=== PATIENT | female | born 1965 | race Caucasian/White ===

== ENCOUNTER 2020-02-25 14:37 | Inpatient (IN) | payer OTHER, SELFPAY ==
[2020-02-25] VITALS (66 sets, daily range): BP systolic 84–160; BP diastolic 42–95; PULSE 72–152; RESP 12–56; TEMP 38.5–39.9; O2SAT 91–100
--- NOTE | ~2020-02-25 | XR_ITS ---
EXAMINATION: XR chest ET placement INDICATION: Endotracheal tube placement TECHNIQUE: Portable AP chest at 1749 hours COMPARISON: 1602 hours FINDINGS: An endotracheal tube has been inserted which ends approximately 7 cm above the shaila. Ther e is stable cardiomegaly. Diffuse interstitial and airspace opacities persist without significant ana nge. No pleural effusion or pneumothorax is identified. IMPRESSION: 1. Endotracheal tube approximately 7 cm above the shaila. 2. Unchanged diffuse lung disease, consistent with pulmonary edema and/or pneumonia and/or atelectasi s. 3. Stable cardiomegaly. Reviewed, dictated and finalized at location A. IMPRESSION: 1. Endotracheal tube approximately 7 cm above the shaila. 2. Unchanged diffuse lung disease, consistent with pulmonary edema and/or pneum onia and/or atelectasis. 3. Stable cardiomegaly.
--- NOTE | ~2020-02-25 | XR_ITS ---
EXAMINATION: XR chest 1V portable INDICATION: Pulmonary edema TECHNIQUE: Portable AP chest at 1249 hours COMPARISON: 02/29/2020 FINDINGS: The endotracheal tube ends approximately 4.2 cm above the shaila. The nasogastric tube is f ollowed as far as the stomach. Its tip is beyond the inferior margin of the radiograph. Diffuse inter stitial and airspace opacities persist with slight improvement in the mid and upper lung zones. There is stable cardiomegaly. Small pleural effusions are unchanged. There is no pneumothorax. IMPRESSION: 1. Diffuse lung disease with slight improvement in the mid and upper lung zones, consistent with atel ectasis and/or pneumonia and/or pulmonary edema. 2. Cardiomegaly. Reviewed, dictated and finalized at location B. IMPRESSION: 1. Diffuse lung disease with slight improvement in the mid and upper lung zones , consistent with atelectasis and/or pneumonia and/or pulmonary edema. 2. Cardiomegaly.
--- NOTE | ~2020-02-25 | XR_ITS ---
EXAMINATION: XR chest 1V portable EXAM DATE: 02/29/2020 06:05 INDICATION: Respiratory failure. TECHNIQUE: Portable AP frontal chest x-ray was obtained. Comparison is made to prior examination from 02/27. FINDINGS: The endotracheal is about 4 cm above the shaila, adequate. There is a nasogastric tube see n with tip collimated off the study, but below the left hemidiaphragm. There is bilateral diffuse indistinct reticulation and Ill-defined more confluent regions, likely pne umonia or edema. Probable small pleural effusions. There is no pneumothorax suspected. The cardiac silhouette is enlarged. There is pulmonary vascular congestion. The bones and soft tissues are unr emarkable. No interval change compared to 02/27 but mild progression compared to 02/26. IMPRESSION: 1. Tubes in position 2. Cardiomegaly, congestion and probable bilateral pulmonary edema and/or pneumonia. 3. Small pleural effusions. Reviewed, dictated and finalized at location A. IMPRESSION: 1. Tubes in position 2. Cardiomegaly, congestion and probable bilateral pulmonary edema and/or pneu monia. 3. Small pleural effusions.
--- NOTE | ~2020-02-25 | XR_ITS ---
EXAMINATION: XR chest 1V portable EXAM DATE: 02/28/2020 05:48 INDICATION: Respiratory failure. TECHNIQUE: Portable AP frontal chest x-ray was obtained. Comparison is made to prior examination from 02/27/2020. FINDINGS: The endotracheal is about 4 cm above the shaila, adequate. There is a nasogastric tube see n with tip collimated off the study, but below the left hemidiaphragm. There is bilateral diffuse indistinct reticulation suspicious for mild pulmonary edema. Ill-defined m ore confluent regions have developed, likely pneumonia or edema. Probable small pleural effusions. T here is no pneumothorax suspected. Cardiac silhouette is enlarged but stable in size compared to pr ior exam. There is pulmonary vascular congestion. The bones and soft tissues are unremarkable. IMPRESSION: 1. Tubes in position 2. Cardiomegaly, congestion and probable bilateral pulmonary edema and/or pneumonia. 3. Small pleural effusions. Reviewed, dictated and finalized at location A. IMPRESSION: 1. Tubes in position 2. Cardiomegaly, congestion and probable bilateral pulmonary edema and/or pneu monia. 3. Small pleural effusions.
--- NOTE | ~2020-02-25 | XR_ITS ---
EXAMINATION: XR tibia fibula LT 2V INDICATION: Swelling and wound to the left lower extremity TECHNIQUE: Two views of the left tibia and fibula are obtained on three radiographs. COMPARISON: None available FINDINGS: No fracture is identified. There is mild osteoarthritis of the knee and ankle. Soft tissue swelling is noted without focal abnormality. IMPRESSION: 1. Soft tissue swelling without focal abnormality or acute osseous findings. Reviewed, dictated and finalized at location A.
--- NOTE | ~2020-02-25 | XR_ITS ---
EXAMINATION: XR chest 1V portable EXAM DATE: 02/27/2020 06:07 INDICATION: Respiratory failure. TECHNIQUE: Portable AP frontal chest x-ray was obtained. Comparison is made to prior examination from 02/26/2020. FINDINGS: The endotracheal tube has been advanced, is about 4-5 cm above the shaila, adequate. There is a nasogastric tube seen with tip collimated off the study, but below the left hemidiaphragm. There is bilateral diffuse indistinct reticulation suspicious for mild pulmonary edema. Bibasilar air space disease probably atelectasis but pneumonia not excludable. There are no sizable pleural effusio ns. There is no pneumothorax suspected. The cardiac silhouette is enlarged. There is pulmonary v ascular congestion. The bones and soft tissues are unremarkable. Accounting for differences in tech nique, there is no significant interval change. IMPRESSION: 1. Tubes in position 2. Cardiomegaly, congestion and probable bilateral pulmonary edema. 3. Bibasilar atelectasis. Pneumonia not excludable. Reviewed, dictated and finalized at location A.
--- NOTE | ~2020-02-25 | XR_ITS ---
EXAMINATION: XR abdomen NG/feed tube insert EXAM DATE: 02/26/2020 00:43 INDICATION: Orogastric tube placement. TECHNIQUE: Frontal projection(s) of the abdomen for interpretation. Comparison is made to prior exami nation from 11/07/2008. FINDINGS: Feeding tube tip and side-port project over gastric bubble, adequate. There is nonobstruct sandra upper abdominal bowel gas pattern. Bibasilar infrahilar atelectasis. Pneumonia not excludable. Ca rdiomegaly. There are no osseous abnormalities identified. IMPRESSION: 1. Feeding tube position. 2. Nonobstructive bowel gas pattern. 3. Bibasilar atelectasis. Pneumonia not excludable. Reviewed, dictated and finalized at location A.
--- NOTE | ~2020-02-25 | XR_ITS ---
EXAMINATION: XR chest 1V portable EXAM DATE: 03/01/2020 06:16 INDICATION: Acute respiratory failure. TECHNIQUE: Portable AP frontal chest x-ray was obtained. Comparison is made to prior examination from 02/29/2020. FINDINGS: The endotracheal is about 3-4 cm above the shaila, adequate. There is a nasogastric tube se en with tip collimated off the study, but below the left hemidiaphragm. There is bilateral diffuse indistinct reticulation and Ill-defined more confluent regions, likely pneumonia or edema. Probable small pleural effusions. There is no pneumothorax suspected. The cardiac silhouette is enlarged. There is pulmonary vascular congestion. The bones and soft tissues are unremarkable. There is no significant interval change. IMPRESSION: 1. Tubes in position 2. Cardiomegaly, congestion and bilateral pulmonary edema and/or pneumonia. 3. Small pleural effusions. Reviewed, dictated and finalized at location A.
--- NOTE | ~2020-02-25 | CT_ITS ---
EXAMINATION: CT LE LT w con EXAM DATE: 03/02/2020 12:18 INDICATION: Left lower extremity swelling, infection. TECHNIQUE: Spiral CT LE LT w con was performed following intravenous injection of 100 mL Omnipaque 35 0. Axial, coronal and sagittal images were reviewed. The dose-length product (DLP) for this examina tion was 1817.30 mGy-cm. The exposure was tailored according to patient size (auto mA exposure contr ol), and iterative reconstruction (ASIR) was used as additional dose reduction technique. There is n o prior study for comparison. FINDINGS: There is some reactive left inguinal lymphadenopathy. Mild scattered left superficial femor al arterial sclerosis, some regions of mild to moderate narrowing. The veins are enhancing as expecte d, no evidence of superficial or deep venous thrombosis. There is no subcutaneous gas to suggest fasc iitis. There is swelling over the anterior aspect of the foot and lower leg without any focal drainab le abscess or fluid collection. There is small left knee joint effusion. There are no bony erosions i dentified. IMPRESSION: 1. No venous thrombosis, abscess or gas to suggest fasciitis. 2. Anterior soft tissue swelling. 3. Small left knee joint effusion. Reviewed, dictated and finalized at location A.
--- NOTE | ~2020-02-25 | XR_ITS ---
XR chest 1V portable 03/02/2020 05:51 Indication: PICC line insertion Procedure: AP portable chest Comparison: 03/01/2020 Findings: Endotracheal tube 5.4 cm above the shaila. NG tube in the proximal aspect of the esophagus. No PICC line identified. Cardiomegaly with interstitial edema. Small right pleural effusion. No pneu mothorax. Impression: 1: No PICC line identified. 2: NG tube in the proximal esophagus. Recommend advancement. 3: Cardiomegaly with interstitial edema. 4: Small right pleural effusion. Reviewed, dictated and finalized at location A. Impression: 1: No PICC line identified. 2: NG tube in the proximal esophagus. Recommend advancement. 3: Cardiomegaly with interstitial edema. 4: Small right pleural effusion.
--- NOTE | ~2020-02-25 | MR_ITS ---
EXAMINATION: MR lumbar spine wo/w con DATE: 03/08/2020 08:27 INDICATION: Bacteremia with back pain and right leg weakness. TECHNIQUE: Magnetic resonance imaging (MRI) of the lumbar spine was performed without intravenous con trast. Sequences included sagittal T2-weighted FSE, sagittal T2-weighted FS FSE, sagittal T1-weighted FSE, and axial T2-weighted FSE. COMPARISON: None FINDINGS: 2 mm retrolisthesis L4 on L5. Vertebral body heights are normal. Moderate disc height loss at T12-L1 and moderate left-sided predominant disc height loss at L5-S1, both with fibrovascular degenerative e ndplate changes. Mild to moderate right-sided predominant disc height loss also with fibrofatty degen erative endplate changes at L4-L5. Mild disc height loss at T10-T11, L2-L3, and L3-L4. Disc desiccati on without significant disc height loss at L1-L2. No evident discitis or osteomyelitis. The conus med ullaris terminates at L2. There is normal signal in the caudal spinal cord. Loculated either fat or blood. Peripherally enhancing fluid collection in the right psoas muscle whic h measures up to 4.7 x 3.9 cm in maximal transaxial dimensions and extends at least 8.5 cm craniocaud ally and beyond the inferior margin of the [id number]. There is edema throughout the surrounding t he iliopsoas muscle and along the anterolateral right paraspinal musculature at the level of L5 and S 1. The fluid collection appears complex with heterogeneous T1 and T2 signal with regions of increased T1 signal suggesting the presence of fat or blood. The following disc levels are specifically discus sed: T12-L1: Disc is bulging. There is mild left and moderate right facet joint osteoarthritis. There is m ild left and minimal right neural foraminal stenosis. There is mild central canal stenosis. L1-L2: Disc is bulging. There is moderate left and severe right facet joint osteoarthritis. There is mild left and minimal right neural foraminal stenosis. There is moderate central canal stenosis. L2-L3: Disc is bulging. There is moderate left and severe right facet joint osteoarthritis. There is mild bilateral neural foraminal stenosis. There is mild to moderate central canal stenosis. L3-L4: Disc is bulging. There is moderate left and severe right facet joint osteoarthritis. There is mild left and moderate right neural foraminal stenosis. There is mild to moderate central canal steno sis. L4-L5: Disc is bulging. There is mild left and moderate right facet joint osteoarthritis. There is mo derate bilateral neural foraminal stenosis. There is mild to moderate central canal stenosis with mod erate narrowing of the left lateral recess. L5-S1: Disc is bulging. There is severe bilateral facet joint osteoarthritis. There is old right and moderate left neural foraminal stenosis. There is normal central canal stenosis with mild narrowing o f the left lateral recess. IMPRESSION: 1. 8.5 x 4.7 x 3.9 cm peripherally enhancing fluid collection within the right iliopsoas muscle suspi cious for either hematoma or abscess. No evident involvement of the spine. 2. Moderate lumbar spondylosis. Reviewed, dictated and finalized at location A. IMPRESSION: 1. 8.5 x 4.7 x 3.9 cm peripherally enhancing fluid collection within the right iliopsoas muscle suspicious for either hematoma or abscess. No evident involvem ent of the spine. 2. Moderate lumbar spondylosis.
--- NOTE | ~2020-02-25 | XR_ITS ---
EXAMINATION: XR chest 1V portable DATE: 03/10/2020 11:24 INDICATION: Hypoxia TECHNIQUE: frontal view of the chest was obtained. COMPARISON: Chest radiograph dated 03/02/2020 FINDINGS: Right upper extremity peripherally inserted central venous catheter (PICC) tip at the right brachioc ephalic vein. Mild opacities in the bilateral lower lung zones. No pneumothorax or definitive pleural effusion. Cardiomegaly. IMPRESSION: 1. Mild opacities in the bilateral lower lung zones which could represent atelectasis, pneumonia or m ild pulmonary edema. 2. Cardiomegaly. Reviewed, dictated and finalized at location A. IMPRESSION: 1. Mild opacities in the bilateral lower lung zones which could represent atele ctasis, pneumonia or mild pulmonary edema. 2. Cardiomegaly.
--- NOTE | ~2020-02-25 | XR_ITS ---
EXAMINATION: XR chest PICC line EXAM DATE: 03/02/2020 09:15 INDICATION: PICC line insertion. Acute respiratory failure. TECHNIQUE: Portable AP frontal chest x-ray was obtained. Comparison is made to prior examination from earlier same date. FINDINGS: Bottom portions of lungs were excluded on this study but its diagnostic to evaluate newly p laced right-sided PICC line which appears to be in position. The endotracheal is about 3-4 cm above t he shaila, adequate. There is a nasogastric tube seen with tip collimated off the study, but below th e left hemidiaphragm. There is bilateral diffuse indistinct reticulation and Ill-defined more confluent regions, likely pneumonia or edema. Probable small pleural effusions. There is no pneumothorax suspected. The cardiac silhouette is enlarged. There is pulmonary vascular congestion. The bones and soft tissues are unremarkable. IMPRESSION: 1. Line, tubes in position. 2. Cardiomegaly, congestion and bilateral pulmonary edema and/or pneumonia. 3. Small pleural effusions. Reviewed, dictated and finalized at location A.
--- NOTE | ~2020-02-25 | CT_ITS ---
EXAMINATION: CTA chest abdomen pelvis DATE: 02/25/2020 20:33 INDICATION: Shortness of breath and abdominal pain TECHNIQUE: Computed tomographic angiography (CTA) of the chest, abdomen, and pelvis was performed wit h 100 mL Omnipque-350 intravenous contrast. Maximum intensity projection 3D-reconstructions of the ao rta and other arteries were constructed by the technologist on a separate workstation. The dose-lengt h product (DLP) was 2009.38 mGy-cm. Automated exposure control and iterative reconstruction technique were employed. COMPARISON: 11/05/2018 FINDINGS: CHEST CTA: There is no aneurysm or dissection of the thoracic aorta. There is volume loss and near complete opac ification of the left lower lobe. Dense consolidation is seen in the right lower lobe. Patchy opaciti es are seen throughout the remaining lung zones. There are small pleural effusions. No pneumothorax i s identified. Cardiomegaly is noted. There is enlargement of the main and central pulmonary arteries, consistent with pulmonary hypertension. Mild mediastinal lymphadenopathy is identified which is like ly reactive. There is moderate thoracic spondylosis. ABDOMEN AND PELVIS CTA: There is no aneurysm or dissection of the abdominal aorta. The celiac axis, superior mesenteric arter y, and inferior mesenteric artery are normal. The common hepatic artery arises from the superior mese nteric artery. Single renal arteries are present bilaterally. The liver, spleen, pancreas, gallbladde r, and right adrenal gland are normal. Stable left adrenal masses have been previously characterized as adenomas. Cysts of the kidneys measure up to 1.2 cm on the right. No pathologically enlarged abdom inal or pelvic lymph nodes are identified. There is no free intraperitoneal gas or evidence of bowel obstruction. The bladder is decompressed by Busch catheter. There is moderate lumbar spondylosis. IMPRESSION: 1. No aneurysm or dissection of the thoracic or abdominal aorta. 2. Volume loss and near complete opacification of the left lower lobe, dense consolidation of the rig ht lower lobe, and patchy airspace opacities elsewhere in the lungs, consistent with atelectasis and pneumonia. 3. Cardiomegaly. 4. Findings suggestive of pulmonary hypertension. Reviewed, dictated and finalized at location A. IMPRESSION: 1. No aneurysm or dissection of the thoracic or abdominal aorta. 2. Volume loss and near complete opacification of the left lower lobe, dense co nsolidation of the right lower lobe, and patchy airspace opacities elsewhere in the lungs, consistent with atelectasis and pneumonia. 3. Cardiomegaly. 4. Findings suggestive of pulmonary hypertension.
--- NOTE | ~2020-02-25 | US_ITS ---
EXAMINATION: US arterial duplex [facility] DATE: 03/14/2020 12:13 INDICATION: Left lower limb swelling. TECHNIQUE: Multiple grayscale and Doppler ultrasound images of the arteries of the left lower limb we re obtained. COMPARISON: None FINDINGS: There are few scattered small peripheral atherosclerotic plaques throughout the vessels of the left l ower limb, none of which appear hemodynamically significant on grayscale images. There is no focal re gion of significant increase in peak systolic velocity to suggest a significant stenosis. Furthermore triphasic waveforms are seen throughout the arteries of the left lower limb, specifically including the left common femoral, proximal, mid and distal superficial femoral, popliteal, posterior tibial, a nterior tibial and dorsalis pedis arteries. IMPRESSION: 1. Small amount of scattered atherosclerotic plaque with no findings to suggest hemodynamically signi ficant stenosis in the left lower limb. Reviewed, dictated and finalized at location A. IMPRESSION: 1. Small amount of scattered atherosclerotic plaque with no findings to suggest hemodynamically significant stenosis in the left lower limb.
--- NOTE | ~2020-02-25 | CT_ITS ---
EXAMINATION: CT guide absc cath placement DATE: 03/09/2020 11:19 INDICATION: Right iliopsoas abscess TECHNIQUE: The procedure including the risks and benefits was discussed with the patient. Risks discu ssed included bleeding and infection. The patient understood the risks and benefits and agreed to pro ceed. The patient was confirmed to be receiving appropriate antibiotic coverage. The skin overlying the right flank was prepped and draped in usual sterile fashion. Anesthetic was administered with 1% lidocaine subcutaneously. Hem Marker CT images were obtained following administration with 100 mL Omnipaq ue-350 intravenous contrast. A posterior approach lateral to the paraspinal musculature was chosen. M oderate conscious sedation was also provided by the department of anesthesia with patient receiving 2 mg Versed and [address]. [address] guidance and 18-gauge trocar needle was inserted into the relatively high attenuation complex right iliopsoas fluid collection by trocar technique. The inner stylet of the needle was removed and there was spontaneous reflux of dark maroon-colored blood. A J-w adamaris was advanced into the fluid collection and utilizing Seldinger technique the needle was removed o nir the wire, the tract serially dilated to 12 Irish and a 12 Irish drainage catheter was placed. T he loop was formed with position confirmed by CT. The wire was removed and the catheter was stitched to the skin with suture. Antibiotic ointment and a sterile dressing were applied. 2 mL of fluid was a spirated and sent to the lab for Gram stain and cultures. There were no immediate complications. The dose-length product was 989.70 mGy-cm. FINDINGS: CT images demonstrate the catheter within the right iliopsoas fluid collection. 2 mL fluid was aspirated for testing. IMPRESSION: 1. Successful CT-guided right iliopsoas abscess drainage. Based upon appearance of the fluid collecti on may actually represent a hematoma and would correlate with the results of the Gram stain and cultu re. 2. 2 mL dark maroon-colored fluid was sent for aerobic and anaerobic cultures. 3. The catheter will be managed by Dr. Hansen. Reviewed, dictated and finalized at location A. IMPRESSION: 1. Successful CT-guided right iliopsoas abscess drainage. Based upon appearance of the fluid collection may actually represent a hematoma and would correlate with the results of the Gram stain and culture. 2. 2 mL dark maroon-colored fluid was sent for aerobic and anaerobic cultures. 3. The catheter will be managed by Dr. Hansen.
--- NOTE | ~2020-02-25 | US_ITS ---
EXAMINATION: US arterial ankle brachial ind EXAM DATE: 03/01/2020 10:58 INDICATION: Arterial insufficiency, peripheral arterial disease. Left leg redness. TECHNIQUE: Segmental pressures and plethysmographic and Doppler waveforms of the brachial and lower e xtremity arteries were obtained. There is no prior study for comparison. FINDINGS: Right and left brachial artery pressures of 127 mm Hg and 140 mm Hg, respectively, are concordant (no rmal difference <= 30 mmHg). RIGHT LEG: The ankle-brachial index (PRADIP) is 1.01 (normal >= 0.9-1). The great toe-brachial index (TBI) is 0.87 (normal >= 0.65). The lower extremity ratios, segmental pressure gradients as follows; Dorsalis pedis: 1.01 (141 mmHg). Posterior tibial: 0.94 (131 mmHg). (Normal gradients <= 20-30 mmHg between adjacent levels on the same leg or the same levels on the two legs). Arterial waveforms are biphasic. LEFT LEG: The ankle-brachial index (PRADIP) is 0.98 (normal >= 0.9-1). The great toe-brachial index (TBI) is 0.62 (normal >= 0.65). The lower extremity ratios, segmental pressure gradients as follows; Dorsalis pedis: 0.91 (127 mmHg). Posterior tibial: 0.98 (137 mmHg). (Normal gradients <= 20-30 mmHg between adjacent levels on the same leg or the same levels on the two legs). Arterial waveforms are biphasic. IMPRESSION: 1. Right ankle-brachial index 1.01, normal. 2. Left ankle-brachial index 0.98, normal. 3. Segmental pressures as above. Reviewed, dictated and finalized at location A.
--- NOTE | ~2020-02-25 | US_ITS ---
EXAMINATION: US venous doppler [facility] DATE: 03/14/2020 12:13 INDICATION: Left lower limb swelling. Endocarditis. TECHNIQUE: Grayscale ultrasound images without and with compression and Doppler ultrasound images of the left lower extremity veins were obtained. COMPARISON: None. FINDINGS: The visualized portions of left common femoral vein, profunda (deep) femoral vein, femoral vein, popl iteal vein, peroneal veins, posterior tibial veins, gastrocnemius vein, lesser saphenous vein and gre ater saphenous vein outflow are patent. IMPRESSION: 1. No deep venous thrombosis in the left lower limb. Reviewed, dictated and finalized at location A.
--- NOTE | ~2020-02-25 | US_ITS ---
EXAMINATION: US venous doppler [facility] EXAM DATE: 03/07/2020 17:06 INDICATION: Left leg pain. TECHNIQUE: Multiple grayscale, color flow and Doppler images of the left lower extremity deep venous system were obtained and reviewed. Comparison is made to prior examination from 02/26/2020. FINDINGS: The left common femoral, femoral and profunda veins demonstrate normal color flow, respirat ory variation, augmentation and compressibility. Compressibility, color flow confirmed within the le ft popliteal, posterior tibial, peroneal, and greater saphenous veins. IMPRESSION: 1. No left lower extremity deep venous thrombosis. Reviewed, dictated and finalized at location A.
--- NOTE | ~2020-02-25 | US_ITS ---
EXAMINATION: US venous doppler [facility] DATE: 02/26/2020 10:37 INDICATION: Left lower limb edema. TECHNIQUE: Grayscale ultrasound images without and with compression and Doppler ultrasound images of the left lower extremity veins were obtained. COMPARISON: Ultrasound 11/06/2018 FINDINGS: Sensitivity is decreased by obesity. The visualized portions of left common femoral vein, profunda (d eep) femoral vein, femoral vein, popliteal vein, peroneal veins, posterior tibial veins, and greater saphenous vein outflow are patent. IMPRESSION: 1. No deep venous thrombosis. Reviewed, dictated and finalized at location A.
--- NOTE | ~2020-02-25 | XR_ITS ---
EXAMINATION: XR chest ET placement EXAM DATE: 02/26/2020 00:43 INDICATION: Endotracheal tube repositioned. TECHNIQUE: Portable AP frontal chest x-ray was obtained. Comparison is made to prior examination from earlier same date. FINDINGS: The endotracheal tube has been advanced, is about 5 cm above the shaila, adequate. There i s a nasogastric tube seen with tip collimated off the study, but below the left hemidiaphragm. There is bilateral diffuse indistinct reticulation suspicious for mild pulmonary edema. Bibasilar air space disease probably atelectasis but pneumonia not excludable. There are no sizable pleural effusio ns. There is no pneumothorax suspected. The cardiac silhouette is enlarged. There is pulmonary v ascular congestion. The bones and soft tissues are unremarkable. Endotracheal tube has been advance d, otherwise no significant interval change. IMPRESSION: 1. Line(s) and tube(s) in position. 2. Cardiomegaly, congestion and probable bilateral pulmonary edema. 3. Bibasilar atelectasis. Pneumonia not excludable. Reviewed, dictated and finalized at location A.
--- NOTE | ~2020-02-25 | CT_ITS ---
EXAMINATION: CT brain wo con EXAM DATE: 03/07/2020 17:11 INDICATION: Right leg hemiparesis. TECHNIQUE: Spiral CT of the head was performed without contrast. Axial, coronal and sagittal images were reviewed. The dose-length product (DLP) for this examination was 681.00 mGy-cm. The exposure w as tailored according to patient size, and iterative reconstruction (ASIR) was used as additional dos e reduction technique. Comparison is made to prior examination from 01/11/2010. FINDINGS: There is no acute intraparenchymal hemorrhage. No evidence of intraparenchymal brain mass lesion. No evidence of acute infarction. There is no mass effect or midline shift. The ventricles are normal in size. There are no extra-axial collections. There are no acute calvarial fractures. T he orbits are unremarkable. Soft tissue is unremarkable. The visualized sinuses and mastoid air catracho ls are well aerated. IMPRESSION: 1. Unremarkable head CT examination. Reviewed, dictated and finalized at location A.
--- NOTE | ~2020-02-25 | XR_ITS ---
EXAMINATION: XR chest 1V portable INDICATION: Fever and shortness of breath TECHNIQUE: Portable AP chest at 1602 hours COMPARISON: 11/12/2018 FINDINGS: There is stable cardiomegaly. Diffuse interstitial and airspace opacities are present, righ t greater than left. No pleural effusion or pneumothorax is identified. IMPRESSION: 1. Cardiomegaly. 2. Diffuse interstitial and airspace opacities, consistent with pulmonary edema and/or pneumonia and/ or atelectasis. Reviewed, dictated and finalized at location A. IMPRESSION: 1. Cardiomegaly. 2. Diffuse interstitial and airspace opacities, consistent with pulmonary edema and/or pneumonia and/or atelectasis.
--- NOTE | 2020-02-25 15:10 | ECG_ITS ---
Measurements Intervals [place] Rate: 112 P: IA: 0 QRS: -69 QRSD: 138 T: 99 QT: 369 QTc: 506 Interpretive Statements MULTIFOCAL ATRIAL TACHYCARDIA ATRIAL PREMATURE COMPLEXES INTRAVENTRICULAR CONDUCTION DELAY POSSIBLE LEFT VENTRICULAR HYPERTROPHY POOR R WAVE PROGRESSION, ANTERIOR LEADS ST-T WAVE ABNORMALITY IN HIGH LATERAL LEADS- CONSIDER ISCHEMIA BASELINE WANDER- V1-V2 ABNORMAL ECG Electronically Signed On 02-26-2020 6:56:15 CDT by Trevor Erwin D.O.
[2020-02-25 15:38] LABS: Alveolar/Arterial O2 Gradient 50.4 mmHg; Base Excess ABG -7.3 mEq/l (+/-2.0); Carboxyhemoglobin 1.3 % THb (0-2.0); Fractional Inspired Oxygen 21 %; Methemoglobin ABG 0.2 %THb (0-1.5); Oxygen Content ABG 20.4 %vol (16.0-22.0); Oxygen Saturation ABG 94.8 % (95.0-100.0); PO2 ABG 70.6 mmHg (80.0-100.0); PO2 FiO2 Ratio Arterial Blood 3.36 %; Reduced Hemoglobin 5.5 %THb (0-5.0); Total Hemoglobin 15.6 g/dL (12.0-18.0); pH ABG 7.414 (7.350-7.450)
[2020-02-25 15:41] LABS: Device ROOM AIR; Modified Allen's Test Pass; Site Drawn RIGHT RADIAL
[2020-02-25 15:41] LABS: Hematocrit 45.8 % (37.0-47.0); Hemoglobin 15.8 g/dL (12.0-15.0); Immature Platelet Fraction Pct 7.3 % (0.9-11.2); Mean Corpuscular HGB Conc 34.5 g/dl (32-36); Mean Corpuscular Hemoglobin 31.3 pg (26-34); Mean Corpuscular Volume 90.7 fl (80-100); Mean Platelet Volume 11.4 fl (7.4-10.4); Platelet Count Result 103 k/mm3 (150-375); Red Blood Count 5.05 M/mm3 (4.2-5.4); Red Cell Distribution Width 13.6 % (11.5-14.5); White Blood Count 15.9 K/mm3 (4.5-10.0)
[2020-02-25 15:43] LABS: Glucose Point of Care 211 (65-105)
[2020-02-25 15:50] LABS: Lactic Acid Reflex 1.6 mmol/L (0.7-2.1)
[2020-02-25 15:57] LABS: INR 1.2; Partial Thromboplastin Time 31.5 SECONDS (22.3-36.8); Prothrombin Time 14.6 Seconds (11.1-14.7)
[2020-02-25 16:02] LABS: Band Neutrophils Percent 20 % (0-6); Lymphocytes Absolute Manual 0.63 K/mm3 (1.1-4.5); Lymphocytes Percent Manual 4 % (18-44); Neutrophils Absolute Manual 14.62 K/mm3 (1.7-7.2); Neutrophils Percent Manual 72 % (46-73); Total Cells Counted 100
[2020-02-25 16:03] LABS: Metamyelocytes Percent 1 %; Monocytes Absolute Manual 0.47 K/mm3 (0.1-0.90); Monocytes Percent Manual 3 % (3-9); Platelet Estimate Decreased (Adequate)
[2020-02-25] MEDS: SODIUM CHLORIDE 0.9% IV 1,000 ML 999 ML IV CONT ×3 (16:03→16:15)
[2020-02-25 16:11] LABS: Albumin Level 3.8 g/dL (3.5-5.1); Alkaline Phosphatase 115 U/L (38-126); Anion Gap 19.3 mmol/L (7-16); Aspartate Amino Transferase 154 U/L (14-36); Bilirubin,Total 1.3 mg/dL (0.2-1.3); Blood Urea Nitrogen 27 mg/dL (7-17); Calcium 8.3 mg/dL (8.4-10.2); Carbon Dioxide 19 mmol/L (22-30); Chloride 90 mmol/L (98-107); Estimated CRCL calculation 86 ml/min; Estimated Glomerular Filt Rate > 60; Glucose 200 mg/dL (65-105); Potassium 3.3 mmol/L (3.4-5.0); Sodium 125 mmol/L (137-145)
--- NOTE | 2020-02-25 16:15 | PC.NURSE ---
EDP to room. Notified that patien+t's temperature had increased to 104.1 with core oneal temperature probe. Also notified that patient is having downward trending noted. normal saline 1000 ml to be hung wide open per verbal order of Dr. Smith.. Fluids hung at this time as well. Crash cart moved to room at this time. Patient is lethargic but will wake with verbal stimuli. She remains oriented to person, place, day, month, year, and current events.
[2020-02-25 16:20] LABS: Creatine Kinase 864 U/L (30-135)
[2020-02-25 16:33] LABS: Add Urine Microscopic? YES; Appearance Urine Clear (Clear); Bacteria Urine Trace /hpf; Bilirubin Urine Negative (Negative); Blood Urine 1+ (Negative); Color Urine Amber (Yellow); Glucose Urine UA 1+ mg/dL (Negative); Ketones Urine 1+ mg/dL (Negative); Leukocyte Esterase Ur Negative LEU/UL (Negative); Mucus Urine Rare /lpf; Nitrate Urine Negative (Negative); Protein Urine 2+ mg/dL (Negative); Specific Grav Ur 1.026 (1.001-1.035); Squamous Epithelial Cell Urine Rare /hpf (Few)
--- NOTE | 2020-02-25 16:35 | ED.FEVER ---
HPI - Fever General Chief Complaint: Fever <Parvin Smith MD - Last Filed: 02/26/20 20:58> Stated Complaint: FEVER SINCE WEDNESDAY <Parvin Smith MD - Last Filed: 02/26/20 20:58> Time Seen by Provider: 02/25/20 15:21 <Parvin Smith MD - Last Filed: 02/26/20 20:58> Source: EMS <Parvin Smith MD - Last Filed: 02/26/20 20:58> Mode of arrival: ambulatory <Parvin Smith MD - Last Filed: 02/26/20 20:58> Limitations: no limitations <Parvin Smith MD - Last Filed: 02/26/20 20:58> History of Present Illness HPI Narrative: This patient is a 54 year old female with history of DM who presents for sepsis. Patient reports she developed left leg pain and redness on . She also reports she developed nausea, vomiting and diarrhea. She has been so weak for the last 3 days that she has been laying in bed for 3 days. She was found in bed incontinent of urine and stool. Nursing staff reports skin break down due to laying in bed. She reports shortness of breath but no chest pain. <Parvin Smith MD - Last Filed: 02/26/20 20:58> MD elicited complaint: fever <Parvin Smith MD - Last Filed: 02/26/20 20:58> Pertinent past history: diabetes <Parvin Smith MD - Last Filed: 02/26/20 20:58> Related Data Home Medications: Home Medications Medication Instructions Recorded Confirmed fluoxetine 60 mg tablet 60 mg PO DAILY 06/26/19 02/26/20 albuterol sulfate 2 puff INHALATION Q4H PRN 02/26/20 02/26/20 atorvastatin 40 mg PO DAILY 02/26/20 02/26/20 bupropion HCl 150 mg PO DAILY 02/26/20 02/26/20 glipizide 7.5 mg PO DAILY 02/26/20 02/26/20 <Parvin Smith MD - Last Filed: 02/26/20 20:58> Allergies/Adverse Reactions: Allergies Allergy/AdvReac Type Severity Reaction Status Date / Time adhesive tape Allergy Unknown Hives / Verified 11/05/18 16:52 Red Face <Parvin Smith MD - Last Filed: 02/26/20 20:58> Review of Systems Review of Systems: All systems reviewed & are unremarkable except as noted in HPI and below <Parvin Smith MD - Last Filed: 02/26/20 20:58> Constitutional: Constitutional: Reports fatigue and Reports fever(s) <Parvin Smith MD - Last Filed: 02/26/20 20:58> Cardiovascular: Cardiovascular: Denies chest pain <Parvin Smith MD - Last Filed: 02/26/20 20:58> Respiratory: Respiratory: Denies chest congestion, Denies cough, Reports dyspnea and Denies wheezing <Parvin Smith MD - Last Filed: 02/26/20 20:58> Gastrointestinal: Gastrointestinal: Reports abdominal pain, Reports nausea and Reports vomiting <Parvin Smith MD - Last Filed: 02/26/20 20:58> Integumentary/Breasts: Skin/Breast: Reports erythema <Parvin Smith MD - Last Filed: 02/26/20 20:58> Neurologic: Reports weakness <Parvin Smith MD - Last Filed: 02/26/20 20:58> [facility] Past Medical History Medical History: Medical History Asthma Chronic back pain Secondary to degenerative disc disease. Chronic obstructive pulmonary disease Depression with anxiety Diabetic peripheral neuropathy Diastolic dysfunction On echo in 12/2017. Ejection fraction was 65%. Essential hypertension Hyperlipidemia Morbid obesity Obstructive sleep apnea It is my understanding that she does not wear a CPAP at nighttime. Osteomyelitis Seasonal rhinitis Type 2 diabetes mellitus Hemoglobin A1c was 7.8% on 12/26/2019. Vitamin D deficiency <Parvin Smith MD - Last Filed: 02/26/20 20:58> Surgical History Surgical History: Surgical History History of section History of endometrial ablation History of hernia repair History of hysterectomy History of tubal ligation <Parvin Smith MD - Last Filed: 02/26/20 20:58> Family History Family History: Family History (Reviewed 02/26/20 @ 10:49 by Zafar Polanco
--- NOTE | 2020-02-25 16:38 | PC.NURSE ---
Lab notified of add on for beta-hydroyebutyrate/acetoacetate, they report that there is a problem with the primary analyzer and are working to get the back up online to run the test.
[2020-02-25 16:55] LABS: CRP 38.9 mg/dL (<1.0)
[2020-02-25 17:09] LABS: Alanine Aminotransferase 78 U/L (4-35)
[2020-02-25] MEDS: KETAMINE HCL 500 MG/10 ML VIAL 240 MG IV PUSH (17:28)
[2020-02-25] MEDS: SUCCINYLCHOLINE CHLORIDE 20 MG/ML 10 ML VIAL 100 MG IV PUSH (17:31)
--- NOTE | 2020-02-25 17:38 | PC.NURSE ---
xray notified of order for ET Tube verification.
[2020-02-25] MEDS: MIDAZOLAM HCL 10 MG/2 ML VIAL 4 MG IV PUSH (17:52)
[2020-02-25] MEDS: ROCURONIUM BROMIDE 50 MG/5 ML VIAL IV PUSH (18:15)
--- NOTE | 2020-02-25 18:24 | PC.NURSE ---
ETT was placed by Dr. Smith with use of the glide scope at 1733. She placed a 7.5 ETT which was secured at 25 cm at the teeth by Charu from respiratory therapy. Chest xray for verification of placement was then ordered. Colormetric CO2 detector showed color change. Fogging was noted in the tube. Tube was visualized passing the cords on the glide scope. Increase in oxygen saturation was noted. Bilateral and equal breath sounds were noted. No breath sounds were noted over the epigastrium.
--- NOTE | 2020-02-25 18:33 | PC.NURSE ---
Large area of rash and redness noted to left lower abdomen. Patient reports this only began 3-4 days ago. Area is noted to be moist and has minor serous drainage. This is noted to extend to groin area bilaterally with further extension to the upper thigh on the left leg. Large area of redness with diffuse rash is noted to the left leg. Line of demarcation noted just superior to the left knee. Area of concern spreads down the rest of the lower leg and throughout the foot. This area is reportedly very painful with any palpation. border outlined with skin marker.
--- NOTE | 2020-02-25 19:07 | ECG_ITS ---
ATRIAL FLUTTER/TACHYCARDIA WITH RAPID VENTRICULAR RESPONSE RIGHT AXIS DEVIATION LEFT BUNDLE BRANCH BLOCK BASELINE ARTIFACT- I, AVL ABNORMAL ECG Electronically Signed On 02-25-2020 21:03:09 CDT by Trevor FERRELL
[2020-02-25] MEDS: dilTIAZem HCl INJ 25 MG/5 ML VIAL 10 MG IV PUSH (19:28)
[2020-02-25] MEDS: ENOXAPARIN 120 MG/0.8 ML SYRINGE SUB-Q (19:29)
--- NOTE | 2020-02-25 22:30 | PM.IMHP ---
H&P: HPI History of Present Illness Chief complaint: Fever since . Narrative: Apple Littlejohn is a 54-year-old female with type 2 diabetes mellitus, hypertension, hyperlipidemia, diastolic congestive heart failure, obstructive sleep apnea, COPD/asthma, depression with anxiety, and morbid obesity who presented to the emergency department earlier this afternoon via EMS from home for evaluation of fever for 3 days. She is currently sedated and intubated, and cannot provide me with any history. As such the following history is obtained via a review of her electronic medical records as well as discussions with the ED physician and staff. I also spoke with her son Isaiah via phone. The patient lives at home with her son, and he reiterates that she has been feeling poorly for the past 3 days. She has a chronic cough that is occassionally productive, but he does not think that it has been worse over the past few days. 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 No sick contacts to his knowledge. On she noticed that her left leg was red and painful and shortly thereafter she began experiencing nausea, vomiting, and diarrhea. She also reports a fever and profound weakness to the point where she had been in bed for 3 days. Triage note also mentions that the patient mentioned feelings of shortness of breath and cough productive of yellow sputum. Dr. Smith, attending emergency department physician, notes that the patient was alert and oriented x3 at the time of her initial evaluation however as time progressed the patient began feeling increasingly short of breath and tired, requesting help for breathing. She was subsequently intubated. It is also noted of the patient briefly went into atrial fibrillation with rapid ventricular response, and she was to be given digoxin 0.5 milligrams however she has spontaneously converted to a sinus rhythm. Review of Systems Review of Systems: Narrative: A review of systems is unable to be obtained as she is sedated and intubated. [facility] Past Medical History Medical History (Updated 02/25/20 @ 23:37 by Rosalia Barber PA-C) Asthma Chronic back pain Secondary to degenerative disc disease. Chronic obstructive pulmonary disease Depression with anxiety Diabetic peripheral neuropathy Diastolic dysfunction On echo in 12/2017. Ejection fraction was 65%. Essential hypertension Hyperlipidemia Morbid obesity Obstructive sleep apnea It is my understanding that she does not wear a CPAP at nighttime. Osteomyelitis Seasonal rhinitis Type 2 diabetes mellitus Hemoglobin A1c was 7.8% on 12/26/2019. Vitamin D deficiency Surgical History Surgical History (Updated 02/25/20 @ 23:11 by Rosalia Barber PA-C) History of section History of endometrial ablation History of hernia repair History of hysterectomy History of tubal ligation Family History Family History (Updated 02/25/20 @ 23:11 by Rosalia Barber PA-C) Father Diabetes mellitus Hypertension Other Cancer Cerebrovascular accident Social History Social History (Updated 02/25/20 @ 23:12 by Rosalia Barber PA-C) Social History: The patient is and lives in [place]. 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 She smoked 2 packs of cigarettes a week for 30 years and quit in 2016. No mention of alcohol or illicit substance use. She had previously designated her son, Erick Littlejohn, as her surrogate decision maker. Smoking end date: 11/03/16 Meds Home Medications and Allergies Home Medications Medication Instructions Recorded Confirmed Type gabapentin 300 mg capsule 300 mg PO TID #270 cap 06/20/19 02/06/20 Rx fluoxetine 60 mg tablet 60 mg PO DAILY 06/26/19 02/06/20 History lisinopril 40 mg tablet 40 mg PO DAILY #90 tablet 06/26/19 02/06/20 Rx glipizide 5 mg tablet, extended See Rx Instructions PO DAILY #135 10/30/19 07
--- NOTE | 2020-02-25 22:54 | PC.NURSE ---
Per verbal order of hospitalist, digoxin is not to be administered at this time.
[2020-02-26] VITALS (30 sets, daily range): BP systolic 96–129; BP diastolic 63–87; PULSE 53–101; RESP 18–33; TEMP 37.2–39.4; O2SAT 96–100; BMI 45.1; BMI 44.9
[2020-02-26] MEDS: SODIUM CHLORIDE 0.9% IV 1,000 ML 125 ML IV CONT (00:39)
[2020-02-26 01:02] LABS: Lactic Acid 1.9 mmol/L (0.7-2.1)
[2020-02-26 01:08] LABS: Anion Gap 17.3 mmol/L (7-16); Blood Urea Nitrogen 30 mg/dL (7-17); Calcium 7.2 mg/dL (8.4-10.2); Carbon Dioxide 20 mmol/L (22-30); Chloride 94 mmol/L (98-107); Estimated CRCL calculation 57 ml/min; Estimated Glomerular Filt Rate 39; Glucose 222 mg/dL (65-105); Lactate Dehydrogenase 1045 U/L (313-618); Magnesium 2.2 mg/dL (1.6-2.3); Potassium 3.3 mmol/L (3.4-5.0); Sodium 128 mmol/L (137-145)
[2020-02-26 01:13] LABS: D Dimer 11.08 ug/mL (<0.48)
[2020-02-26 01:23] LABS: Creatine Kinase 695 U/L (30-135); NT Pro B Type Natriuretic Pept 28400 PG/ML (5-100); Troponin I 0.617 ng/mL (0.000-0.034)
[2020-02-26] MEDS: POTASSIUM CHLORIDE 20 MEQ PACKET (FOR LIQUID) PO (01:25)
[2020-02-26 02:24] LABS: Thyroid Stimulating Hormone Reflex 0.291 uIU/mL (0.465-4.68)
[2020-02-26 02:28] LABS: Creatinine Urine 84.1 mg/dL
--- NOTE | 2020-02-26 02:29 | ADMIMU ---
This patient, Apple Littlejhon, was admitted to IMU status, and placed in Intensive Care Unit-3 02/25/20 at 2330 . Patient/family oriented to hospital policies and general routines including ID bracelet, bed and alarms, visiting hours, pain management, procedures, bathroom and other care routines, personal items, smoking policy, room service/diet, and visiting hours. Valuables list has been completed. No belongings sent with patient. Information on how to activate the Rapid Response Team has been discussed. Patient/Family are encouraged to report perceived risks to care and to ask questions if they do not understand what they are told or what they should do.
[2020-02-26 03:21] LABS: Sodium Urine Random < 5 meq/L
[2020-02-26 03:36] LABS: Hepatitis B Surface Antigen Negative (Negative)
[2020-02-26 03:41] LABS: Free T4 Free Thyroxine Reflex 1.52 ng/dL (0.78-2.19)
[2020-02-26 03:42] LABS: HAV RESULT Negative (Negative); Hepatitis B Core IgM Result Negative (Negative)
[2020-02-26 03:53] LABS: Hepatitis C Virus Antibody Negative (Negative)
[2020-02-26 04:23] LABS: Total Triiodothyronine (T3) 0.48 NG/ML (0.97-1.69)
[2020-02-26 04:56] LABS: Hematocrit 44.1 % (37.0-47.0); Hemoglobin 14.6 g/dL (12.0-15.0); Immature Platelet Fraction Pct 8.1 % (0.9-11.2); Mean Corpuscular HGB Conc 33.1 g/dl (32-36); Mean Corpuscular Hemoglobin 30.7 pg (26-34); Mean Corpuscular Volume 92.8 fl (80-100); Mean Platelet Volume 12.2 fl (7.4-10.4); Platelet Count Result 96 k/mm3 (150-375); Red Blood Count 4.75 M/mm3 (4.2-5.4); Red Cell Distribution Width 14.1 % (11.5-14.5); White Blood Count 16.1 K/mm3 (4.5-10.0)
[2020-02-26 05:05] LABS: INR 1.2; Prothrombin Time 14.9 Seconds (11.1-14.7)
[2020-02-26 05:06] LABS: Alanine Aminotransferase 79 U/L (4-35); Albumin Level 3.2 g/dL (3.5-5.1); Alkaline Phosphatase 105 U/L (38-126); Anion Gap 16.1 mmol/L (7-16); Aspartate Amino Transferase 158 U/L (14-36); Bilirubin,Total 0.8 mg/dL (0.2-1.3); Blood Urea Nitrogen 32 mg/dL (7-17); Calcium 7.4 mg/dL (8.4-10.2); Carbon Dioxide 20 mmol/L (22-30); Chloride 93 mmol/L (98-107); Creatine Kinase 625 U/L (30-135); Estimated CRCL calculation 60 ml/min; Estimated Glomerular Filt Rate 39; Glucose 228 mg/dL (65-105); Magnesium 2.2 mg/dL (1.6-2.3); Partial Thromboplastin Time 39.4 SECONDS (22.3-36.8); Potassium 3.1 mmol/L (3.4-5.0); Sodium 126 mmol/L (137-145)
[2020-02-26 05:23] LABS: Troponin I 0.971 ng/mL (0.000-0.034)
[2020-02-26 07:08] LABS: Glucose Point of Care 274 (65-105)
[2020-02-26 08:26] LABS: Band Neutrophils Percent 22 % (0-6); Lymphocytes Absolute Manual 0.16 K/mm3 (1.1-4.5); Monocytes Absolute Manual 0.32 K/mm3 (0.1-0.90); Monocytes Percent Manual 2 % (3-9); Neutrophils Absolute Manual 15.61 K/mm3 (1.7-7.2); Neutrophils Percent Manual 75 % (46-73); Platelet Estimate Decreased (Adequate); Total Cells Counted 100
[2020-02-26] MEDS: ENOXAPARIN 120 MG/0.8 ML SYRINGE SUB-Q ×2 (08:30→20:06)
[2020-02-26] MEDS: FAMOTIDINE 20 MG/2 ML VIAL IV PUSH ×2 (08:30→20:07)
[2020-02-26] MEDS: TOLNAFTATE 1% POWDER 45 GM BTL 1 APPLIC TOPICAL ×2 (08:31→20:08)
[2020-02-26] MEDS: DEXAMETHASONE SOD PHOS INJ 4 MG/ML VIAL 6 MG IV PUSH (08:31)
[2020-02-26] MEDS: SODIUM CHLORIDE 0.9% IV 1,000 ML 75 ML IV CONT (08:32)
[2020-02-26] MEDS: INSULIN DETEMIR 100 UNITS/ML SUB-Q ×2 (09:05→20:07)
[2020-02-26 09:12] LABS: Glucose Point of Care 187 (65-105)
--- NOTE | 2020-02-26 09:14 | PM.CNCAR ---
Assessment and Plan Assessment and plan (1) Pneumonia: Code(s): J18.9 - Pneumonia, unspecified organism Status: Acute Assessment and Plan: Patient is a 54-year-old woman with history of heart failure with preserved ejection fraction, hypertension, hyperlipidemia, diabetes mellitus type 2, morbid obesity, obstructive sleep apnea (not on CPAP), COPD, asthma, current tobacco dependence (60 pack year), depression, anxiety, who is seen in cardiac consultation for atrial fibrillation with rapid ventricular response. - she had new onset atrial fibrillation with rapid ventricular response with subsequent conversion spontaneously to sinus rhythm, occurring in the setting of pneumonia, with sepsis, and associated non ST elevation myocardial infarction. - Evaluation for COVID-19 and antibiotic therapy for pneumonia and cellulitis as per primary and intensive services. (2) Atrial fibrillation with rapid ventricular response: Code(s): I48.91 - Unspecified atrial fibrillation Status: Acute Assessment and Plan: - she had new onset atrial fibrillation with rapid ventricular response with subsequent conversion spontaneously to sinus rhythm, occurring in the setting of pneumonia, with sepsis, and associated non ST elevation myocardial infarction. - She is not currently on rate control agents given her return to sinus rhythm and given her low normal blood pressures with sepsis. - Consider metoprolol tartrate 5 mg IV q.6 hours p.r.n.. - continue therapeutic enoxaparin in the setting of her NSTEMI and atrial fibrillation. - Magnesium 2.2 and free T4 normal. Replete potassium which was initially low at 3.3 then 3.1. (3) Cellulitis of left leg: Code(s): L03.116 - Cellulitis of left lower limb Status: Acute Assessment and Plan: -Antibiotic therapy for her left lower extremity cellulitis and pneumonia as per primary and instrument lens generator services. -left lower extremity venous Doppler this admission negative for DVT preliminary report. (4) Non-ST elevation myocardial infarction (NSTEMI): Code(s): I21.4 - Non-ST elevation (NSTEMI) myocardial infarction Status: Acute Assessment and Plan: - she had non ST elevation myocardial infarction with peak troponin I 0.971 occurring in the setting of pneumonia with sepsis and new onset atrial fibrillation with rapid ventricular response. - continue to trend troponin I. - begin aspirin, with careful monitoring of platelets. - continue therapeutic enoxaparin. - obtain echo to evaluate cardiac structure and function. - Previously, she had a Lexiscan nuclear stress test 01/02/2019: Negative for ischemia or infarct, normal left ventricular ejection fraction 55%. - Pending stabilization of her acute renal failure and pending resolution of her pneumonia, she may benefit from left heart catheterization for definitive evaluation for coronary artery disease. History of Present Illness History of Present Illness Consult date/time: 02/26/20 09:14 Patient is a 54-year-old woman with history of heart failure with preserved ejection fraction, hypertension, hyperlipidemia, diabetes mellitus type 2, morbid obesity, obstructive sleep apnea (not on CPAP), COPD, asthma, current tobacco dependence (60 pack year), depression, anxiety, who is seen in cardiac consultation for atrial fibrillation with rapid ventricular response. Patient presented to the emergency department for evaluation of fever for 3 days in the setting of left leg redness and pain. She had also been experiencing nausea, vomiting, and diarrhea, as well as profound weakness. She was noted be in progressive respiratory failure in the emergency department requiring intubation and she also developed at that time atrial fibrillation with rapid ventricular response 147 beats per minute, with intraventricular conduction delay on her EKG. She subsequently spontaneously converted to sinus rhythm 69 beats per minute
--- NOTE | 2020-02-26 11:27 | WPDCNINT ---
Assessment and Plan Assessment and plan (1) Acute respiratory failure: Qualifiers: Respiratory failure complication: unspecified whether with hypoxia or hypercapnia Qualified Code(s): J96.00 - Acute respiratory failure, unspecified whether with hypoxia or hypercapnia Code(s): J96.00 - Acute respiratory failure, unspecified whether with hypoxia or hypercapnia Status: Acute Assessment and Plan: patient presented with left lower extremity cellulitis, increasing shortness of breath and impending respiratory failure in the ER, patient was intubated on 02/25/2020 and placed on CMV mode of ventilation - chest x-ray and CTA chest reviewed, likely pneumonia - continue antibiotics, bronchodilators - sedated with fentanyl and Versed infusion, daily sedation vacation, maintain RASS of 0 to -2 (2) Severe sepsis: Code(s): A41.9 - Sepsis, unspecified organism; R65.20 - Severe sepsis without septic shock Status: Acute Assessment and Plan: patient presented with left lower extremity cellulitis, acute respiratory failure requiring intubation likely secondary to pneumonia - patient received adequate IV fluids per sepsis protocol - currently on maintenance IV fluids which was decreased this morning - patient had a cheetah, was not a fluid responder - continue imipenem, vancomycin - blood cultures growing gram-positive cocci in changes 2/2 bottles (3) Cellulitis of left leg: Code(s): L03.116 - Cellulitis of left lower limb Status: Acute Assessment and Plan: Cellulitis of left lower extremity with beefy red skin appearance, warm, edematous - left lower extremity venous Doppler was negative for DVT - x-ray of the left lower extremity showed soft tissue swelling without focal abnormality or acute osseous findings. - Continue IV fluids and antibiotic as above (4) Atrial fibrillation with rapid ventricular response: Code(s): I48.91 - Unspecified atrial fibrillation Status: Acute Assessment and Plan: new onset AFib RVR, likely related to severe sepsis, non ST-elevation OH with elevated troponin - currently in sinus rhythm, rate controlled - appreciate Cardiology evaluation and recommendation - p.r.n. metoprolol IV has been ordered - continue therapeutic Lovenox (5) Pneumonia: Qualifiers: Pneumonia type: due to unspecified organism Laterality: bilateral Lung location: unspecified part of lung Qualified Code(s): J18.9 - Pneumonia, unspecified organism Code(s): J18.9 - Pneumonia, unspecified organism Status: Acute Assessment and Plan: bilateral pneumonia seen on CTA, continue antibiotics as above - continue mechanical ventilation - bronchodilators (6) Elevated troponin: Code(s): R79.89 - Other specified abnormal findings of blood chemistry Status: Acute Assessment and Plan: patient with elevated troponin, likely related to her NSTEMI, this could be type 2 infarct secondary to severe sepsis with pneumonia and new onset AFib RVR. - Appreciate cardiology following the patient, continue aspirin, therapeutic Lovenox - echocardiogram Has been ordered to evaluate wall motion abnormality - patient did have a Lexiscan nuclear stress test on 01/02/2019 which was negative for ischemia or infarct, normal LVEF of 55%. (7) Type 2 diabetes mellitus with diabetic neuropathy: Qualifiers: Diabetes mellitus fpc insulin use: without oysterman use Qualified Code(s): E11.40 - Type 2 diabetes mellitus with diabetic neuropathy, unspecified Code(s): E11.40 - Type 2 diabetes mellitus with diabetic neuropathy, unspecified Status: Acute Assessment and Plan: continue high-dose sliding scale along with Accu-Cheks and started patient on Levemir (8) Elevated LFTs: Code(s): R79.89 - Other specified abnormal findings of blood chemistry Status: Acute Assessment and Plan: likely due to sep
[2020-02-26] MEDS: POTASSIUM CHLORIDE 20 MEQ PACKET (FOR LIQUID) 40 MEQ FEED TUBE (11:46)
[2020-02-26] MEDS: ASPIRIN 300 MG SUPPOSITORY RECTAL (11:47)
[2020-02-26] MEDS: INSULIN ASPART (*BKC) 100 UNITS/ML SUB-Q ×2 (11:50→17:22)
[2020-02-26 11:56] LABS: Glucose Point of Care 256 (65-105)
[2020-02-26 12:36] LABS: Base Excess ABG -7.4 mEq/l (+/-2.0); Fractional Inspired Oxygen 60 %; HCO3 ABG 17.4 mEq/l (22.0-26.0); Oxygen Content ABG 20.2 %vol (16.0-22.0); Oxygen Saturation ABG 97.3 % (95.0-100.0); Oxyhemoglobin 96.6 % THb (90.0-100.0); PCO2 ABG 33.7 mmHg (35.0-45.0); PO2 ABG 100.7 mmHg (80.0-100.0); PO2 FiO2 Ratio Arterial Blood 1.68 %; Total Hemoglobin 14.8 g/dL (12.0-18.0); pH ABG 7.331 (7.350-7.450)
[2020-02-26 12:37] LABS: Device VENTILATOR; Modified Allen's Test Pass; Site Drawn RIGHT RADIAL
[2020-02-26 12:38] LABS: Arterial Blood Gas Minute Volume 0 LPM; Arterial Blood Gas PEEP 5 cmH2O; Arterial Blood Gas Pressure Support 0 cmH2O; Arterial Blood Gas Tidal Volume 400 ml; Arterial Blood Gas Vent Mode CMV; Arterial Blood Gas Ventilator rate 22 /MIN; Peak Inspiratory Pressure 0 cmH2O
[2020-02-26 14:23] LABS: Ferritin > 2000.00 ng/mL (11.1-264)
[2020-02-26 17:15] LABS: Glucose Point of Care 235 (65-105)
[2020-02-26 23:06] LABS: Glucose Point of Care 260 (65-105)
[2020-02-27] VITALS (22 sets, daily range): BP systolic 96–121; BP diastolic 50–82; PULSE 52–122; RESP 16–26; TEMP 36.6–37.2; O2SAT 95–100
[2020-02-27 05:00] LABS: Alveolar/Arterial O2 Gradient 148.9 mmHg; Carboxyhemoglobin 0.7 % THb (0-2.0); Fractional Inspired Oxygen 40 %; HCO3 ABG 19.5 mEq/l (22.0-26.0); Methemoglobin ABG 0.2 %THb (0-1.5); Oxygen Saturation ABG 96.5 % (95.0-100.0); Oxyhemoglobin 95.8 % THb (90.0-100.0); PCO2 ABG 38.7 mmHg (35.0-45.0); PO2 ABG 91.8 mmHg (80.0-100.0); Reduced Hemoglobin 3.3 %THb (0-5.0); Total Hemoglobin 14.8 g/dL (12.0-18.0)
[2020-02-27 05:01] LABS: Arterial Blood Gas PEEP 5 cmH2O; Arterial Blood Gas Tidal Volume 400 ml; Arterial Blood Gas Vent Mode CMV; Arterial Blood Gas Ventilator rate 22 /MIN; Device VENTILATOR; Modified Allen's Test Pass; Site Drawn LEFT RADIAL
[2020-02-27] MEDS: SODIUM CHLORIDE 0.9% IV 1,000 ML 75 ML IV CONT (05:42)
[2020-02-27 05:50] LABS: Glucose Point of Care 261 (65-105)
[2020-02-27] MEDS: INSULIN ASPART (*BKC) 100 UNITS/ML SUB-Q ×3 (05:50→17:46)
[2020-02-27 06:21] LABS: Hematocrit 41.2 % (37.0-47.0); Mean Corpuscular Hemoglobin 30.9 pg (26-34); Mean Corpuscular Volume 90.9 fl (80-100); Mean Platelet Volume 12.5 fl (7.4-10.4); Platelet Count Result 93 k/mm3 (150-375); Red Blood Count 4.53 M/mm3 (4.2-5.4); Red Cell Distribution Width 14.4 % (11.5-14.5); White Blood Count 19.6 K/mm3 (4.5-10.0)
[2020-02-27 06:36] LABS: Alanine Aminotransferase 55 U/L (4-35); Albumin Level 2.8 g/dL (3.5-5.1); Alkaline Phosphatase 86 U/L (38-126); Anion Gap 11.8 mmol/L (7-16); Aspartate Amino Transferase 89 U/L (14-36); Bilirubin,Total 0.5 mg/dL (0.2-1.3); Blood Urea Nitrogen 49 mg/dL (7-17); Calcium 7.3 mg/dL (8.4-10.2); Carbon Dioxide 19 mmol/L (22-30); Chloride 98 mmol/L (98-107); Estimated CRCL calculation 69 ml/min; Estimated Glomerular Filt Rate 47; Glucose 283 mg/dL (65-105); Magnesium 2.5 mg/dL (1.6-2.3); Potassium 3.8 mmol/L (3.4-5.0); Sodium 125 mmol/L (137-145)
--- NOTE | 2020-02-27 08:27 | PM.PNCARD ---
Progress Note: A&P Assessment and Plan (1) Pneumonia: Qualifiers: Pneumonia type: due to unspecified organism Laterality: bilateral Lung location: unspecified part of lung Qualified Code(s): J18.9 - Pneumonia, unspecified organism Code(s): J18.9 - Pneumonia, unspecified organism Status: Acute Assessment and Plan: Patient is a 54-year-old woman with history of heart failure with preserved ejection fraction, hypertension, hyperlipidemia, diabetes mellitus type 2, morbid obesity, obstructive sleep apnea (not on CPAP), COPD, asthma, current tobacco dependence (60 pack year), depression, anxiety, who is seen in cardiac consultation for atrial fibrillation with rapid ventricular response. - she had new onset atrial fibrillation with rapid ventricular response with subsequent conversion spontaneously to sinus rhythm, occurring in the setting of pneumonia, with sepsis, and associated non ST elevation myocardial infarction. - Evaluation for COVID-19 and antibiotic therapy for pneumonia and cellulitis as per primary and intensive services. (2) Atrial fibrillation with rapid ventricular response: Code(s): I48.91 - Unspecified atrial fibrillation Status: Acute Assessment and Plan: - she had new onset atrial fibrillation with rapid ventricular response with subsequent conversion spontaneously to sinus rhythm, occurring in the setting of pneumonia, with sepsis, and associated non ST elevation myocardial infarction. now converted to sinus rhythm - She is not currently on rate control agents given her return to sinus rhythm and given her low normal blood pressures with sepsis. - continue therapeutic enoxaparin in the setting of her NSTEMI and atrial fibrillation. - Magnesium 2.2 and free T4 normal. Replete potassium which was initially low at 3.3 then 3.1. (3) Cellulitis of left leg: Code(s): L03.116 - Cellulitis of left lower limb Status: Acute Assessment and Plan: -Antibiotic therapy for her left lower extremity cellulitis and pneumonia as per primary and ag service manager services. -left lower extremity venous Doppler this admission negative for DVT preliminary report. (4) Non-ST elevation myocardial infarction (NSTEMI): Code(s): I21.4 - Non-ST elevation (NSTEMI) myocardial infarction Status: Acute Assessment and Plan: - she had non ST elevation myocardial infarction with peak troponin I 0.971 occurring in the setting of pneumonia with sepsis and new onset atrial fibrillation with rapid ventricular response. - continue to trend troponin I. - begin aspirin, with careful monitoring of platelets. - continue therapeutic enoxaparin. - obtain echo to evaluate cardiac structure and function. - Previously, she had a Lexiscan nuclear stress test 01/02/2019: Negative for ischemia or infarct, normal left ventricular ejection fraction 55%. - Pending stabilization of her acute renal failure and pending resolution of her pneumonia, she may benefit from left heart catheterization for definitive evaluation for coronary artery disease. Subjective Date/time seen: 02/27/20 08:27 She is on the vent now ventilated sedated no acute distress, no new complaints she converted to sinus rhythm Exam Narrative: Exam Narrative: General: Acutely ill-appearing female, sedated and intubated. HEENT: ET tube is in place. There is dried blood on the bottom lip. Neck: Exam difficult due to neck circumference. No obvious abnormalities. Respiratory: She is breathing over the ventilator. No stridor. Cardiovascular: Regular rate and rhythm with S1-S2. Occasional ectopy. Gastrointestinal: Abdomen nondistended. Skin: Warm and dry. Left lower leg is beefy red from the ankle to above the knee. There are few shallow ulcers on the andersen that are weeping. Candidiasis under the panniculus and in the left inguinal region. Extremities: No cyanosis or clubbing. She has 1+ left lower extremity edema
[2020-02-27] MEDS: ENOXAPARIN 120 MG/0.8 ML SYRINGE SUB-Q ×2 (09:01→20:21)
[2020-02-27] MEDS: ASPIRIN 81 MG CHEWABLE TABLET FEED TUBE (09:01)
[2020-02-27] MEDS: INSULIN DETEMIR 100 UNITS/ML 10 UNITS SUB-Q ×2 (09:02→20:25)
[2020-02-27] MEDS: FAMOTIDINE 20 MG/2 ML VIAL IV PUSH ×2 (09:02→20:21)
[2020-02-27] MEDS: TOLNAFTATE 1% POWDER 45 GM BTL 1 APPLIC TOPICAL ×2 (09:02→20:21)
--- NOTE | 2020-02-27 11:07 | PCDIET ---
Nutrition Follow-Up Complete: Nutrition Diagnosis: Inadequate oral intake at present related to oral intubation as evidenced by NPO status. Nutrition Goal: Patient to meet estimated nutritional needs. Goal in progress. Patient tolerating Glucerna 1.2 at 40mL/hr which is advancing toward goal of 65mL/hr. Residuals 100mL and below. Clarified Glucerna 1.2 formula with RN. Last recorded weight is 132 kg which is up from last review. +I/O on 02/26/20. Bowel Motility: No documented BM as of yet. Labs Reviewed: Glu (261), BUN (49), Cr (1.2), Na (125), Alb (2.8), Melyssa Ca (8.26) Meds Noted: Decadron, Pepcid, Fentanyl, Primaxin, Novolog, Levemir, Xopenex, Versed, Vancomycin Additional Notes: MD stopping IV fluids. LE cellulitis. Redness under abdominal folds reported. Left elbow also with abrasion. Will continue to monitor with same goals. Nutrition Monitoring and Evaluation: Follow up every Wednesday/Wednesday. Follow daily in ICU rounds.
[2020-02-27 13:00] LABS: Glucose Point of Care 294 (65-105)
--- NOTE | 2020-02-27 14:16 | WPDINTPN ---
Progress Note: A&P Assessment and Plan (1) Acute respiratory failure: Qualifiers: Respiratory failure complication: unspecified whether with hypoxia or hypercapnia Qualified Code(s): J96.00 - Acute respiratory failure, unspecified whether with hypoxia or hypercapnia Code(s): J96.00 - Acute respiratory failure, unspecified whether with hypoxia or hypercapnia Status: Acute Assessment and Plan: patient presented with left lower extremity cellulitis, increasing shortness of breath and impending respiratory failure in the ER, patient was intubated on 02/25/2020 and placed on CMV mode of ventilation - chest x-ray and CTA chest reviewed, likely pneumonia - continue antibiotics, bronchodilators - sedated with fentanyl and Versed infusion, daily sedation vacation, maintain RASS of 0 to -2 (2) Severe sepsis: Code(s): A41.9 - Sepsis, unspecified organism; R65.20 - Severe sepsis without septic shock Status: Acute Assessment and Plan: patient presented with left lower extremity cellulitis, acute respiratory failure requiring intubation likely secondary to pneumonia - patient received adequate IV fluids per sepsis protocol - currently on maintenance IV fluids which was decreased this morning - patient had a cheetah, was not a fluid responder - continue imipenem, vancomycin - blood cultures growing group a Streptococcus (3) Cellulitis of left leg: Code(s): L03.116 - Cellulitis of left lower limb Status: Acute Assessment and Plan: Cellulitis of left lower extremity with beefy red skin appearance, warm, edematous - left lower extremity venous Doppler was negative for DVT - x-ray of the left lower extremity showed soft tissue swelling without focal abnormality or acute osseous findings. - Continue IV fluids and antibiotic as above (4) Atrial fibrillation with rapid ventricular response: Code(s): I48.91 - Unspecified atrial fibrillation Status: Acute Assessment and Plan: new onset AFib RVR, likely related to severe sepsis, non ST-elevation AR with elevated troponin - currently in sinus rhythm, rate controlled - appreciate Cardiology evaluation and recommendation - p.r.n. metoprolol IV has been ordered - continue therapeutic Lovenox (5) Pneumonia: Qualifiers: Pneumonia type: due to unspecified organism Laterality: bilateral Lung location: unspecified part of lung Qualified Code(s): J18.9 - Pneumonia, unspecified organism Code(s): J18.9 - Pneumonia, unspecified organism Status: Acute Assessment and Plan: bilateral pneumonia seen on CTA, continue antibiotics as above - continue mechanical ventilation - bronchodilators (6) Elevated troponin: Code(s): R79.89 - Other specified abnormal findings of blood chemistry Status: Acute Assessment and Plan: patient with elevated troponin, likely related to her NSTEMI, this could be type 2 infarct secondary to severe sepsis with pneumonia and new onset AFib RVR. - Appreciate cardiology following the patient, continue aspirin, therapeutic Lovenox - echocardiogram Has been ordered to evaluate wall motion abnormality - patient did have a Lexiscan nuclear stress test on 01/02/2019 which was negative for ischemia or infarct, normal LVEF of 55%. (7) Type 2 diabetes mellitus with diabetic neuropathy: Qualifiers: Diabetes mellitus snf insulin use: without terminal computer operator use Qualified Code(s): E11.40 - Type 2 diabetes mellitus with diabetic neuropathy, unspecified Code(s): E11.40 - Type 2 diabetes mellitus with diabetic neuropathy, unspecified Status: Acute Assessment and Plan: continue high-dose sliding scale along with Accu-Cheks and started patient on Levemir (8) Elevated LFTs: Code(s): R79.89 - Other specified abnormal findings of blood chemistry Status: Acute Assessment and Plan: likely due to sepsis, hypoperfusion, ray
--- NOTE | 2020-02-27 14:49 | P.PNIM_ITS ---
Progress Note: A&P Assessment and Plan (1) Severe sepsis: Code(s): A41.9 - Sepsis, unspecified organism; R65.20 - Severe sepsis without septic shock Status: Acute Assessment and Plan: * Severe sepsis is present on admission * Source of infection include left lower extremity cellulitis, pneumonia, possible COVID-19. (2) Cellulitis of left leg: Code(s): L03.116 - Cellulitis of left lower limb Status: Acute Assessment and Plan: * She has been started on imipenem and vancomycin (3) Acute dehydration: Code(s): E86.0 - Dehydration Status: Acute Assessment and Plan: continue iv hydration (4) Acute respiratory failure: Qualifiers: Respiratory failure complication: unspecified whether with hypoxia or hypercapnia Qualified Code(s): J96.00 - Acute respiratory failure, unspecified whether with hypoxia or hypercapnia Code(s): J96.00 - Acute respiratory failure, unspecified whether with hypoxia or hypercapnia Status: Acute Assessment and Plan: * Intubated in the emergency department due to impending respiratory failure. * Vent management sedation per casting sorter. (5) Electrolyte abnormality: Code(s): E87.8 - Other disorders of electrolyte and fluid balance, not elsewhere classified Status: Acute Assessment and Plan: * Including moderate hyponatremia on iv fluids (6) Type 2 diabetes mellitus with diabetic neuropathy: Qualifiers: Diabetes mellitus detention insulin use: without ferry terminal supervisor use Qualified Code(s): E11.40 - Type 2 diabetes mellitus with diabetic neuropathy, unspecified Code(s): E11.40 - Type 2 diabetes mellitus with diabetic neuropathy, unspecified Status: Acute Assessment and Plan: . * Initiate sliding scale insulin, Accu-Cheks, and hypoglycemic protocol. (7) Pneumonia: Qualifiers: Pneumonia type: due to unspecified organism Laterality: bilateral Lung location: unspecified part of lung Qualified Code(s): J18.9 - Pneumonia, unspecified organism Code(s): J18.9 - Pneumonia, unspecified organism Status: Acute Assessment and Plan: * SARS-CoV-2 PCR pending sputum pending * On imipenem for left lower extremity cellulitis, and aspiration pneumonia * (8) Chronic obstructive pulmonary disease: Code(s): J44.9 - Chronic obstructive pulmonary disease, unspecified Status: Acute Assessment and Plan: * on iv steroids (9) Atrial fibrillation with rapid ventricular response: Code(s): I48.91 - Unspecified atrial fibrillation Status: Acute Assessment and Plan: * converted to sinus rhythym * Echocardiogram ordered for a.m. (10) Elevated LFTs: Code(s): R79.89 - Other specified abnormal findings of blood chemistry Status: Acute Assessment and Plan: * Unsure cause (11) Non-ST elevation myocardial infarction (NSTEMI):
--- NOTE | 2020-02-27 14:49 | PM.IMPN ---
Progress Note: A&P Assessment and Plan (1) Severe sepsis: Code(s): A41.9 - Sepsis, unspecified organism; R65.20 - Severe sepsis without septic shock Status: Acute Assessment and Plan: Severe sepsis is present on admission Source of infection include left lower extremity cellulitis, pneumonia, possible COVID-19. (2) Cellulitis of left leg: Code(s): L03.116 - Cellulitis of left lower limb Status: Acute Assessment and Plan: She has been started on imipenem and vancomycin (3) Acute dehydration: Code(s): E86.0 - Dehydration Status: Acute Assessment and Plan: continue iv hydration (4) Acute respiratory failure: Qualifiers: Respiratory failure complication: unspecified whether with hypoxia or hypercapnia Qualified Code(s): J96.00 - Acute respiratory failure, unspecified whether with hypoxia or hypercapnia Code(s): J96.00 - Acute respiratory failure, unspecified whether with hypoxia or hypercapnia Status: Acute Assessment and Plan: Intubated in the emergency department due to impending respiratory failure. Vent management sedation per anesthesiology tech. (5) Electrolyte abnormality: Code(s): E87.8 - Other disorders of electrolyte and fluid balance, not elsewhere classified Status: Acute Assessment and Plan: Including moderate hyponatremia on iv fluids (6) Type 2 diabetes mellitus with diabetic neuropathy: Qualifiers: Diabetes mellitus termite inspector insulin use: without shelter use Qualified Code(s): E11.40 - Type 2 diabetes mellitus with diabetic neuropathy, unspecified Code(s): E11.40 - Type 2 diabetes mellitus with diabetic neuropathy, unspecified Status: Acute Assessment and Plan: . Initiate sliding scale insulin, Accu-Cheks, and hypoglycemic protocol. (7) Pneumonia: Qualifiers: Pneumonia type: due to unspecified organism Laterality: bilateral Lung location: unspecified part of lung Qualified Code(s): J18.9 - Pneumonia, unspecified organism Code(s): J18.9 - Pneumonia, unspecified organism Status: Acute Assessment and Plan: SARS-CoV-2 PCR pending sputum pending On imipenem for left lower extremity cellulitis, and aspiration pneumonia (8) Chronic obstructive pulmonary disease: Code(s): J44.9 - Chronic obstructive pulmonary disease, unspecified Status: Acute Assessment and Plan: on iv steroids (9) Atrial fibrillation with rapid ventricular response: Code(s): I48.91 - Unspecified atrial fibrillation Status: Acute Assessment and Plan: converted to sinus rhythym Echocardiogram ordered for a.m. (10) Elevated LFTs: Code(s): R79.89 - Other specified abnormal findings of blood chemistry Status: Acute Assessment and Plan: Unsure cause (11) Non-ST elevation myocardial infarction (NSTEMI): Code(s): I21.4 - Non-ST elevation (NSTEMI) myocardial infarction Status: Acute Assessment and Plan: seen by cardiology pt to have lovenox full dose and heart cath later Additional Plan GI prophylaxis: Pepcid b.i.d. Subjective Date/time seen: 02/27/20 14:49 Interval history: Admitted with Acute respiratory distress history of type 2 diabetes mellitus, hypertension, hyperlipidemia, diastolic congestive heart failure, obstruct
[2020-02-27 17:52] LABS: Glucose Point of Care 240 (65-105)
[2020-02-27 18:48] LABS: SARS-CoV-2 RNA PCR Negative
[2020-02-27 20:31] LABS: Glucose Point of Care 242 (65-105)
[2020-02-27 21:43] LABS: Vancomycin Trough 32.6 ug/mL (10.0-20.0)
[2020-02-28] VITALS (32 sets, daily range): BP systolic 102–150; BP diastolic 54–87; PULSE 10–70; RESP 20–24; TEMP 36.5–37.2; O2SAT 90–100
--- NOTE | 2020-02-28 | ECHO_ITS ---
Patient Info Name: Apple Littlejohn Age: 54 years : 1965 Gender: Female Ht: 67 in Wt: 266 lbs BSA: 2.45 m2 HR: 66 bpm BP: 110 / 67 mmHg Technical Quality: Fair Exam Date: 02/28/2020 10:27 AM Exam Location: [facility] Pulmonary Exam Room: icu 3 Patient Status: Inpatient Admit Date: 02/25/2020 Staff Ordering Physician: Rosalia Barber PA-C Vice President Of Customer Service: Ana Ortiz RDCS Attending Provider: Gillian Domingo DO Referring Physician: Sunil PETTY; Exam Type: CA echo doppler color flow Study Info Indications - afib rvr Complete two-dimensional, color flow and Doppler transthoracic echocardiogram is performed. Summary 1. Technically difficult study with limited views. 2. Left ventricular chamber dimension is mildly enlarged. 3. Left ventricular wall thickness is mildly increased. 4. Left ventricular systolic function is normal with an ejection fraction by Biplane Method of Discs of 51 %. 5. Mitral valve is not well visualized. 6. 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 7. There is mild mitral valve regurgitation. Recommendations * Recommend follow-up transesophageal echocardiogram. * Recommend additional imaging studies per clinical evaluation. Left Ventricle Left ventricular chamber dimension is mildly enlarged. Left ventricular wall thickness is mildly increased. Left ventricular systolic function is normal with an ejection fraction by Biplane Method of Discs of 51 %. Normal diastolic function for age. Right Ventricle Right ventricular wall thickness is normal. Right ventricular chamber dimension is normal. Right ventricular systolic function is normal. Left Atria Left atrial chamber dimension is mildly enlarged. Right Atria Right atrial chamber dimension is mildly enlarged. Aortic Valve Aortic valve is not well visualized. There is no aortic valve stenosis. There is no aortic valve regurgitation. Pulmonic Valve Pulmonary valve is not well visualized. There is trace pulmonic regurgitation. There is no pulmonic valve stenosis. Mitral Valve Mitral valve is not well visualized. 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 There is mild mitral valve regurgitation. There is no mitral valve stenosis. Tricuspid Valve The tricuspid valve is not well visualized. There is mild tricuspid valve regurgitation. There is no significant tricuspid valve stenosis. No pulmonary hypertension, estimated pulmonary arterial systolic pressure is 26 mmHg. Pericardium/Pleural Pericardium is normal in appearance with no evidence for significant pericardial effusion. Inferior Vena Cava Inferior vena cava is not well visualized. Aorta The aortic root is not well visualized. The aortic root size at the sinus of Valsalva is normal. Left Ventricular Outflow Tract Name Value Normal LVOT 2D LVOT Diameter 2.1 cm LVOT Doppler LVOT Peak Gradient 4 mmHg LVOT Mean Gradient 2 mmHg LVOT VTI
[2020-02-28 00:12] LABS: Glucose Point of Care 236 (65-105)
[2020-02-28] MEDS: INSULIN ASPART (*BKC) 100 UNITS/ML SUB-Q ×4 (00:14→17:11)
[2020-02-28 04:47] LABS: Hematocrit 40.3 % (37.0-47.0); Hemoglobin 13.5 g/dL (12.0-15.0); Mean Corpuscular HGB Conc 33.5 g/dl (32-36); Mean Corpuscular Hemoglobin 30.5 pg (26-34); Mean Platelet Volume 12.6 fl (7.4-10.4); Platelet Count Result 110 k/mm3 (150-375); Red Blood Count 4.43 M/mm3 (4.2-5.4); Red Cell Distribution Width 14.2 % (11.5-14.5); White Blood Count 15.6 K/mm3 (4.5-10.0)
[2020-02-28 05:01] LABS: Lactic Acid 1.3 mmol/L (0.7-2.1)
[2020-02-28 05:02] LABS: Alanine Aminotransferase 71 U/L (4-35); Albumin Level 2.8 g/dL (3.5-5.1); Alkaline Phosphatase 97 U/L (38-126); Anion Gap 11.9 mmol/L (7-16); Aspartate Amino Transferase 99 U/L (14-36); Bilirubin,Total 0.5 mg/dL (0.2-1.3); Blood Urea Nitrogen 66 mg/dL (7-17); Calcium 7.7 mg/dL (8.4-10.2); Carbon Dioxide 20 mmol/L (22-30); Chloride 98 mmol/L (98-107); Estimated CRCL calculation 60 ml/min; Estimated Glomerular Filt Rate 39; Glucose 222 mg/dL (65-105); Magnesium 2.9 mg/dL (1.6-2.3); Potassium 3.9 mmol/L (3.4-5.0); Sodium 126 mmol/L (137-145)
[2020-02-28 05:04] LABS: Alveolar/Arterial O2 Gradient 147.3 mmHg; Base Excess ABG -3.9 mEq/l (+/-2.0); Carboxyhemoglobin 0.6 % THb (0-2.0); Fractional Inspired Oxygen 40 %; HCO3 ABG 20.9 mEq/l (22.0-26.0); Methemoglobin ABG 0.1 %THb (0-1.5); Oxygen Content ABG 19.9 %vol (16.0-22.0); Oxygen Saturation ABG 97.1 % (95.0-100.0); Oxyhemoglobin 96.5 % THb (90.0-100.0); PCO2 ABG 37.5 mmHg (35.0-45.0); PO2 ABG 94.8 mmHg (80.0-100.0); PO2 FiO2 Ratio Arterial Blood 2.37 %; Reduced Hemoglobin 2.8 %THb (0-5.0); Total Hemoglobin 14.6 g/dL (12.0-18.0); pH ABG 7.364 (7.350-7.450)
[2020-02-28 05:05] LABS: Device VENTILATOR; Modified Allen's Test Pass; Site Drawn RIGHT RADIAL
[2020-02-28 05:05] LABS: Glucose Point of Care 211 (65-105)
[2020-02-28 05:06] LABS: Arterial Blood Gas PEEP 5 cmH2O; Arterial Blood Gas Tidal Volume 400 ml; Arterial Blood Gas Vent Mode CMV; Arterial Blood Gas Ventilator rate 22 /MIN
--- NOTE | 2020-02-28 08:27 | PM.PNCARD ---
Progress Note: A&P Assessment and Plan (1) Atrial fibrillation with rapid ventricular response: Code(s): I48.91 - Unspecified atrial fibrillation Status: Acute Assessment and Plan: -54-y/o with h/o HTN, DM, HFpEF, morbid obesity, KITTY and COPD, current tobacco dependence who is seen in cardiac consultation for atrial fibrillation with rapid ventricular response. she had new onset A fib with RVR in the setting of sepsis, resp failure and hypokalemia -converted to normal sinus rhythm/sinus bradycardia (not on rate control meds) - CHADs VASc score is at least 3 (female, HTN,DM). She would benefit from AC. Currently on Lovenox. May switch to Xarelto 20 daily (2) Non-ST elevation myocardial infarction (NSTEMI): Code(s): I21.4 - Non-ST elevation (NSTEMI) myocardial infarction Status: Acute Assessment and Plan: - Likely due to Type II SC from increased demand from underlying sepsis/resp failure. last trop was 1.1. Will repeat trop today to see the trend -COVID negative and jsut had her echo done this am. Will follow - Recived Lovenox for SC. May switch to Xarelto -She had recent Lexiscan nuclear stress test 01/02/2019 with no ischemia and low risk for CAD. Given her risk factors including DM and smoking, May consider [facility] for definitive evaluation for coronary artery disease (inpatient vs outpatient, depending on hospital course and recovery) . (3) Pneumonia: Qualifiers: Pneumonia type: due to unspecified organism Laterality: bilateral Lung location: unspecified part of lung Qualified Code(s): J18.9 - Pneumonia, unspecified organism Code(s): J18.9 - Pneumonia, unspecified organism Status: Acute Assessment and Plan: Management per ICU team (4) Cellulitis of left leg: Code(s): L03.116 - Cellulitis of left lower limb Status: Acute Assessment and Plan: -Antibiotic therapy for her left lower extremity cellulitis and pneumonia as per primary and boat finisher services. -left lower extremity venous Doppler this admission negative for DVT preliminary report. Subjective Date/time seen: 02/28/20 08:27 No overnight events. She remains intubated. No recurrence of A fib. Currently in sinus richard with HR in the 50s occasionally drops to high 40s. Review of Systems Review of Systems: ROS unobtainable: Yes unobtainable due to endotracheal tube Exam Narrative: Exam Narrative: General: Acutely ill-appearing female, sedated and intubated. HEENT: ET tube is in place. There is dried blood on the bottom lip. Neck: Exam difficult due to neck circumference. No obvious abnormalities. Respiratory: She is breathing over the ventilator. No stridor. Cardiovascular: Regular rate and rhythm with S1-S2. Occasional ectopy. Gastrointestinal: Abdomen nondistended. Skin: Warm and dry. Left lower leg is beefy red from the ankle to above the knee. There are few shallow ulcers on the andersen that are weeping. Candidiasis under the panniculus and in the left inguinal region. Extremities: No cyanosis or clubbing. She has 1+ left lower extremity edema. No edema of the right leg. Neurological: Unable to fully assess as she is sedated while on the ventilator. Psychiatric: Unable to assess as she is sedated and intubated. Objective Data Vital Signs Vital Signs: Vital Signs - 24 hr 02/27/20 08:36 02/27/20 10:00 02/27/20 11:00 Temperature 36.6 C Pulse Rate 58 L 55 L 56 L Respiratory Rate 22 H Blood Pressure 112/80 Pulse Oximetry 97 97 97 02/27/20 12:00 02/27/20 14:00 02/27/20 14:21 Temperature 36.6 C Pulse Rate 54 L 121 H 54 L Respiratory Rate 22 H 24 H Blood Pressure 105/77 96/62 L Pulse Oximetry 97 96 97 02/27/20 16:00 02/27/20 16:51 02/27/20 18:00 Temperature 36.6 C 36.6 C Pulse Rate 57 L 61 60 Respiratory Rate 22 H 22 H Blood Pressure 111/82 121/50 L Pulse Oximetry 96 98 96 02/27/20 20:00 02/27/20 20:13 02/27/20 21
[2020-02-28] MEDS: ENOXAPARIN 120 MG/0.8 ML SYRINGE SUB-Q ×2 (09:03→21:04)
[2020-02-28] MEDS: ASPIRIN 81 MG CHEWABLE TABLET FEED TUBE (09:04)
[2020-02-28] MEDS: TOLNAFTATE 1% POWDER 45 GM BTL 1 APPLIC TOPICAL ×2 (09:04→21:04)
[2020-02-28] MEDS: FAMOTIDINE 20 MG/2 ML VIAL IV PUSH ×2 (09:04→21:04)
[2020-02-28] MEDS: INSULIN DETEMIR 100 UNITS/ML 10 UNITS SUB-Q (09:06)
[2020-02-28 10:28] LABS: Troponin I 0.426 ng/mL (0.000-0.034)
[2020-02-28] MEDS: INSULIN DETEMIR 100 UNITS/ML 8 UNITS SUB-Q (11:05)
[2020-02-28] MEDS: SODIUM CHLORIDE 0.9% IV 1,000 ML 75 ML IV CONT ×2 (11:18→23:44)
--- NOTE | 2020-02-28 11:33 | PCDIET ---
ICU Rounding Note: Tube feedings held overnight x 2 for residuals of 350mL and 300mL. MD adding Reglan. Glucerna 1.2 tube feedings have since been resumed and are infusing at 40mL/hr. Last recorded weight is 132.8kg which is increased from last review. I/O positive 1L 02/27/20. Bowel Motility: No documented BM. Discussed with MD during rounds. Labs Reviewed: Glu (222), BUN (66), Cr (1.4), Na (126), Alb (2.8), Melyssa Ca (8.66) Meds Noted: NS at 75mL/hr, Vancomycin, Versed, Reglan, Xopenex, Levemir, Rocephin, Decadron, Fentanyl, Pepcid, Novolog Additional Notes: LE cellulitis and reddened pannus area. Following daily in ICU rounds. Assessing/reassessing every Wednesday/Wednesday.
[2020-02-28 12:54] LABS: Glucose Point of Care 238 (65-105)
[2020-02-28] MEDS: METOCLOPRAMIDE HCL INJ 10 MG/2 ML VIAL IV PUSH ×2 (13:17→17:11)
--- NOTE | 2020-02-28 14:33 | WPDINTPN ---
Progress Note: A&P Assessment and Plan (1) Acute respiratory failure: Qualifiers: Respiratory failure complication: unspecified whether with hypoxia or hypercapnia Qualified Code(s): J96.00 - Acute respiratory failure, unspecified whether with hypoxia or hypercapnia Code(s): J96.00 - Acute respiratory failure, unspecified whether with hypoxia or hypercapnia Status: Acute Assessment and Plan: patient presented with left lower extremity cellulitis, increasing shortness of breath and impending respiratory failure in the ER, patient was intubated on 02/25/2020 and placed on CMV mode of ventilation - chest x-ray and CTA chest reviewed, likely pneumonia - continue antibiotics, bronchodilators - sedated with fentanyl and Versed infusion, daily sedation vacation, maintain RASS of 0 to -2 (2) Severe sepsis: Code(s): A41.9 - Sepsis, unspecified organism; R65.20 - Severe sepsis without septic shock Status: Acute Assessment and Plan: patient presented with left lower extremity cellulitis, acute respiratory failure requiring intubation likely secondary to pneumonia - patient received adequate IV fluids per sepsis protocol - currently on maintenance IV fluids which was decreased this morning - patient had a cheetah, was not a fluid responder - blood cultures growing group A Streptococcus susceptible to ceftriaxone, will switch imipenem ceftriaxone. Continue vancomycin (3) Cellulitis of left leg: Code(s): L03.116 - Cellulitis of left lower limb Status: Acute Assessment and Plan: Cellulitis of left lower extremity with beefy red skin appearance, warm, edematous - left lower extremity venous Doppler was negative for DVT - x-ray of the left lower extremity showed soft tissue swelling without focal abnormality or acute osseous findings. - Continue IV fluids and antibiotic as above (4) Atrial fibrillation with rapid ventricular response: Code(s): I48.91 - Unspecified atrial fibrillation Status: Acute Assessment and Plan: new onset AFib RVR, likely related to severe sepsis, non ST-elevation PR with elevated troponin - currently in sinus rhythm, rate controlled - appreciate Cardiology evaluation and recommendation - p.r.n. metoprolol IV has been ordered - continue therapeutic Lovenox (5) Pneumonia: Qualifiers: Pneumonia type: due to unspecified organism Laterality: bilateral Lung location: unspecified part of lung Qualified Code(s): J18.9 - Pneumonia, unspecified organism Code(s): J18.9 - Pneumonia, unspecified organism Status: Acute Assessment and Plan: bilateral pneumonia seen on CTA, continue antibiotics as above - continue mechanical ventilation - bronchodilators (6) Elevated troponin: Code(s): R79.89 - Other specified abnormal findings of blood chemistry Status: Acute Assessment and Plan: patient with elevated troponin, likely related to her NSTEMI, this could be type 2 infarct secondary to severe sepsis with pneumonia and new onset AFib RVR. - Appreciate cardiology following the patient, continue aspirin, therapeutic Lovenox - echocardiogram Has been ordered to evaluate wall motion abnormality - patient did have a Lexiscan nuclear stress test on 01/02/2019 which was negative for ischemia or infarct, normal LVEF of 55%. (7) Type 2 diabetes mellitus with diabetic neuropathy: Qualifiers: Diabetes mellitus termite treater helper insulin use: without termite treater helper use Qualified Code(s): E11.40 - Type 2 diabetes mellitus with diabetic neuropathy, unspecified Code(s): E11.40 - Type 2 diabetes mellitus with diabetic neuropathy, unspecified Status: Acute Assessment and Plan: continue high-dose sliding scale along with Accu-Cheks and increased Levemir (8) Elevated LFTs: Code(s): R79.89 - Other specified abnormal findings of blood chemistry Status: Acute Assessment and Plan:
--- NOTE | 2020-02-28 16:30 | P.PNIM_ITS ---
Progress Note: A&P Assessment and Plan (1) Severe sepsis: Code(s): A41.9 - Sepsis, unspecified organism; R65.20 - Severe sepsis without septic shock Status: Acute Assessment and Plan: * Severe sepsis is present on admission * Source of infection include left lower extremity cellulitis and pneumonia (2) Cellulitis of left leg: Code(s): L03.116 - Cellulitis of left lower limb Status: Acute Assessment and Plan: * She has been started on imipenem and vancomycin (3) Acute dehydration: Code(s): E86.0 - Dehydration Status: Acute Assessment and Plan: continue iv hydration (4) Acute respiratory failure: Qualifiers: Respiratory failure complication: unspecified whether with hypoxia or hypercapnia Qualified Code(s): J96.00 - Acute respiratory failure, unspecified whether with hypoxia or hypercapnia Code(s): J96.00 - Acute respiratory failure, unspecified whether with hypoxia or hypercapnia Status: Acute Assessment and Plan: * Intubated in the emergency department due to impending respiratory failure. * Vent management sedation per process steward. (5) Electrolyte abnormality: Code(s): E87.8 - Other disorders of electrolyte and fluid balance, not elsewhere classif ied Status: Acute Assessment and Plan: * Moderate hyponatremia on iv fluids, sodium is 126 (6) Type 2 diabetes mellitus with diabetic neuropathy: Qualifiers: Diabetes mellitus usp insulin use: without usp use Qualified Code(s): E11.40 - Type 2 diabetes mellitus with diabetic neuropathy, unspecified Code(s): E11.40 - Type 2 diabetes mellitus with diabetic neuropathy, unspecified Status: Acute Assessment and Plan: . * Initiate sliding scale insulin, Accu-Cheks, and hypoglycemic protocol. (7) Pneumonia: Qualifiers: Pneumonia type: due to unspecified organism Laterality: bilateral Lung location: unspecified part of lung Qualified Code(s): J18.9 - Pneumonia, unspecified organism Code(s): J18.9 - Pneumonia, unspecified organism Status: Acute Assessment and Plan: * * On imipenem for left lower extremity cellulitis and aspiration pneumonia (8) Chronic obstructive pulmonary disease: Code(s): J44.9 - Chronic obstructive pulmonary disease, unspecified Status: Acute Assessment and Plan: * on iv steroids (9) Atrial fibrillation with rapid ventricular response: Code(s): I48.91 - Unspecified atrial fibrillation Status: Acute Assessment and Plan: * Converted to sinus rhythym * Echocardiogram ordered for a.m. (10) Elevated LFTs: Code(s): R79.89 - Other specified abnormal findings of blood chemistry Status: Acute Assessment and Plan: * Unsure cause (11) Non-ST elevation myocardial infarction (NSTEMI): Code(s): I21.4 - Non-ST elevation (NSTEMI) m
--- NOTE | 2020-02-28 16:30 | PM.IMPN ---
Progress Note: A&P Assessment and Plan (1) Severe sepsis: Code(s): A41.9 - Sepsis, unspecified organism; R65.20 - Severe sepsis without septic shock Status: Acute Assessment and Plan: Severe sepsis is present on admission Source of infection include left lower extremity cellulitis and pneumonia (2) Cellulitis of left leg: Code(s): L03.116 - Cellulitis of left lower limb Status: Acute Assessment and Plan: She has been started on imipenem and vancomycin (3) Acute dehydration: Code(s): E86.0 - Dehydration Status: Acute Assessment and Plan: continue iv hydration (4) Acute respiratory failure: Qualifiers: Respiratory failure complication: unspecified whether with hypoxia or hypercapnia Qualified Code(s): J96.00 - Acute respiratory failure, unspecified whether with hypoxia or hypercapnia Code(s): J96.00 - Acute respiratory failure, unspecified whether with hypoxia or hypercapnia Status: Acute Assessment and Plan: Intubated in the emergency department due to impending respiratory failure. Vent management sedation per multi needle machine operator. (5) Electrolyte abnormality: Code(s): E87.8 - Other disorders of electrolyte and fluid balance, not elsewhere classified Status: Acute Assessment and Plan: Moderate hyponatremia on iv fluids, sodium is 126 (6) Type 2 diabetes mellitus with diabetic neuropathy: Qualifiers: Diabetes mellitus assistant terminal manager insulin use: without assistant terminal manager use Qualified Code(s): E11.40 - Type 2 diabetes mellitus with diabetic neuropathy, unspecified Code(s): E11.40 - Type 2 diabetes mellitus with diabetic neuropathy, unspecified Status: Acute Assessment and Plan: . Initiate sliding scale insulin, Accu-Cheks, and hypoglycemic protocol. (7) Pneumonia: Qualifiers: Pneumonia type: due to unspecified organism Laterality: bilateral Lung location: unspecified part of lung Qualified Code(s): J18.9 - Pneumonia, unspecified organism Code(s): J18.9 - Pneumonia, unspecified organism Status: Acute Assessment and Plan: On imipenem for left lower extremity cellulitis and aspiration pneumonia (8) Chronic obstructive pulmonary disease: Code(s): J44.9 - Chronic obstructive pulmonary disease, unspecified Status: Acute Assessment and Plan: on iv steroids (9) Atrial fibrillation with rapid ventricular response: Code(s): I48.91 - Unspecified atrial fibrillation Status: Acute Assessment and Plan: Converted to sinus rhythym Echocardiogram ordered for a.m. (10) Elevated LFTs: Code(s): R79.89 - Other specified abnormal findings of blood chemistry Status: Acute Assessment and Plan: Unsure cause (11) Non-ST elevation myocardial infarction (NSTEMI): Code(s): I21.4 - Non-ST elevation (NSTEMI) myocardial infarction Status: Acute Assessment and Plan: Seen by cardiology pt to have lovenox full dose and heart cath later Subjective Date/time seen: 02/28/20 16:30 Interval history: Admitted with Acute respiratory distress history of type 2 diabetes mellitus, hypertension, hyperlipidemia, diastolic congestive heart failure, obstructive sleep apnea, COPD/asthma, depression with anxiety, and morbid obesity. Covid test is negative. C
[2020-02-28 17:11] LABS: Glucose Point of Care 233 (65-105)
[2020-02-28 21:03] LABS: Glucose Point of Care 193 (65-105)
[2020-02-28] MEDS: INSULIN DETEMIR 100 UNITS/ML 18 UNITS SUB-Q (21:05)
[2020-02-28 21:42] LABS: Vancomycin Trough 19.7 ug/mL (10.0-20.0)
[2020-02-29] VITALS (31 sets, daily range): BP systolic 130–154; BP diastolic 83–92; PULSE 50–72; RESP 22–58; TEMP 36.6–37.6; O2SAT 90–100
[2020-02-29] MEDS: METOCLOPRAMIDE HCL INJ 10 MG/2 ML VIAL IV PUSH ×4 (01:32→17:45)
[2020-02-29 01:34] LABS: Glucose Point of Care 181 (65-105)
[2020-02-29 04:01] LABS: Alveolar/Arterial O2 Gradient 110.1 mmHg; Base Excess ABG -4.9 mEq/l (+/-2.0); Fractional Inspired Oxygen 35 %; HCO3 ABG 18.8 mEq/l (22.0-26.0); Methemoglobin ABG 0.1 %THb (0-1.5); Oxygen Content ABG 19.1 %vol (16.0-22.0); Oxygen Saturation ABG 97.8 % (95.0-100.0); Oxyhemoglobin 96.6 % THb (90.0-100.0); PCO2 ABG 31.2 mmHg (35.0-45.0); PO2 ABG 103.2 mmHg (80.0-100.0); PO2 FiO2 Ratio Arterial Blood 2.95 %; Reduced Hemoglobin 2.3 %THb (0-5.0); pH ABG 7.398 (7.350-7.450)
[2020-02-29 04:05] LABS: Arterial Blood Gas PEEP 5 cmH2O; Arterial Blood Gas Tidal Volume 400 ml; Arterial Blood Gas Vent Mode CMV; Arterial Blood Gas Ventilator rate 22 /MIN; Device VENTILATOR; Modified Allen's Test Unable to perform; Site Drawn RIGHT RADIAL
[2020-02-29 05:12] LABS: Hematocrit 38.9 % (37.0-47.0); Immature Platelet Fraction Pct 5.5 % (0.9-11.2); Mean Corpuscular HGB Conc 33.4 g/dl (32-36); Mean Corpuscular Hemoglobin 30.7 pg (26-34); Platelet Count Result 150 k/mm3 (150-375); Red Blood Count 4.23 M/mm3 (4.2-5.4); Red Cell Distribution Width 14.6 % (11.5-14.5); White Blood Count 15.9 K/mm3 (4.5-10.0)
[2020-02-29 05:22] LABS: Alanine Aminotransferase 69 U/L (4-35); Albumin Level 2.7 g/dL (3.5-5.1); Alkaline Phosphatase 94 U/L (38-126); Anion Gap 9.8 mmol/L (7-16); Aspartate Amino Transferase 89 U/L (14-36); Bilirubin,Total 0.5 mg/dL (0.2-1.3); Blood Urea Nitrogen 64 mg/dL (7-17); Calcium 7.8 mg/dL (8.4-10.2); Carbon Dioxide 22 mmol/L (22-30); Chloride 102 mmol/L (98-107); Estimated CRCL calculation 76 ml/min; Estimated Glomerular Filt Rate 52; Glucose 198 mg/dL (65-105); Magnesium 2.7 mg/dL (1.6-2.3); Phosphorus 3.2 mg/dL (2.5-4.5); Potassium 3.8 mmol/L (3.4-5.0); Sodium 130 mmol/L (137-145)
[2020-02-29] MEDS: INSULIN DETEMIR 100 UNITS/ML 18 UNITS SUB-Q ×2 (08:34→20:16)
[2020-02-29] MEDS: TOLNAFTATE 1% POWDER 45 GM BTL 1 APPLIC TOPICAL ×2 (08:34→20:11)
[2020-02-29] MEDS: ENOXAPARIN 120 MG/0.8 ML SYRINGE SUB-Q ×2 (08:34→20:05)
[2020-02-29] MEDS: FAMOTIDINE 20 MG/2 ML VIAL IV PUSH ×2 (08:34→20:10)
[2020-02-29] MEDS: ASPIRIN 81 MG CHEWABLE TABLET FEED TUBE (08:34)
--- NOTE | 2020-02-29 11:23 | PCDIET ---
ICU Rounding Note: Patient with improved tube feeding tolerance. Glucerna 1.2 now at goal of 65mL/hr with residuals 150mL and below. Last recorded weight is 134.5kg which is increased from last review. Bowel Motility: No bowel movements, although RN reports significant increase in flatus. Labs Reviewed: Glu (198), BUN (64), Cr (1.1), Na (130), Alb (2.7) Meds Noted: Rocephin, Fentanyl, Xopenex, Vancomycin, Decadron, Novolog, Reglan, Pepcid, Levemir, Versed Additional Notes: Levemir increased this date. +Edema. IV fluids discontinued. Left lower extremity skin tear/cellulitis remains. Following daily in ICU rounds. Assessing/reassessing every Wednesday/Wednesday.
--- NOTE | 2020-02-29 12:01 | WPDINTPN ---
Progress Note: A&P Assessment and Plan (1) Acute respiratory failure: Qualifiers: Respiratory failure complication: unspecified whether with hypoxia or hypercapnia Qualified Code(s): J96.00 - Acute respiratory failure, unspecified whether with hypoxia or hypercapnia Code(s): J96.00 - Acute respiratory failure, unspecified whether with hypoxia or hypercapnia Status: Acute Assessment and Plan: patient presented with left lower extremity cellulitis, increasing shortness of breath and impending respiratory failure in the ER, patient was intubated on 02/25/2020 and placed on CMV mode of ventilation - chest x-ray and CTA chest reviewed, likely pneumonia - continue antibiotics, bronchodilators - sedated with fentanyl and Versed infusion, daily sedation vacation, maintain RASS of 0 to -2 - will switch to Precedex infusion and will discontinue Versed and fentanyl. - Will place patient on SBT and evaluate for extubation S patient is only on 35% FiO2 (2) Severe sepsis: Code(s): A41.9 - Sepsis, unspecified organism; R65.20 - Severe sepsis without septic shock Status: Acute Assessment and Plan: patient presented with left lower extremity cellulitis, acute respiratory failure requiring intubation likely secondary to pneumonia - patient received adequate IV fluids per sepsis protocol - currently on maintenance IV fluids which was decreased this morning - patient had a cheetah, was not a fluid responder - blood cultures growing group A Streptococcus susceptible to ceftriaxone, -continue vancomycin and ceftriaxone (3) Cellulitis of left leg: Code(s): L03.116 - Cellulitis of left lower limb Status: Acute Assessment and Plan: Cellulitis of left lower extremity with beefy red skin appearance, warm, edematous - left lower extremity venous Doppler was negative for DVT - x-ray of the left lower extremity showed soft tissue swelling without focal abnormality or acute osseous findings. - Continue IV fluids and antibiotic as above (4) Atrial fibrillation with rapid ventricular response: Code(s): I48.91 - Unspecified atrial fibrillation Status: Acute Assessment and Plan: new onset AFib RVR, likely related to severe sepsis, non ST-elevation IA with elevated troponin - currently in sinus rhythm, rate controlled - appreciate Cardiology evaluation and recommendation - p.r.n. metoprolol IV has been ordered - continue therapeutic Lovenox (5) Pneumonia: Qualifiers: Pneumonia type: due to unspecified organism Laterality: bilateral Lung location: unspecified part of lung Qualified Code(s): J18.9 - Pneumonia, unspecified organism Code(s): J18.9 - Pneumonia, unspecified organism Status: Acute Assessment and Plan: bilateral pneumonia seen on CTA, continue antibiotics as above - continue mechanical ventilation - bronchodilators (6) Elevated troponin: Code(s): R79.89 - Other specified abnormal findings of blood chemistry Status: Acute Assessment and Plan: patient with elevated troponin, likely related to her NSTEMI, this could be type 2 infarct secondary to severe sepsis with pneumonia and new onset AFib RVR. - Appreciate cardiology following the patient, continue aspirin, therapeutic Lovenox - echocardiogram Has been ordered to evaluate wall motion abnormality - patient did have a Lexiscan nuclear stress test on 01/02/2019 which was negative for ischemia or infarct, normal LVEF of 55%. (7) Type 2 diabetes mellitus with diabetic neuropathy: Qualifiers: Diabetes mellitus intermediate designer insulin use: without penitentiary use Qualified Code(s): E11.40 - Type 2 diabetes mellitus with diabetic neuropathy, unspecified Code(s): E11.40 - Type 2 diabetes mellitus with diabetic neuropathy, unspecified Status: Acute Assessment and Plan: continue high-dose sliding scale along with Accu-Cheks and increased Levemir
[2020-02-29 12:20] LABS: Glucose Point of Care 191 (65-105)
[2020-02-29] MEDS: PROPOFOL IV EMULSION 100 ML 20 MG (12:40)
--- NOTE | 2020-02-29 14:09 | PM.PNCARD ---
Progress Note: A&P Assessment and Plan (1) Atrial fibrillation with rapid ventricular response: Code(s): I48.91 - Unspecified atrial fibrillation Status: Acute Assessment and Plan: -54-y/o with h/o HTN, DM, HFpEF, morbid obesity, KITTY and COPD, current tobacco dependence who is seen in cardiac consultation for atrial fibrillation with rapid ventricular response. she had new onset A fib with RVR in the setting of sepsis, resp failure and hypokalemia -converted to normal sinus rhythm/sinus bradycardia (not on rate control meds) - CHADs VASc score is at least 3 (female, HTN,DM). She would benefit from AC. Currently on Lovenox. May switch to Xarelto 20 daily (2) Non-ST elevation myocardial infarction (NSTEMI): Code(s): I21.4 - Non-ST elevation (NSTEMI) myocardial infarction Status: Acute Assessment and Plan: - Likely due to Type II AR from increased demand from underlying sepsis/resp failure. last trop was 1.1. Will repeat trop today to see the trend -COVID negative and jsut had her echo done this am. Will follow - Recived Lovenox for AR. May switch to Xarelto -She had recent Lexiscan nuclear stress test 01/02/2019 with no ischemia and low risk for CAD. Given her risk factors including DM and smoking, May consider [facility] for definitive evaluation for coronary artery disease (inpatient vs outpatient, depending on hospital course and recovery) . (3) Pneumonia: Qualifiers: Pneumonia type: due to unspecified organism Laterality: bilateral Lung location: unspecified part of lung Qualified Code(s): J18.9 - Pneumonia, unspecified organism Code(s): J18.9 - Pneumonia, unspecified organism Status: Acute Assessment and Plan: Management per ICU team (4) Cellulitis of left leg: Code(s): L03.116 - Cellulitis of left lower limb Status: Acute Assessment and Plan: -Antibiotic therapy for her left lower extremity cellulitis and pneumonia as per primary and electric needle specialist services. -left lower extremity venous Doppler this admission negative for DVT preliminary report. Subjective Date/time seen: 02/29/20 14:09 She still is on the vent, ventilated sedated not in acute distress Exam Narrative: Exam Narrative: General: Acutely ill-appearing female, sedated and intubated. HEENT: ET tube is in place. There is dried blood on the bottom lip. Neck: Exam difficult due to neck circumference. No obvious abnormalities. Respiratory: She is breathing over the ventilator. No stridor. Cardiovascular: Regular rate and rhythm with S1-S2. Occasional ectopy. Gastrointestinal: Abdomen nondistended. Skin: Warm and dry. Left lower leg is beefy red from the ankle to above the knee. There are few shallow ulcers on the andersen that are weeping. Candidiasis under the panniculus and in the left inguinal region. Extremities: No cyanosis or clubbing. She has 1+ left lower extremity edema. No edema of the right leg. Neurological: Unable to fully assess as she is sedated while on the ventilator. Psychiatric: Unable to assess as she is sedated and intubated. Objective Data Vital Signs Vital Signs: Vital Signs - 24 hr 02/28/20 16:00 02/28/20 17:02 02/28/20 17:04 Temperature 37.1 C Pulse Rate 59 L 62 62 Respiratory Rate 22 H 22 H 22 H Blood Pressure 115/74 Pulse Oximetry 93 02/28/20 17:25 02/28/20 18:00 02/28/20 20:00 Temperature 37.2 C 37.2 C Pulse Rate 52 L 65 63 Respiratory Rate 22 H 22 H Blood Pressure 119/74 142/79 H Pulse Oximetry 95 99 93 02/28/20 20:05 02/28/20 21:23 02/28/20 21:24 Temperature Pulse Rate 52 L 67 69 Respiratory Rate 22 H 22 H Blood Pressure Pulse Oximetry 95 02/28/20 22:00 02/28/20 22:44 02/28/20 22:45 Temperature 37.1 C Pulse Rate 67 10 L 70 Respiratory Rate 22 H 22 H 22 H Blood Pressure 150/85 H Pulse Oximetry 93 02/28/20 23:15 02/29/20 00:00 02/29/20 02:00 Temperature Pulse Rate 6
[2020-02-29 17:09] LABS: Glucose Point of Care 185 (65-105)
--- NOTE | 2020-02-29 17:09 | P.PNIM_ITS ---
Progress Note: A&P Assessment and Plan (1) Severe sepsis: Code(s): A41.9 - Sepsis, unspecified organism; R65.20 - Severe sepsis without septic shock Status: Acute Assessment and Plan: * Severe sepsis is present on admission * Source of infection include left lower extremity cellulitis and pneumonia (2) Cellulitis of left leg: Code(s): L03.116 - Cellulitis of left lower limb Status: Acute Assessment and Plan: * She has been started on imipenem and vancomycin (3) Acute dehydration: Code(s): E86.0 - Dehydration Status: Resolved Assessment and Plan: (4) Acute respiratory failure: Qualifiers: Respiratory failure complication: unspecified whether with hypoxia or hypercapnia Qualified Code(s): J96.00 - Acute respiratory failure, unspecified whether with hypoxia or hypercapnia Code(s): J96.00 - Acute respiratory failure, unspecified whether with hypoxia or hypercapnia Status: Acute Assessment and Plan: * Intubated in the emergency department due to impending respiratory failure. * Vent management sedation per plisse machine operator helper. (5) Electrolyte abnormality: Code(s): E87.8 - Other disorders of electrolyte and fluid balance, not elsewhere classified Status: Acute Assessment and Plan: * Moderate hyponatremia on iv fluids, sodium is 130 (6) Type 2 diabetes mellitus with diabetic neuropathy: Qualifiers: Diabetes mellitus care home insulin use: without care home use Qualified Code(s): E11.40 - Type 2 diabetes mellitus with diabetic neuropathy, unspecified Code(s): E11.40 - Type 2 diabetes mellitus with diabetic neuropathy, unspecified Status: Acute Assessment and Plan: . * Initiate sliding scale insulin, Accu-Cheks, and hypoglycemic protocol. (7) Pneumonia: Qualifiers: Pneumonia type: due to unspecified organism Laterality: bilateral Lung location: unspecified part of lung Qualified Code(s): J18.9 - Pneumonia, unspecified organism Code(s): J18.9 - Pneumonia, unspecified organism Status: Acute Assessment and Plan: * * On imipenem for left lower extremity cellulitis and aspiration pneumonia (8) Chronic obstructive pulmonary disease: Code(s): J44.9 - Chronic obstructive pulmonary disease, unspecified Status: Acute Assessment and Plan: * on iv steroids (9) Atrial fibrillation with rapid ventricular response: Code(s): I48.91 - Unspecified atrial fibrillation Status: Acute Assessment and Plan: * Converted to sinus rhythym * seen by cardiology (10) Elevated LFTs: Code(s): R79.89 - Other specified abnormal findings of blood chemistry Status: Acute Assessment and Plan: * Unsure cause (11) Non-ST elevation myocardial infarction (NSTEMI): Code(s): I21.4 - Non-ST elevation (NSTEMI) myocardial infarction
--- NOTE | 2020-02-29 17:09 | PM.IMPN ---
Progress Note: A&P Assessment and Plan (1) Severe sepsis: Code(s): A41.9 - Sepsis, unspecified organism; R65.20 - Severe sepsis without septic shock Status: Acute Assessment and Plan: Severe sepsis is present on admission Source of infection include left lower extremity cellulitis and pneumonia (2) Cellulitis of left leg: Code(s): L03.116 - Cellulitis of left lower limb Status: Acute Assessment and Plan: She has been started on imipenem and vancomycin (3) Acute dehydration: Code(s): E86.0 - Dehydration Status: Resolved Assessment and Plan: (4) Acute respiratory failure: Qualifiers: Respiratory failure complication: unspecified whether with hypoxia or hypercapnia Qualified Code(s): J96.00 - Acute respiratory failure, unspecified whether with hypoxia or hypercapnia Code(s): J96.00 - Acute respiratory failure, unspecified whether with hypoxia or hypercapnia Status: Acute Assessment and Plan: Intubated in the emergency department due to impending respiratory failure. Vent management sedation per central office associate. (5) Electrolyte abnormality: Code(s): E87.8 - Other disorders of electrolyte and fluid balance, not elsewhere classified Status: Acute Assessment and Plan: Moderate hyponatremia on iv fluids, sodium is 130 (6) Type 2 diabetes mellitus with diabetic neuropathy: Qualifiers: Diabetes mellitus intermission coordinator insulin use: without intermission coordinator use Qualified Code(s): E11.40 - Type 2 diabetes mellitus with diabetic neuropathy, unspecified Code(s): E11.40 - Type 2 diabetes mellitus with diabetic neuropathy, unspecified Status: Acute Assessment and Plan: . Initiate sliding scale insulin, Accu-Cheks, and hypoglycemic protocol. (7) Pneumonia: Qualifiers: Pneumonia type: due to unspecified organism Laterality: bilateral Lung location: unspecified part of lung Qualified Code(s): J18.9 - Pneumonia, unspecified organism Code(s): J18.9 - Pneumonia, unspecified organism Status: Acute Assessment and Plan: On imipenem for left lower extremity cellulitis and aspiration pneumonia (8) Chronic obstructive pulmonary disease: Code(s): J44.9 - Chronic obstructive pulmonary disease, unspecified Status: Acute Assessment and Plan: on iv steroids (9) Atrial fibrillation with rapid ventricular response: Code(s): I48.91 - Unspecified atrial fibrillation Status: Acute Assessment and Plan: Converted to sinus rhythym seen by cardiology (10) Elevated LFTs: Code(s): R79.89 - Other specified abnormal findings of blood chemistry Status: Acute Assessment and Plan: Unsure cause (11) Non-ST elevation myocardial infarction (NSTEMI): Code(s): I21.4 - Non-ST elevation (NSTEMI) myocardial infarction Status: Acute Assessment and Plan: Seen by cardiology pt to have lovenox full dose and heart cath later Subjective Date/time seen: 02/29/20 17:09 Interval history: Admitted with Acute respiratory distress history of type 2 diabetes mellitus, hypertension, hyperlipidemia, diastolic congestive heart failure, obstructive sleep apnea, COPD/asthma, depression with anxiety, and morbid obesity. Covid test is negative. Currently intubated in ICU also
[2020-02-29] MEDS: PROPOFOL IV EMULSION 100 ML 16.1 MG (17:50)
[2020-02-29 19:59] LABS: Pneumococcal Antigen Urine Not Detected (Not Detected)
[2020-02-29 20:20] LABS: Glucose Point of Care 169 (65-105)
[2020-02-29] MEDS: DORNASE ALFA INH SOLN 1 MG/ML 2.5 ML AMP 2.5 MG INHALATION (20:32)
[2020-02-29 21:24] LABS: Legionella pneumophila Ag Ur Not Detected (Not Detected)
[2020-02-29] MEDS: PROPOFOL IV EMULSION 100 ML 20.2 MG IV CONT (22:55)
[2020-03-01] VITALS (34 sets, daily range): BP systolic 120–158; BP diastolic 71–92; PULSE 55–98; RESP 18–26; TEMP 37.3–38.2; O2SAT 92–99
[2020-03-01] MEDS: METOCLOPRAMIDE HCL INJ 10 MG/2 ML VIAL IV PUSH ×4 (00:13→18:04)
[2020-03-01 00:41] LABS: Glucose Point of Care 177 (65-105)
[2020-03-01] MEDS: PROPOFOL IV EMULSION 100 ML 24.2 MG IV CONT ×6 (02:07→21:11)
[2020-03-01 03:59] LABS: Hematocrit 39.1 % (37.0-47.0); Mean Corpuscular HGB Conc 33.2 g/dl (32-36); Mean Corpuscular Hemoglobin 30.9 pg (26-34); Mean Corpuscular Volume 92.9 fl (80-100); Platelet Count Result 159 k/mm3 (150-375); Red Blood Count 4.21 M/mm3 (4.2-5.4); Red Cell Distribution Width 14.6 % (11.5-14.5); White Blood Count 18.7 K/mm3 (4.5-10.0)
[2020-03-01 04:13] LABS: Alanine Aminotransferase 74 U/L (4-35); Albumin Level 2.7 g/dL (3.5-5.1); Alkaline Phosphatase 96 U/L (38-126); Anion Gap 9.9 mmol/L (7-16); Aspartate Amino Transferase 80 U/L (14-36); Bilirubin,Total 0.3 mg/dL (0.2-1.3); Blood Urea Nitrogen 51 mg/dL (7-17); Carbon Dioxide 24 mmol/L (22-30); Chloride 104 mmol/L (98-107); Estimated CRCL calculation 83 ml/min; Estimated Glomerular Filt Rate 58; Glucose 172 mg/dL (65-105); Magnesium 2.7 mg/dL (1.6-2.3); Phosphorus 3.5 mg/dL (2.5-4.5); Potassium 3.9 mmol/L (3.4-5.0); Sodium 134 mmol/L (137-145)
[2020-03-01 04:45] LABS: Alveolar/Arterial O2 Gradient 203.4 mmHg; Carboxyhemoglobin 1.2 % THb (0-2.0); Fractional Inspired Oxygen 45 %; HCO3 ABG 22.4 mEq/l (22.0-26.0); Methemoglobin ABG 0.2 %THb (0-1.5); Oxygen Content ABG 19.1 %vol (16.0-22.0); Oxygen Saturation ABG 95.1 % (95.0-100.0); Oxyhemoglobin 93.6 % THb (90.0-100.0); PCO2 ABG 37.3 mmHg (35.0-45.0); PO2 FiO2 Ratio Arterial Blood 1.67 %; Total Hemoglobin 14.5 g/dL (12.0-18.0); pH ABG 7.397 (7.350-7.450)
[2020-03-01 04:46] LABS: Device VENTILATOR; Modified Allen's Test Pass; Site Drawn RIGHT RADIAL
[2020-03-01 04:47] LABS: Arterial Blood Gas PEEP 5 cmH2O; Arterial Blood Gas Tidal Volume 400 ml; Arterial Blood Gas Vent Mode CMV; Arterial Blood Gas Ventilator rate 22 /MIN
[2020-03-01 05:29] LABS: Osmolality, Urine 515 mOsm/kg (50-1200)
[2020-03-01] MEDS: DORNASE ALFA INH SOLN 1 MG/ML 2.5 ML AMP 2.5 MG INHALATION ×2 (08:06→20:41)
[2020-03-01] MEDS: FUROSEMIDE INJ 40 MG/4 ML VIAL IV PUSH (08:16)
[2020-03-01] MEDS: ENOXAPARIN 120 MG/0.8 ML SYRINGE SUB-Q ×2 (08:17→20:19)
[2020-03-01] MEDS: ASPIRIN 81 MG CHEWABLE TABLET FEED TUBE (08:17)
[2020-03-01] MEDS: INSULIN DETEMIR 100 UNITS/ML 18 UNITS SUB-Q ×2 (08:17→20:40)
[2020-03-01] MEDS: FAMOTIDINE 20 MG/2 ML VIAL IV PUSH ×2 (08:17→20:18)
[2020-03-01] MEDS: TOLNAFTATE 1% POWDER 45 GM BTL 1 APPLIC TOPICAL ×2 (08:18→20:18)
--- NOTE | 2020-03-01 11:31 | WPDINTPN ---
Progress Note: A&P Assessment and Plan (1) Acute respiratory failure: Qualifiers: Respiratory failure complication: unspecified whether with hypoxia or hypercapnia Qualified Code(s): J96.00 - Acute respiratory failure, unspecified whether with hypoxia or hypercapnia Code(s): J96.00 - Acute respiratory failure, unspecified whether with hypoxia or hypercapnia Status: Acute Assessment and Plan: patient presented with left lower extremity cellulitis, increasing shortness of breath and impending respiratory failure in the ER, patient was intubated on 02/25/2020 and placed on CMV mode of ventilation - chest x-ray and CTA chest reviewed, likely pneumonia and pulmonary edema - continue antibiotics, bronchodilators - sedated with Propofol only, daily sedation vacation, maintenance of 0 to -2 - thick secretions with thick mucus plugs from ETT. Continue pulmozyme and will add mucomyst - Will diurese today (2) Severe sepsis: Code(s): A41.9 - Sepsis, unspecified organism; R65.20 - Severe sepsis without septic shock Status: Acute Assessment and Plan: patient presented with left lower extremity cellulitis, acute respiratory failure requiring intubation likely secondary to pneumonia - patient received adequate IV fluids per sepsis protocol - off fluids since 02/28 - blood cultures growing group A Streptococcus susceptible to ceftriaxone, -continue vancomycin and ceftriaxone (3) Cellulitis of left leg: Code(s): L03.116 - Cellulitis of left lower limb Status: Acute Assessment and Plan: Cellulitis of left lower extremity with beefy red skin appearance, warm, edematous. Appearance much improved on the left lower extremity - left lower extremity venous Doppler was negative for DVT - x-ray of the left lower extremity showed soft tissue swelling without focal abnormality or acute osseous findings. - Continue IV fluids and antibiotic as above - Will check Arterial dopplers with PRADIP (4) Atrial fibrillation with rapid ventricular response: Code(s): I48.91 - Unspecified atrial fibrillation Status: Acute Assessment and Plan: new onset AFib RVR, likely related to severe sepsis, non ST-elevation DE with elevated troponin - currently in sinus rhythm, rate controlled - appreciate Cardiology evaluation and recommendation - p.r.n. metoprolol IV has been ordered - continue therapeutic Lovenox (5) Pneumonia: Qualifiers: Laterality: bilateral Lung location: unspecified part of lung Pneumonia type: due to unspecified organism Qualified Code(s): J18.9 - Pneumonia, unspecified organism Code(s): J18.9 - Pneumonia, unspecified organism Status: Acute Assessment and Plan: bilateral pneumonia seen on CTA, continue antibiotics as above - continue mechanical ventilation - bronchodilators (6) Elevated troponin: Code(s): R79.89 - Other specified abnormal findings of blood chemistry Status: Acute Assessment and Plan: patient with elevated troponin, likely related to her NSTEMI, this could be type 2 infarct secondary to severe sepsis with pneumonia and new onset AFib RVR. - Appreciate cardiology following the patient, continue aspirin, therapeutic Lovenox - echocardiogram Has been ordered to evaluate wall motion abnormality - patient did have a Lexiscan nuclear stress test on 01/02/2019 which was negative for ischemia or infarct, normal LVEF of 55%. 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
--- NOTE | 2020-03-01 11:46 | PCDIET ---
Nutrition Follow-Up Complete: Nutrition Diagnosis: Inadequate oral intake at present related to oral intubation as evidenced by NPO status. Nutrition Goal: Patient to meet estimated nutritional needs. Goal met. Patient now receiving Propofol at 24.2mL/hr which provides 638kcal over 24 hour period. Discussed with MD recommendation to decrease tube feeding to 40mL/hr Glucerna 1.2; verbal order obtained. Last recorded weight is 130.1 kg which is down from last review. Bowel Motility: No BM reported. Patient still with gas and bowel sounds. MD aware. Labs Reviewed: Glu (177), BUN (51), Na (134), Alb (2.7), Melyssa Ca (9.04) Meds Noted: Rocephin, Novolog, Vancomycin, Decadron, Levemir, Propofol, Precedex, Xopenex, Pepcid, Reglan, Fentanyl, Versed Additional Notes: Left heel with stasis ulcer, but no other skin changes, per RN. Patient also tolerating tube feedings much better, per RN, with decreasing residuals. Will continue to monitor with same goal. Nutrition Monitoring and Evaluation: Follow up every Wednesday/Wednesday. Follow daily in ICU rounds.
[2020-03-01 12:17] LABS: Glucose Point of Care 190 (65-105)
[2020-03-01] MEDS: ACETYLCYSTEINE 20% INHAL SOLN 800 MG/4 ML VIAL 200 MG INHALATION ×2 (14:40→20:42)
[2020-03-01] MEDS: ALBUTEROL SULFATE NEB 2.5 MG/0.5 ML INH INHALATION ×2 (14:41→20:41)
[2020-03-01 18:04] LABS: Glucose Point of Care 153 (65-105)
[2020-03-01 20:44] LABS: Glucose Point of Care 168 (65-105)
[2020-03-01 22:59] LABS: Vancomycin Trough 17.5 ug/mL (10.0-20.0)
[2020-03-02] VITALS (38 sets, daily range): BP systolic 124–144; BP diastolic 70–81; PULSE 54–71; RESP 16–35; TEMP 37.6–38; O2SAT 93–99
[2020-03-02] MEDS: PROPOFOL IV EMULSION 100 ML 32.3 MG IV CONT ×8 (00:24→21:09)
[2020-03-02] MEDS: METOCLOPRAMIDE HCL INJ 10 MG/2 ML VIAL IV PUSH ×5 (00:25→23:52)
[2020-03-02 00:41] LABS: Glucose Point of Care 143 (65-105)
[2020-03-02] MEDS: ALBUTEROL SULFATE NEB 2.5 MG/0.5 ML INH INHALATION ×4 (02:46→21:17)
[2020-03-02] MEDS: ACETYLCYSTEINE 20% INHAL SOLN 800 MG/4 ML VIAL 200 MG INHALATION ×4 (02:46→21:19)
[2020-03-02 04:11] LABS: Hematocrit 39.4 % (37.0-47.0); Hemoglobin 13.1 g/dL (12.0-15.0); Mean Corpuscular HGB Conc 33.2 g/dl (32-36); Mean Corpuscular Hemoglobin 31.2 pg (26-34); Mean Corpuscular Volume 93.8 fl (80-100); Platelet Count Result 182 k/mm3 (150-375); Red Cell Distribution Width 14.6 % (11.5-14.5); White Blood Count 18.4 K/mm3 (4.5-10.0)
[2020-03-02 04:34] LABS: Alanine Aminotransferase 70 U/L (4-35); Albumin Level 2.7 g/dL (3.5-5.1); Alkaline Phosphatase 105 U/L (38-126); Anion Gap 9.9 mmol/L (7-16); Aspartate Amino Transferase 63 U/L (14-36); Bilirubin,Total 0.2 mg/dL (0.2-1.3); Blood Urea Nitrogen 41 mg/dL (7-17); Calcium 8.2 mg/dL (8.4-10.2); Carbon Dioxide 27 mmol/L (22-30); Chloride 103 mmol/L (98-107); Estimated CRCL calculation 82 ml/min; Estimated Glomerular Filt Rate 58; Glucose 160 mg/dL (65-105); Magnesium 2.5 mg/dL (1.6-2.3); Phosphorus 4.6 mg/dL (2.5-4.5); Potassium 3.9 mmol/L (3.4-5.0); Sodium 136 mmol/L (137-145)
[2020-03-02 05:04] LABS: Alveolar/Arterial O2 Gradient 214.4 mmHg; Base Excess ABG -2.5 mEq/l (+/-2.0); Carboxyhemoglobin 0.7 % THb (0-2.0); Device VENTILATOR; Fractional Inspired Oxygen 45 %; HCO3 ABG 21.3 mEq/l (22.0-26.0); Methemoglobin ABG 0.1 %THb (0-1.5); Modified Allen's Test Pass; Oxygen Content ABG 17.2 %vol (16.0-22.0); Oxygen Saturation ABG 94.1 % (95.0-100.0); Oxyhemoglobin 92.6 % THb (90.0-100.0); PCO2 ABG 33.6 mmHg (35.0-45.0); PO2 ABG 68.2 mmHg (80.0-100.0); PO2 FiO2 Ratio Arterial Blood 1.52 %; Reduced Hemoglobin 6.6 %THb (0-5.0); Site Drawn RIGHT RADIAL; Total Hemoglobin 13.2 g/dL (12.0-18.0); pH ABG 7.419 (7.350-7.450)
[2020-03-02 05:05] LABS: Arterial Blood Gas PEEP 5 cmH2O; Arterial Blood Gas Tidal Volume 400 ml; Arterial Blood Gas Vent Mode CMV; Arterial Blood Gas Ventilator rate 22 /MIN
[2020-03-02 05:48] LABS: Glucose Point of Care 123 (65-105)
[2020-03-02] MEDS: DORNASE ALFA INH SOLN 1 MG/ML 2.5 ML AMP 2.5 MG INHALATION ×2 (07:27→21:18)
[2020-03-02] MEDS: FAMOTIDINE 20 MG/2 ML VIAL IV PUSH ×2 (10:00→20:53)
[2020-03-02] MEDS: ASPIRIN 81 MG CHEWABLE TABLET FEED TUBE (10:00)
[2020-03-02] MEDS: ENOXAPARIN 120 MG/0.8 ML SYRINGE SUB-Q ×2 (10:00→20:57)
[2020-03-02] MEDS: TOLNAFTATE 1% POWDER 45 GM BTL 1 APPLIC TOPICAL ×2 (10:01→20:57)
[2020-03-02] MEDS: INSULIN DETEMIR 100 UNITS/ML 18 UNITS SUB-Q (10:16)
--- NOTE | 2020-03-02 12:30 | WPDINTPN ---
Progress Note: A&P Assessment and Plan (1) Acute respiratory failure: Qualifiers: Respiratory failure complication: unspecified whether with hypoxia or hypercapnia Qualified Code(s): J96.00 - Acute respiratory failure, unspecified whether with hypoxia or hypercapnia Code(s): J96.00 - Acute respiratory failure, unspecified whether with hypoxia or hypercapnia Status: Acute Assessment and Plan: Patient presented with left lower extremity cellulitis, increasing shortness of breath and impending respiratory failure in the ER, patient was intubated on 02/25/2020 and placed on CMV mode of ventilation. I will put her on spontaneous breathing trial today. She has copious amount of thick secretions but has good cough strength. Continue pulmonary toileting. Will attempt to extubate her once her secretions are less and she does well on SBT trial. - chest x-ray and CTA chest reviewed, likely pneumonia and pulmonary edema - continue antibiotics, bronchodilators - sedated with Propofol only, daily sedation vacation, maintenance of 0 to -2 - thick secretions with thick mucus plugs from ETT. Continue pulmozyme and Mucomyst. - She had a net negative fluid balance of 265 cc in the last 24 hour. Will diurese her today again with Lasix of 40 mg now and 40 mg later today to try to attempt for a net negative fluid balance of 1.5 L in the next 24 hours. (2) Severe sepsis: Code(s): A41.9 - Sepsis, unspecified organism; R65.20 - Severe sepsis without septic shock Status: Acute Assessment and Plan: patient presented with left lower extremity cellulitis, acute respiratory failure requiring intubation likely secondary to pneumonia - patient received adequate IV fluids per sepsis protocol - off fluids since 02/28 - blood cultures growing group A Streptococcus susceptible to ceftriaxone. Will send follow-up blood culture today. -continue vancomycin and ceftriaxone. May potentially stop vancomycin in the next day her to if cultures remain negative. (3) Cellulitis of left leg: Code(s): L03.116 - Cellulitis of left lower limb Status: Acute Assessment and Plan: Cellulitis of left lower extremity with beefy red skin appearance, warm, edematous. Appearance much improved on the left lower extremity - left lower extremity venous Doppler was negative for DVT - x-ray of the left lower extremity showed soft tissue swelling without focal abnormality or acute osseous findings. - Continue IV antibiotic as above - I have obtained a CT of the lower extremity to look for any possible necrotizing fasciitis but there is no evidence of it. Erythema is fading and is not progressing above marked lines. (4) Atrial fibrillation with rapid ventricular response: Code(s): I48.91 - Unspecified atrial fibrillation Status: Acute Assessment and Plan: new onset AFib RVR, likely related to severe sepsis, non ST-elevation [place] with elevated troponin - currently in sinus rhythm, rate controlled - appreciate Cardiology evaluation and recommendation - p.r.n. metoprolol IV has been ordered - continue therapeutic Lovenox (5) Pneumonia: Qualifiers: Pneumonia type: due to unspecified organism Laterality: bilateral Lung location: unspecified part of lung Qualified Code(s): J18.9 - Pneumonia, unspecified organism Code(s): J18.9 - Pneumonia, unspecified organism Status: Acute Assessment and Plan: bilateral pneumonia seen on CTA, continue antibiotics as above - continue mechanical ventilation - bronchodilators (6) Elevated troponin: Code(s): R79.89 - Other specified abnormal findings of blood chemistry Status: Acute Assessment and Plan: patient with elevated troponin, likely related to her NSTEMI vs type 2 infarct secondary to severe sepsis with pneumonia and new onset AFib RVR. - Appreciate cardiology following the patient, continue aspirin, therapeutic Loveno
[2020-03-02 12:48] LABS: Glucose Point of Care 90 (65-105)
[2020-03-02] MEDS: CENTRAL LINE FLUSH 10 ML IV PUSH ×2 (14:27→21:00)
[2020-03-02] MEDS: FUROSEMIDE INJ 40 MG/4 ML VIAL IV PUSH ×2 (14:27→23:49)
--- NOTE | 2020-03-02 15:55 | P.PNIM_ITS ---
Progress Note: A&P Assessment and Plan (1) Severe sepsis: Code(s): A41.9 - Sepsis, unspecified organism; R65.20 - Severe sepsis without septic shock Status: Acute Assessment and Plan: * Severe sepsis is present on admission * Source of infection include left lower extremity cellulitis and pneumonia (2) Cellulitis of left leg: Code(s): L03.116 - Cellulitis of left lower limb Status: Acute Assessment and Plan: * She has been started on imipenem and vancomycin (3) Acute dehydration: Code(s): E86.0 - Dehydration Status: Resolved Assessment and Plan: (4) Acute respiratory failure: Qualifiers: Respiratory failure complication: unspecified whether with hypoxia or hypercapnia Qualified Code(s): J96.00 - Acute respiratory failure, unspecified whether with hypoxia or hypercapnia Code(s): J96.00 - Acute respiratory failure, unspecified whether with hypoxia or hypercapnia Status: Acute Assessment and Plan: * Intubated in the emergency department due to impending respiratory failure. * Vent management sedation per radio talk show host. (5) Electrolyte abnormality: Code(s): E87.8 - Other disorders of electrolyte and fluid balance, not elsewhere classified Status: Acute Assessment and Plan: * Moderate hyponatremia on iv fluids, sodium is 130 (6) Type 2 diabetes mellitus with diabetic neuropathy: Qualifiers: Diabetes mellitus half-way insulin use: without half-way use Qualified Code(s): E11.40 - Type 2 diabetes mellitus with diabetic neuropathy, unspecified Code(s): E11.40 - Type 2 diabetes mellitus with diabetic neuropathy, unspecified Status: Acute Assessment and Plan: . * Initiate sliding scale insulin, Accu-Cheks, and hypoglycemic protocol. (7) Pneumonia: Qualifiers: Laterality: bilateral Lung location: unspecified part of lung Pneumonia type: due to unspecified organism Qualified Code(s): J18.9 - Pneumonia, unspecified organism Code(s): J18.9 - Pneumonia, unspecified organism Status: Acute Assessment and Plan: * * On imipenem for left lower extremity cellulitis and aspiration pneumonia (8) Chronic obstructive pulmonary disease: Code(s): J44.9 - Chronic obstructive pulmonary disease, unspecified Status: Acute Assessment and Plan: * on iv steroids (9) Atrial fibrillation with rapid ventricular response: Code(s): I48.91 - Unspecified atrial fibrillation Status: Acute Assessment and Plan: * Converted to sinus rhythym * seen by cardiology (10) Elevated LFTs: Code(s): R79.89 - Other specified abnormal findings of blood chemistry Status: Acute Assessment and Plan: * Unsure cause (11) Non-ST elevation myocardial infarction (NSTEMI): Code(s): I21.4 - Non-ST elevation (NSTEMI) myocardial infarction
--- NOTE | 2020-03-02 15:55 | PM.IMPN ---
Progress Note: A&P Assessment and Plan (1) Severe sepsis: Code(s): A41.9 - Sepsis, unspecified organism; R65.20 - Severe sepsis without septic shock Status: Acute Assessment and Plan: Severe sepsis is present on admission Source of infection include left lower extremity cellulitis and pneumonia (2) Cellulitis of left leg: Code(s): L03.116 - Cellulitis of left lower limb Status: Acute Assessment and Plan: She has been started on imipenem and vancomycin (3) Acute dehydration: Code(s): E86.0 - Dehydration Status: Resolved Assessment and Plan: (4) Acute respiratory failure: Qualifiers: Respiratory failure complication: unspecified whether with hypoxia or hypercapnia Qualified Code(s): J96.00 - Acute respiratory failure, unspecified whether with hypoxia or hypercapnia Code(s): J96.00 - Acute respiratory failure, unspecified whether with hypoxia or hypercapnia Status: Acute Assessment and Plan: Intubated in the emergency department due to impending respiratory failure. Vent management sedation per marine habitat resource specialist. 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 Initiate sliding scale insulin, Accu-Cheks, and hypoglycemic protocol. (7) Pneumonia: Qualifiers: Laterality: bilateral Lung location: unspecified part of lung Pneumonia type: due to unspecified organism Qualified Code(s): J18.9 - Pneumonia, unspecified organism Code(s): J18.9 - Pneumonia, unspecified organism Status: Acute Assessment and Plan: On imipenem for left lower extremity cellulitis and aspiration pneumonia (8) Chronic obstructive pulmonary disease: Code(s): J44.9 - Chronic obstructive pulmonary disease, unspecified Status: Acute Assessment and Plan: on iv steroids (9) Atrial fibrillation with rapid ventricular response: Code(s): I48.91 - Unspecified atrial fibrillation Status: Acute Assessment and Plan: Converted to sinus rhythym seen by cardiology (10) Elevated LFTs: Code(s): R79.89 - Other specified abnormal findings of blood chemistry Status: Acute Assessment and Plan: Unsure cause (11) Non-ST elevation myocardial infarction (NSTEMI): Code(s): I21.4 - Non-ST elevation (NSTEMI) myocardial infarction Status: Acute Assessment and Plan: Seen by cardiology pt to have lovenox full dose and heart cath later Subjective Date/time seen: 03/02/20 15:55 Interval history: Admitted with Acute respiratory distress history of type 2 diabetes mellitus, hypertension, hyperlipidemia, diastolic congestive heart failure, obstructive sleep apnea, COPD/asthma, depression with anxiety, and morbid obesity. Covid test is negative. Weaning off vent Review of S
[2020-03-02 17:37] LABS: Glucose Point of Care 77 (65-105)
[2020-03-02] MEDS: ACETAMINOPHEN ELIXIR 325 MG/10.15 ML UDC 650 MG PO (17:47)
[2020-03-02 21:13] LABS: Glucose Point of Care 82 (65-105)
[2020-03-02 23:48] LABS: Glucose Point of Care 98 (65-105)
[2020-03-03] VITALS (26 sets, daily range): BP systolic 125–182; BP diastolic 66–96; PULSE 56–85; RESP 15–25; TEMP 37.7–38.1; O2SAT 90–95
[2020-03-03] MEDS: PROPOFOL IV EMULSION 100 ML 32.3 MG IV CONT ×2 (00:43→03:41)
[2020-03-03] MEDS: ALBUTEROL SULFATE NEB 2.5 MG/0.5 ML INH INHALATION ×4 (02:23→19:31)
[2020-03-03] MEDS: ACETYLCYSTEINE 20% INHAL SOLN 800 MG/4 ML VIAL 200 MG INHALATION ×3 (02:24→19:31)
[2020-03-03 03:55] LABS: Alveolar/Arterial O2 Gradient 170.7 mmHg; Carboxyhemoglobin 0.9 % THb (0-2.0); Fractional Inspired Oxygen 40 %; Methemoglobin ABG 0.1 %THb (0-1.5); Oxygen Content ABG 17.3 %vol (16.0-22.0); Oxygen Saturation ABG 94.8 % (95.0-100.0); Oxyhemoglobin 93.1 % THb (90.0-100.0); PCO2 ABG 38.6 mmHg (35.0-45.0); PO2 ABG 70.1 mmHg (80.0-100.0); PO2 FiO2 Ratio Arterial Blood 1.75 %; Reduced Hemoglobin 5.9 %THb (0-5.0); Total Hemoglobin 13.2 g/dL (12.0-18.0); pH ABG 7.446 (7.350-7.450)
[2020-03-03 03:56] LABS: Device VENTILATOR; Modified Allen's Test Pass; Site Drawn RIGHT RADIAL
[2020-03-03 03:57] LABS: Arterial Blood Gas PEEP 5 cmH2O; Arterial Blood Gas Vent Mode ASV
[2020-03-03] MEDS: CENTRAL LINE FLUSH 10 ML IV PUSH ×3 (06:21→21:55)
[2020-03-03] MEDS: METOCLOPRAMIDE HCL INJ 10 MG/2 ML VIAL IV PUSH (06:21)
[2020-03-03 06:23] LABS: Hematocrit 34.1 % (37.0-47.0); Hemoglobin 12.3 g/dL (12.0-15.0); Mean Corpuscular HGB Conc 36.1 g/dl (32-36); Mean Corpuscular Volume 94.2 fl (80-100); Mean Platelet Volume 11.2 fl (7.4-10.4); Platelet Count Result 217 k/mm3 (150-375); Red Blood Count 3.62 M/mm3 (4.2-5.4); Red Cell Distribution Width 14.4 % (11.5-14.5); White Blood Count 14.5 K/mm3 (4.5-10.0)
[2020-03-03] MEDS: DORNASE ALFA INH SOLN 1 MG/ML 2.5 ML AMP 2.5 MG INHALATION (07:17)
[2020-03-03 08:12] LABS: Anion Gap 8.6 mmol/L (7-16); Blood Urea Nitrogen 35 mg/dL (7-17); Calcium 7.8 mg/dL (8.4-10.2); Carbon Dioxide 26 mmol/L (22-30); Chloride 105 mmol/L (98-107); Estimated CRCL calculation 91 ml/min; Estimated Glomerular Filt Rate > 60; Glucose 118 mg/dL (65-105); Magnesium 2.2 mg/dL (1.6-2.3); Phosphorus 5.1 mg/dL (2.5-4.5); Potassium 4.6 mmol/L (3.4-5.0); Sodium 135 mmol/L (137-145)
[2020-03-03] MEDS: FUROSEMIDE INJ 40 MG/4 ML VIAL IV PUSH (08:23)
[2020-03-03] MEDS: ENOXAPARIN 120 MG/0.8 ML SYRINGE SUB-Q ×2 (08:23→19:30)
[2020-03-03] MEDS: FAMOTIDINE 20 MG/2 ML VIAL IV PUSH ×2 (08:23→19:29)
[2020-03-03] MEDS: TOLNAFTATE 1% POWDER 45 GM BTL 1 APPLIC TOPICAL ×2 (08:24→19:30)
[2020-03-03] MEDS: INSULIN DETEMIR 100 UNITS/ML 14 UNITS SUB-Q (08:26)
[2020-03-03 08:59] LABS: Glucose Point of Care 129 (65-105)
[2020-03-03 10:44] LABS: Alveolar/Arterial O2 Gradient 160.3 mmHg; Base Excess ABG 2.1 mEq/l (+/-2.0); Device VENTILATOR; Fractional Inspired Oxygen 40 %; HCO3 ABG 26.5 mEq/l (22.0-26.0); Modified Allen's Test Pass; Oxygen Content ABG 18.2 %vol (16.0-22.0); Oxygen Saturation ABG 95.9 % (95.0-100.0); Oxyhemoglobin 94.1 % THb (90.0-100.0); PCO2 ABG 40.4 mmHg (35.0-45.0); PO2 ABG 78.4 mmHg (80.0-100.0); PO2 FiO2 Ratio Arterial Blood 1.96 %; Site Drawn LEFT RADIAL; Total Hemoglobin 13.7 g/dL (12.0-18.0); pH ABG 7.434 (7.350-7.450)
[2020-03-03 10:45] LABS: Arterial Blood Gas PEEP 5 cmH2O; Arterial Blood Gas Pressure Support 5 cmH2O; Arterial Blood Gas Vent Mode SPONTANEOUS
--- NOTE | 2020-03-03 11:17 | WPDINTPN ---
Progress Note: A&P Assessment and Plan (1) Acute respiratory failure: Qualifiers: Respiratory failure complication: unspecified whether with hypoxia or hypercapnia Qualified Code(s): J96.00 - Acute respiratory failure, unspecified whether with hypoxia or hypercapnia Code(s): J96.00 - Acute respiratory failure, unspecified whether with hypoxia or hypercapnia Status: Acute Assessment and Plan: Patient presented with left lower extremity cellulitis, increasing shortness of breath and impending respiratory failure in the ER, patient was intubated on 02/25/2020 and placed on CMV mode of ventilation. - chest x-ray and CTA chest reviewed, likely pneumonia and pulmonary edema - continue antibiotics, bronchodilators - Her sedatives has been stopped today in the morning for expected intubation today. Her secretions are much less today as per respiratory therapist and nursing staff. She was diuresed with Lasix yesterday and had a negative fluid balance of 1 L the last 24 hours. She was given 1 dose of Lasix today in the morning as well. She remained on ASV mode overnight. She was placed on SBT trial and did very well. ABG on SBT trial seems to be acceptable. I will extubate her today hand closely follow her respiratory status after extubation. (2) Severe sepsis: Code(s): A41.9 - Sepsis, unspecified organism; R65.20 - Severe sepsis without septic shock Status: Acute Assessment and Plan: patient presented with left lower extremity cellulitis, acute respiratory failure requiring intubation likely secondary to pneumonia - patient received adequate IV fluids per sepsis protocol - off fluids since 02/28 - blood cultures growing group A Streptococcus susceptible to ceftriaxone. Follow-up blood culture has been negative so far. -continue vancomycin and ceftriaxone. May potentially stop vancomycin in the next day her to if cultures remain negative. She still febrile after few days of antibiotics. Will consult infectious disease service for their inputs. (3) Cellulitis of left leg: Code(s): L03.116 - Cellulitis of left lower limb Status: Acute Assessment and Plan: Cellulitis of left lower extremity with beefy red skin appearance, warm, edematous. Appearance much improved on the left lower extremity - left lower extremity venous Doppler was negative for DVT - x-ray of the left lower extremity showed soft tissue swelling without focal abnormality or acute osseous findings. - Continue IV antibiotic as above - CT of the lower extremity was negative for any evidence of abscess or necrotizing fasciitis. (4) Atrial fibrillation with rapid ventricular response: Code(s): I48.91 - Unspecified atrial fibrillation Status: Acute Assessment and Plan: new onset AFib RVR, likely related to severe sepsis, non ST-elevation [place] with elevated troponin - currently in sinus rhythm, rate controlled - appreciate Cardiology evaluation and recommendation - p.r.n. metoprolol IV has been ordered - continue therapeutic Lovenox which will be transitioned to p.o. anticoagulants once she is allowed p.o. intake by speech and swallow evaluation service. (5) Pneumonia: Qualifiers: Laterality: bilateral Lung location: unspecified part of lung Pneumonia type: due to unspecified organism Qualified Code(s): J18.9 - Pneumonia, unspecified organism Code(s): J18.9 - Pneumonia, unspecified organism Status: Acute Assessment and Plan: bilateral pneumonia seen on CTA, continue antibiotics as above - bronchodilators (6) Elevated troponin: Code(s): R79.89 - Other specified abnormal findings of blood chemistry Status: Acute Assessment and Plan: patient with elevated troponin, likely related to her NSTEMI vs type 2 infarct secondary to severe sepsis with pneumonia and new onset AFib RVR. - Appreciate cardiology following the patient
[2020-03-03 12:24] LABS: Glucose Point of Care 124 (65-105)
[2020-03-03] MEDS: MORPHINE SULFATE 2 MG/ML INJ IV PUSH (12:36)
--- NOTE | 2020-03-03 12:41 | PCSTNOTE ---
03/03/20: Spoke with RN at 12:30 about swallow evaluation order. RN stated that pt. had just been extubated ~1 hour prior. RN rec'd waiting longer before providing PO trials. Will complete BSS on 03/04/20.
--- NOTE | 2020-03-03 16:05 | P.PNIM_ITS ---
Progress Note: A&P Assessment and Plan (1) Severe sepsis: Code(s): A41.9 - Sepsis, unspecified organism; R65.20 - Severe sepsis without septic shock Status: Acute Assessment and Plan: * Severe sepsis is present on admission * Source of infection include left lower extremity cellulitis and pneumonia * Rpt Bc negative, intial shows group a strep (2) Cellulitis of left leg: Code(s): L03.116 - Cellulitis of left lower limb Status: Acute Assessment and Plan: * She has been started on rocephin and vancomycin (3) Acute dehydration: Code(s): E86.0 - Dehydration Status: Resolved Assessment and Plan: (4) Acute respiratory failure: Qualifiers: Respiratory failure complication: unspecified whether with hypoxia or hypercapnia Qualified Code(s): J96.00 - Acute respiratory failure, unspecified whether with hypoxia or hypercapnia Code(s): J96.00 - Acute respiratory failure, unspecified whether with hypoxia or hypercapnia Status: Resolved Assessment and Plan: extubated today (5) Electrolyte abnormality: Code(s): E87.8 - Other disorders of electrolyte and fluid balance, not elsewhere classified Status: Acute Assessment and Plan: * Moderate hyponatremia on iv fluids, sodium is 135 (6) Type 2 diabetes mellitus with diabetic neuropathy: Qualifiers: 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 * Initiate sliding scale insulin, Accu-Cheks, and hypoglycemic protocol. (7) Pneumonia: Qualifiers: Pneumonia type: due to unspecified organism Laterality: bilateral Lung location: unspecified part of lung Qualified Code(s): J18.9 - Pneumonia, unspecified organism Code(s): J18.9 - Pneumonia, unspecified organism Status: Acute Assessment and Plan: * * On imipenem for left lower extremity cellulitis and aspiration pneumonia (8) Chronic obstructive pulmonary disease: Code(s): J44.9 - Chronic obstructive pulmonary disease, unspecified Status: Acute Assessment and Plan: * off steroids (9) Atrial fibrillation with rapid ventricular response: Code(s): I48.91 - Unspecified atrial fibrillation Status: Acute Assessment and Plan: * Converted to sinus rhythym * seen by cardiology (10) Elevated LFTs: Code(s): R79.89 - Other specified abnormal findings of blood chemistry Status: Acute Assessment and Plan: * Unsure cause (11) Non-ST elevation myocardial infarction (NSTEMI): Code(s): I21.4 - Non-ST elevation (NSTEMI) myocardial infarction Status: Acute Assessment and Plan: Seen by cardio
--- NOTE | 2020-03-03 16:05 | PM.IMPN ---
Progress Note: A&P Assessment and Plan (1) Severe sepsis: Code(s): A41.9 - Sepsis, unspecified organism; R65.20 - Severe sepsis without septic shock Status: Acute Assessment and Plan: Severe sepsis is present on admission Source of infection include left lower extremity cellulitis and pneumonia Rpt Bc negative, intial shows group a strep (2) Cellulitis of left leg: Code(s): L03.116 - Cellulitis of left lower limb Status: Acute Assessment and Plan: She has been started on rocephin and vancomycin (3) Acute dehydration: Code(s): E86.0 - Dehydration Status: Resolved Assessment and Plan: (4) Acute respiratory failure: Qualifiers: Respiratory failure complication: unspecified whether with hypoxia or hypercapnia Qualified Code(s): J96.00 - Acute respiratory failure, unspecified whether with hypoxia or hypercapnia Code(s): J96.00 - Acute respiratory failure, unspecified whether with hypoxia or hypercapnia Status: Resolved Assessment and Plan: extubated today (5) Electrolyte abnormality: Code(s): E87.8 - Other disorders of electrolyte and fluid balance, not elsewhere classified Status: Acute Assessment and Plan: Moderate hyponatremia on iv fluids, sodium is 135 (6) Type 2 diabetes mellitus with diabetic neuropathy: Qualifiers: Diabetes mellitus superintendent container terminal insulin use: without superintendent container terminal use Qualified Code(s): E11.40 - Type 2 diabetes mellitus with diabetic neuropathy, unspecified Code(s): E11.40 - Type 2 diabetes mellitus with diabetic neuropathy, unspecified Status: Acute Assessment and Plan: . Initiate sliding scale insulin, Accu-Cheks, and hypoglycemic protocol. (7) Pneumonia: Qualifiers: Pneumonia type: due to unspecified organism Laterality: bilateral Lung location: unspecified part of lung Qualified Code(s): J18.9 - Pneumonia, unspecified organism Code(s): J18.9 - Pneumonia, unspecified organism Status: Acute Assessment and Plan: On imipenem for left lower extremity cellulitis and aspiration pneumonia (8) Chronic obstructive pulmonary disease: Code(s): J44.9 - Chronic obstructive pulmonary disease, unspecified Status: Acute Assessment and Plan: off steroids (9) Atrial fibrillation with rapid ventricular response: Code(s): I48.91 - Unspecified atrial fibrillation Status: Acute Assessment and Plan: Converted to sinus rhythym seen by cardiology (10) Elevated LFTs: Code(s): R79.89 - Other specified abnormal findings of blood chemistry Status: Acute Assessment and Plan: Unsure cause (11) Non-ST elevation myocardial infarction (NSTEMI): Code(s): I21.4 - Non-ST elevation (NSTEMI) myocardial infarction Status: Acute Assessment and Plan: Seen by cardiology pt to have lovenox full dose and heart cath later Additional Plan . Subjective Date/time seen: 03/03/20 16:05 Interval history: Admitted with Acute respiratory distress history of type 2 diabetes mellitus, hypertension, hyperlipidemia, diastolic congestive heart failure, obstructive sleep apnea, COPD/asthma, depression with anxiety, and morbid obesity. Covid test is negative. Pt is off ventilator and doing well. Talking to me, having a cough. Has buck
[2020-03-03 17:59] LABS: Glucose Point of Care 94 (65-105)
[2020-03-03 19:41] LABS: Glucose Point of Care 93 (65-105)
[2020-03-03] MEDS: hydrALAZINE HCL 20 MG/ML VIAL 10 MG IV PUSH (21:52)
[2020-03-03 23:38] LABS: Glucose Point of Care 109 (65-105)
[2020-03-04] VITALS (26 sets, daily range): BP systolic 139–176; BP diastolic 67–104; PULSE 64–90; RESP 14–28; TEMP 36.1–37.9; O2SAT 91–99; BMI 10.0
[2020-03-04] MEDS: ALBUTEROL SULFATE NEB 2.5 MG/0.5 ML INH INHALATION ×4 (01:34→20:00)
[2020-03-04] MEDS: ACETYLCYSTEINE 20% INHAL SOLN 800 MG/4 ML VIAL 200 MG INHALATION ×4 (01:34→20:00)
[2020-03-04 04:49] LABS: Hematocrit 37.5 % (37.0-47.0); Hemoglobin 12.2 g/dL (12.0-15.0); Mean Corpuscular HGB Conc 32.5 g/dl (32-36); Mean Corpuscular Hemoglobin 30.8 pg (26-34); Mean Corpuscular Volume 94.7 fl (80-100); Mean Platelet Volume 10.5 fl (7.4-10.4); Platelet Count Result 211 k/mm3 (150-375); Red Blood Count 3.96 M/mm3 (4.2-5.4); Red Cell Distribution Width 14.2 % (11.5-14.5)
[2020-03-04] MEDS: METOCLOPRAMIDE HCL INJ 10 MG/2 ML VIAL IV PUSH (05:10)
[2020-03-04] MEDS: CENTRAL LINE FLUSH 10 ML IV PUSH ×3 (05:12→20:49)
[2020-03-04 06:57] LABS: Anion Gap 11.6 mmol/L (7-16); Blood Urea Nitrogen 34 mg/dL (7-17); Calcium 7.7 mg/dL (8.4-10.2); Carbon Dioxide 24 mmol/L (22-30); Chloride 109 mmol/L (98-107); Estimated CRCL calculation 90 ml/min; Estimated Glomerular Filt Rate > 60; Glucose 140 mg/dL (65-105); Magnesium 2.2 mg/dL (1.6-2.3); Potassium 4.6 mmol/L (3.4-5.0); Sodium 140 mmol/L (137-145)
--- NOTE | 2020-03-04 09:16 | WPDINTPN ---
Progress Note: A&P Assessment and Plan (1) Acute respiratory failure: Qualifiers: Respiratory failure complication: unspecified whether with hypoxia or hypercapnia Qualified Code(s): J96.00 - Acute respiratory failure, unspecified whether with hypoxia or hypercapnia Code(s): J96.00 - Acute respiratory failure, unspecified whether with hypoxia or hypercapnia Status: Resolved Assessment and Plan: Patient presented with left lower extremity cellulitis, increasing shortness of breath and impending respiratory failure in the ER, patient was intubated on 02/25/2020 and placed on CMV mode of ventilation. - Extubated on 03/03 - on supplemental oxygen with good O2 sats - continue antibiotics, bronchodilators - will have PT/OT followl the patient, up in chair - incentive spirometry (2) Severe sepsis: Code(s): A41.9 - Sepsis, unspecified organism; R65.20 - Severe sepsis without septic shock Status: Acute Assessment and Plan: patient presented with left lower extremity cellulitis, acute respiratory failure requiring intubation likely secondary to pneumonia - patient received adequate IV fluids per sepsis protocol - off fluids since 02/28 - blood cultures growing group A Streptococcus susceptible to ceftriaxone. Follow-up blood culture has been negative so far. - patient with low-grade fevers, infectious disease was consulted over the weekend, switched ceftriaxone to ampicillin - patient passed her swallow evaluation, placed on heart healthy diet (3) Cellulitis of left leg: Code(s): L03.116 - Cellulitis of left lower limb Status: Acute Assessment and Plan: Cellulitis of left lower extremity with beefy red skin appearance, warm, edematous. Appearance much improved on the left lower extremity - left lower extremity venous Doppler was negative for DVT - x-ray of the left lower extremity showed soft tissue swelling without focal abnormality or acute osseous findings. - Continue IV antibiotic as above - CT of the lower extremity was negative for any evidence of abscess or necrotizing fasciitis. (4) Atrial fibrillation with rapid ventricular response: Code(s): I48.91 - Unspecified atrial fibrillation Status: Acute Assessment and Plan: new onset AFib RVR, likely related to severe sepsis, non ST-elevation WA with elevated troponin - currently in sinus rhythm, rate controlled - appreciate Cardiology evaluation and recommendation - p.r.n. metoprolol IV has been ordered - will switch lovenox to xareto 20 mg PO daily per cardiology recommendation (5) Pneumonia: Qualifiers: Laterality: bilateral Lung location: unspecified part of lung Pneumonia type: due to unspecified organism Qualified Code(s): J18.9 - Pneumonia, unspecified organism Code(s): J18.9 - Pneumonia, unspecified organism Status: Acute Assessment and Plan: bilateral pneumonia seen on CTA, continue antibiotics as above - bronchodilators (6) Elevated troponin: Code(s): R79.89 - Other specified abnormal findings of blood chemistry Status: Acute Assessment and Plan: patient with elevated troponin, likely related to her NSTEMI vs type 2 infarct secondary to severe sepsis with pneumonia and new onset AFib RVR. - Appreciate cardiology following the patient, continue aspirin, therapeutic Lovenox - echocardiogram Has been ordered to evaluate wall motion abnormality - patient did have a Lexiscan nuclear stress test on 01/02/2019 which was negative for ischemia or infarct, normal LVEF of 55%. (7) Type 2 diabetes mellitus with diabetic neuropathy: Qualifiers: Diabetes mellitus detention insulin use: without long term acute care registered nurse use Qualified Code(s): E11.40 - Type 2 diabetes mellitus with diabetic neuropathy, unspecified Code(s): E11.40 - Type 2 diabetes mellitus with diabetic neuropathy, unspecified Status: Acute Assessment and
--- NOTE | 2020-03-04 09:18 | PM.IMPN ---
Progress Note: A&P Assessment and Plan (1) Acute respiratory failure: Qualifiers: Respiratory failure complication: unspecified whether with hypoxia or hypercapnia Qualified Code(s): J96.00 - Acute respiratory failure, unspecified whether with hypoxia or hypercapnia Code(s): J96.00 - Acute respiratory failure, unspecified whether with hypoxia or hypercapnia Status: Resolved Assessment and Plan: Patient had CXR on admission showing diffuse interstitial and airspace opacities. She required intubation on 02/24 and admitted to the ICU. Related to the PNA and pulmonary edema. She was diuresed and ultimately able to be extubated 03/03/20. Currently on 4L. Not on home O2. Wean O2 as tolerated. PT/OT. Passed swallow study. Echo pending. (2) Severe sepsis: Code(s): A41.9 - Sepsis, unspecified organism; R65.20 - Severe sepsis without septic shock Status: Acute Assessment and Plan: Severe sepsis with septicenia andrespiratory failure present on admission. Source of infection include left lower extremity cellulitis and pneumonia. BCx 02/24 growing Group A Strept that is olivo-sensitive. Repeat BCx NGTD. Patient still having low grade fevers. ID has been consulted. Continue currernt abx for now. (3) Pneumonia: Qualifiers: Laterality: bilateral Lung location: unspecified part of lung Pneumonia type: due to unspecified organism Qualified Code(s): J18.9 - Pneumonia, unspecified organism Code(s): J18.9 - Pneumonia, unspecified organism Status: Acute Assessment and Plan: Patient here for aspiration PNA. Currently on Rocephin and Vanco. Able to be extubated and currently on 4L. She passed swallow study this morning and diet ordered. Contineu IV abx. Contineu nebs. (4) Non-ST elevation myocardial infarction (NSTEMI): Code(s): I21.4 - Non-ST elevation (NSTEMI) myocardial infarction Status: Acute Assessment and Plan: Trop climbed to 1.13 before trending downward. Her EKG showing atrial flutter with RVR and left bundle branch block. Negative lexiscan stress test December 2018. She had IVCD on EKG a year ago. Seen by cardiology. Continue ASA. Patient currently on Lovenox full dose. LHC being planned. Echo pending. (5) Cellulitis of left leg: Code(s): L03.116 - Cellulitis of left lower limb Status: Acute Assessment and Plan: Patient with cellulitis of the left leg. Left lower extremity venous Dopplers negative for DVT on 02/26/2020. Normal PRADIP is on 03/01/2020. Left lower extremity CT scan showing small left knee joint effusion and anterior soft tissue swelling but no evidence of abscess. Symptoms mild and clinically it appears to be improving. Continue Rocephin and vancomycin (6) Atrial fibrillation with rapid ventricular response: Code(s): I48.91 - Unspecified atrial fibrillation Status: Acute Assessment and Plan: EKG on admission showed atrial flutter with RVR and left bundle branch block. She had IVCD on EKG a year ago. She converted to normal sinus rhythm. Telemetry showing no significant dysrhythmias. Cardiology is following. Appreciate their input. Continue telemetry. (7) Electrolyte abnormality: Code(s): E87.8 - Other disorders of electrolyte and fluid balance, not elsewhere classified Status: Acute Assessment and Plan: Sodium 125 with potassium of 3.3 on admission. Levels have been corrected. Continue to monitor. (8) Type 2 diabetes mellitus with diabetic neuropathy: Qualifiers: Diabetes mellitus fdc insulin use: wit
[2020-03-04] MEDS: ENOXAPARIN 120 MG/0.8 ML SYRINGE SUB-Q (09:32)
[2020-03-04] MEDS: ASPIRIN 81 MG CHEWABLE TABLET FEED TUBE (09:33)
[2020-03-04] MEDS: FAMOTIDINE 20 MG/2 ML VIAL IV PUSH ×2 (09:33→20:50)
[2020-03-04] MEDS: INSULIN DETEMIR 100 UNITS/ML 14 UNITS SUB-Q ×2 (09:34→20:50)
[2020-03-04] MEDS: TOLNAFTATE 1% POWDER 45 GM BTL 1 APPLIC TOPICAL ×2 (09:34→20:49)
--- NOTE | 2020-03-04 10:14 | WPDINFPN2 ---
Progress Note: A&P Assessment and Plan (1) Cellulitis of left leg: Code(s): L03.116 - Cellulitis of left lower limb Status: Acute Assessment and Plan: Group A Strep cellulitis and bacteremia REC Ampicillin, 2 days more IV tentatively. Subjective Date/time seen: 03/04/20 10:14 Objective Data Vital Signs Vital Signs: Vital Signs - 24 hr 03/03/20 10:37 03/03/20 11:23 03/03/20 12:00 Temperature 37.9 C H Pulse Rate 76 74 70 Respiratory Rate 18 20 Blood Pressure 170/89 H Pulse Oximetry 94 91 90 03/03/20 13:34 03/03/20 14:00 03/03/20 16:00 Temperature 37.9 C H 38.0 C H Pulse Rate 70 76 72 Respiratory Rate 16 15 17 Blood Pressure 172/91 H 166/91 H Pulse Oximetry 93 92 93 03/03/20 18:00 03/03/20 19:32 03/03/20 19:37 Temperature 38.1 C H Pulse Rate 71 68 Respiratory Rate 17 18 Blood Pressure 162/86 H Pulse Oximetry 94 93 03/03/20 19:38 03/03/20 20:00 03/03/20 22:00 Temperature 37.9 C H 37.8 C H Pulse Rate 70 83 71 Respiratory Rate 18 18 16 Blood Pressure 174/90 H 162/83 H Pulse Oximetry 93 93 03/04/20 00:00 03/04/20 01:35 03/04/20 01:40 Temperature 37.8 C H Pulse Rate 69 67 70 Respiratory Rate 18 20 20 Blood Pressure 160/83 H Pulse Oximetry 93 03/04/20 02:00 03/04/20 04:00 03/04/20 05:57 Temperature 37.7 C H 37.7 C H Pulse Rate 72 81 67 Respiratory Rate 20 14 Blood Pressure 159/85 H 166/85 H Pulse Oximetry 91 94 03/04/20 06:00 03/04/20 08:08 03/04/20 08:10 Temperature 37.7 C H Pulse Rate 70 67 Respiratory Rate 20 20 Blood Pressure 167/87 H Pulse Oximetry 95 95 Intake/Output Intake/Output: Intake & Output 03/01/20 03/02/20 03/03/20 03/04/20 23:59 23:59 23:59 23:59 Intake Total 2701 4294 1553 500 Output Total 1704 5428 7954 800 [facility] -[phone] Meds/Results Medications: Active Medications Generic Name Dose Route Start Last Admin Trade Name Freq PRN Reason Stop Dose Admin Acetaminophen 650 mg 03/02/20 17:32 03/02/20 17:47 Tylenol Elixir PO 650 mg Q6H PRN Administration Mild Pain (1-3) or Fever Acetylcysteine 200 mg 03/01/20 14:00 03/04/20 09:22 Mucomyst 20% Inhal Soln INHALATION Not Given Q6HRT AKOSUA Albuterol 2.5 mg 03/01/20 14:00 03/04/20 08:06 Albuterol Sulf Neb 2.5mg/0.5ml INHALATION 2.5 mg Q6HRT AKOSUA Administration Aspirin 81 mg 02/27/20 09:00 03/04/20 09:33 Aspirin Chewable FEED TUBE 81 mg QAM AKOSUA Administration Atorvastatin Calcium 40 mg 03/04/20 10:05 Lipitor PO DAILY [facility] Bupropion HCl 150 mg 03/04/20 10:05 Wellbutrin Xl (24 Hr) PO DAILY [facility] Dextrose 12.5 gm 02/26/20 00:22 Dextrose 50% Syringe IV PUSH PRN PRN Hypoglycemia Protocol Enoxaparin Sodium 120 mg 02/26/20 09:00 03/04/20 09:32 Lovenox SUB-Q 120 mg Q12HR AKOSUA Administration Famotidine 20 mg 02/26/20 09:00 03/04/20 09:33 Pepcid Iv IV PUSH 20 mg Q12HR AKOSUA Administration Fluoxetine HCl 60 mg 03/04/20 10:05 Prozac PO DAILY [facility] Gabapentin 300 mg 03/04/20 13:00 Neurontin PO TID AKOSUA Glucagon 1 mg 02/26/20 00:22 Glucagon For Inj IM PRN PRN Hypoglycemia Protocol Glucose 15 gm 02/26/20 00:22 Glutose 15 PO PRN PRN Hypoglycemia Protocol Hydralazine HCl 10 mg 03/03/20 14:38 03/03/20 21:52 Apresoline Hcl Inj IV PUSH 10 mg Q6H PRN Administration Blood Pressure - High Dextrose 1,000 mls @ 100 mls/hr 02/26/20 00:22 Dextrose 5% 1,000 Ml IVPB PRN PRN Hypoglycemia Protocol Insulin Aspart 3 - 6 units 02/27/20 06:00 03/04/20 06:18 Novolog SUB-Q Not Given Q6H AKOSUA Protocol Insulin Detemir 14 units 03/03/20 09:00 03/04/20 09:34 Levemir SUB-Q 14 units Q12HR AKOSUA Administration Levalbuterol HCl 2 puff 02/25/20 23:40 Xopenex Hfa INHALATION Q6HRT PRN Shortness Of Breath Lisinopril 40
[2020-03-04] MEDS: ATORVASTATIN 40 MG TABLET PO (11:01)
[2020-03-04] MEDS: lisinopriL 20 MG TABLET 40 MG PO (11:01)
[2020-03-04] MEDS: buPROPion HCL XL (24 HR) 150 MG TABCR PO (11:01)
[2020-03-04] MEDS: FLUoxetine HCL 20 MG CAPSULE 60 MG PO (11:01)
--- NOTE | 2020-03-04 12:10 | PCDIET ---
ICU Rounding Note: Pt current nutrition is Heart Healthy, DBCC, Level 6. Nutrition recommendation: Agree Last recorded weight is 130.2kg (steady from assessed wt) Bowel Motility: BM+yesterday Labs Reviewed:WBC 15.0, Glucose 140 Meds Noted:Albuterol, Rocephin, Insulin, Vancomycin Additional Notes: Pt downgrading to IMU. Extubated and passed swallow study. No intakes yet, but appetite good. We will continue to follow to monitor PO intake every three days.
[2020-03-04 12:41] LABS: Glucose Point of Care 147 (65-105)
[2020-03-04] MEDS: AMPICILLIN 2 GM/NS 100 ML 2 GM/100 ML BAG IVPB ×3 (12:53→23:25)
[2020-03-04] MEDS: GABAPENTIN 300 MG CAPSULE PO ×2 (12:54→17:51)
--- NOTE | 2020-03-04 14:10 | PC.NURSE ---
This patient, Apple Littlejohn, was received from [ICU 8] on 03/04/20 at 1410. REPORT RECEIVED FROM JARETT RANDALL. Personal belongings list checked and signed. Patient/family oriented to unit policies and routines
--- NOTE | 2020-03-04 14:12 | PC.NURSE ---
This patient, Apple Littlejohn, was transferred to [facility] on 03/04/20 at 1410. Personal belongings sent with patient. Report given to Anastasia RANDALL. Appropriate documentation sent with patient.
--- NOTE | 2020-03-04 14:39 | PM.PNCARD ---
Progress Note: A&P Assessment and Plan (1) Atrial fibrillation with rapid ventricular response: Code(s): I48.91 - Unspecified atrial fibrillation Status: Acute Assessment and Plan: -54-y/o with h/o HTN, DM, HFpEF, morbid obesity, KITTY and COPD, current tobacco dependence who is seen in cardiac consultation for atrial fibrillation with rapid ventricular response. she had new onset A fib with RVR in the setting of sepsis, resp failure and hypokalemia -converted to normal sinus rhythm/sinus bradycardia (not on rate control meds) - CHADs VASc score is at least 3 (female, HTN,DM). She would benefit from AC. Currently on Lovenox. May switch to Xarelto 20 daily (2) Non-ST elevation myocardial infarction (NSTEMI): Code(s): I21.4 - Non-ST elevation (NSTEMI) myocardial infarction Status: Acute Assessment and Plan: - Likely due to Type II AL from increased demand from underlying sepsis/resp failure. last trop was 1.1. Will repeat trop today to see the trend -COVID negative and jsut had her echo done this am. Will follow - Recived Lovenox for AL. May switch to Xarelto -She had recent Lexiscan nuclear stress test 01/02/2019 with no ischemia and low risk for CAD. Given her risk factors including DM and smoking, May consider [facility] for definitive evaluation for coronary artery disease (inpatient vs outpatient, depending on hospital course and recovery) . 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 -left lower extremity venous Doppler this admission negative for DVT preliminary report. Subjective Date/time seen: 03/04/20 14:39 She feels better now, she was extubated, now awake and alert Exam Narrative: Exam Narrative: General: Acutely ill-appearing female, awake and alret. HEENT: ET tube is in place. There is dried blood on the bottom lip. Neck: Exam difficult due to neck circumference. No obvious abnormalities. Respiratory: She is breathing over the ventilator. No stridor. Cardiovascular: Regular rate and rhythm with S1-S2. Occasional ectopy. Gastrointestinal: Abdomen nondistended. Skin: Warm and dry. Left lower leg is beefy red from the ankle to above the knee. There are few shallow ulcers on the andersen that are weeping. Candidiasis under the panniculus and in the left inguinal region. Extremities: No cyanosis or clubbing. She has 1+ left lower extremity edema. No edema of the right leg. Neurological: Unable to fully assess as she is sedated while on the ventilator. Psychiatric: Unable to assess as she is sedated and intubated. Objective Data Vital Signs Vital Signs: Vital Signs - 24 hr 03/03/20 16:00 03/03/20 18:00 03/03/20 19:32 Temperature 38.0 C H 38.1 C H Pulse Rate 72 71 68 Respiratory Rate 17 17 18 Blood Pressure 166/91 H 162/86 H Pulse Oximetry 93 94 03/03/20 19:37 03/03/20 19:38 03/03/20 20:00 Temperature 37.9 C H Pulse Rate 70 83 Respiratory Rate 18 18 Blood Pressure 174/90 H Pulse Oximetry 93 93 03/03/20 22:00 03/04/20 00:00 03/04/20 01:35 Temperature 37.8 C H 37.8 C H Pulse Rate 71 69 67 Respiratory Rate 16 18 20 Blood Pressure 162/83 H 160/83 H Pulse Oximetry 93 93 03/04/20 01:40 03/04/20 02:00 03/04/20 04:00 Temperature 37.7 C H 37.7 C H Pulse Rate 70 72 81 Respiratory Rate 20 20 14 Blood Pressure 159/85 H 166/85 H Pulse Oximetry 91 94 03/04/20 05:57 03/04/20 06:00 03/04/20 08:00 Temp
[2020-03-04 17:11] LABS: Glucose Point of Care 116 (65-105)
[2020-03-04] MEDS: RIVAROXABAN 20 MG TABLET PO (17:51)
[2020-03-04] MEDS: traZODone HCL 25 MG TABLET PO (20:49)
[2020-03-04 21:09] LABS: Glucose Point of Care 129 (65-105)
[2020-03-05] VITALS (21 sets, daily range): BP systolic 142–166; BP diastolic 68–92; PULSE 58–83; RESP 18–22; TEMP 36.4–36.8; O2SAT 92–98
[2020-03-05] MEDS: ACETYLCYSTEINE 20% INHAL SOLN 800 MG/4 ML VIAL 200 MG INHALATION ×4 (01:49→20:26)
[2020-03-05] MEDS: ALBUTEROL SULFATE NEB 2.5 MG/0.5 ML INH INHALATION ×4 (01:49→20:25)
[2020-03-05] MEDS: AMPICILLIN 2 GM/NS 100 ML 2 GM/100 ML BAG IVPB ×3 (05:36→20:41)
[2020-03-05] MEDS: CENTRAL LINE FLUSH 10 ML IV PUSH ×3 (05:38→20:41)
[2020-03-05] MEDS: CENTRAL LINE FLUSH 20 ML IV PUSH (05:38)
[2020-03-05 06:02] LABS: Hematocrit 36.1 % (37.0-47.0); Hemoglobin 11.5 g/dL (12.0-15.0); Mean Corpuscular HGB Conc 31.9 g/dl (32-36); Mean Corpuscular Hemoglobin 30.5 pg (26-34); Mean Corpuscular Volume 95.8 fl (80-100); Mean Platelet Volume 10.4 fl (7.4-10.4); Platelet Count Result 217 k/mm3 (150-375); Red Blood Count 3.77 M/mm3 (4.2-5.4); White Blood Count 14.3 K/mm3 (4.5-10.0)
--- NOTE | 2020-03-05 07:03 | CONS_ITS ---
DATE OF CONSULTATION: 03/04/2020 REASON FOR CONSULTATION: Group A strep bacteremia. HISTORY OF PRESENT ILLNESS: This patient is a 54-year-old female, who has morbid obesity and diabetes with peripheral neuropathy. She has had no operations in the last 3 months for any purpose. She does not recall why she was admitted, but does remember that she was confused, sometime before she lost consciousness. Son brought her to the emergency room on February 24 for 3 days of fever. She was intubated in the field. Chart indicates that she also had nausea, vomiting, diarrhea, left leg redness, dyspnea and cough. The patient reports that her cough persists, but is clear in nature. There has been no hemoptysis, chest pain, and she denies dyspnea. She has long since been extubated. She initially was given imipenem and vancomycin, now is on ceftriaxone and vancomycin. Consultation requested. Her hospital course otherwise has been complicated by fluid overload, atrial fibrillation with RVR, non-ST-OK, hyperglycemia, have normal liver function tests. The patient is now hungry. ALLERGIES: ADHESIVE TAPE. HABITS: No illicit drugs. She quit smoking in 2016. No alcohol. PRESENT MEDICATIONS: No immunosuppressants. PAST MEDICAL HISTORY: BTL, hysterectomy, hernia repair, vitamin D deficiency, past osteomyelitis, KITTY, morbid obesity, hyperlipidemia, hypertension, diastolic dysfunction, COPD. REVIEW OF SYSTEMS: 14-point review otherwise negative. FAMILY HISTORY: Not pertinent to present illness. 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 She is , lives in [place]. PHYSICAL EXAMINATION: GENERAL: This is a middle-aged female, who appears older than her actual age. No respiratory distress. VITAL SIGNS: Her temperature readings have been in normal range with a Busch probe. T-max since early yesterday of 38.1, initial temperature reading was 39.4 up to 39.9 shortly thereafter, 167/87, 70, 20, 95% on 4 L. SKIN: Warm and dry. She has some diabetic dermopathy over both shins. She also has erythema with warmth. No tenderness over the left leg largely posterior mid to distal calf. She has a bulla over the left posterior and plantar heel. She has no bullae elsewhere. No evidence of necrosis odor. NODES: No cervical adenopathy. EENT: The conjunctivae are normal. Pupils equal, round, and reactive to light. Oropharynx, oral mucosa normal. Teeth in poor repair. NECK: No masses or thyromegaly. LUNGS: Clear to auscultation and percussion. CARDIAC: Regular rate and rhythm. No murmur or gallop. ABDOMEN: Morbidly obese, nontender. No organomegaly. No masses. EXTREMITIES: 1+ edema. No clubbing. No cyanosis. NEUROLOGIC: Awake, alert, oriented, normal muscle tone and motor strength. LABORATORY DATA: White blood cell count persistently high 15.0 today, hemoglobin 12.2, platelets are 211. Blood gases 7.43, 40, 78, 27, 96% on the ventilator. This is yesterday morning. She has hyperchloremia, BUN 34, otherwise chemistry panel is normal. Glucose today is 140, calcium 7.7. Urinalysis multiple abnormalities not particularly suggestive of infection. Vancomycin level is supratherapeutic. Hepatitis panel is all nonreactive. Her COVID was nonreactive. Legionella pneumococcal antigens also nonreactive. RADIOLOGY: CT of the lower spine showed no diskitis or osteomyelitis. She has interstitial edema and cardiomegaly. No confluent infiltrates. Echocardiogram, no infection. ASSESSMENT: 1. Group A strep bacteremia of is 2/2 sets from admission. Source is her left lower extremity with cellulitis. Other sources are unlikely including GI, upper or lower respiratory or primary bloodstream. Other causes of her fever are unlikely including community acquired pneumonia,
[2020-03-05 08:30] LABS: Glucose Point of Care 69 (65-105)
[2020-03-05] MEDS: GABAPENTIN 300 MG CAPSULE PO ×3 (09:22→17:38)
[2020-03-05] MEDS: buPROPion HCL XL (24 HR) 150 MG TABCR PO (09:23)
[2020-03-05] MEDS: lisinopriL 20 MG TABLET 40 MG PO (09:23)
[2020-03-05] MEDS: ATORVASTATIN 40 MG TABLET PO (09:23)
[2020-03-05] MEDS: ASPIRIN 81 MG CHEWABLE TABLET FEED TUBE (09:23)
[2020-03-05] MEDS: FLUoxetine HCL 20 MG CAPSULE 60 MG PO (09:24)
[2020-03-05] MEDS: FAMOTIDINE 20 MG/2 ML VIAL IV PUSH ×2 (09:24→20:40)
[2020-03-05] MEDS: TOLNAFTATE 1% POWDER 45 GM BTL 1 APPLIC TOPICAL ×2 (12:30→20:40)
[2020-03-05 12:49] LABS: Glucose Point of Care 105 (65-105)
[2020-03-05 13:22] LABS: Alanine Aminotransferase 71 U/L (4-35); Alkaline Phosphatase 106 U/L (38-126); Anion Gap 8.2 mmol/L (7-16); Aspartate Amino Transferase 69 U/L (14-36); Bilirubin,Total 0.9 mg/dL (0.2-1.3); Blood Urea Nitrogen 32 mg/dL (7-17); Calcium 7.6 mg/dL (8.4-10.2); Carbon Dioxide 28 mmol/L (22-30); Chloride 103 mmol/L (98-107); Estimated CRCL calculation 114 ml/min; Estimated Glomerular Filt Rate > 60; Glucose 91 mg/dL (65-105); Magnesium 2.3 mg/dL (1.6-2.3); Phosphorus 3.6 mg/dL (2.5-4.5); Potassium 4.2 mmol/L (3.4-5.0); Sodium 135 mmol/L (137-145)
[2020-03-05 16:15] LABS: Glucose Point of Care 97 (65-105)
[2020-03-05] MEDS: RIVAROXABAN 20 MG TABLET PO (17:39)
--- NOTE | 2020-03-05 18:49 | PM.IMPN ---
Progress Note: A&P Assessment and Plan (1) Acute respiratory failure: Qualifiers: Respiratory failure complication: unspecified whether with hypoxia or hypercapnia Qualified Code(s): J96.00 - Acute respiratory failure, unspecified whether with hypoxia or hypercapnia Code(s): J96.00 - Acute respiratory failure, unspecified whether with hypoxia or hypercapnia Status: Resolved Assessment and Plan: Patient had CXR on admission showing diffuse interstitial and airspace opacities. She required intubation on 02/24 and admitted to the ICU. Related to the PNA and pulmonary edema. She was diuresed and ultimately able to be extubated 03/03/20. Currently on 1L. Not on home O2. Wean O2 as tolerated. Continue PT/OT. Passed swallow study. Echo still pending. (2) Severe sepsis: Code(s): A41.9 - Sepsis, unspecified organism; R65.20 - Severe sepsis without septic shock Status: Acute Assessment and Plan: Severe sepsis with septicemia and respiratory failure present on admission. Source of infection include left lower extremity cellulitis and pneumonia. BCx 02/24 growing Group A Strept that is olivo-sensitive. Repeat BCx NGTD. Fever curve improving. ID following. Continue current abx for now. (3) Pneumonia: Qualifiers: Laterality: bilateral Lung location: unspecified part of lung Pneumonia type: due to unspecified organism Qualified Code(s): J18.9 - Pneumonia, unspecified organism Code(s): J18.9 - Pneumonia, unspecified organism Status: Acute Assessment and Plan: Patient here for aspiration PNA. Treated with Rocephin and Vanco. Able to be extubated and currently on 1L. She passed swallow study. Change to Ampicillin. Continue IV abx. Continue nebs. (4) Non-ST elevation myocardial infarction (NSTEMI): Code(s): I21.4 - Non-ST elevation (NSTEMI) myocardial infarction Status: Acute Assessment and Plan: Trop climbed to 1.13 before trending downward. Her EKG showing atrial flutter with RVR and left bundle branch block. Negative lexiscan stress test December 2018. She had IVCD on EKG a year ago. Seen by cardiology. Continue ASA. Patient changed Xarelto. LHC being considered. Echo still pending. (5) Cellulitis of left leg: Code(s): L03.116 - Cellulitis of left lower limb Status: Acute Assessment and Plan: Patient with cellulitis of the left leg. Left lower extremity venous Dopplers negative for DVT on 02/26/2020. Normal PRADIP is on 03/01/2020. Left lower extremity CT scan showing small left knee joint effusion and anterior soft tissue swelling but no evidence of abscess. Symptoms mild and clinically it appears to be improving. Abx changes to Ampicillin. (6) Atrial fibrillation with rapid ventricular response: Code(s): I48.91 - Unspecified atrial fibrillation Status: Acute Assessment and Plan: EKG on admission showed atrial flutter with RVR and left bundle branch block. She had IVCD on EKG a year ago. She converted to normal sinus rhythm. [id number] 3. Telemetry showing no significant dysrhythmias. Cardiology is following. Appreciate their input. Continue telemetry. (7) Electrolyte abnormality: Code(s): E87.8 - Other disorders of electrolyte and fluid balance, not elsewhere classified Status: Acute Assessment and Plan: Sodium 125 with potassium of 3.3 on admission. Levels have been corrected. Continue to monitor. 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
[2020-03-05 20:52] LABS: Glucose Point of Care 136 (65-105)
[2020-03-05] MEDS: traZODone HCL 25 MG TABLET PO (20:54)
[2020-03-06] VITALS (27 sets, daily range): BP systolic 133–164; BP diastolic 66–86; PULSE 57–98; RESP 18–32; TEMP 36.2–37.2; O2SAT 91–100
[2020-03-06] MEDS: AMPICILLIN 2 GM/NS 100 ML 2 GM/100 ML BAG IVPB ×5 (01:10→23:04)
[2020-03-06] MEDS: ACETYLCYSTEINE 20% INHAL SOLN 800 MG/4 ML VIAL 200 MG INHALATION ×3 (02:21→15:22)
[2020-03-06] MEDS: ALBUTEROL SULFATE NEB 2.5 MG/0.5 ML INH INHALATION ×4 (02:22→21:21)
[2020-03-06] MEDS: CENTRAL LINE FLUSH 10 ML IV PUSH ×3 (06:09→21:23)
[2020-03-06 06:10] LABS: Hematocrit 34.2 % (37.0-47.0); Hemoglobin 10.9 g/dL (12.0-15.0); Mean Corpuscular HGB Conc 31.9 g/dl (32-36); Mean Corpuscular Hemoglobin 30.4 pg (26-34); Mean Corpuscular Volume 95.3 fl (80-100); Mean Platelet Volume 9.9 fl (7.4-10.4); Platelet Count Result 211 k/mm3 (150-375); Red Blood Count 3.59 M/mm3 (4.2-5.4); Red Cell Distribution Width 13.4 % (11.5-14.5); White Blood Count 14.5 K/mm3 (4.5-10.0)
[2020-03-06 06:24] LABS: Glucose Point of Care 107 (65-105)
[2020-03-06 06:29] LABS: Anion Gap 9.8 mmol/L (7-16); Blood Urea Nitrogen 29 mg/dL (7-17); Calcium 7.5 mg/dL (8.4-10.2); Carbon Dioxide 28 mmol/L (22-30); Chloride 102 mmol/L (98-107); Estimated CRCL calculation 109 ml/min; Estimated Glomerular Filt Rate > 60; Glucose 136 mg/dL (65-105); Magnesium 2.2 mg/dL (1.6-2.3); Phosphorus 3.4 mg/dL (2.5-4.5); Potassium 4.8 mmol/L (3.4-5.0); Sodium 135 mmol/L (137-145)
[2020-03-06 08:13] LABS: Glucose Point of Care 107 (65-105)
[2020-03-06] MEDS: FLUoxetine HCL 20 MG CAPSULE 60 MG PO (09:07)
[2020-03-06] MEDS: lisinopriL 20 MG TABLET 40 MG PO (09:08)
[2020-03-06] MEDS: ATORVASTATIN 40 MG TABLET PO (09:08)
[2020-03-06] MEDS: GABAPENTIN 300 MG CAPSULE PO ×3 (09:08→16:57)
[2020-03-06] MEDS: ASPIRIN 81 MG CHEWABLE TABLET FEED TUBE (09:08)
[2020-03-06] MEDS: EUCERIN CREAM 120 GM JAR 1 APPLIC TOPICAL (09:09)
[2020-03-06] MEDS: FAMOTIDINE 20 MG/2 ML VIAL IV PUSH (09:09)
[2020-03-06] MEDS: buPROPion HCL XL (24 HR) 150 MG TABCR PO (09:09)
[2020-03-06] MEDS: TOLNAFTATE 1% POWDER 45 GM BTL 1 APPLIC TOPICAL ×2 (09:10→21:23)
[2020-03-06 12:05] LABS: Glucose Point of Care 189 (65-105)
--- NOTE | 2020-03-06 12:26 | WPDINFPN2 ---
Progress Note: A&P Assessment and Plan (1) Cellulitis of left leg: Code(s): L03.116 - Cellulitis of left lower limb Status: Acute Assessment and Plan: 1. Group A Strep cellulitis LLE resulting in bacteremia, microbiologic cure WBC still high 2. Hip pain, low suspicion for septic arthritis, but not excluded REC Ampicillin #3 (antibiotic # 10), continue IV, f/u wbc and exam. Subjective Date/time seen: 03/06/20 12:26 Interval history: bilateral hip pain Exam Narrative: Exam Narrative: afebrile Const: General: no acute distress Other: morbid obesity Resp: Effort & Inspection: normal respiratory effort Auscultation: clear to auscultation bilaterally Cardio: Rate: regular rate Rhythm: regular rhythm Heart sounds: no murmurs GI: Inspection: non-distended GI Palp: Yes Soft to palpation and No Tenderness to palpation present (GI) Skin: General skin exam: normal color Other: petechiae as before, minimal erythema LLE, no tenderness Extrem: Other: normal ROM both hips, normal tone Objective Data Vital Signs Vital Signs: Vital Signs - 24 hr 03/05/20 14:00 03/05/20 14:10 03/05/20 14:20 Temperature Pulse Rate 62 58 L 60 Respiratory Rate 20 20 Blood Pressure Pulse Oximetry 03/05/20 16:00 03/05/20 18:00 03/05/20 20:00 Temperature 36.8 C Pulse Rate 73 60 59 L Respiratory Rate 20 Blood Pressure 143/81 H Pulse Oximetry 93 03/05/20 20:12 03/05/20 20:29 03/05/20 20:34 Temperature 36.4 C Pulse Rate 61 62 62 Respiratory Rate 18 18 18 Blood Pressure 142/76 H Pulse Oximetry 96 93 03/05/20 21:02 03/05/20 22:00 03/06/20 00:00 Temperature Pulse Rate 62 59 L 57 L Respiratory Rate 18 Blood Pressure Pulse Oximetry 03/06/20 00:13 03/06/20 02:00 03/06/20 02:24 Temperature 37.2 C Pulse Rate 65 67 69 Respiratory Rate 18 18 Blood Pressure 150/71 H Pulse Oximetry 100 03/06/20 02:35 03/06/20 03:22 03/06/20 04:00 Temperature 36.2 C L Pulse Rate 69 65 60 Respiratory Rate 18 18 Blood Pressure 134/71 Pulse Oximetry 100 03/06/20 05:54 03/06/20 07:59 03/06/20 08:00 Temperature 36.6 C 36.6 C Pulse Rate 63 59 L 87 Respiratory Rate 18 32 H Blood Pressure 147/86 H 133/72 Pulse Oximetry 98 98 03/06/20 09:19 03/06/20 09:44 03/06/20 10:10 Temperature Pulse Rate 87 67 98 Respiratory Rate 20 Blood Pressure Pulse Oximetry 91 03/06/20 12:00 Temperature 36.9 C Pulse Rate 70 Respiratory Rate 18 Blood Pressure 135/79 Pulse Oximetry 93 Intake/Output Intake/Output: Intake & Output 03/03/20 03/04/20 03/05/20 03/06/20 23:59 23:59 23:59 23:59 Intake Total 1553 1820 1860 740 Output Total 3350 2100 1700 1025 Balance -1797 -280 160 -285 Meds/Results Medications: Active Medications Generic Name Dose Route Start Last Admin Trade Name Freq PRN Reason Stop Dose Admin Acetaminophen 650 mg 03/02/20 17:32 03/02/20 17:47 Tylenol Elixir PO 650 mg Q6H PRN Administration Mild Pain (1-3) or Fever Acetylcysteine 200 mg 03/01/20 14:00 03/06/20 09:44 Mucomyst 20% Inhal Soln INHALATION 200 mg Q6HRT AKOSUA Administration Albuterol 2.5 mg 03/01/20 14:00 03/06/20 09:44 Albuterol Sulf Neb 2.5mg/0.5ml INHALATION 2.5 mg Q6HRT AKOSUA Administration Aspirin 81 mg 02/27/20 09:00 03/06/20 09:08 Aspirin Chewable FEED TUBE 81 mg QAM AKOSUA Administration Atorvastatin Calcium 40 mg 03/04/20 10:05 03/06/20 09:08 Lipitor PO 40 mg DAILY AKOSUA Administration Bupropion HCl 150 mg 03/04/20 10:05 03/06/20 09:09 Wellbutrin Xl (24 Hr) PO 150 mg DAILY AKOSUA Administration Dextrose 12.5 gm 02/26/20 00:22 Dextrose 50% Syringe IV PUSH PRN PRN Hypoglycemia Protocol Famotidine 20 mg 02/26/20 09:00 03/06/20 09:09 Pepcid Iv IV PUSH 20 mg Q12HR AKOSUA Administration Fluoxetine HCl 60 mg 03/04/20 10:05 03/06/20 09:07 Prozac PO 60 mg DAILY AKOSUA
--- NOTE | 2020-03-06 12:41 | PCNFU ---
Nutrition Follow-Up Complete: Inadequate oral intake at present related to oral intubation as evidenced by NPO status. Goal: Patient to meet estimated nutritional needs. Patient progressing towards goal with 60% average meal consumption Pt current nutrition is DBCC, Heart Healthy, Soft/bite sized level 6. Nutrition recommendation: Recommend advancing diet as appropriate Last recorded weight is 120.3 kg. Bowel Motility: last bowel movement reported on 03/06/20 Labs Reviewed: Hgb (10.9) Hct (34.2) Na (135) BUN (29) Glu (136) WBC (14.5) Meds Noted: Decadron, Pepcid, Fentanyl, Primaxin, Novolog, Levemir, Xopenex, Versed, Vancomycin, NS at 75mL/hr, Lipitor, Neurontin, Prozac, Prinivil Additional Notes: Patient states dislike of current diet order. Patient requests to be switched to less restrictive diet. Patient states hungry and wants to eat real food such as grilled chicken sandwich and raisin bran. Patient states because of diet restrictions unable to consume much food. Patient did not report any diet related problems such as N/V, diarrhea, constipation. Follow up every 5 days
--- NOTE | 2020-03-06 13:10 | PCNSR ---
On 03/06/20, the student, Yon Sandoval, provided care and [facility] this patient. I have reviewed the student's documentation and agree with the findings.
--- NOTE | 2020-03-06 14:01 | PM.PNCARD ---
Progress Note: A&P Assessment and Plan (1) Atrial fibrillation with rapid ventricular response: Code(s): I48.91 - Unspecified atrial fibrillation Status: Acute Assessment and Plan: -54-y/o with h/o HTN, DM, HFpEF, morbid obesity, KITTY and COPD, current tobacco dependence who is seen in cardiac consultation for atrial fibrillation with rapid ventricular response. she had new onset A fib with RVR in the setting of sepsis, resp failure and hypokalemia -converted to normal sinus rhythm/sinus bradycardia (not on rate control meds) - CHADs VASc score is at least 3 (female, HTN,DM). She would benefit from AC. Currently on Lovenox. May switch to Xarelto 20 daily (2) Non-ST elevation myocardial infarction (NSTEMI): Code(s): I21.4 - Non-ST elevation (NSTEMI) myocardial infarction Status: Acute Assessment and Plan: - Likely due to Type II SD from increased demand from underlying sepsis/resp failure. last trop was 1.1. Will repeat trop today to see the trend -COVID negative and jsut had her echo done this am. Will follow - Recived Lovenox for SD. May switch to Xarelto -She had recent Lexiscan nuclear stress test 01/02/2019 with no ischemia and low risk for CAD. Given her risk factors including DM and smoking, May consider [facility] for definitive evaluation for coronary artery disease (inpatient vs outpatient, depending on hospital course and recovery) . 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 . Subjective Date/time seen: 03/06/20 14:01 she feels better today, shortness breath improved, no chest pain no shortness of breath at rest Exam Narrative: Exam Narrative: General: Acutely ill-appearing female, awake and alret. HEENT: ET tube is in place. There is dried blood on the bottom lip. Neck: Exam difficult due to neck circumference. No obvious abnormalities. Respiratory: She is breathing over the ventilator. No stridor. Cardiovascular: Regular rate and rhythm with S1-S2. Occasional ectopy. Gastrointestinal: Abdomen nondistended. Skin: Warm and dry. Left lower leg is beefy red from the ankle to above the knee. There are few shallow ulcers on the andersen that are weeping. Candidiasis under the panniculus and in the left inguinal region. Extremities: No cyanosis or clubbing. She has 1+ left lower extremity edema. No edema of the right leg. Neurological: Unable to fully assess as she is sedated while on the ventilator. Psychiatric: Unable to assess as she is sedated and intubated. Objective Data Vital Signs Vital Signs: Vital Signs - 24 hr 03/05/20 14:10 03/05/20 14:20 03/05/20 16:00 Temperature 36.8 C Pulse Rate 58 L 60 73 Respiratory Rate 20 20 20 Blood Pressure 143/81 H Pulse Oximetry 93 03/05/20 18:00 03/05/20 20:00 03/05/20 20:12 Temperature 36.4 C Pulse Rate 60 59 L 61 Respiratory Rate 18 Blood Pressure 142/76 H Pulse Oximetry 96 03/05/20 20:29 03/05/20 20:34 03/05/20 21:02 Temperature Pulse Rate 62 62 62 Respiratory Rate 18 18 18 Blood Pressure Pulse Oximetry 93 03/05/20 22:00 03/06/20 00:00 03/06/20 00:13 Temperature 37.2 C Pulse Rate 59 L 57 L 65 Respiratory Rate 18 Blood Pressure 150/71 H Pulse Oximetry 100 03/06/20 02:00 03/06/20 02:24 03/06/20 02:35 Temperature Pulse Rate 67 69 69 Respiratory Rate 18 18 Blood Pressure Pulse Oximetry 03/06/20 03:22 03/06/20
[2020-03-06 16:18] LABS: Glucose Point of Care 217 (65-105)
[2020-03-06] MEDS: RIVAROXABAN 20 MG TABLET PO (16:58)
[2020-03-06] MEDS: INSULIN ASPART (*BKC) 100 UNITS/ML SUB-Q (16:58)
--- NOTE | 2020-03-06 19:36 | PM.IMPN ---
Progress Note: A&P Assessment and Plan (1) Acute respiratory failure: Qualifiers: Respiratory failure complication: unspecified whether with hypoxia or hypercapnia Qualified Code(s): J96.00 - Acute respiratory failure, unspecified whether with hypoxia or hypercapnia Code(s): J96.00 - Acute respiratory failure, unspecified whether with hypoxia or hypercapnia Status: Resolved Assessment and Plan: Patient had CXR on admission showing diffuse interstitial and airspace opacities. She was intubated on 02/24 and admitted to the ICU. Related to the PNA and pulmonary edema. She was diuresed and ultimately able to be extubated 03/03/20. Currently on 1L. Not on home O2. Wean O2 as tolerated. Continue PT/OT. Passed swallow study. (2) Severe sepsis: Code(s): A41.9 - Sepsis, unspecified organism; R65.20 - Severe sepsis without septic shock Status: Acute Assessment and Plan: Severe sepsis with septicemia and respiratory failure present on admission. Source of infection include left lower extremity cellulitis and pneumonia. BCx 02/24 growing Group A Strept that is olivo-sensitive. Repeat BCx NGTD. No further fevers but WBC no change. ID following. Doubt right hip septic arthritis but concern given the weakness. Continue current abx. (3) Pneumonia: Qualifiers: Laterality: bilateral Lung location: unspecified part of lung Pneumonia type: due to unspecified organism Qualified Code(s): J18.9 - Pneumonia, unspecified organism Code(s): J18.9 - Pneumonia, unspecified organism Status: Acute Assessment and Plan: Patient here for aspiration PNA. Treated with Rocephin and Vanco. Able to be extubated and currently on 1L. She passed swallow study. Changed to Ampicillin. Continue IV abx. Continue nebs. Stop acetylcysteine (4) Non-ST elevation myocardial infarction (NSTEMI): Code(s): I21.4 - Non-ST elevation (NSTEMI) myocardial infarction Status: Acute Assessment and Plan: Trop climbed to 1.13 before trending downward. Her EKG showing atrial flutter with RVR and left bundle branch block. Negative lexiscan stress test December 2018. She had IVCD on EKG a year ago. Seen by cardiology. Continue ASA and Lipitor. Continue Xarelto. LHC being considered. Echo cancelled (5) Cellulitis of left leg: Code(s): L03.116 - Cellulitis of left lower limb Status: Acute Assessment and Plan: Patient with cellulitis of the left leg. Left lower extremity venous Dopplers negative for DVT on 02/26/2020. Normal PRADIP is on 03/01/2020. Left lower extremity CT scan showing small left knee joint effusion and anterior soft tissue swelling but no evidence of abscess. Symptoms mild and clinically it appears to be improving. Abx changes to Ampicillin. (6) Atrial fibrillation with rapid ventricular response: Code(s): I48.91 - Unspecified atrial fibrillation Status: Acute Assessment and Plan: EKG on admission showed atrial flutter with RVR and left bundle branch block. She had IVCD on EKG a year ago. She converted to normal sinus rhythm. [id number] 3. Telemetry showing no significant dysrhythmias. Cardiology is following. Appreciate their input. (7) Electrolyte abnormality: Code(s): E87.8 - Other disorders of electrolyte and fluid balance, not elsewhere classified Status: Acute Assessment and Plan: Sodium 125 with potassium of 3.3 on admission. Levels have been corrected. Continue to monitor. (8) Type 2 diabetes mellitus with diabetic neuropathy: Qualifiers: Diabetes mellitus l
[2020-03-06 20:22] LABS: Glucose Point of Care 125 (65-105)
[2020-03-06] MEDS: FAMOTIDINE 20 MG TABLET PO (21:23)
[2020-03-06] MEDS: traZODone HCL 25 MG TABLET PO (21:24)
[2020-03-06] MEDS: CENTRAL LINE FLUSH 20 ML IV PUSH (23:05)
[2020-03-07] VITALS (11 sets, daily range): BP systolic 111–146; BP diastolic 57–79; PULSE 55–76; RESP 16–22; TEMP 36.6–37.2; O2SAT 92–98
[2020-03-07] MEDS: AMPICILLIN 2 GM/NS 100 ML 2 GM/100 ML BAG IVPB ×3 (05:46→20:45)
[2020-03-07] MEDS: CENTRAL LINE FLUSH 20 ML IV PUSH (06:10)
[2020-03-07] MEDS: CENTRAL LINE FLUSH 10 ML IV PUSH ×3 (06:10→20:46)
[2020-03-07 06:19] LABS: Anion Gap 7.3 mmol/L (7-16); Blood Urea Nitrogen 24 mg/dL (7-17); Calcium 7.5 mg/dL (8.4-10.2); Carbon Dioxide 29 mmol/L (22-30); Chloride 101 mmol/L (98-107); Estimated CRCL calculation 114 ml/min; Estimated Glomerular Filt Rate > 60; Glucose 141 mg/dL (65-105); Magnesium 2.1 mg/dL (1.6-2.3); Phosphorus 3.4 mg/dL (2.5-4.5); Potassium 4.3 mmol/L (3.4-5.0); Sodium 133 mmol/L (137-145)
[2020-03-07 06:25] LABS: Hematocrit 30.7 % (37.0-47.0); Mean Corpuscular HGB Conc 32.6 g/dl (32-36); Mean Corpuscular Hemoglobin 31.1 pg (26-34); Mean Corpuscular Volume 95.3 fl (80-100); Mean Platelet Volume 10.3 fl (7.4-10.4); Platelet Count Result 207 k/mm3 (150-375); Red Blood Count 3.22 M/mm3 (4.2-5.4); Red Cell Distribution Width 13.4 % (11.5-14.5); White Blood Count 13.8 K/mm3 (4.5-10.0)
[2020-03-07] MEDS: ACETAMINOPHEN 325 MG TABLET 650 MG PO (07:25)
[2020-03-07 08:12] LABS: Glucose Point of Care 111 (65-105)
[2020-03-07] MEDS: ATORVASTATIN 40 MG TABLET PO (08:13)
[2020-03-07] MEDS: ASPIRIN 81 MG CHEWABLE TABLET PO (08:13)
[2020-03-07] MEDS: buPROPion HCL XL (24 HR) 150 MG TABCR PO (08:13)
[2020-03-07] MEDS: FAMOTIDINE 20 MG TABLET PO ×2 (08:14→20:44)
[2020-03-07] MEDS: FLUoxetine HCL 20 MG CAPSULE 60 MG PO (08:14)
[2020-03-07] MEDS: lisinopriL 20 MG TABLET 40 MG PO (08:14)
[2020-03-07] MEDS: GABAPENTIN 300 MG CAPSULE PO ×3 (08:14→18:03)
[2020-03-07] MEDS: TOLNAFTATE 1% POWDER 45 GM BTL 1 APPLIC TOPICAL ×2 (08:15→20:45)
[2020-03-07] MEDS: EUCERIN CREAM 120 GM JAR 1 APPLIC TOPICAL (08:15)
[2020-03-07] MEDS: ALBUTEROL SULFATE NEB 2.5 MG/0.5 ML INH INHALATION ×2 (08:44→13:44)
--- NOTE | 2020-03-07 10:00 | PC.NURSE ---
This patient, Apple Littlejohn, was transferred to [[id number]] on 03/07/20 at 1001. Personal belongings sent with patient. Report given to [Ashley RANDALL]. Appropriate documentation sent with patient.
[2020-03-07 11:53] LABS: Glucose Point of Care 172 (65-105)
--- NOTE | 2020-03-07 13:21 | WPDINFPN2 ---
Progress Note: A&P Assessment and Plan (1) Cellulitis of left leg: Code(s): L03.116 - Cellulitis of left lower limb Status: Acute Assessment and Plan: 1. Group A Strep cellulitis LLE resulting in bacteremia, microbiologic cure WBC still high, decreasing 2. Hip pain, low suspicion for septic arthritis, but not excluded REC Ampicillin #4 (antibiotic # 11), continue IV, f/u wbc and exam. Oral ampicillin once wbc below 12 or so Subjective Date/time seen: 03/07/20 13:21 Interval history: good appetite, no leg pain, no chills Exam Narrative: Exam Narrative: looks well. No fever Const: General: no acute distress Eyes: General: appearance normal, both eyes and all related structures GI: Inspection: non-distended GI Palp: Yes Soft to palpation, No Tenderness to palpation present (GI) and No Guarding due to palpation present (GI) Skin: General skin exam: normal color and no rashes or lesions noted Extrem: Other: l heel blood blister without cellulitis. + petechiae, + ecchymosis Objective Data Vital Signs Vital Signs: Vital Signs - 24 hr 03/06/20 14:00 03/06/20 15:25 03/06/20 15:33 Temperature Pulse Rate 70 63 59 L Respiratory Rate 20 20 Blood Pressure Pulse Oximetry 03/06/20 15:59 03/06/20 16:00 03/06/20 19:16 Temperature 37.0 C 36.9 C Pulse Rate 72 74 68 Respiratory Rate 22 H 22 H Blood Pressure 142/68 H 164/82 H Pulse Oximetry 98 100 03/06/20 20:00 03/06/20 21:20 03/06/20 21:24 Temperature Pulse Rate 70 61 Respiratory Rate 20 Blood Pressure Pulse Oximetry 93 03/06/20 21:30 03/06/20 22:00 03/06/20 23:34 Temperature 37.2 C Pulse Rate 61 61 66 Respiratory Rate 20 22 H Blood Pressure 139/66 Pulse Oximetry 94 03/07/20 02:00 03/07/20 04:00 03/07/20 08:00 Temperature 36.6 C 37.2 C Pulse Rate 76 68 64 Respiratory Rate 22 H 18 Blood Pressure 127/57 L 140/79 Pulse Oximetry 95 93 03/07/20 10:30 Temperature 37.0 C Pulse Rate 62 Respiratory Rate 16 Blood Pressure 122/67 Pulse Oximetry 97 Intake/Output Intake/Output: Intake & Output 03/04/20 03/05/20 03/06/20 03/07/20 23:59 23:59 23:59 23:59 Intake Total 1820 1860 2505 920 Output Total 2100 1700 1225 500 Balance -614 799 4449 420 Meds/Results Medications: Active Medications Generic Name Dose Route Start Last Admin Trade Name Freq PRN Reason Stop Dose Admin Acetaminophen 650 mg 03/06/20 17:55 03/07/20 07:25 Tylenol Tablet PO 650 mg Q6H PRN Administration Mild Pain (1-3) or Fever Albuterol 2.5 mg 03/06/20 20:00 03/07/20 08:44 Albuterol Sulf Neb 2.5mg/0.5ml INHALATION 2.5 mg [id number] AKOSUA Administration Aspirin 81 mg 03/07/20 09:00 03/07/20 08:13 Aspirin Chewable PO 81 mg QAM AKOSUA Administration Atorvastatin Calcium 40 mg 03/04/20 10:05 03/07/20 08:13 Lipitor PO 40 mg DAILY AKOSUA Administration Bupropion HCl 150 mg 03/04/20 10:05 03/07/20 08:13 Wellbutrin Xl (24 Hr) PO 150 mg DAILY AKOSUA Administration Dextrose 12.5 gm 02/26/20 00:22 Dextrose 50% Syringe IV PUSH PRN PRN Hypoglycemia Protocol Famotidine 20 mg 03/06/20 21:00 03/07/20 08:14 Pepcid PO 20 mg Q12HR AKOSUA Administration Fluoxetine HCl 60 mg 03/04/20 10:05 03/07/20 08:14 Prozac PO 60 mg DAILY AKOSUA Administration Gabapentin 300 mg 03/04/20 13:00 03/07/20 08:14 Neurontin PO 300 mg TID AKOSUA Administration Glucagon 1 mg 02/26/20 00:22 Glucagon For Inj IM PRN PRN Hypoglycemia Protocol Glucose 15 gm 02/26/20 00:22 Glutose 15 PO PRN PRN Hypoglycemia Protocol Hydralazine HCl 10 mg 03/03/20 14:38 03/03/20 21:52 Apresoline Hcl Inj IV PUSH 10 mg Q6H PRN Administration Blood Pressure - High Dextrose 1,000 mls @ 100 mls/hr 02/26/20 00:22 Dextrose 5% 1,000 Ml IVPB PRN PRN Hypoglycemia Protocol Ampicillin Sodium 2 gm in 10
--- NOTE | 2020-03-07 15:57 | PM.PNCARD ---
Progress Note: A&P Assessment and Plan (1) Atrial fibrillation with rapid ventricular response: Code(s): I48.91 - Unspecified atrial fibrillation Status: Acute Assessment and Plan: -54-y/o with h/o HTN, DM, HFpEF, morbid obesity, KITTY and COPD, current tobacco dependence who is seen in cardiac consultation for atrial fibrillation with rapid ventricular response. she had new onset A fib with RVR in the setting of sepsis, resp failure and hypokalemia -converted to normal sinus rhythm/sinus bradycardia (not on rate control meds) - CHADs VASc score is at least 3 (female, HTN,DM). She would benefit from AC. Currently on Xarelto 20 daily (2) Non-ST elevation myocardial infarction (NSTEMI): Code(s): I21.4 - Non-ST elevation (NSTEMI) myocardial infarction Status: Acute Assessment and Plan: - Likely due to Type II MD from increased demand from underlying sepsis/resp failure. last trop was 1.1. Will repeat trop today to see the trend -COVID negative and jsut had her echo done this am. Will follow - Recived Lovenox for MD. May switch to Xarelto -She had recent Lexiscan nuclear stress test 01/02/2019 with no ischemia and low risk for CAD. Given her risk factors including DM and smoking, May consider [facility] for definitive evaluation for coronary artery disease (inpatient vs outpatient, depending on hospital course and recovery) . (3) Pneumonia: Qualifiers: Pneumonia type: due to unspecified organism Laterality: bilateral Lung location: unspecified part of lung Qualified Code(s): J18.9 - Pneumonia, unspecified organism Code(s): J18.9 - Pneumonia, unspecified organism Status: Acute Assessment and Plan: Management per ICU team (4) Cellulitis of left leg: Code(s): L03.116 - Cellulitis of left lower limb Status: Acute Assessment and Plan: she has significant leg swelling and tenderness, will get venous Doppler to rule out DVT, she may have subcutaneous hematoma, in that case if it is large hematoma would have to consider stopping Xarelto for few days . Subjective Date/time seen: 03/07/20 15:57 She feels slightly better today, no significant shortness of breath no chest pain but she complained of left leg pain with left leg tenderness and ecchymosis Exam Narrative: Exam Narrative: General: Acutely ill-appearing female, awake and alret. HEENT: ET tube is in place. There is dried blood on the bottom lip. Neck: Exam difficult due to neck circumference. No obvious abnormalities. Respiratory: She is breathing over the ventilator. No stridor. Cardiovascular: Regular rate and rhythm with S1-S2. Occasional ectopy. Gastrointestinal: Abdomen nondistended. Skin: Warm and dry. Left lower leg is beefy red from the ankle to above the knee. There are few shallow ulcers on the andersen that are weeping. Candidiasis under the panniculus and in the left inguinal region. Extremities: trace edema noted bilaterally with significant discoloration of the left leg, and significant bruising Neurological: Unable to fully assess as she is sedated while on the ventilator. Psychiatric: Unable to assess as she is sedated and intubated. Objective Data Vital Signs Vital Signs: Vital Signs - 24 hr 03/06/20 15:59 03/06/20 16:00 03/06/20 19:16 Temperature 37.0 C 36.9 C Pulse Rate 72 74 68 Respiratory Rate 22 H 22 H Blood Pressure 142/68 H 164/82 H Pulse Oximetry 98 100 03/06/20 20:00 03/06/20 21:20 03/06/20 21:24 Temperature Pulse Rate 70 61 Respiratory Rate 20 Blood Pressure Pulse Oximetry 93 03/06/20 21:30 03/06/20 22:00 03/06/20 23:34 Temperature 37.2 C Pulse Rate 61 61 66 Respiratory Rate 20 22 H Blood Pressure 139/66 Pulse Oximetry 94 03/07/20 02:00 03/07/20 04:00 03/07/20 08:00 Temperature 36.6 C 37.2 C Pulse Rate 76 68 64 Respiratory Rate 22 H 18 Blood Pressure 127/57 L 140/79 Pulse Oximetry 95 93 08/0
--- NOTE | 2020-03-07 16:22 | PM.IMPN ---
Progress Note: A&P Assessment and Plan (1) Acute respiratory failure: Qualifiers: Respiratory failure complication: unspecified whether with hypoxia or hypercapnia Qualified Code(s): J96.00 - Acute respiratory failure, unspecified whether with hypoxia or hypercapnia Code(s): J96.00 - Acute respiratory failure, unspecified whether with hypoxia or hypercapnia Status: Resolved Assessment and Plan: Patient had CXR on admission showing diffuse interstitial and airspace opacities. She was intubated on 02/24 and admitted to the ICU. Related to the PNA and pulmonary edema. She was diuresed and ultimately able to be extubated 03/03/20. Passed swallow study. Weaned to room air. Continue PT/OT. (2) Severe sepsis: Code(s): A41.9 - Sepsis, unspecified organism; R65.20 - Severe sepsis without septic shock Status: Acute Assessment and Plan: Severe sepsis with septicemia and respiratory failure present on admission. Source of infection include left lower extremity cellulitis and pneumonia. BCx 02/24 growing Group A Strept that is olivo-sensitive. Repeat BCx NGTD. No further fevers. WBC slowly trending down. ID following. Doubt right hip septic arthritis but concern possibly for lumbar spine involvement given the weakness. Check CT brain to exclude CVA but will need Lumbar MRI if negative. Continue current abx. CT brain negative. Will proceed with MRI lumbar spine. (3) Pneumonia: Qualifiers: Laterality: bilateral Lung location: unspecified part of lung Pneumonia type: due to unspecified organism Qualified Code(s): J18.9 - Pneumonia, unspecified organism Code(s): J18.9 - Pneumonia, unspecified organism Status: Acute Assessment and Plan: Patient here for aspiration PNA. Treated with Rocephin and Vanco. Able to be extubated and off O2. She passed swallow study. Changed to Ampicillin. Continue IV abx. Change nebs to prn. (4) Non-ST elevation myocardial infarction (NSTEMI): Code(s): I21.4 - Non-ST elevation (NSTEMI) myocardial infarction Status: Acute Assessment and Plan: Trop climbed to 1.13 before trending downward. Her EKG showing atrial flutter with RVR and left bundle branch block. Negative lexiscan stress test December 2018. She had IVCD on EKG a year ago. Seen by cardiology. Continue ASA and Lipitor. Continue Xarelto. LHC being considered possibly as outpatient. Echo cancelled (5) Cellulitis of left leg: Code(s): L03.116 - Cellulitis of left lower limb Status: Acute Assessment and Plan: Patient with cellulitis of the left leg. Left lower extremity venous Dopplers negative for DVT on 02/26/2020. Normal PRADIP is on 03/01/2020. Left lower extremity CT scan showing small left knee joint effusion and anterior soft tissue swelling but no evidence of abscess. Clinically no evidence of left knee septic arthritis. Symptoms mild and clinically it appears to be improving. Abx changes to Ampicillin. (6) Atrial fibrillation with rapid ventricular response: Code(s): I48.91 - Unspecified atrial fibrillation Status: Acute Assessment and Plan: EKG on admission showed atrial flutter with RVR and left bundle branch block. She had IVCD on EKG a year ago. She converted to normal sinus rhythm. [id number] 3. Continue Xarelto. Cardiology is following. Appreciate their input. (7) Electrolyte abnormality: Code(s): E87.8 - Other disorders of electrolyte and fluid balance, not elsewhere classified Status: Acute Assessment and Plan: Sodium 125 with potassium of 3.3 on admission. Levels have been corrected. Continue to glen
[2020-03-07] MEDS: RIVAROXABAN 20 MG TABLET PO (16:28)
[2020-03-07 17:14] LABS: Glucose Point of Care 136 (65-105)
[2020-03-07] MEDS: traZODone HCL 25 MG TABLET PO (20:46)
[2020-03-07 21:18] LABS: Glucose Point of Care 195 (65-105)
[2020-03-08] VITALS (7 sets, daily range): BP systolic 124–147; BP diastolic 68–98; PULSE 58–70; RESP 14–22; TEMP 36.2–37; O2SAT 94–96
[2020-03-08] MEDS: AMPICILLIN 2 GM/NS 100 ML 2 GM/100 ML BAG IVPB ×4 (02:44→19:50)
[2020-03-08] MEDS: CENTRAL LINE FLUSH 20 ML IV PUSH (04:41)
[2020-03-08] MEDS: CENTRAL LINE FLUSH 10 ML IV PUSH ×3 (04:42→19:51)
[2020-03-08 04:59] LABS: Basophils Absolute Auto 0.1 K/mm3 (0.0-0.1); Basophils Percent Auto 0.9 % (0.2-1.2); Eosinophils Absolute Auto 0.1 K/mm3 (0-0.3); Eosinophils Percent Auto 0.5 % (0-4.4); Hematocrit 30.3 % (37.0-47.0); Hemoglobin 9.8 g/dL (12.0-15.0); Immature Granulocyte Absolute 0.19 K/mm3 (0.00-0.031); Immature Granulocyte Percent A 1.7 % (0-0.5); Lymphocytes Absolute Auto 2.22 K/mm3 (0.9-3.2); Lymphocytes Percent Auto 20.3 % (18.3-44.2); Mean Corpuscular HGB Conc 32.3 g/dl (32-36); Mean Corpuscular Hemoglobin 31.4 pg (26-34); Mean Corpuscular Volume 97.1 fl (80-100); Mean Platelet Volume 10.4 fl (7.4-10.4); Monocytes Absolute Auto 0.8 K/mm3 (0.1-0.6); Monocytes Percent Auto 7.4 % (2.6-8.5); Neutrophils Absolute Auto 7.6 K/mm3 (1.3-6.7); Neutrophils Percent Auto 69.2 % (45.5-73.1); Platelet Count Result 197 k/mm3 (150-375); Red Blood Count 3.12 M/mm3 (4.2-5.4); Red Cell Distribution Width 13.6 % (11.5-14.5)
[2020-03-08 05:12] LABS: Anion Gap 9.1 mmol/L (7-16); Blood Urea Nitrogen 22 mg/dL (7-17); Calcium 7.7 mg/dL (8.4-10.2); Carbon Dioxide 28 mmol/L (22-30); Chloride 100 mmol/L (98-107); Estimated CRCL calculation 101 ml/min; Estimated Glomerular Filt Rate > 60; Glucose 140 mg/dL (65-105); Hemoglobin A1C 6.9 % (<5.7); Potassium 5.1 mmol/L (3.4-5.0); Sodium 132 mmol/L (137-145)
--- NOTE | 2020-03-08 07:20 | PCOTNOTE ---
Patient was unable to be seen at this time for OT therapy services. Patient getting transferred to a stretcher, going down for a MRI.
[2020-03-08 08:37] LABS: Glucose Point of Care 115 (65-105)
[2020-03-08] MEDS: ASPIRIN 81 MG CHEWABLE TABLET PO (08:37)
[2020-03-08] MEDS: lisinopriL 20 MG TABLET 40 MG PO (08:37)
[2020-03-08] MEDS: FLUoxetine HCL 20 MG CAPSULE 60 MG PO (08:37)
[2020-03-08] MEDS: ATORVASTATIN 40 MG TABLET PO (08:37)
[2020-03-08] MEDS: buPROPion HCL XL (24 HR) 150 MG TABCR PO (08:37)
[2020-03-08] MEDS: GABAPENTIN 300 MG CAPSULE PO ×3 (08:37→17:10)
[2020-03-08 11:44] LABS: Glucose Point of Care 144 (65-105)
[2020-03-08] MEDS: ONDANSETRON INJ 4 MG/2 ML VIAL IV PUSH (12:24)
[2020-03-08] MEDS: TOLNAFTATE 1% POWDER 45 GM BTL 1 APPLIC TOPICAL ×2 (12:27→19:52)
[2020-03-08] MEDS: EUCERIN CREAM 120 GM JAR 1 APPLIC TOPICAL (12:27)
[2020-03-08] MEDS: FAMOTIDINE 20 MG TABLET PO ×2 (12:28→19:51)
--- NOTE | 2020-03-08 14:03 | PCOTNOTE ---
Attempted to see patient three times this date. First attempt, pt just received lunch tray. Second, pt just laid down and positioned onto side. Pt asked to come back in one hour. Third attempt, patient declined stating, I just don't feel like it. I just want to rest.
--- NOTE | 2020-03-08 14:15 | PCOTNOTE ---
Attempted to see Patient for a P.M. OT treatment session at this time. Patient refused to participate this date, verbalized she was in pain, the doctors are talking about doing a procedure to me to get extra fluid off my hip, not today. Patient did not receive any OT treatment this date.
--- NOTE | 2020-03-08 14:25 | WPDINFPN2 ---
Progress Note: A&P Assessment and Plan (1) Cellulitis of left leg: Code(s): L03.116 - Cellulitis of left lower limb Status: Acute Assessment and Plan: 1. Group A Strep cellulitis LLE resulting in bacteremia, microbiologic cure WBC still high, decreasing 2. Hip pain, low suspicion for septic arthritis. Iliopsoas abscess - same organism - could also explain (hematoma less likely without compatible history) REC Ampicillin #5 (antibiotic # 12), continue IV. Once WBC normalizes, oral ampicillin through 03/24/20 Subjective Date/time seen: 03/08/20 14:25 Objective Data Vital Signs Vital Signs: Vital Signs - 24 hr 03/07/20 18:00 03/07/20 22:00 03/08/20 06:00 Temperature 36.9 C 37.2 C 37.0 C Pulse Rate 71 55 L 64 Respiratory Rate 16 18 18 Blood Pressure 111/61 135/75 140/73 Pulse Oximetry 94 96 96 03/08/20 10:00 Temperature 36.8 C Pulse Rate 67 Respiratory Rate 16 Blood Pressure 135/68 Pulse Oximetry 94 Intake/Output Intake/Output: Intake & Output 03/05/20 03/06/20 03/07/20 03/08/20 23:59 23:59 23:59 23:59 Intake Total 1860 2505 2000 1280 Output Total 1700 1225 700 900 Balance 160 1280 1300 380 Meds/Results Medications: Active Medications Generic Name Dose Route Start Last Admin Trade Name Freq PRN Reason Stop Dose Admin Acetaminophen 650 mg 03/06/20 17:55 03/07/20 07:25 Tylenol Tablet PO 650 mg Q6H PRN Administration Mild Pain (1-3) or Fever Hydrocodone Bitart/Acetaminophen 1 tab 03/07/20 15:48 03/08/20 11:29 [place] 5-325 Mg PO 1 tab Q6H PRN Administration Pain 4-10 Albuterol 2.5 mg 03/07/20 16:33 Albuterol Sulf Neb 2.5mg/0.5ml INHALATION [id number] PRN Shortness Of Breath Or Wheezing Aspirin 81 mg 03/07/20 09:00 03/08/20 08:37 Aspirin Chewable PO 81 mg QAM AKOSUA Administration Atorvastatin Calcium 40 mg 03/04/20 10:05 08/07/20 08:37 Lipitor PO 40 mg DAILY AKOSUA Administration Bupropion HCl 150 mg 03/04/20 10:05 03/08/20 08:37 Wellbutrin Xl (24 Hr) PO 150 mg DAILY AKOSUA Administration Dextrose 12.5 gm 02/26/20 00:22 Dextrose 50% Syringe IV PUSH PRN PRN Hypoglycemia Protocol Famotidine 20 mg 03/06/20 21:00 03/08/20 12:28 Pepcid PO 20 mg Q12HR AKOSUA Administration Fluoxetine HCl 60 mg 03/04/20 10:05 03/08/20 08:37 Prozac PO 60 mg DAILY AKOSUA Administration Gabapentin 300 mg 03/04/20 13:00 03/08/20 12:24 Neurontin PO 300 mg TID AKOSUA Administration Glucagon 1 mg 02/26/20 00:22 Glucagon For Inj IM PRN PRN Hypoglycemia Protocol Glucose 15 gm 02/26/20 00:22 Glutose 15 PO PRN PRN Hypoglycemia Protocol Hydralazine HCl 10 mg 03/03/20 14:38 03/03/20 21:52 Apresoline Hcl Inj IV PUSH 10 mg Q6H PRN Administration Blood Pressure - High Dextrose 1,000 mls @ 100 mls/hr 02/26/20 00:22 Dextrose 5% 1,000 Ml IVPB PRN PRN Hypoglycemia Protocol Ampicillin Sodium 2 gm in 100 mls @ 200 mls/hr 03/07/20 15:00 03/08/20 09:04 Ampicillin 2 Gm/Ns 100 Ml IVPB Infused Q6H AKOSUA Infusion Insulin Aspart 3 - 6 units 03/04/20 17:00 03/08/20 11:36 Novolog SUB-Q Not Given ACHS [facility] Protocol Levalbuterol HCl 2 puff 02/25/20 23:40 Xopenex Hfa INHALATION Q6HRT PRN Shortness Of Breath Lisinopril 40 mg 03/04/20 10:05 03/08/20 08:37 Prinivil PO 40 mg DAILY AKOSUA Administration Multi-Ingred Cream/Lotion/Oil/Oint 1 applic 03/06/20 09:00 03/08/20 12:27 Minerin Creme TOPICAL 1 applic QAM AKOSUA Administration Ondansetron HCl 4 mg 03/08/20 11:24 03/08/20 12:24 Zofran Inj IV PUSH 4 mg Q6H PRN Administration Nausea And Vomiting Rivaroxaban 20 mg 03/04/20 17:00 03/07/20 16:28 Xarelto PO 20 mg DAILY@1700 AKOSUA Administration Sodium Chloride 10 ml 03/02/20 14:00 03/08/20 04:42 Central Line Flush IV PUSH 10 ml Q8HR [facility] A
--- NOTE | 2020-03-08 14:38 | PM.IMPN ---
Progress Note: A&P Assessment and Plan (1) Iliopsoas abscess on right: Code(s): K68.12 - Psoas muscle abscess Status: Acute Assessment and Plan: MRI showing 8.5 cm enhancing fluid collection in the right iliopsoas muscle suspicious for hematoma vs abscess. Patient is on anticoagulation but suspect this is abscess related. Discussed with radiology and ID. Plan is for drain placement tomorrow. Cultures ordered. (2) Acute respiratory failure: Qualifiers: Respiratory failure complication: unspecified whether with hypoxia or hypercapnia Qualified Code(s): J96.00 - Acute respiratory failure, unspecified whether with hypoxia or hypercapnia Code(s): J96.00 - Acute respiratory failure, unspecified whether with hypoxia or hypercapnia Status: Resolved Assessment and Plan: Patient had CXR on admission showing diffuse interstitial and airspace opacities. She was intubated on 02/24 and admitted to the ICU. Related to the PNA and pulmonary edema. She was diuresed and ultimately able to be extubated 03/03/20. Passed swallow study. Weaned to room air. Continue PT/OT. (3) Severe sepsis: Code(s): A41.9 - Sepsis, unspecified organism; R65.20 - Severe sepsis without septic shock Status: Acute Assessment and Plan: Severe sepsis with septicemia and respiratory failure present on admission. Source of infection include left lower extremity cellulitis and pneumonia. BCx 02/24 growing Group A Strept that is olivo-sensitive. Repeat BCx NGTD. No further fevers. WBC slowly trending down. ID following. CT brain negative for acute CVA. MRI as mentioned above (4) Pneumonia: Qualifiers: Laterality: bilateral Lung location: unspecified part of lung Pneumonia type: due to unspecified organism Qualified Code(s): J18.9 - Pneumonia, unspecified organism Code(s): J18.9 - Pneumonia, unspecified organism Status: Acute Assessment and Plan: Patient here for aspiration PNA. Treated with Rocephin and Vanco. Able to be extubated and off O2. She passed swallow study. Changed to Ampicillin. Continue IV abx. continue nebs p.r.n. (5) Non-ST elevation myocardial infarction (NSTEMI): Code(s): I21.4 - Non-ST elevation (NSTEMI) myocardial infarction Status: Acute Assessment and Plan: Trop climbed to 1.13 before trending downward. Her EKG showing atrial flutter with RVR and left bundle branch block. Negative lexiscan stress test December 2018. She had IVCD on EKG a year ago. Seen by cardiology. Continue ASA and Lipitor. C being considered possibly as outpatient. Echo cancelled (6) Cellulitis of left leg: Code(s): L03.116 - Cellulitis of left lower limb Status: Acute Assessment and Plan: Patient with cellulitis of the left leg. Left lower extremity venous Dopplers negative for DVT on 02/26/2020. Normal PRADIP is on 03/01/2020. Left lower extremity CT scan showing small left knee joint effusion and anterior soft tissue swelling but no evidence of abscess. Clinically no evidence of left knee septic arthritis. Monitoring left heel bulla. Continue to follow. Continue antibiotics. (7) Atrial fibrillation with rapid ventricular response: Code(s): I48.91 - Unspecified atrial fibrillation Status: Acute Assessment and Plan: EKG on admission showed atrial flutter with RVR and left bundle branch block. She had IVCD on EKG a year ago. She converted to normal sinus rhythm. [id number] 3. Continue Xarelto. Cardiology is following. Appreciate their input. (8) Electrolyte abnormality: Code(s): E87.8 - Other disorders of electrolyte and fluid ba
--- NOTE | 2020-03-08 14:40 | PM.PNCARD ---
Progress Note: A&P Assessment and Plan (1) Non-ST elevation myocardial infarction (NSTEMI): Code(s): I21.4 - Non-ST elevation (NSTEMI) myocardial infarction Status: Acute Assessment and Plan: Pt had elevation of troponin in setting of severe infection representing most probably demand ischemia. Recent stress test negative. Cont medical management (2) Pneumonia: Qualifiers: Laterality: bilateral Lung location: unspecified part of lung Pneumonia type: due to unspecified organism Qualified Code(s): J18.9 - Pneumonia, unspecified organism Code(s): J18.9 - Pneumonia, unspecified organism Status: Acute Assessment and Plan: PC and ID fu (3) COPD (chronic obstructive pulmonary disease): Qualifiers: COPD type: unspecified COPD Qualified Code(s): J44.9 - Chronic obstructive pulmonary disease, unspecified Code(s): J44.9 - Chronic obstructive pulmonary disease, unspecified Status: Acute (4) Atrial fibrillation with rapid ventricular response: Code(s): I48.91 - Unspecified atrial fibrillation Status: Acute Assessment and Plan: Pt had episode of MAT during acute infection then resolved Monitor electrolytes and kidney function Subjective Date/time seen: 03/08/20 14:40 Pt was seen and examined, chart reviewed Review of Systems Review of Systems: All systems reviewed & are unremarkable except as noted in HPI and below Constitutional: Constitutional: Reports as per HPI Eyes: Eyes: Reports as per HPI ENT: Reports system reviewed and no additional complaints, except as documented and Reports as per HPI Cardiovascular: Cardiovascular: Reports as per HPI Respiratory: Respiratory: Reports as per HPI Gastrointestinal: Gastrointestinal: Reports as per HPI Genitourinary: Genitourinary: Reports as per HPI Musculoskeletal: Musculoskeletal: Reports as per HPI Exam Const: General: no acute distress Nutritional Appearance: well nourished Orientation/consciousness: patient oriented x3 HENMT: Head: normal to inspection and atraumatic Ears: hearing grossly normal bilaterally Face and sinus: normal facial exam Eyes: General: appearance normal, both eyes and all related structures Pupils: Equal, round and reactive pupils present EOM: EOMs intact bilaterally Neck: Neck: supple Chest: Chest palpation & inspection: normal inspection of the chest Resp: Effort & Inspection: normal respiratory effort and no respiratory distress Auscultation: clear to auscultation bilaterally Cardio: Jugular venous distension: no JVD Rate: regular rate Heart sounds: S1 normal heart sound present, S2 normal heart sound present and no murmurs Peripheral pulses: Peripheral pulses 2+ throughout GI: GI Palp: No abdominal tenderness Auscultation: normal bowel sounds Skin: General skin exam: normal color Neuro: General: patient oriented x3 Cranial nerves: Yes Equal, round and reactive pupils present Extrem: General: normal to inspection and no clubbing, cyanosis or edema Objective Data Vital Signs Vital Signs: Vital Signs - 24 hr 03/07/20 18:00 03/07/20 22:00 03/08/20 06:00 Temperature 36.9 C 37.2 C 37.0 C Pulse Rate 71 55 L 64 Respiratory Rate 16 18 18 Blood Pressure 111/61 135/75 140/73 Pulse Oximetry 94 96 96 03/08/20 10:00 Temperature 36.8 C Pulse Rate 67 Respiratory Rate 16 Blood Pressure 135/68 Pulse Oximetry 94 Intake/Output Intake/Output: Intake & Output 03/05/20 03/06/20 03/07/20 03/08/20 23:59 23:59 23:59 23:59 Intake Total 1860 2505 2000 1280 Output Total 1700 1225 700 900 Balance 160 1280 1300 380 Meds/Results Medications: Active Medications Generic Name Dose Route Start Last Admin Trade Name Freq PRN Reason Stop Dose Admin Acetaminophen 650 mg 03/06/20 17:55 03/07/20 07:25 Tylenol Tablet PO 650 mg Q6H PRN Administration Mild Pain (1-3) or Fever Hydrocodone Bitart/Acetaminophen 1
--- NOTE | 2020-03-08 15:16 | WPDANESEPP ---
Anes - Eval Pre Procedure Procedure: drainage of illiopsoas abscess Date/Time: 03/08/20 15:16 Pre Op Diagnosis: Fever since . Patient Data Age: 54 Gender: F Height: 1.7 m Weight: 124.5 kg Last Vital Signs Temp 36.7 C 03/08/20 14:00 Pulse 70 03/08/20 14:00 Resp 16 03/08/20 14:00 BP 147/77 H 03/08/20 14:00 Pulse Ox 95 03/08/20 14:00 Allergies Allergy/AdvReac Type Severity Reaction Status Date / Time adhesive tape Allergy Unknown Hives / Verified 11/05/18 16:52 Red Face Home Medications Medication Instructions Recorded Confirmed Type gabapentin 300 mg capsule 300 mg PO TID #270 cap 06/20/19 02/26/20 Rx fluoxetine 60 mg tablet 60 mg PO DAILY 06/26/19 02/26/20 History lisinopril 40 mg tablet 40 mg PO DAILY #90 tablet 06/26/19 02/26/20 Rx meloxicam 15 mg tablet 15 mg PO DAILY #90 tablet 12/26/19 02/26/20 Rx metformin 1,000 mg tablet 1,000 mg PO BID #180 tablet 12/26/19 02/26/20 Rx hydrochlorothiazide 25 mg tablet 25 mg PO DAILY #90 tablet 02/06/20 02/26/20 Rx zolpidem 10 mg tablet 10 mg PO ONCE PRN #30 tablet 02/06/20 02/26/20 Rx albuterol sulfate 2 puff INHALATION Q4H PRN 02/26/20 02/26/20 History atorvastatin 40 mg PO DAILY 02/26/20 02/26/20 History bupropion HCl 150 mg PO DAILY 02/26/20 02/26/20 History glipizide 7.5 mg PO DAILY 02/26/20 02/26/20 History Laboratory Tests 03/07/20 03/07/20 03/08/20 16:34 20:35 04:50 WBC 11.0 K/mm3 H K/mm3 (4.5-10.0) RBC 3.12 M/mm3 L M/mm3 (4.2-5.4) Hgb 9.8 g/dL L g/dL (12.0-15.0) Hct 30.3 % L % (37.0-47.0) MCV 97.1 fl fl (80-100) MCH 31.4 pg pg (26-34) MCHC 32.3 g/dl g/dl (32-36) RDW 13.6 % % (11.5-14.5) Plt Count 197 k/mm3 k/mm3 (150-375) MPV 10.4 fl fl (7.4-10.4) Immature Gran % (Auto) 1.7 % H % (0-0.5) Neut % (Auto) 69.2 % % (45.5-73.1) Lymph % (Auto) 20.3 % % (18.3-44.2) Price % (Auto) 7.4 % % (2.6-8.5) Eos % (Auto) 0.5 % % (0-4.4) Baso % (Auto) 0.9 % % (0.2-1.2) Lymph # (Auto) 2.22 K/mm3 K/mm3 (0.9-3.2) Price # (Auto) 0.8 K/mm3 H K/mm3 (0.1-0.6) Eos # (Auto) 0.1 K/mm3 K/mm3 (0-0.3) Baso # (Auto) 0.1 K/mm3 K/mm3 (0.0-0.1) Abs Immat Gran (auto) 0.19 K/mm3 H K/mm3 (0.00-0.031) Absolute Neuts (auto) 7.6 K/mm3 H K/mm3 (1.3-6.7) Absolute Nucleated RBC 0.0 K/mm3 K/mm3 (0.0-0.012) Nucleated RBC % 0.0 % % (0.0-0.2) Sodium Potassium Chloride Carbon Dioxide Anion Gap BUN Creatinine Estim Creat Clear Calc Estimated GFR Glucose POC Capillary Glucose 136 mg/dl H mg/dl 195 mg/dl H mg/dl (65-105) (65-105) Hemoglobin A1c Calcium 03/08/20 03/08/20 03/08/20 04:50 04:50 08:35 WBC RBC Hgb Hct MCV MCH MCHC RDW Plt Count MPV Immature Gran % (Auto) Neut % (Auto) Lymph % (Auto) Price % (Auto) Eos % (Auto) Baso % (Auto) Lymph # (Auto) Price # (Auto) Eos # (Auto) Baso # (Auto) Abs Immat Gran (auto) Absolute Neuts (auto) Absolute Nucleated RBC Nucleated RBC % Sodium 132 mmol/L L mmol/L (137-145) Potassium 5.1 mmol/L H mmol/L (3.4-5.0) Chloride 100 mmol/L mmol/L (98-107) Carbon Dioxide 28 mmol/L mmol/L (22-30) Anion Gap 9.1 mmol/L mmol/L (7-16) BUN 22 mg/dL H mg/dL (7-17) Creatinine 0.80 mg/dL mg/dL (0.7-1.0) Estim Creat Clear Calc 101 ml/min ml/min
[2020-03-08 17:04] LABS: Glucose Point of Care 146 (65-105)
--- NOTE | 2020-03-08 17:14 | PC.NURSE ---
Pt given consent form to sign for CT guided drain placement to abscess by Dr Jean Baptiste. Pt states she would like to talk it over with her son before signing.
[2020-03-08] MEDS: ALBUTEROL SULFATE NEB 2.5 MG/0.5 ML INH INHALATION (20:12)
[2020-03-08 21:32] LABS: Glucose Point of Care 213 (65-105)
--- NOTE | 2020-03-08 22:46 | PM.PNCARD ---
Subjective Date/time seen: 03/08/20 22:46 Objective Data Vital Signs Vital Signs: Vital Signs - 24 hr 03/08/20 06:00 03/08/20 10:00 03/08/20 14:00 Temperature 37.0 C 36.8 C 36.7 C Pulse Rate 64 67 70 Respiratory Rate 18 16 16 Blood Pressure 140/73 135/68 147/77 H Pulse Oximetry 96 94 95 03/08/20 18:00 03/08/20 20:00 03/08/20 20:12 Temperature 36.7 C 36.2 C L Pulse Rate 63 58 L 61 Respiratory Rate 14 22 H 20 Blood Pressure 124/98 H 136/71 Pulse Oximetry 94 96 03/08/20 20:19 Temperature Pulse Rate 60 Respiratory Rate 20 Blood Pressure Pulse Oximetry Intake/Output Intake/Output: Intake & Output 03/05/20 03/06/20 03/07/20 03/08/20 23:59 23:59 23:59 23:59 Intake Total 1860 2505 2000 2940 Output Total 1700 4285 820 0249 Balance 160 1280 1300 1440 Meds/Results Medications: Active Medications Generic Name Dose Route Start Last Admin Trade Name Freq PRN Reason Stop Dose Admin Acetaminophen 650 mg 03/06/20 17:55 03/07/20 07:25 Tylenol Tablet PO 650 mg Q6H PRN Administration Mild Pain (1-3) or Fever Hydrocodone Bitart/Acetaminophen 1 tab 03/07/20 15:48 03/08/20 17:13 [place] 5-325 Mg PO 1 tab Q6H PRN Administration Pain 4-10 Albuterol 2.5 mg 03/07/20 16:33 03/08/20 20:12 Albuterol Sulf Neb 2.5mg/0.5ml INHALATION 2.5 mg [id number] PRN Administration Shortness Of Breath Or Wheezing Aspirin 81 mg 03/07/20 09:00 03/08/20 08:37 Aspirin Chewable PO 81 mg QAM AKOSUA Administration Atorvastatin Calcium 40 mg 03/04/20 10:05 03/08/20 08:37 Lipitor PO 40 mg DAILY AKOSUA Administration Bupropion HCl 150 mg 03/04/20 10:05 03/08/20 08:37 Wellbutrin Xl (24 Hr) PO 150 mg DAILY AKOSUA Administration Dextrose 12.5 gm 02/26/20 00:22 Dextrose 50% Syringe IV PUSH PRN PRN Hypoglycemia Protocol Famotidine 20 mg 03/06/20 21:00 03/08/20 19:51 Pepcid PO 20 mg Q12HR AKOSUA Administration Fluoxetine HCl 60 mg 03/04/20 10:05 03/08/20 08:37 Prozac PO 60 mg DAILY AKOSUA Administration Gabapentin 300 mg 03/04/20 13:00 03/08/20 17:10 Neurontin PO 300 mg TID AKOSUA Administration Glucagon 1 mg 02/26/20 00:22 Glucagon For Inj IM PRN PRN Hypoglycemia Protocol Glucose 15 gm 02/26/20 00:22 Glutose 15 PO PRN PRN Hypoglycemia Protocol Hydralazine HCl 10 mg 03/03/20 14:38 03/03/20 21:52 Apresoline Hcl Inj IV PUSH 10 mg Q6H PRN Administration Blood Pressure - High Dextrose 1,000 mls @ 100 mls/hr 02/26/20 00:22 Dextrose 5% 1,000 Ml IVPB PRN PRN Hypoglycemia Protocol Ampicillin Sodium 2 gm in 100 mls @ 200 mls/hr 03/07/20 15:00 03/08/20 20:20 Ampicillin 2 Gm/Ns 100 Ml IVPB Infused Q6H AKOSUA Infusion Insulin Aspart 3 - 6 units 03/04/20 17:00 03/08/20 19:51 Novolog SUB-Q Not Given ACHS [facility] Protocol Levalbuterol HCl 2 puff 02/25/20 23:40 Xopenex Hfa INHALATION Q6HRT PRN Shortness Of Breath Lisinopril 40 mg 03/04/20 10:05 03/08/20 08:37 Prinivil PO 40 mg DAILY AKOSUA Administration Metformin HCl 250 mg 03/09/20 08:00 Glucophage PO BIDWM AKOSUA Multi-Ingred Cream/Lotion/Oil/Oint 1 applic 03/06/20 09:00 03/08/20 12:27 Minerin Creme TOPICAL 1 applic QAM [facility] Administration Ondansetron HCl 4 mg 03/08/20 11:24 03/08/20 12:24 Zofran Inj IV PUSH 4 mg Q6H PRN Administration Nausea And Vomiting Rivaroxaban 20 mg 03/04/20 17:00 03/07/20 16:28 Xarelto PO 20 mg DAILY@1700 AKOSUA Administration Sodium Chloride 10 ml 03/02/20 14:00 03/08/20 19:51 Central Line Flush IV PUSH 10 ml Q8HR AKOSUA Administration Sodium Chloride 20 ml 03/02/20 09:57 03/08/20 04:41 Central Line Flush IV PUSH 20 ml PRN PRN Administration after blood draws Tolnaftate 1 applic 02/26/20 09:00 03/08/20 19:52 Tolnaftate 1% Powder TOPICAL 1 applic
[2020-03-08] MEDS: traZODone HCL 25 MG TABLET PO (23:50)
[2020-03-09] VITALS (13 sets, daily range): BP systolic 137–160; BP diastolic 66–92; PULSE 52–80; RESP 12–22; TEMP 36.4–36.8; O2SAT 86–96
[2020-03-09] MEDS: AMPICILLIN 2 GM/NS 100 ML 2 GM/100 ML BAG IVPB ×4 (03:35→21:31)
[2020-03-09] MEDS: CENTRAL LINE FLUSH 20 ML IV PUSH (04:10)
[2020-03-09] MEDS: CENTRAL LINE FLUSH 10 ML IV PUSH ×3 (04:10→21:35)
[2020-03-09 04:43] LABS: Anion Gap 3 mmol/L (8-16); Blood Urea Nitrogen 18 mg/dL (7-17); Calcium 7.7 mg/dL (8.4-10.2); Carbon Dioxide 29 mmol/L (22-30); Chloride 102 mmol/L (98-107); Estimated CRCL calculation 98 ml/min; Estimated Glomerular Filt Rate > 60; Glucose 147 mg/dL (65-105); Potassium 4.3 mmol/L (3.4-5.0); Sodium 134 mmol/L (137-145)
[2020-03-09 07:46] LABS: Glucose Point of Care 123 (65-105)
[2020-03-09] MEDS: LEVALBUTEROL NEB 1.25 MG/3 ML 0.63 MG INHALATION ×3 (08:39→20:14)
--- NOTE | 2020-03-09 08:48 | WPDANESEFPP ---
Anes - Eval Final PreProcedure Day of Procedure 03/09/20 08:48 Patient weight: morbidly obese Heart: regular rate and rhythm Lungs: clear to auscultation and normal air movement Airway: Mallampati scale class III Neurological: alert and oriented Last oral intake: >/= 8 hours ASA classification: IV Emergent: yes Anesthetic plan: proceed Anesthesia type and monitoring: general GIVS and standard monitoring Informed Consent: The patient's anesthetic plan and its attendant risks and benefits were discussed with the patient/family/POA. Questions were solicited and answers provided to the satisfaction of the patient/family/POA.
[2020-03-09] MEDS: FAMOTIDINE 20 MG TABLET PO ×2 (11:30→21:34)
[2020-03-09] MEDS: metFORMIN HCL 250 MG TABLET PO ×2 (11:30→17:03)
[2020-03-09] MEDS: lisinopriL 20 MG TABLET 40 MG PO (11:30)
[2020-03-09] MEDS: FLUoxetine HCL 20 MG CAPSULE 60 MG PO (11:30)
[2020-03-09] MEDS: ATORVASTATIN 40 MG TABLET PO (11:30)
[2020-03-09] MEDS: buPROPion HCL XL (24 HR) 150 MG TABCR PO (11:31)
[2020-03-09] MEDS: GABAPENTIN 300 MG CAPSULE PO ×2 (11:31→17:03)
[2020-03-09] MEDS: EUCERIN CREAM 120 GM JAR 1 APPLIC TOPICAL (11:32)
[2020-03-09] MEDS: TOLNAFTATE 1% POWDER 45 GM BTL 1 APPLIC TOPICAL ×2 (11:32→21:35)
[2020-03-09 11:49] LABS: Glucose Point of Care 108 (65-105)
--- NOTE | 2020-03-09 13:43 | PM.PNCARD ---
Progress Note: A&P Assessment and Plan (1) Iliopsoas abscess on right: Code(s): K68.12 - Psoas muscle abscess Status: Acute Assessment and Plan: surgery fu (2) Non-ST elevation myocardial infarction (NSTEMI): Code(s): I21.4 - Non-ST elevation (NSTEMI) myocardial infarction Status: Acute Assessment and Plan: Pt had elevated troponin in setting of sepsis representing most probably demand ischemia recent stress test negative cont meds (3) Atrial fibrillation with rapid ventricular response: Code(s): I48.91 - Unspecified atrial fibrillation Status: Acute Assessment and Plan: Pt had episode of PAT during acute infection which resolved monitor electrolytes (4) Pneumonia: Qualifiers: Laterality: bilateral Lung location: unspecified part of lung Pneumonia type: due to unspecified organism Qualified Code(s): J18.9 - Pneumonia, unspecified organism Code(s): J18.9 - Pneumonia, unspecified organism Status: Acute Assessment and Plan: management per PC (5) Severe sepsis: Code(s): A41.9 - Sepsis, unspecified organism; R65.20 - Severe sepsis without septic shock Status: Acute Subjective Date/time seen: 03/09/20 13:43 Pt feels fine today. She underwent surgical procure for her abscess today and tolerated it fine. Pt was seen and examined, chart was reviewed, case d/w pt's nurse. Review of Systems Review of Systems: All systems reviewed & are unremarkable except as noted in HPI and below Constitutional: Constitutional: Reports as per HPI Eyes: Eyes: Reports as per HPI ENT: Reports system reviewed and no additional complaints, except as documented and Reports as per HPI Cardiovascular: Cardiovascular: Reports as per HPI Respiratory: Respiratory: Reports as per HPI Gastrointestinal: Gastrointestinal: Reports as per HPI Genitourinary: Genitourinary: Reports as per HPI Musculoskeletal: Musculoskeletal: Reports as per HPI Exam Const: General: no acute distress Nutritional Appearance: well nourished Orientation/consciousness: patient oriented x3 HENMT: Head: normal to inspection and atraumatic Ears: hearing grossly normal bilaterally Face and sinus: normal facial exam Eyes: General: appearance normal, both eyes and all related structures Pupils: Equal, round and reactive pupils present EOM: EOMs intact bilaterally Neck: Neck: supple Chest: Chest palpation & inspection: normal inspection of the chest Resp: Effort & Inspection: normal respiratory effort and no respiratory distress Auscultation: clear to auscultation bilaterally Cardio: Jugular venous distension: no JVD Rate: regular rate Heart sounds: S1 normal heart sound present, S2 normal heart sound present and no murmurs Peripheral pulses: Peripheral pulses 2+ throughout GI: GI Palp: No abdominal tenderness Auscultation: normal bowel sounds Skin: General skin exam: normal color Neuro: General: patient oriented x3 Cranial nerves: Yes Equal, round and reactive pupils present Extrem: General: normal to inspection and no clubbing, cyanosis or edema Objective Data Vital Signs Vital Signs: Vital Signs - 24 hr 03/08/20 14:00 03/08/20 18:00 03/08/20 20:00 Temperature 36.7 C 36.7 C 36.2 C L Pulse Rate 70 63 58 L Respiratory Rate 16 14 22 H Blood Pressure 147/77 H 124/98 H 136/71 Pulse Oximetry 95 94 96 03/08/20 20:12 03/08/20 20:19 03/09/20 00:00 Temperature 36.8 C Pulse Rate 61 60 80 Respiratory Rate 20 20 22 H Blood Pressure 149/85 H Pulse Oximetry 86 L 03/09/20 04:00 03/09/20 08:40 03/09/20 08:41 Temperature 36.6 C Pulse Rate 60 56 L Respiratory Rate 22 H 22 H Blood Pressure 160/83 H Pulse Oximetry 96 96 03/09/20 08:49 03/09/20 11:42 03/09/20 13:34 Temperature 36.7 C Pulse Rate 52 L 57 L 54 L Respiratory Rate 22 H 12 18 Blood Pressure 153/92 H Pulse Oximetry 94 Intake/Output Intake/Output: Inta
[2020-03-09 16:42] LABS: Glucose Point of Care 174 (65-105)
--- NOTE | 2020-03-09 17:13 | PM.IMPN ---
Progress Note: A&P Assessment and Plan (1) Iliopsoas abscess on right: Code(s): K68.12 - Psoas muscle abscess Status: Acute Assessment and Plan: MRI showing 8.5 cm enhancing fluid collection in the right iliopsoas muscle suspicious for hematoma vs abscess. Patient is on anticoagulation. Drain placed today. Cultures ordered. Gram stain pending. (2) Acute respiratory failure: Qualifiers: Respiratory failure complication: unspecified whether with hypoxia or hypercapnia Qualified Code(s): J96.00 - Acute respiratory failure, unspecified whether with hypoxia or hypercapnia Code(s): J96.00 - Acute respiratory failure, unspecified whether with hypoxia or hypercapnia Status: Resolved Assessment and Plan: Patient had CXR on admission showing diffuse interstitial and airspace opacities. She was intubated on 02/24 and admitted to the ICU. Related to the PNA and pulmonary edema. She was diuresed and ultimately able to be extubated 03/03/20. Passed swallow study. Weaned to room air but now back on 3L. Continue PT/OT. Check apnea link. Add incentive spirometry. Schedule Albuterol now (3) Severe sepsis: Code(s): A41.9 - Sepsis, unspecified organism; R65.20 - Severe sepsis without septic shock Status: Acute Assessment and Plan: Severe sepsis with septicemia and respiratory failure present on admission. Source of infection include left lower extremity cellulitis and/or pneumonia. BCx 02/24 growing Group A Strept that is olivo-sensitive. Repeat BCx negative. No further fevers. WBC slowly trending down. ID following. CT brain negative for acute CVA. MRI as mentioned above (4) Pneumonia: Qualifiers: Laterality: bilateral Lung location: unspecified part of lung Pneumonia type: due to unspecified organism Qualified Code(s): J18.9 - Pneumonia, unspecified organism Code(s): J18.9 - Pneumonia, unspecified organism Status: Acute Assessment and Plan: Patient here for aspiration PNA. Treated with Rocephin and Vanco. Able to be extubated and off O2. She passed swallow study. Changed to Ampicillin. Continue IV abx. (5) Non-ST elevation myocardial infarction (NSTEMI): Code(s): I21.4 - Non-ST elevation (NSTEMI) myocardial infarction Status: Acute Assessment and Plan: Trop climbed to 1.13 before trending downward. Her EKG showing atrial flutter with RVR and left bundle branch block. Negative lexiscan stress test December 2018. She had IVCD on EKG a year ago. Seen by cardiology. Continue ASA and Lipitor. [facility] being considered possibly as outpatient. Echo cancelled (6) Cellulitis of left leg: Code(s): L03.116 - Cellulitis of left lower limb Status: Acute Assessment and Plan: Patient with cellulitis of the left leg. Left lower extremity venous Dopplers negative for DVT on 02/26/2020. Normal PRADIP is on 03/01/2020. Left lower extremity CT scan showing small left knee joint effusion and anterior soft tissue swelling but no evidence of abscess. Clinically no evidence of left knee septic arthritis. Monitoring left heel bulla. Continue to follow. Continue antibiotics. (7) Atrial fibrillation with rapid ventricular response: Code(s): I48.91 - Unspecified atrial fibrillation Status: Acute Assessment and Plan: EKG on admission showed atrial flutter with RVR and left bundle branch block. She had IVCD on EKG a year ago. She converted to normal sinus rhythm. [id number] 3. Continue Xarelto. Cardiology is following. Appreciate their input. (8) Electrolyte abnormality: Code(s): E87.8 - Other disorders of electrolyte and fluid ba
[2020-03-09] MEDS: traZODone HCL 25 MG TABLET PO (21:35)
[2020-03-09 22:04] LABS: Glucose Point of Care 153 (65-105)
[2020-03-10] VITALS (21 sets, daily range): BP systolic 146–184; BP diastolic 79–100; PULSE 55–84; RESP 16–24; TEMP 36.1–36.9; O2SAT 95–99
[2020-03-10] MEDS: AMPICILLIN 2 GM/NS 100 ML 2 GM/100 ML BAG IVPB ×4 (02:34→20:45)
[2020-03-10] MEDS: CENTRAL LINE FLUSH 20 ML IV PUSH (05:28)
[2020-03-10] MEDS: CENTRAL LINE FLUSH 10 ML IV PUSH ×3 (05:28→20:48)
[2020-03-10 05:54] LABS: Basophils Absolute Auto 0.1 K/mm3 (0.0-0.1); Basophils Percent Auto 1.1 % (0.2-1.2); Eosinophils Percent Auto 0.4 % (0-4.4); Hematocrit 28.8 % (37.0-47.0); Hemoglobin 9.1 g/dL (12.0-15.0); Immature Granulocyte Absolute 0.08 K/mm3 (0.00-0.031); Immature Granulocyte Percent A 1.1 % (0-0.5); Lymphocytes Percent Auto 20.7 % (18.3-44.2); Mean Corpuscular HGB Conc 31.6 g/dl (32-36); Mean Corpuscular Hemoglobin 30.8 pg (26-34); Mean Corpuscular Volume 97.6 fl (80-100); Mean Platelet Volume 10.1 fl (7.4-10.4); Monocytes Absolute Auto 0.5 K/mm3 (0.1-0.6); Monocytes Percent Auto 6.5 % (2.6-8.5); Neutrophils Absolute Auto 5.1 K/mm3 (1.3-6.7); Neutrophils Percent Auto 70.2 % (45.5-73.1); Platelet Count Result 198 k/mm3 (150-375); Red Blood Count 2.95 M/mm3 (4.2-5.4); Red Cell Distribution Width 13.6 % (11.5-14.5); White Blood Count 7.3 K/mm3 (4.5-10.0)
[2020-03-10 06:05] LABS: Anion Gap 3 mmol/L (8-16); Blood Urea Nitrogen 14 mg/dL (7-17); Carbon Dioxide 30 mmol/L (22-30); Chloride 104 mmol/L (98-107); Estimated CRCL calculation 98 ml/min; Estimated Glomerular Filt Rate > 60; Glucose 122 mg/dL (65-105); Potassium 4.5 mmol/L (3.4-5.0); Sodium 137 mmol/L (137-145)
[2020-03-10 07:54] LABS: Glucose Point of Care 127 (65-105)
[2020-03-10] MEDS: buPROPion HCL XL (24 HR) 150 MG TABCR PO (08:41)
[2020-03-10] MEDS: FLUoxetine HCL 20 MG CAPSULE 60 MG PO (08:41)
[2020-03-10] MEDS: GABAPENTIN 300 MG CAPSULE PO ×3 (08:41→17:00)
[2020-03-10] MEDS: metFORMIN HCL 250 MG TABLET PO ×2 (08:41→17:00)
[2020-03-10] MEDS: ATORVASTATIN 40 MG TABLET PO (08:42)
[2020-03-10] MEDS: FAMOTIDINE 20 MG TABLET PO ×2 (08:42→20:47)
[2020-03-10] MEDS: TOLNAFTATE 1% POWDER 45 GM BTL 1 APPLIC TOPICAL ×2 (08:42→21:21)
[2020-03-10] MEDS: lisinopriL 20 MG TABLET 40 MG PO (08:42)
[2020-03-10] MEDS: EUCERIN CREAM 120 GM JAR 1 APPLIC TOPICAL (08:42)
[2020-03-10] MEDS: LEVALBUTEROL NEB 1.25 MG/3 ML 0.63 MG INHALATION ×2 (08:58→14:37)
--- NOTE | 2020-03-10 10:55 | PM.IMPN ---
Progress Note: A&P Assessment and Plan (1) Non-ST elevation myocardial infarction (NSTEMI): Code(s): I21.4 - Non-ST elevation (NSTEMI) myocardial infarction Status: Acute Assessment and Plan: Trop climbed to 1.13 before trending downward. Her EKG showing atrial flutter with RVR and left bundle branch block. Negative lexiscan stress test December 2018. She had IVCD on EKG a year ago. Seen by cardiology. Continue Lipitor and resume ASA. [facility] being considered possibly as outpatient. Echo cancelled Called back to the room by RN for the patient having acute CP. Feels like an 'elephant sitting on my chest'. Pain was worse with lying down and associated with nausea. No radiation to the pain. No SOB. Cough is worse when lying back as well. Stat EKG ordered and reviewed by myself. DAYNE jessicawg no changes from admisison with some improvement in the high lateral T wave changes. Lasix had already hal given and she had good response. She was moved to IMU. No CP at my inital visit but repeat CT so NTP added. Full ASA given. Cardiolgoy informed of change in clinical status. Trop ordered. Trop negative x3. Repeat visit showing patient much more comfortable. Still with basilar rales. 40 minutes spent in critical care time with this patient. (2) Iliopsoas abscess on right: Code(s): K68.12 - Psoas muscle abscess Status: Acute Assessment and Plan: MRI showing 8.5 cm enhancing fluid collection in the right iliopsoas muscle suspicious for hematoma vs abscess. Patient is on anticoagulation. Drain placed 03/09/20. Cultures pending. (3) Acute respiratory failure: Qualifiers: Respiratory failure complication: unspecified whether with hypoxia or hypercapnia Qualified Code(s): J96.00 - Acute respiratory failure, unspecified whether with hypoxia or hypercapnia Code(s): J96.00 - Acute respiratory failure, unspecified whether with hypoxia or hypercapnia Status: Resolved Assessment and Plan: Patient had CXR on admission showing diffuse interstitial and airspace opacities. She was intubated on 02/24 and admitted to the ICU. Related to the PNA and pulmonary edema. She was diuresed and ultimately able to be extubated 03/03/20. Passed swallow study. Weaned to room air but now back on 3L. Apnea link normal on 4L. CXR repeated today showing bilateral LL airspace disease probably pulmonary edema. Lasix IV once. Continue PT/OT. (4) Severe sepsis: Code(s): A41.9 - Sepsis, unspecified organism; R65.20 - Severe sepsis without septic shock Status: Acute Assessment and Plan: Severe sepsis with septicemia and respiratory failure present on admission. Source of infection include left lower extremity cellulitis and/or pneumonia. BCx 02/24 growing Group A Strept that is olivo-sensitive. Repeat BCx negative. No further fevers. WBC normal now. ID following. CT brain negative for acute CVA. MRI as mentioned above (5) Pneumonia: Qualifiers: Laterality: bilateral Lung location: unspecified part of lung Pneumonia type: due to unspecified organism Qualified Code(s): J18.9 - Pneumonia, unspecified organism Code(s): J18.9 - Pneumonia, unspecified organism Status: Acute Assessment and Plan: Patient here for aspiration PNA. Treated with Rocephin and Vanco. Able to be extubated and off O2. She passed swallow study. Changed to Ampicillin. Continue IV abx. (6) Cellulitis of left leg: Code(s): L03.116 - Cellulitis of left lower limb Status: Acute Assessment and Plan: Patient with cellulitis of the left leg. Left lower extremity venous Dopplers negative for DVT on 02/26/2020. Normal PRADIP is on 03/01/2020. Left lower extremity CT scan showing small left knee joint effusion and
[2020-03-10] MEDS: hydrALAZINE HCL 20 MG/ML VIAL 10 MG IV PUSH ×2 (11:10→17:07)
[2020-03-10 11:50] LABS: Glucose Point of Care 130 (65-105)
[2020-03-10] MEDS: FUROSEMIDE INJ 40 MG/4 ML VIAL IV PUSH (12:38)
--- NOTE | 2020-03-10 12:50 | ECG_ITS ---
Measurements Intervals [place] [facility] Rate: 70 P: 50 WA: 188 QRS: -57 QRSD: 126 T: 92 QT: 429 QTc: 464 Interpretive Statements SINUS RHYTHM LEFT ANTERIOR FASCICULAR BLOCK LEFT VENTRICULAR HYPERTROPHY AND ST-T CHANGE MINIMAL Q WAVES- HIGH LATERAL LEADS ABNORMAL ECG Electronically Signed On 03-10-2020 15:03:04 CDT by Trevor Erwin D.O.
[2020-03-10] MEDS: ASPIRIN 81 MG CHEWABLE TABLET 324 MG PO (13:22)
[2020-03-10] MEDS: NITROGLYCERIN OINTMENT 1 INCH DOSE 0.5 INCH TRANSDERM ×2 (13:22→23:45)
[2020-03-10] MEDS: METOPROLOL TARTRATE 12.5 MG TABLET PO (13:22)
--- NOTE | 2020-03-10 13:28 | PM.PNCARD ---
Progress Note: A&P Assessment and Plan (1) Iliopsoas abscess on right: Code(s): K68.12 - Psoas muscle abscess Status: Acute Assessment and Plan: surgey fu (2) Elevated troponin: Code(s): R79.89 - Other specified abnormal findings of blood chemistry Status: Acute Assessment and Plan: pt had elevated troponin in setting of sepsis probably due to supply/demand mismatch recent stress test negative cont meds (3) Atrial fibrillation with rapid ventricular response: Code(s): I48.91 - Unspecified atrial fibrillation Status: Acute Assessment and Plan: Pt had episode of PAT during acute infection which resolved monitor electrolytes and kidney function (4) Pneumonia: Qualifiers: Laterality: bilateral Lung location: unspecified part of lung Pneumonia type: due to unspecified organism Qualified Code(s): J18.9 - Pneumonia, unspecified organism Code(s): J18.9 - Pneumonia, unspecified organism Status: Acute Assessment and Plan: management per (5) Severe sepsis: Code(s): A41.9 - Sepsis, unspecified organism; R65.20 - Severe sepsis without septic shock Status: Acute (6) Hypertension: Qualifiers: Hypertension type: essential hypertension Qualified Code(s): I10 - Essential (primary) hypertension Code(s): I10 - Essential (primary) hypertension Status: Chronic Assessment and Plan: Relatively well controlled' cont meds Subjective Date/time seen: 03/10/20 13:28 Pt was seen and examined. Had surgery yesterday. No SOB or palpitations. Had chest discomfort today. Pt was seen and examined. Review of Systems Review of Systems: All systems reviewed & are unremarkable except as noted in HPI and below Constitutional: Constitutional: Reports as per HPI Eyes: Eyes: Reports as per HPI ENT: Reports system reviewed and no additional complaints, except as documented and Reports as per HPI Cardiovascular: Cardiovascular: Reports as per HPI Respiratory: Respiratory: Reports as per HPI Gastrointestinal: Gastrointestinal: Reports as per HPI Genitourinary: Genitourinary: Reports as per HPI Musculoskeletal: Musculoskeletal: Reports as per HPI Exam Const: General: no acute distress Nutritional Appearance: well nourished Orientation/consciousness: patient oriented x3 HENMT: Head: normal to inspection and atraumatic Ears: hearing grossly normal bilaterally Face and sinus: normal facial exam Eyes: General: appearance normal, both eyes and all related structures Pupils: Equal, round and reactive pupils present EOM: EOMs intact bilaterally Neck: Neck: supple Chest: Chest palpation & inspection: normal inspection of the chest Resp: Effort & Inspection: normal respiratory effort and no respiratory distress Auscultation: clear to auscultation bilaterally Cardio: Jugular venous distension: no JVD Rate: regular rate Heart sounds: S1 normal heart sound present, S2 normal heart sound present and no murmurs Peripheral pulses: Peripheral pulses 2+ throughout GI: GI Palp: No abdominal tenderness Auscultation: normal bowel sounds Skin: General skin exam: normal color Neuro: General: patient oriented x3 Cranial nerves: Yes Equal, round and reactive pupils present Extrem: General: normal to inspection and no clubbing, cyanosis or edema Objective Data Vital Signs Vital Signs: Vital Signs - 24 hr 03/09/20 13:34 03/09/20 13:44 03/09/20 14:00 Temperature 36.5 C Pulse Rate 54 L 56 L 63 Respiratory Rate 18 18 19 Blood Pressure 137/66 Pulse Oximetry 96 03/09/20 19:02 03/09/20 20:00 03/09/20 20:15 Temperature 36.4 C L 36.5 C Pulse Rate 65 64 55 L Respiratory Rate 19 20 18 Blood Pressure 160/92 H 154/83 H Pulse Oximetry 92 91 03/09/20 20:22 03/10/20 02:00 03/10/20 05:40 Temperature 36.4 C L 36.1 C L Pulse Rate 56 L 58 L 74 Respiratory Rate 16 24 H Blood Pressure 169/92
[2020-03-10 14:07] LABS: Troponin I 0.014 ng/mL (0.000-0.034)
--- NOTE | 2020-03-10 15:24 | PCPTNOTE ---
Patient has experienced a decline in status, being moved from 241 to 204...spoke with Dr Hansen who said to 'hold' for now, patient having chest pain...he said that he would put through a HOLD order
[2020-03-10] MEDS: OXYMETAZOLINE HCL 0.05% NAS 15 ML BTL (*BKC) 1 SPRAY NASAL (16:02)
[2020-03-10 16:29] LABS: Troponin I < 0.012 ng/mL (0.000-0.034)
[2020-03-10] MEDS: RIVAROXABAN 20 MG TABLET PO (17:00)
--- NOTE | 2020-03-10 17:06 | PC.NURSE ---
Patient transferred from 241 to 204 due to ekg changes.
[2020-03-10 17:09] LABS: Glucose Point of Care 126 (65-105)
[2020-03-10 19:33] LABS: Troponin I 0.013 ng/mL (0.000-0.034)
[2020-03-10] MEDS: ALBUTEROL SULFATE NEB 2.5 MG/0.5 ML INH INHALATION (20:53)
[2020-03-11] VITALS (21 sets, daily range): BP systolic 103–176; BP diastolic 81–92; PULSE 55–70; RESP 16–22; TEMP 36.3–36.8; O2SAT 90–97
[2020-03-11] MEDS: AMPICILLIN 2 GM/NS 100 ML 2 GM/100 ML BAG IVPB ×3 (02:22→23:33)
[2020-03-11] MEDS: NITROGLYCERIN OINTMENT 1 INCH DOSE 0.5 INCH TRANSDERM (05:25)
[2020-03-11] MEDS: CENTRAL LINE FLUSH 10 ML IV PUSH ×3 (05:26→21:37)
[2020-03-11 05:54] LABS: Basophils Absolute Auto 0.1 K/mm3 (0.0-0.1); Basophils Percent Auto 1.2 % (0.2-1.2); Eosinophils Absolute Auto 0.1 K/mm3 (0-0.3); Eosinophils Percent Auto 0.9 % (0-4.4); Hematocrit 26.7 % (37.0-47.0); Hemoglobin 8.3 g/dL (12.0-15.0); Immature Granulocyte Absolute 0.05 K/mm3 (0.00-0.031); Immature Granulocyte Percent A 0.7 % (0-0.5); Lymphocytes Absolute Auto 1.49 K/mm3 (0.9-3.2); Lymphocytes Percent Auto 21.6 % (18.3-44.2); Mean Corpuscular HGB Conc 31.1 g/dl (32-36); Mean Corpuscular Hemoglobin 30.3 pg (26-34); Mean Corpuscular Volume 97.4 fl (80-100); Mean Platelet Volume 10.2 fl (7.4-10.4); Monocytes Absolute Auto 0.4 K/mm3 (0.1-0.6); Monocytes Percent Auto 6.2 % (2.6-8.5); Neutrophils Absolute Auto 4.8 K/mm3 (1.3-6.7); Neutrophils Percent Auto 69.4 % (45.5-73.1); Platelet Count Result 209 k/mm3 (150-375); Red Blood Count 2.74 M/mm3 (4.2-5.4); Red Cell Distribution Width 13.8 % (11.5-14.5); White Blood Count 6.9 K/mm3 (4.5-10.0)
[2020-03-11 06:22] LABS: Alanine Aminotransferase 26 U/L (4-35); Albumin Level 2.7 g/dL (3.5-5.1); Alkaline Phosphatase 60 U/L (38-126); Anion Gap 4 mmol/L (8-16); Aspartate Amino Transferase 25 U/L (14-36); Bilirubin,Total 0.7 mg/dL (0.2-1.3); Blood Urea Nitrogen 13 mg/dL (7-17); Calcium 7.9 mg/dL (8.4-10.2); Carbon Dioxide 29 mmol/L (22-30); Chloride 103 mmol/L (98-107); Estimated CRCL calculation 88 ml/min; Estimated Glomerular Filt Rate > 60; Glucose 125 mg/dL (65-105); Potassium 4.1 mmol/L (3.4-5.0); Sodium 136 mmol/L (137-145)
[2020-03-11 06:48] LABS: Iron 41 ug/dL (37-170)
[2020-03-11 06:57] LABS: Percent Iron Saturation 18 % (20-50)
[2020-03-11] MEDS: ALBUTEROL SULFATE NEB 2.5 MG/0.5 ML INH INHALATION ×3 (07:37→20:50)
[2020-03-11 08:26] LABS: Glucose Point of Care 105 (65-105)
--- NOTE | 2020-03-11 09:40 | WPDINFPN2 ---
Progress Note: A&P Assessment and Plan (1) Cellulitis of left leg: Code(s): L03.116 - Cellulitis of left lower limb Status: Acute Assessment and Plan: 1. Group A Strep cellulitis LLE resulting in bacteremia, microbiologic cure WBC also back to normal 2. Hip pain, low suspicion for septic arthritis. Iliopsoas abscess - same organism - could also explain. POD #2 drain (hematoma less likely with gram stain showing moderate wbc and no rbc). I suspect false negative culture, due to preexisting antibiotic 3. NSTMI, events noted REC Ampicillin #8 (antibiotic # 15), can convert to oral. Subjective Date/time seen: 03/11/20 09:40 Interval history: feeling better since yesterday Exam Narrative: Exam Narrative: afebrile Const: General: no acute distress Neck: Neck: no JVD Resp: Effort & Inspection: normal respiratory effort Auscultation: clear to auscultation bilaterally Cardio: Rate: regular rate Rhythm: regular rhythm Heart sounds: no murmurs GI: Inspection: non-distended GI Palp: Yes Soft to palpation and No Tenderness to palpation present (GI) Skin: General skin exam: no rashes or lesions noted Other: erythema resolved LLE, the blood blister has unroofed Objective Data Vital Signs Vital Signs: Vital Signs - 24 hr 03/10/20 10:00 03/10/20 11:45 03/10/20 12:15 Temperature 36.8 C Pulse Rate 69 Respiratory Rate 20 Blood Pressure 179/93 H 170/90 H 176/90 H Pulse Oximetry 95 03/10/20 14:02 03/10/20 14:41 03/10/20 14:49 Temperature 36.9 C Pulse Rate 84 72 63 Respiratory Rate 22 H 20 20 Blood Pressure 160/100 H Pulse Oximetry 98 03/10/20 16:00 03/10/20 17:40 03/10/20 18:10 Temperature 36.5 C Pulse Rate 67 58 L Respiratory Rate 20 Blood Pressure 179/91 H 146/79 H Pulse Oximetry 96 03/10/20 19:10 03/10/20 20:00 03/10/20 20:54 Temperature 36.6 C Pulse Rate 58 L 55 L 58 L Respiratory Rate 20 18 Blood Pressure 146/81 H Pulse Oximetry 99 95 03/10/20 21:01 03/10/20 21:47 03/10/20 23:52 Temperature 36.1 C L Pulse Rate 56 L 60 62 Respiratory Rate 18 18 Blood Pressure 172/86 H Pulse Oximetry 97 03/11/20 02:41 03/11/20 04:00 03/11/20 05:49 Temperature 36.6 C Pulse Rate 58 L 61 61 Respiratory Rate 18 Blood Pressure 158/83 H Pulse Oximetry 96 03/11/20 08:00 Temperature 36.8 C Pulse Rate 59 L Respiratory Rate 22 H Blood Pressure 176/92 H Pulse Oximetry 96 Intake/Output Intake/Output: Intake & Output 03/08/20 03/09/20 03/10/20 03/11/20 23:59 23:59 23:59 23:59 Intake Total 2940 1350 1140 780 Output Total 1500 1000 1885 715 Balance 1440 350 -745 65 Meds/Results Medications: Active Medications Generic Name Dose Route Start Last Admin Trade Name Freq PRN Reason Stop Dose Admin Acetaminophen 650 mg 03/06/20 17:55 03/07/20 07:25 Tylenol Tablet PO 650 mg Q6H PRN Administration Mild Pain (1-3) or Fever Hydrocodone Bitart/Acetaminophen 1 tab 03/07/20 15:48 03/10/20 05:27 [place] 5-325 Mg PO 1 tab Q6H PRN Administration Pain 4-10 Albuterol 2.5 mg 03/10/20 20:00 03/11/20 07:37 Albuterol Sulf Neb 2.5mg/0.5ml INHALATION 2.5 mg [id number] AKOSUA Administration Aspirin 81 mg 03/07/20 09:00 03/08/20 08:37 Aspirin Chewable PO 81 mg QAM AKOSUA Administration Atorvastatin Calcium 40 mg 03/04/20 10:05 03/10/20 08:42 Lipitor PO 40 mg DAILY AKOSUA Administration Bupropion HCl 150 mg 03/04/20 10:05 03/10/20 08:41 Wellbutrin Xl (24 Hr) PO 150 mg DAILY AKOSUA Administration Dextrose 12.5 gm 02/26/20 00:22 Dextrose 50% Syringe IV PUSH PRN PRN Hypoglycemia Protocol Famotidine 20 mg 03/06/20 21:00 03/10/20 20:47 Pepcid PO 20 mg Q12HR AKOSUA Administration Fluoxetine HCl 60 mg 03/04/20 10:05 03/10/20 08:41 Prozac PO 60 mg DAILY AKOSUA Administration Gabapentin 300 mg 03/04/20 13:00 03/10/20 17:00 Neurontin PO 300 m
[2020-03-11] MEDS: FAMOTIDINE 20 MG TABLET PO ×2 (09:54→21:34)
[2020-03-11] MEDS: buPROPion HCL XL (24 HR) 150 MG TABCR PO (09:54)
[2020-03-11] MEDS: metFORMIN HCL 250 MG TABLET PO ×2 (09:54→17:51)
[2020-03-11] MEDS: ATORVASTATIN 40 MG TABLET PO (09:54)
[2020-03-11] MEDS: lisinopriL 20 MG TABLET 40 MG PO (09:54)
[2020-03-11] MEDS: GABAPENTIN 300 MG CAPSULE PO ×3 (09:54→17:51)
[2020-03-11] MEDS: FLUoxetine HCL 20 MG CAPSULE 60 MG PO (09:54)
[2020-03-11] MEDS: ASPIRIN 81 MG CHEWABLE TABLET PO (09:54)
[2020-03-11] MEDS: TOLNAFTATE 1% POWDER 45 GM BTL 1 APPLIC TOPICAL ×2 (09:55→21:34)
[2020-03-11] MEDS: EUCERIN CREAM 120 GM JAR 1 APPLIC TOPICAL (09:55)
[2020-03-11] MEDS: METOPROLOL TARTRATE 12.5 MG TABLET PO ×2 (09:55→21:34)
--- NOTE | 2020-03-11 10:49 | PM.PNCARD ---
Progress Note: A&P Assessment and Plan (1) Iliopsoas abscess on right: Code(s): K68.12 - Psoas muscle abscess Status: Acute Assessment and Plan: surgery fu (2) Elevated troponin: Code(s): R79.89 - Other specified abnormal findings of blood chemistry Status: Acute Assessment and Plan: pt had elevated troponin in setting of sepsis probably due to supply/demand mismatch recent stress test negative cont meds - She had episode of chest pain involving left chest as if an elephant was sitting on her left chest for 2 hours on 03/10/2020 with serial troponin I negative for injury following that event. EKG without evidence of acute injury. Chest pain resolved. She was hypertensive at the time with blood pressure 160/100. Improve blood pressure control. Began hydralazine 25 mg t.i.d. - Previously, she had a Lexiscan nuclear stress test 01/02/2019: Negative for ischemia or infarct, normal left ventricular ejection fraction 55%. - Pending stabilization of her acute renal failure and pending resolution of her pneumonia and abscess/infection with active antibiotic therapy, she may benefit from left heart catheterization for definitive evaluation for coronary artery disease. (3) Atrial fibrillation with rapid ventricular response: Code(s): I48.91 - Unspecified atrial fibrillation Status: Acute Assessment and Plan: Pt had episode of PAT during acute infection which resolved monitor electrolytes and kidney function (4) Pneumonia: Qualifiers: Laterality: bilateral Lung location: unspecified part of lung Pneumonia type: due to unspecified organism Qualified Code(s): J18.9 - Pneumonia, unspecified organism Code(s): J18.9 - Pneumonia, unspecified organism Status: Acute Assessment and Plan: management per (5) Severe sepsis: Code(s): A41.9 - Sepsis, unspecified organism; R65.20 - Severe sepsis without septic shock Status: Acute Assessment and Plan: - await echo results. (6) Hypertension: Qualifiers: Hypertension type: essential hypertension Qualified Code(s): I10 - Essential (primary) hypertension Code(s): I10 - Essential (primary) hypertension Status: Chronic Assessment and Plan: Not well controlled Began hydralazine 25 mg t.i.d. cont meds Subjective Date/time seen: 03/11/20 10:49 Patient reports an episode of chest pain in the afternoon 03/10/2020 which subsequently resolved after 2 hours. She reported feeling as if an elephant was sitting on her left chest. She denies any recurrence of chest pain. Troponin I were negative for injury on 3 occasions subsequently, and EKG without evidence of acute injury. She was hypertensive at the time with blood pressure 160/100. Patient denies dyspnea or current chest pain. Patient was seen and examined, chart reviewed, case discussed with nurse. Interval history: feeling better since yesterday Exam Const: General: no acute distress Nutritional Appearance: well nourished Orientation/consciousness: patient oriented x3 HENMT: Head: normal to inspection and atraumatic Ears: hearing grossly normal bilaterally Face and sinus: normal facial exam Eyes: General: appearance normal, both eyes and all related structures Pupils: Equal, round and reactive pupils present EOM: EOMs intact bilaterally Neck: Neck: supple Chest: Chest palpation & inspection: normal inspection of the chest Resp: Effort & Inspection: normal respiratory effort and no respiratory distress Auscultation: clear to auscultation bilaterally Cardio: Jugular venous distension: no JVD Rate: regular rate Heart sounds: S1 normal heart sound present, S2 normal heart sound present and no murmurs Peripheral pulses: Peripheral pulses 2+ throughout GI: Auscultation: normal bowel sounds Skin: General skin exam: normal color Neuro: General: patient oriented x3 Cranial nerves: Yes Equal,
[2020-03-11 11:30] LABS: Glucose Point of Care 163 (65-105)
[2020-03-11] MEDS: AMPICILLIN TRIHYDRATE 500 MG CAPSULE PO (13:46)
[2020-03-11] MEDS: ISOSORBIDE MONONITRATE 30 MG TAB.ER.24H PO (13:46)
[2020-03-11] MEDS: hydrALAZINE HCL 25 MG TABLET PO ×2 (13:46→21:34)
--- NOTE | 2020-03-11 14:18 | PCDIET ---
Nutrition Follow-Up Complete: Nutrition Diagnosis: Inadequate oral intake at present related to oral intubation as evidenced by NPO status. Nutrition Goal: Patient to meet estimated nutritional needs. Goal in progress. Patient now on diabetic diet with average intake of 73% of recorded meals since 03/07/20. Recommend adding low sodium diet, given history of CHF. Last recorded weight is 125.1 kg which is increased from last review. +I/O. Bowel Motility: Last documented BM on 03/09/20. Labs Reviewed: Hgb (8.3), Hct (26.7), Glu (125), Na (136), Alb (2.7) Meds Noted: [place], Albuterol, Ampicillin, Pepcid, Novolog, Xopenex, Glucophage Additional Notes: s/p drain placement to right iliopsoas abscess on 03/09/20. No pressure ulcers documented. Will continue to monitor with same goal. Nutrition Monitoring and Evaluation: Follow up every 5 days.
--- NOTE | 2020-03-11 15:10 | PM.IMPN ---
Progress Note: A&P Assessment and Plan (1) Non-ST elevation myocardial infarction (NSTEMI): Code(s): I21.4 - Non-ST elevation (NSTEMI) myocardial infarction Status: Acute Assessment and Plan: On admission, Trop climbed to 1.13 before trending downward. Her EKG showing atrial flutter with RVR and left bundle branch block. She has had a negative lexiscan stress test December 2018. She had IVCD on EKG a year ago. Seen by cardiology. We continued Lipitor and resume ASA. [facility] being considered possibly as outpatient. Echo cancelled Called back to the room by RN on 03/10/20 for the patient having acute CP. Feels like an 'elephant sitting on my chest'. Pain was worse with lying down and associated with nausea. No radiation to the pain. No SOB. Cough is worse when lying back as well. Stat EKG showing no changes from admission with some improvement in the high lateral T wave changes. She was moved to IMU. NTP added. Full ASA given. Cardiology informed of change in clinical status. Trop negative x3. Continue to monitor. Appreciate Cardiology input. Echo from 02/27 read showing EF 51% with possible mobile vegetation on the posterior MV leaflet and mild MR. CARMINE being planned. Change back to Ampicillin 2gm IV Q6h until CARMINE complete. (2) Iliopsoas abscess on right: Code(s): K68.12 - Psoas muscle abscess Status: Acute Assessment and Plan: MRI showing 8.5 cm enhancing fluid collection in the right iliopsoas muscle suspicious for hematoma vs abscess. Gram stain negative but does show moderate WBC. Cx NGTD. Patient is on anticoagulation. Drain placed 03/09/20. [place] to be an abscess. Remove drain once output declines. (3) Acute respiratory failure: Qualifiers: Respiratory failure complication: unspecified whether with hypoxia or hypercapnia Qualified Code(s): J96.00 - Acute respiratory failure, unspecified whether with hypoxia or hypercapnia Code(s): J96.00 - Acute respiratory failure, unspecified whether with hypoxia or hypercapnia Status: Resolved Assessment and Plan: Patient had CXR on admission showing diffuse interstitial and airspace opacities. She was intubated on 02/24 and admitted to the ICU. Related to the PNA and pulmonary edema. She was diuresed and ultimately able to be extubated 03/03/20. Passed swallow study. Weaned to room air but now back on 3L. Apnea link normal on 4L. CXR repeated 03/10/20 showing bilateral LL airspace disease probably pulmonary edema. Lasix IV once with good results. Continue PT/OT. Wean O2 as tolerated. (4) Severe sepsis: Code(s): A41.9 - Sepsis, unspecified organism; R65.20 - Severe sepsis without septic shock Status: Acute Assessment and Plan: Severe sepsis with septicemia and respiratory failure present on admission. Source of infection include left lower extremity cellulitis and/or pneumonia. BCx 02/24 growing Group A Strept that is olivo-sensitive. Repeat BCx negative. No further fevers. WBC normal now. ID following. CT brain negative for acute CVA. MRI as mentioned above (5) Pneumonia: Qualifiers: Laterality: bilateral Lung location: unspecified part of lung Pneumonia type: due to unspecified organism Qualified Code(s): J18.9 - Pneumonia, unspecified organism Code(s): J18.9 - Pneumonia, unspecified organism Status: Acute Assessment and Plan: Patient here for aspiration PNA. Treated with Rocephin and Vanco. Able to be extubated and off O2. She passed swallow study. Continue abx. (6) Cellulitis of left leg: Code(s): L03.116 - Cellulitis of left lower limb Status: Acute Assessment and Plan: Patient with cellulitis of the left leg. Left lower extremity venous Dopplers negative for DVT on
[2020-03-11 17:09] LABS: Glucose Point of Care 138 (65-105)
[2020-03-11] MEDS: RIVAROXABAN 20 MG TABLET PO (17:51)
[2020-03-11 20:15] LABS: Glucose Point of Care 153 (65-105)
[2020-03-11] MEDS: traZODone HCL 25 MG TABLET PO (21:36)
[2020-03-12] VITALS (35 sets, daily range): BP systolic 135–185; BP diastolic 75–112; PULSE 52–79; RESP 16–26; TEMP 35.8–36.6; O2SAT 92–99
[2020-03-12] MEDS: AMPICILLIN 2 GM/NS 100 ML 2 GM/100 ML BAG IVPB ×4 (05:03→23:40)
[2020-03-12] MEDS: hydrALAZINE HCL 25 MG TABLET PO ×3 (05:07→22:16)
[2020-03-12] MEDS: CENTRAL LINE FLUSH 10 ML IV PUSH ×3 (05:08→22:17)
[2020-03-12 05:30] LABS: Basophils Absolute Auto 0.1 K/mm3 (0.0-0.1); Eosinophils Absolute Auto 0.1 K/mm3 (0-0.3); Eosinophils Percent Auto 0.8 % (0-4.4); Hematocrit 27.8 % (37.0-47.0); Hemoglobin 8.7 g/dL (12.0-15.0); Immature Granulocyte Absolute 0.03 K/mm3 (0.00-0.031); Immature Granulocyte Percent A 0.5 % (0-0.5); Lymphocytes Absolute Auto 1.55 K/mm3 (0.9-3.2); Lymphocytes Percent Auto 25.1 % (18.3-44.2); Mean Corpuscular HGB Conc 31.3 g/dl (32-36); Mean Corpuscular Hemoglobin 30.6 pg (26-34); Mean Corpuscular Volume 97.9 fl (80-100); Mean Platelet Volume 10.2 fl (7.4-10.4); Monocytes Absolute Auto 0.4 K/mm3 (0.1-0.6); Monocytes Percent Auto 7.1 % (2.6-8.5); Neutrophils Absolute Auto 4.1 K/mm3 (1.3-6.7); Neutrophils Percent Auto 65.5 % (45.5-73.1); Platelet Count Result 196 k/mm3 (150-375); Red Blood Count 2.84 M/mm3 (4.2-5.4); Red Cell Distribution Width 13.8 % (11.5-14.5); White Blood Count 6.2 K/mm3 (4.5-10.0)
[2020-03-12 05:43] LABS: Albumin Level 2.9 g/dL (3.5-5.1); Anion Gap 4 mmol/L (8-16); Blood Urea Nitrogen 14 mg/dL (7-17); Calcium 8.1 mg/dL (8.4-10.2); Carbon Dioxide 30 mmol/L (22-30); Chloride 104 mmol/L (98-107); Estimated CRCL calculation 91 ml/min; Estimated Glomerular Filt Rate > 60; Glucose 128 mg/dL (65-105); Magnesium 1.7 mg/dL (1.6-2.3); Phosphorus 4.3 mg/dL (2.5-4.5); Potassium 4.4 mmol/L (3.4-5.0); Sodium 138 mmol/L (137-145)
--- NOTE | 2020-03-12 08:30 | ECHO_ITS ---
Patient Info Name: Apple Littlejohn Age: 54 years : 1965 Gender: Female Ht: 67 in Wt: 275 lbs BSA: 2.49 m2 HR: 75 bpm BP: 161 / 82 mmHg Heart Rhythm: Sinus Rhythm Technical Quality: Good Exam Date: 03/12/2020 8:13 AM Exam Location: [facility] Patient Status: Inpatient Admit Date: 02/25/2020 Staff Ordering Physician: Zafar Givens MD Daytime Babysitter: Marcelo Arevalo RDCS Attending Provider: Frank Hansen MD Referring Physician: Tosha STARKS; Exam Type: CA echo transesophageal Study Info Indications I39 - Endocarditis and heart valve disorders in diseases classified elsewhere Complete two-dimensional, color flow and Doppler transesophageal study is performed. Three dimensional echocardiographic imaging is performed during the transesophageal echocardiogram. History/Risk Factors Concern for mitral valve endocarditis. Procedure Details Moderate sedation was administrated by RN under my direct supervision. Patient received total of 3 mg of Versed and 50 mg of Fentanyl. Start time 08:50, end time 09:35. The patient arrived in a fasting state after obtaining informed consent. The transesophageal probe was passed into the posterior pharynx, mid-esophagus, distal esophagus, and gastric fundus. Imaging was performed at multiple levels. The patient tolerated the procedure well and there were no complications. The patient was transferred out of the examination area in satisfactory condition. Summary 1. Small vegetation is noted on P1 segment of mitral valve posterior leaflet. There is moderate to severe mitral regurgitation with excentric septally directed jet. There is no obvious leaflet rupture or perforation. ERO 0.3 cm2, RV 46 mL. Left Ventricle Left ventricular chamber dimension is mildly enlarged. Left ventricular systolic function is normal with an ejection fraction by Biplane Method of Discs of 55 %. Right Ventricle Right ventricular chamber dimension is normal. Right ventricular systolic function is normal. Left Atria Left atrial chamber dimension is mildly enlarged. Right Atria Right atrial chamber dimension is normal. Atrial Septum No patent ovale evident (PFO) by color doppler. Atrial Appendage Left atrial appendage is normal with normal velocity and no clots. Aortic Valve The aortic valve is trileaflet. Aortic valve is mildly calcified without restricted motion. There is no aortic valve stenosis. There is no aortic valve regurgitation. No aortic valve vegetations. Pulmonic Valve The pulmonic valve is normal. There is no pulmonic valve stenosis. There is no pulmonic regurgitation. Mitral Valve The mitral valve has normal leaflets. There is no mitral valve stenosis. Small vegetation is noted on P1 segment of mitral valve posterior leaflet. There is moderate to severe mitral regurgitation with excentric septally directed jet. There is no obvious leaflet rupture or perforation. ERO 0.3 cm2, RV 46 mL. Tricuspid Valve The tricuspid valve not well visualized. There is no significant tricuspid valve stenosis. There is no tricuspid valve regurgitation. Pericardium/Pleural The pericardium appears normal. There is no pericardial effusion. Aorta The aortic root size at the sinus of Valsalva is normal. The prox ascending aorta size is normal. Mitral Valve Name Value Normal
[2020-03-12 08:51] LABS: Glucose Point of Care 98 (65-105)
--- NOTE | 2020-03-12 09:45 | SUR.PHASEII ---
0935-pt out of CARMINE. No distress noted. Drowsy but AOx4. Will continue to monitor.
--- NOTE | 2020-03-12 10:58 | SUR.PHASEII ---
1050-pt taken to IMU after recovery on [employer]ER. No distress noted. AOx4. Report given to PRAKASH Oconnor.
--- NOTE | 2020-03-12 11:09 | PM.PNCARD ---
Progress Note: A&P Assessment and Plan (1) Endocarditis: Code(s): I38 - Endocarditis, valve unspecified Status: Acute Assessment and Plan: 54 y/o with h/o HTN, DM, morbid obesity, KITTY, COPD and tobacco abuse presented with A fib with RVR in the setting of sepsis now found to have mitral valve vegetation 2D echo showed small vegetation, confirmed on CARMINE that also showed moderate to severe MR without obvious leaflet rupture or perforation. Would continue with IV Abx per ID recommendation (group A strep) and plan to repeat CARMINE after she completes her Abx course. If MR remains significant then may need mitral valve repair. (2) Mitral regurgitation: Code(s): I34.0 - Nonrheumatic mitral (valve) insufficiency Status: Acute Assessment and Plan: Continue Abx. Need follow up CARMINE in few weeks and possible repair if MR severity remains significant. (3) Paroxysmal A-fib: Code(s): I48.0 - Paroxysmal atrial fibrillation Status: Acute Assessment and Plan: In sinus rhythm now. Continue Metoprolol Continue Xarelto (4) Non-ST elevation myocardial infarction (NSTEMI): Code(s): I21.4 - Non-ST elevation (NSTEMI) myocardial infarction Status: Acute Assessment and Plan: Trop peaked at 1.1 (02/26/20). likely due to increase demand from underlying infection. Had recent negative Nuc stress test. She would eventually need a C if she end up needing surgical intervention on mitral valve. Subjective Date/time seen: 03/12/20 11:09 No overnight events. Denies chest pain. Objective Data Vital Signs Vital Signs: Vital Signs - 24 hr 03/11/20 11:23 03/11/20 12:00 03/11/20 14:00 Temperature 36.4 C Pulse Rate 64 60 65 Respiratory Rate 20 Blood Pressure 157/85 H Pulse Oximetry 93 03/11/20 14:22 03/11/20 14:32 03/11/20 16:00 Temperature 36.3 C L Pulse Rate 68 66 69 Respiratory Rate 18 18 20 Blood Pressure 151/81 H Pulse Oximetry 94 03/11/20 18:00 03/11/20 19:55 03/11/20 20:00 Temperature 36.6 C Pulse Rate 67 63 59 L Respiratory Rate 22 H Blood Pressure 103/82 Pulse Oximetry 92 03/11/20 20:50 03/11/20 20:59 03/11/20 21:34 Temperature Pulse Rate 55 L 57 L 64 Respiratory Rate 16 16 Blood Pressure Pulse Oximetry 90 03/11/20 22:00 03/12/20 00:00 03/12/20 02:00 Temperature 35.8 C L Pulse Rate 62 64 56 L Respiratory Rate 18 Blood Pressure 149/79 H Pulse Oximetry 93 03/12/20 04:00 03/12/20 05:35 03/12/20 08:00 Temperature 36.4 C 36.5 C Pulse Rate 67 60 79 Respiratory Rate 20 20 Blood Pressure 148/85 H 172/98 H Pulse Oximetry 96 94 03/12/20 08:40 03/12/20 08:50 03/12/20 08:55 Temperature Pulse Rate 67 65 62 Respiratory Rate 18 20 20 Blood Pressure 151/83 H 154/91 H 185/112 H Pulse Oximetry 98 98 97 03/12/20 09:00 03/12/20 09:05 03/12/20 09:10 Temperature Pulse Rate 66 60 63 Respiratory Rate 24 H 17 17 Blood Pressure 165/101 H 161/93 H 168/94 H Pulse Oximetry 98 98 95 03/12/20 09:15 03/12/20 09:20 03/12/20 09:25 Temperature Pulse Rate 63 61 64 Respiratory Rate 25 H 21 H 25 H Blood Pressure 163/90 H 168/92 H 169/90 H Pulse Oximetry 96 96 94 03/12/20 09:30 03/12/20 09:35 03/12/20 09:45 Temperature Pulse Rate 61 60 58 L Respiratory Rate 24 H 20 26 H Blood Pressure 168/92 H 167/90 H 168/87 H Pulse Oximetry 94 98 95 03/12/20 10:00 03/12/20 10:15 03/12/20 10:30 Temperature Pulse Rate 57 L 56 L 55 L Respiratory Rate 26 H 24 H 22 H Blood Pressure 158/90 H 171/93 H 168/84 H Pulse Oximetry 94 92 94 03/12/20 10:45 Temperature Pulse Rate 55 L Respiratory Rate 24 H Blood Pressure 167/90 H Pulse Oximetry 94 Intake/Output Intake/Output: Intake & Output 03/09/20 03/10/20 03/11/20 03/12/20 23:59 23:59 23:59 23:59 Intake Total 1350 1140 1670 800 Output Total 1000 5187 927 600 Balance 143 -428 940 200 Meds/Results Medications: Active Medica
[2020-03-12 12:59] LABS: Glucose Point of Care 86 (65-105)
[2020-03-12] MEDS: ALBUTEROL SULFATE NEB 2.5 MG/0.5 ML INH INHALATION ×2 (13:36→20:12)
--- NOTE | 2020-03-12 13:42 | WPDPN ---
Progress Note: A&P Assessment and Plan (1) Cellulitis of left leg: Code(s): L03.116 - Cellulitis of left lower limb Status: Acute Assessment and Plan: 1. Group A Strep cellulitis LLE resulting in bacteremia, microbiologic cure WBC also back to normal 2. Hip pain, low suspicion for septic arthritis. Iliopsoas abscess - same organism - could also explain. POD #3 drain. I suspect false negative culture, due to preexisting antibiotic 3. NSTMI, CARMINE done but no results yet REC Ampicillin #9 (antibiotic # 16), back on IV, await info on CARMINE. Exam Narrative: Exam Narrative: afebrile Const: General: no acute distress Skin: General skin exam: no rashes or lesions noted Other: no LLE cellulitis Objective Data Vital Signs Vital Signs: Vital Signs - 24 hr 03/11/20 14:00 03/11/20 14:22 03/11/20 14:32 Temperature Pulse Rate 65 68 66 Respiratory Rate 18 18 Blood Pressure Pulse Oximetry 03/11/20 16:00 03/11/20 18:00 03/11/20 19:55 Temperature 36.3 C L 36.6 C Pulse Rate 69 67 63 Respiratory Rate 20 22 H Blood Pressure 151/81 H 103/82 Pulse Oximetry 94 92 03/11/20 20:00 03/11/20 20:50 03/11/20 20:59 Temperature Pulse Rate 59 L 55 L 57 L Respiratory Rate 16 16 Blood Pressure Pulse Oximetry 90 03/11/20 21:34 03/11/20 22:00 03/12/20 00:00 Temperature 35.8 C L Pulse Rate 64 62 64 Respiratory Rate 18 Blood Pressure 149/79 H Pulse Oximetry 93 03/12/20 02:00 03/12/20 04:00 03/12/20 05:35 Temperature 36.4 C Pulse Rate 56 L 67 60 Respiratory Rate 20 Blood Pressure 148/85 H Pulse Oximetry 96 03/12/20 08:00 03/12/20 08:40 03/12/20 08:50 Temperature 36.5 C Pulse Rate 79 67 65 Respiratory Rate 20 18 20 Blood Pressure 172/98 H 151/83 H 154/91 H Pulse Oximetry 94 98 98 03/12/20 08:55 03/12/20 09:00 03/12/20 09:05 Temperature Pulse Rate 62 66 60 Respiratory Rate 20 24 H 17 Blood Pressure 185/112 H 165/101 H 161/93 H Pulse Oximetry 97 98 98 03/12/20 09:10 03/12/20 09:15 03/12/20 09:20 Temperature Pulse Rate 63 63 61 Respiratory Rate 17 25 H 21 H Blood Pressure 168/94 H 163/90 H 168/92 H Pulse Oximetry 95 96 96 03/12/20 09:25 03/12/20 09:30 03/12/20 09:35 Temperature Pulse Rate 64 61 60 Respiratory Rate 25 H 24 H 20 Blood Pressure 169/90 H 168/92 H 167/90 H Pulse Oximetry 94 94 98 03/12/20 09:45 03/12/20 10:00 03/12/20 10:15 Temperature Pulse Rate 58 L 57 L 56 L Respiratory Rate 26 H 26 H 24 H Blood Pressure 168/87 H 158/90 H 171/93 H Pulse Oximetry 95 94 92 03/12/20 10:30 03/12/20 10:45 03/12/20 12:00 Temperature 36.5 C Pulse Rate 55 L 55 L 58 L Respiratory Rate 22 H 24 H 20 Blood Pressure 168/84 H 167/90 H 163/90 H Pulse Oximetry 94 94 96 03/12/20 13:37 Temperature Pulse Rate 72 Respiratory Rate 16 Blood Pressure Pulse Oximetry Intake/Output Intake/Output: Intake & Output 03/09/20 03/10/20 03/11/20 03/12/20 23:59 23:59 23:59 23:59 Intake Total 1350 1140 1670 800 Output Total 1000 1885 715 600 Balance 350 -745 955 200 Meds/Results Medications: Active Medications Generic Name Dose Route Start Last Admin Trade Name Freq PRN Reason Stop Dose Admin Acetaminophen 650 mg 03/06/20 17:55 03/07/20 07:25 Tylenol Tablet PO 650 mg Q6H PRN Administration Mild Pain (1-3) or Fever Hydrocodone Bitart/Acetaminophen 1 tab 03/07/20 15:48 03/11/20 17:54 [place] 5-325 Mg PO 1 tab Q6H PRN Administration Pain 4-10 Albuterol 2.5 mg 03/10/20 20:00 03/12/20 13:36 Albuterol Sulf Neb 2.5mg/0.5ml INHALATION 2.5 mg X3HIRPR AKOSUA Administration Aspirin 81 mg 03/07/20 09:00 03/11/20 09:54 Aspirin Chewable PO 81 mg QAM AKOSUA Administration Atorvastatin Calcium 40 mg 03/04/20 10:05 03/11/20 09:54 Lipitor PO 40 mg DAILY AKOSUA Administration Bupropion HCl 150 mg 03/04/20 10:05 03/11/20 09:54 Wellbutrin Xl (24 Hr) PO 150 mg DAILY
[2020-03-12] MEDS: ATORVASTATIN 40 MG TABLET PO (14:04)
[2020-03-12] MEDS: ISOSORBIDE MONONITRATE 30 MG TAB.ER.24H PO (14:04)
[2020-03-12] MEDS: lisinopriL 20 MG TABLET 40 MG PO (14:04)
[2020-03-12] MEDS: FAMOTIDINE 20 MG TABLET PO ×2 (14:04→22:16)
[2020-03-12] MEDS: FLUoxetine HCL 20 MG CAPSULE 60 MG PO (14:04)
[2020-03-12] MEDS: buPROPion HCL XL (24 HR) 150 MG TABCR PO (14:04)
[2020-03-12] MEDS: METOPROLOL TARTRATE 12.5 MG TABLET PO ×2 (14:05→22:16)
[2020-03-12] MEDS: TOLNAFTATE 1% POWDER 45 GM BTL 1 APPLIC TOPICAL ×2 (14:05→22:16)
[2020-03-12] MEDS: GABAPENTIN 300 MG CAPSULE PO ×2 (14:05→17:21)
[2020-03-12] MEDS: EUCERIN CREAM 120 GM JAR 1 APPLIC TOPICAL (14:05)
[2020-03-12] MEDS: ASPIRIN 81 MG CHEWABLE TABLET PO (14:06)
[2020-03-12 17:02] LABS: Glucose Point of Care 133 (65-105)
[2020-03-12] MEDS: RIVAROXABAN 20 MG TABLET PO (17:22)
[2020-03-12] MEDS: metFORMIN HCL 250 MG TABLET PO (17:22)
--- NOTE | 2020-03-12 17:40 | PM.IMPN ---
Progress Note: A&P Assessment and Plan (1) Non-ST elevation myocardial infarction (NSTEMI): Code(s): I21.4 - Non-ST elevation (NSTEMI) myocardial infarction Status: Acute Assessment and Plan: On admission, Trop climbed to 1.13 before trending downward. Her EKG showing atrial flutter with RVR and left bundle branch block. She has had a negative lexiscan stress test December 2018. She had IVCD on EKG a year ago. Seen by cardiology. We continued Lipitor and resume ASA. [facility] being considered possibly as outpatient. Echo ? mitral valve vegetaion and confirmed on CARMINE today. Called back to the room by RN on 03/10/20 Trop negative x3. Continue to monitor. Appreciate Cardiology input. Echo from 02/27 read showing EF 51% with possible mobile vegetation on the posterior MV leaflet and mild MR. CARMINE today confirmed vegetation.. Ampicillin 2gm IV Q6h and await furhter ID rec , prob Pen G (2) Iliopsoas abscess on right: Code(s): K68.12 - Psoas muscle abscess Status: Acute Assessment and Plan: MRI showing 8.5 cm enhancing fluid collection in the right iliopsoas muscle suspicious for hematoma vs abscess. Gram stain negative but does show moderate WBC. Cx NGTD. Patient is on anticoagulation. Drain placed 03/09/20. [place] to be an abscess. Remove drain once output declines. (3) Acute respiratory failure: Qualifiers: Respiratory failure complication: unspecified whether with hypoxia or hypercapnia Qualified Code(s): J96.00 - Acute respiratory failure, unspecified whether with hypoxia or hypercapnia Code(s): J96.00 - Acute respiratory failure, unspecified whether with hypoxia or hypercapnia Status: Resolved Assessment and Plan: Patient had CXR on admission showing diffuse interstitial and airspace opacities. She was intubated on 02/24 and admitted to the ICU. Related to the PNA and pulmonary edema. She was diuresed and ultimately able to be extubated 03/03/20. Passed swallow study. Weaned to room air but now back on 1L. Apnea link normal on 4L. CXR repeated 03/10/20 showing bilateral LL airspace disease probably pulmonary edema. Lasix IV once with good results. Continue PT/OT. Wean O2 off as tolerated. (4) Severe sepsis: Code(s): A41.9 - Sepsis, unspecified organism; R65.20 - Severe sepsis without septic shock Status: Acute Assessment and Plan: Severe sepsis with septicemia and respiratory failure present on admission. Source of infection include left lower extremity cellulitis and/or pneumonia. BCx 02/24 growing Group A Strept that is olivo-sensitive. Repeat BCx negative. No further fevers. WBC normal now. ID following. CT brain negative for acute CVA. MRI as mentioned above (5) Pneumonia: Qualifiers: Pneumonia type: due to unspecified organism Laterality: bilateral Lung location: unspecified part of lung Qualified Code(s): J18.9 - Pneumonia, unspecified organism Code(s): J18.9 - Pneumonia, unspecified organism Status: Acute Assessment and Plan: Patient here for aspiration PNA. Treated with Rocephin and Vanco. Able to be extubated and off O2. She passed swallow study. Continue abx. (6) Cellulitis of left leg: Code(s): L03.116 - Cellulitis of left lower limb Status: Acute Assessment and Plan: Patient with cellulitis of the left leg. Left lower extremity venous Dopplers negative for DVT on 02/26/2020. Normal PRADIP is on 03/01/2020. Left lower extremity CT scan showing small left knee joint effusion and anterior soft tissue swelling but no evidence of abscess. Clinically no evidence of left knee septic arthritis. Monitoring left heel bulla that is healing well. Continue to follow. Continue antibiotics.
[2020-03-12 20:33] LABS: Glucose Point of Care 137 (65-105)
[2020-03-12] MEDS: traZODone HCL 25 MG TABLET PO (22:16)
[2020-03-13] VITALS (20 sets, daily range): BP systolic 130–148; BP diastolic 76–85; PULSE 47–74; RESP 18–20; TEMP 36.1–36.7; O2SAT 92–98
[2020-03-13] MEDS: AMPICILLIN 2 GM/NS 100 ML 2 GM/100 ML BAG IVPB ×4 (05:32→23:34)
[2020-03-13] MEDS: CENTRAL LINE FLUSH 10 ML IV PUSH ×3 (05:33→21:05)
[2020-03-13] MEDS: hydrALAZINE HCL 25 MG TABLET PO ×3 (05:33→21:05)
[2020-03-13 05:40] LABS: Basophils Absolute Auto 0.1 K/mm3 (0.0-0.1); Basophils Percent Auto 1.1 % (0.2-1.2); Eosinophils Absolute Auto 0.1 K/mm3 (0-0.3); Eosinophils Percent Auto 1.1 % (0-4.4); Hematocrit 27.5 % (37.0-47.0); Hemoglobin 8.6 g/dL (12.0-15.0); Immature Granulocyte Absolute 0.04 K/mm3 (0.00-0.031); Immature Granulocyte Percent A 0.6 % (0-0.5); Lymphocytes Absolute Auto 1.47 K/mm3 (0.9-3.2); Mean Corpuscular HGB Conc 31.3 g/dl (32-36); Mean Corpuscular Hemoglobin 30.8 pg (26-34); Mean Corpuscular Volume 98.6 fl (80-100); Mean Platelet Volume 10.2 fl (7.4-10.4); Monocytes Absolute Auto 0.5 K/mm3 (0.1-0.6); Monocytes Percent Auto 7.5 % (2.6-8.5); Neutrophils Absolute Auto 4.3 K/mm3 (1.3-6.7); Neutrophils Percent Auto 66.7 % (45.5-73.1); Platelet Count Result 206 k/mm3 (150-375); Red Blood Count 2.79 M/mm3 (4.2-5.4); Red Cell Distribution Width 13.9 % (11.5-14.5); White Blood Count 6.4 K/mm3 (4.5-10.0)
[2020-03-13 05:54] LABS: Anion Gap 4 mmol/L (8-16); Blood Urea Nitrogen 13 mg/dL (7-17); Calcium 8.1 mg/dL (8.4-10.2); Carbon Dioxide 29 mmol/L (22-30); Chloride 103 mmol/L (98-107); Estimated CRCL calculation 91 ml/min; Estimated Glomerular Filt Rate > 60; Glucose 129 mg/dL (65-105); Potassium 4.2 mmol/L (3.4-5.0); Sodium 136 mmol/L (137-145)
[2020-03-13] MEDS: GABAPENTIN 300 MG CAPSULE PO ×3 (08:17→17:04)
[2020-03-13] MEDS: metFORMIN HCL 250 MG TABLET PO ×2 (08:17→17:04)
[2020-03-13] MEDS: ATORVASTATIN 40 MG TABLET PO (08:18)
[2020-03-13] MEDS: lisinopriL 20 MG TABLET 40 MG PO (08:18)
[2020-03-13] MEDS: FLUoxetine HCL 20 MG CAPSULE 60 MG PO (08:18)
[2020-03-13] MEDS: ALBUTEROL SULFATE NEB 2.5 MG/0.5 ML INH INHALATION ×3 (08:19→21:11)
[2020-03-13] MEDS: FAMOTIDINE 20 MG TABLET PO ×2 (08:19→21:05)
[2020-03-13] MEDS: ISOSORBIDE MONONITRATE 30 MG TAB.ER.24H PO (08:19)
[2020-03-13] MEDS: METOPROLOL TARTRATE 12.5 MG TABLET PO ×2 (08:19→21:04)
[2020-03-13] MEDS: buPROPion HCL XL (24 HR) 150 MG TABCR PO (08:20)
[2020-03-13] MEDS: TOLNAFTATE 1% POWDER 45 GM BTL 1 APPLIC TOPICAL ×2 (08:21→21:04)
[2020-03-13] MEDS: ASPIRIN 81 MG CHEWABLE TABLET PO (08:21)
[2020-03-13] MEDS: EUCERIN CREAM 120 GM JAR 1 APPLIC TOPICAL (08:21)
[2020-03-13 08:30] LABS: Glucose Point of Care 119 (65-105)
--- NOTE | 2020-03-13 08:40 | PM.PNCARD ---
Progress Note: A&P Assessment and Plan (1) Endocarditis: Code(s): I38 - Endocarditis, valve unspecified Status: Acute Assessment and Plan: 54 y/o with h/o HTN, DM, morbid obesity, KITTY, COPD and tobacco abuse presented with A fib with RVR in the setting of sepsis now found to have mitral valve vegetation 2D echo showed small vegetation, confirmed on CARMINE that also showed moderate to severe MR without obvious leaflet rupture or perforation. Would continue with IV Abx per ID recommendation (group A strep) and plan to repeat CARMINE after she completes her Abx course. If MR remains significant then may need mitral valve repair. (2) Mitral regurgitation: Code(s): I34.0 - Nonrheumatic mitral (valve) insufficiency Status: Acute Assessment and Plan: Continue Abx. Need follow up CARMINE in few weeks and possible repair if MR severity remains significant. Will start low dose lasix to avoid volume overload (3) Paroxysmal A-fib: Code(s): I48.0 - Paroxysmal atrial fibrillation Status: Acute Assessment and Plan: In sinus rhythm now. Continue Metoprolol Continue Xarelto (4) Non-ST elevation myocardial infarction (NSTEMI): Code(s): I21.4 - Non-ST elevation (NSTEMI) myocardial infarction Status: Acute Assessment and Plan: Trop peaked at 1.1 (02/26/20). likely due to increase demand from underlying infection. Had recent negative Nuc stress test. She would eventually need a LHC if she end up needing surgical intervention on mitral valve. Subjective Date/time seen: 03/13/20 08:40 No overnight events. Denies chest pain or dyspnea. Review of Systems Review of Systems: All systems reviewed & are unremarkable except as noted in HPI and below ROS unobtainable: Yes unobtainable due to endotracheal tube and unobtainable due to medical condition Constitutional: Constitutional: Reports as per HPI Eyes: Eyes: Reports as per HPI ENT: Reports system reviewed and no additional complaints, except as documented and Reports as per HPI Cardiovascular: Cardiovascular: Reports as per HPI Respiratory: Respiratory: Reports as per HPI Gastrointestinal: Gastrointestinal: Reports as per HPI Genitourinary: Genitourinary: Reports as per HPI Musculoskeletal: Musculoskeletal: Reports as per HPI Exam Const: General: no acute distress Nutritional Appearance: well nourished Orientation/consciousness: patient oriented x3 HENMT: Head: normal to inspection and atraumatic Ears: hearing grossly normal bilaterally Face and sinus: normal facial exam Eyes: General: appearance normal, both eyes and all related structures Pupils: Equal, round and reactive pupils present EOM: EOMs intact bilaterally Neck: Neck: supple Chest: Chest palpation & inspection: normal inspection of the chest Resp: Effort & Inspection: normal respiratory effort and no respiratory distress Auscultation: clear to auscultation bilaterally Cardio: Jugular venous distension: no JVD Rate: regular rate Heart sounds: S1 normal heart sound present, S2 normal heart sound present and no murmurs Peripheral pulses: Peripheral pulses 2+ throughout GI: Auscultation: normal bowel sounds Skin: General skin exam: normal color Neuro: General: patient oriented x3 Cranial nerves: Yes Equal, round and reactive pupils present Extrem: General: no clubbing, cyanosis or edema and edema ( Trace to 1+ bilateral lower extremity edema worse on the left leg ) Objective Data Vital Signs Vital Signs: Vital Signs - 24 hr 03/12/20 08:50 03/12/20 08:55 03/12/20 09:00 Temperature Pulse Rate 65 62 66 Respiratory Rate 20 20 24 H Blood Pressure 154/91 H 185/112 H 165/101 H Pulse Oximetry 98 97 98 03/12/20 09:05 03/12/20 09:10 03/12/20 09:15 Temperature Pulse Rate 60 63 63 Respiratory Rate 17 17 25 H Blood Pressure 161/93 H 168/94 H 163/90 H Pulse Oximetry 98 95 96 03/12/20 09:20 03/12/20 09:25 03/12/20 09:30
[2020-03-13] MEDS: FUROSEMIDE 20 MG TABLET PO (10:00)
[2020-03-13 12:13] LABS: Glucose Point of Care 129 (65-105)
--- NOTE | 2020-03-13 13:16 | WPDINFPN2 ---
Progress Note: A&P Assessment and Plan (1) Cellulitis of left leg: Code(s): L03.116 - Cellulitis of left lower limb Status: Acute Assessment and Plan: 1. Group A Strep cellulitis LLE resulting in bacteremia, microbiologic cure WBC also back to normal 2. Hip pain, low suspicion for septic arthritis. Iliopsoas abscess - same organism - could also explain. POD #4 drain. I suspect false negative culture, due to preexisting antibiotic 3. NSTMI, CARMINE shows MV vegetation and regurg., which may represent infective endocarditis REC Ampicillin #10 (antibiotic # 17 / 28 days), through 03/24/20. Subjective Date/time seen: 03/13/20 13:16 Interval history: no further cp, no dyspnea Exam Narrative: Exam Narrative: afebrile Const: General: no acute distress Eyes: General: appearance normal, both eyes and all related structures Resp: Effort & Inspection: normal respiratory effort Auscultation: clear to auscultation bilaterally Cardio: Rate: regular rate Rhythm: regular rhythm Heart sounds: no murmurs GI: Inspection: non-distended GI Palp: Yes Soft to palpation and No Tenderness to palpation present (GI) Objective Data Vital Signs Vital Signs: Vital Signs - 24 hr 03/12/20 13:37 03/12/20 13:43 03/12/20 14:00 Temperature Pulse Rate 72 66 61 Respiratory Rate 16 16 Blood Pressure Pulse Oximetry 03/12/20 14:05 03/12/20 16:00 03/12/20 18:00 Temperature 36.2 C L Pulse Rate 71 55 L 57 L Respiratory Rate 22 H Blood Pressure 166/87 H Pulse Oximetry 96 03/12/20 19:19 03/12/20 20:00 03/12/20 20:15 Temperature 36.6 C Pulse Rate 53 L 52 L 55 L Respiratory Rate 22 H 16 Blood Pressure 155/88 H Pulse Oximetry 99 96 03/12/20 20:20 03/12/20 21:51 03/12/20 22:16 Temperature Pulse Rate 52 L 54 L 55 L Respiratory Rate 18 Blood Pressure Pulse Oximetry 03/12/20 23:11 03/13/20 00:00 03/13/20 01:46 Temperature 36.5 C Pulse Rate 55 L 57 L 55 L Respiratory Rate 20 Blood Pressure 135/75 Pulse Oximetry 95 03/13/20 04:00 03/13/20 06:00 03/13/20 08:00 Temperature 36.7 C 36.6 C Pulse Rate 74 50 L 54 L Respiratory Rate 20 18 Blood Pressure 137/84 144/77 H Pulse Oximetry 98 97 03/13/20 08:19 03/13/20 08:24 03/13/20 08:25 Temperature Pulse Rate 49 L 49 L 59 L Respiratory Rate 18 18 Blood Pressure Pulse Oximetry 98 03/13/20 08:28 03/13/20 09:57 03/13/20 12:00 Temperature 36.6 C Pulse Rate 58 L 49 L Respiratory Rate 20 Blood Pressure 130/76 Pulse Oximetry 98 96 Intake/Output Intake/Output: Intake & Output 03/10/20 03/11/20 03/12/20 03/13/20 23:59 23:59 23:59 23:59 Intake Total 1140 1670 2270 710 Output Total 2558 939 3489 700 Balance -745 955 20 10 Meds/Results Medications: Active Medications Generic Name Dose Route Start Last Admin Trade Name Freq PRN Reason Stop Dose Admin Acetaminophen 650 mg 03/06/20 17:55 03/07/20 07:25 Tylenol Tablet PO 650 mg Q6H PRN Administration Mild Pain (1-3) or Fever Hydrocodone Bitart/Acetaminophen 1 tab 03/07/20 15:48 03/13/20 08:26 [place] 5-325 Mg PO 1 tab Q6H PRN Administration Pain 4-10 Albuterol 2.5 mg 03/10/20 20:00 03/13/20 08:19 Albuterol Sulf Neb 2.5mg/0.5ml INHALATION 2.5 mg [id number] AKOSUA Administration Aspirin 81 mg 03/07/20 09:00 03/13/20 08:21 Aspirin Chewable PO 81 mg QAM AKOSUA Administration Atorvastatin Calcium 40 mg 03/04/20 10:05 03/13/20 08:18 Lipitor PO 40 mg DAILY AKOSUA Administration Bupropion HCl 150 mg 03/04/20 10:05 03/13/20 08:20 Wellbutrin Xl (24 Hr) PO 150 mg DAILY AKOSUA Administration Dextrose 12.5 gm 02/26/20 00:22 Dextrose 50% Syringe IV PUSH PRN PRN Hypoglycemia Protocol Famotidine 20 mg 03/06/20 21:00 03/13/20 08:19 Pepcid PO 20 mg Q12HR AKOSUA Administration Fluoxetine HCl 60 mg 03/04/20 10:05 03/13/20 08:18 Prozac PO 60 m
--- NOTE | 2020-03-13 15:17 | PC.NURSE ---
This patient, Apple Littlejohn, was received from [address] [place] [address] on 03/13/20 at 1517. Personal belongings list checked and signed. Patient/family oriented to unit policies and routines
--- NOTE | 2020-03-13 15:26 | PC.NURSE ---
Patient went to 346 via bed. Patient on telemetry and switched over to 3 medical tele. Patient on 1L and belongings and medications sent with patient at [id number]
[2020-03-13 16:27] LABS: Glucose Point of Care 143 (65-105)
[2020-03-13] MEDS: RIVAROXABAN 20 MG TABLET PO (17:04)
--- NOTE | 2020-03-13 17:52 | PM.IMPN ---
Progress Note: A&P Assessment and Plan (1) Non-ST elevation myocardial infarction (NSTEMI): Code(s): I21.4 - Non-ST elevation (NSTEMI) myocardial infarction Status: Acute Assessment and Plan: On admission, Trop climbed to 1.13 before trending downward. Her EKG showing atrial flutter with RVR and left bundle branch block. She has had a negative lexiscan stress test December 2018. She had IVCD on EKG a year ago. Seen by cardiology. We continued Lipitor and resume ASA. [facility] being considered possibly as outpatient. Echo ? mitral valve vegetaion and confirmed on CARMINE 03/12. Trop negative x3. Continue to monitor. Appreciate Cardiology input. Echo from 02/27 read showing EF 51% with possible mobile vegetation on the posterior MV leaflet and mild MR. CARMINE 03/12 confirmed vegetation.. Ampicillin 2gm IV Q6h through 03/24 for 4 weeks (2) Iliopsoas abscess on right: Code(s): K68.12 - Psoas muscle abscess Status: Acute Assessment and Plan: MRI showing 8.5 cm enhancing fluid collection in the right iliopsoas muscle suspicious for hematoma vs abscess. Gram stain negative but does show moderate WBC. Cx NGTD. Patient is on anticoagulation. Drain placed 03/09/20. [place] to be an abscess. Removed drain today with no drainage last 24 hours (3) Acute respiratory failure: Qualifiers: Respiratory failure complication: unspecified whether with hypoxia or hypercapnia Qualified Code(s): J96.00 - Acute respiratory failure, unspecified whether with hypoxia or hypercapnia Code(s): J96.00 - Acute respiratory failure, unspecified whether with hypoxia or hypercapnia Status: Resolved Assessment and Plan: Patient had CXR on admission showing diffuse interstitial and airspace opacities. She was intubated on 02/24 and admitted to the ICU. Related to the PNA and pulmonary edema. She was diuresed and ultimately able to be extubated 03/03/20. Passed swallow study. Weaned to room air but now back on 1L. Apnea link normal on 4L. CXR repeated 03/10/20 showing bilateral LL airspace disease probably pulmonary edema. Lasix IV once with good results. Continue PT/OT. Wean O2 off as tolerated. (4) Severe sepsis: Code(s): A41.9 - Sepsis, unspecified organism; R65.20 - Severe sepsis without septic shock Status: Acute Assessment and Plan: Severe sepsis with septicemia and respiratory failure present on admission. Source of infection include left lower extremity cellulitis and/or pneumonia. BCx 02/24 growing Group A Strept that is olivo-sensitive. Repeat BCx negative. No further fevers. WBC normal now. ID following. CT brain negative for acute CVA. MRI as mentioned above (5) Pneumonia: Qualifiers: Pneumonia type: due to unspecified organism Laterality: bilateral Lung location: unspecified part of lung Qualified Code(s): J18.9 - Pneumonia, unspecified organism Code(s): J18.9 - Pneumonia, unspecified organism Status: Acute Assessment and Plan: Patient here for aspiration PNA. Treated with Rocephin and Vanco. Able to be extubated and off O2. She passed swallow study. Continue abx. (6) Cellulitis of left leg: Code(s): L03.116 - Cellulitis of left lower limb Status: Acute Assessment and Plan: Patient with cellulitis of the left leg. Left lower extremity venous Dopplers negative for DVT on 02/26/2020. Normal PRADIP is on 03/01/2020. Left lower extremity CT scan showing small left knee joint effusion and anterior soft tissue swelling but no evidence of abscess. Clinically no evidence of left knee septic arthritis. Monitoring left heel bulla that is healing well. Continue to follow. Continue antibiotics. (7) Atrial fibrillation w
[2020-03-13 19:52] LABS: Glucose Point of Care 141 (65-105)
[2020-03-13] MEDS: traZODone HCL 25 MG TABLET PO (21:08)
[2020-03-14] VITALS (22 sets, daily range): BP systolic 147–168; BP diastolic 76–94; PULSE 53–65; RESP 14–22; TEMP 36.1–37.6; O2SAT 83–95
[2020-03-14] MEDS: hydrALAZINE HCL 25 MG TABLET PO ×3 (05:16→21:01)
[2020-03-14] MEDS: AMPICILLIN 2 GM/NS 100 ML 2 GM/100 ML BAG IVPB ×4 (05:16→23:40)
[2020-03-14] MEDS: CENTRAL LINE FLUSH 10 ML IV PUSH ×3 (05:16→21:02)
[2020-03-14 05:24] LABS: Glucose Point of Care 125 (65-105)
[2020-03-14 07:53] LABS: Glucose Point of Care 111 (65-105)
[2020-03-14] MEDS: GABAPENTIN 300 MG CAPSULE PO ×3 (08:30→16:36)
[2020-03-14] MEDS: lisinopriL 20 MG TABLET 40 MG PO (08:31)
[2020-03-14] MEDS: ISOSORBIDE MONONITRATE 30 MG TAB.ER.24H PO (08:31)
[2020-03-14] MEDS: FUROSEMIDE 20 MG TABLET PO (08:31)
[2020-03-14] MEDS: FLUoxetine HCL 20 MG CAPSULE 60 MG PO (08:31)
[2020-03-14] MEDS: FAMOTIDINE 20 MG TABLET PO ×2 (08:31→21:01)
[2020-03-14] MEDS: buPROPion HCL XL (24 HR) 150 MG TABCR PO (08:31)
[2020-03-14] MEDS: metFORMIN HCL 250 MG TABLET PO ×2 (08:32→16:37)
[2020-03-14] MEDS: ATORVASTATIN 40 MG TABLET PO (08:32)
[2020-03-14] MEDS: METOPROLOL TARTRATE 12.5 MG TABLET PO ×2 (08:33→21:01)
[2020-03-14] MEDS: EUCERIN CREAM 120 GM JAR 1 APPLIC TOPICAL (08:33)
[2020-03-14] MEDS: TOLNAFTATE 1% POWDER 45 GM BTL 1 APPLIC TOPICAL ×2 (08:36→21:01)
--- NOTE | 2020-03-14 08:57 | PM.PNCARD ---
Progress Note: A&P Assessment and Plan (1) Endocarditis: Code(s): I38 - Endocarditis, valve unspecified Status: Acute Assessment and Plan: 54 y/o with h/o HTN, DM, morbid obesity, KITTY, COPD and tobacco abuse presented with A fib with RVR in the setting of sepsis now found to have mitral valve vegetation 2D echo showed small vegetation, confirmed on CARMINE that also showed moderate to severe MR without obvious leaflet rupture or perforation. on IV ampicillin Q6 hours. Would prefer longer duration of Abx (6 weeks). Consider switching to Ceftriaxone for easier administration once a day. Will leave selection of abx to ID team. She had cellulitis of leg earlier but her leg got better but now it is swollen again. Will rule out DVT with venous US. Would also check arterial duplex as we worry about embolic events with endocarditis. She will need follow up CARMINE once finishes abx. If MR remains significant then may need mitral valve repair. (2) Mitral regurgitation: Code(s): I34.0 - Nonrheumatic mitral (valve) insufficiency Status: Acute Assessment and Plan: Continue Abx. Need follow up CARMINE in few weeks and possible repair if MR severity remains significant. Continue low dose lasix 20 mg daily (3) Paroxysmal A-fib: Code(s): I48.0 - Paroxysmal atrial fibrillation Status: Acute Assessment and Plan: In sinus rhythm now. Continue Metoprolol Continue Xarelto (4) Non-ST elevation myocardial infarction (NSTEMI): Code(s): I21.4 - Non-ST elevation (NSTEMI) myocardial infarction Status: Acute Assessment and Plan: Trop peaked at 1.1 (02/26/20). likely due to increase demand from underlying infection and sepsis on admission. Had recent negative Nuc stress test in 2019. She would eventually need a [facility] if she end up needing surgical intervention on mitral valve. Subjective Date/time seen: 03/14/20 08:57 She had shower this am, got around the room without dyspnea. She had new swelling of her left leg but no pain. Review of Systems Review of Systems: All systems reviewed & are unremarkable except as noted in HPI and below ROS unobtainable: Yes unobtainable due to endotracheal tube and unobtainable due to medical condition Constitutional: Constitutional: Reports as per HPI Eyes: Eyes: Reports as per HPI ENT: Reports system reviewed and no additional complaints, except as documented and Reports as per HPI Cardiovascular: Cardiovascular: Reports as per HPI Respiratory: Respiratory: Reports as per HPI Gastrointestinal: Gastrointestinal: Reports as per HPI Genitourinary: Genitourinary: Reports as per HPI Musculoskeletal: Musculoskeletal: Reports as per HPI Exam Const: General: no acute distress Nutritional Appearance: well nourished Orientation/consciousness: patient oriented x3 HENMT: Head: normal to inspection and atraumatic Ears: hearing grossly normal bilaterally Face and sinus: normal facial exam Eyes: General: appearance normal, both eyes and all related structures Pupils: Equal, round and reactive pupils present EOM: EOMs intact bilaterally Neck: Neck: supple Chest: Chest palpation & inspection: normal inspection of the chest Resp: Effort & Inspection: normal respiratory effort and no respiratory distress Auscultation: clear to auscultation bilaterally Cardio: Jugular venous distension: no JVD Rate: regular rate Heart sounds: S1 normal heart sound present, S2 normal heart sound present and no murmurs Peripheral pulses: Peripheral pulses 2+ throughout GI: Auscultation: normal bowel sounds Skin: General skin exam: normal color Neuro: General: patient oriented x3 Cranial nerves: Yes Equal, round and reactive pupils present Extrem: General: no clubbing, cyanosis or edema and edema ( Trace to 1+ bilateral lower extremity edema worse on the left leg ) Objective Data Vital Signs Vital Signs: Vital Signs - 24 hr 03/13/20 09:57 03/13
[2020-03-14] MEDS: ASPIRIN 81 MG CHEWABLE TABLET PO (09:59)
[2020-03-14] MEDS: ALBUTEROL SULFATE NEB 2.5 MG/0.5 ML INH INHALATION ×3 (10:34→22:32)
[2020-03-14 12:15] LABS: Glucose Point of Care 123 (65-105)
--- NOTE | 2020-03-14 15:20 | PM.IMPN ---
Progress Note: A&P Assessment and Plan (1) Non-ST elevation myocardial infarction (NSTEMI): Code(s): I21.4 - Non-ST elevation (NSTEMI) myocardial infarction Status: Acute Assessment and Plan: On admission, Trop climbed to 1.13 before trending downward. Her EKG showing atrial flutter with RVR and left bundle branch block. She has had a negative lexiscan stress test December 2018. She had IVCD on EKG a year ago. Seen by cardiology. We continued Lipitor and resume ASA. [facility] being considered possibly as outpatient. Echo ? mitral valve vegetaion and confirmed on CARMINE 03/12. Trop negative x3. Continue to monitor. . Echo from 02/27 read showing EF 51% with possible mobile vegetation on the posterior MV leaflet and mild MR. CARMINE 03/12 confirmed vegetation.. Ampicillin 2gm IV Q6h through 03/24 for 4 weeks per ID and cardiology would prefer 6 weeks with extent of valve involvment (2) Iliopsoas abscess on right: Code(s): K68.12 - Psoas muscle abscess Status: Acute Assessment and Plan: MRI showing 8.5 cm enhancing fluid collection in the right iliopsoas muscle suspicious for hematoma vs abscess. Gram stain negative but does show moderate WBC. Cx NGTD. Patient is on anticoagulation. Drain placed 03/09/20. [place] to be an abscess. Removed drain 03/13 with no drainage last 24 hours prior (3) Acute respiratory failure: Qualifiers: Respiratory failure complication: unspecified whether with hypoxia or hypercapnia Qualified Code(s): J96.00 - Acute respiratory failure, unspecified whether with hypoxia or hypercapnia Code(s): J96.00 - Acute respiratory failure, unspecified whether with hypoxia or hypercapnia Status: Resolved Assessment and Plan: Patient had CXR on admission showing diffuse interstitial and airspace opacities. She was intubated on 02/24 and admitted to the ICU. Related to the PNA and pulmonary edema. She was diuresed and ultimately able to be extubated 03/03/20. Passed swallow study. Weaned to room air but now back on 1L. Apnea link normal on 4L. CXR repeated 03/10/20 showing bilateral LL airspace disease probably pulmonary edema. Lasix IV once with good results. Continue PT/OT. Wean O2 off as tolerated. (4) Severe sepsis: Code(s): A41.9 - Sepsis, unspecified organism; R65.20 - Severe sepsis without septic shock Status: Acute Assessment and Plan: Severe sepsis with septicemia and respiratory failure present on admission. Source of infection include left lower extremity cellulitis and/or pneumonia. BCx 02/24 growing Group A Strept that is olivo-sensitive. Repeat BCx negative. No further fevers. WBC normal now. ID following. CT brain negative for acute CVA. MRI as mentioned above (5) Pneumonia: Qualifiers: Pneumonia type: due to unspecified organism Laterality: bilateral Lung location: unspecified part of lung Qualified Code(s): J18.9 - Pneumonia, unspecified organism Code(s): J18.9 - Pneumonia, unspecified organism Status: Acute Assessment and Plan: Patient here for aspiration PNA. Treated with Rocephin and Vanco. Able to be extubated and off O2. She passed swallow study. Continue abx. (6) Cellulitis of left leg: Code(s): L03.116 - Cellulitis of left lower limb Status: Acute Assessment and Plan: Patient with cellulitis of the left leg. Left lower extremity venous Dopplers negative for DVT on 02/26/2020. and repeated today Neg. Normal PRADIP is on 03/01/2020 and repeated today. . Left lower extremity CT scan showing small left knee joint effusion and anterior soft tissue swelling but no evidence of abscess. Clinically no evidence of left knee septic arthritis. Monitoring left heel bulla that is healing well. Continue to follow. Co
[2020-03-14] MEDS: RIVAROXABAN 20 MG TABLET PO (16:37)
[2020-03-14] MEDS: OXYMETAZOLINE HCL 0.05% NAS 15 ML BTL (*BKC) 1 SPRAY NASAL (16:38)
[2020-03-14 16:46] LABS: Glucose Point of Care 106 (65-105)
[2020-03-14] MEDS: INSULIN ASPART (*BKC) 100 UNITS/ML SUB-Q (20:58)
[2020-03-14 20:59] LABS: Glucose Point of Care 209 (65-105)
[2020-03-14] MEDS: traZODone HCL 25 MG TABLET PO (21:02)
[2020-03-15] VITALS (15 sets, daily range): BP systolic 145–168; BP diastolic 84–95; PULSE 51–73; RESP 14–20; TEMP 36.4–36.9; O2SAT 90–94
[2020-03-15] MEDS: ACETAMINOPHEN 325 MG TABLET 650 MG PO (01:44)
[2020-03-15] MEDS: CENTRAL LINE FLUSH 20 ML IV PUSH (05:43)
[2020-03-15] MEDS: AMPICILLIN 2 GM/NS 100 ML 2 GM/100 ML BAG IVPB (05:44)
[2020-03-15] MEDS: hydrALAZINE HCL 25 MG TABLET PO ×3 (05:44→22:08)
[2020-03-15] MEDS: CENTRAL LINE FLUSH 10 ML IV PUSH ×3 (05:45→22:09)
[2020-03-15 05:56] LABS: Basophils Absolute Auto 0.1 K/mm3 (0.0-0.1); Basophils Percent Auto 0.9 % (0.2-1.2); Eosinophils Absolute Auto 0.1 K/mm3 (0-0.3); Eosinophils Percent Auto 2.2 % (0-4.4); Hematocrit 29.7 % (37.0-47.0); Hemoglobin 9.3 g/dL (12.0-15.0); Immature Granulocyte Absolute 0.06 K/mm3 (0.00-0.031); Immature Granulocyte Percent A 0.9 % (0-0.5); Lymphocytes Absolute Auto 1.63 K/mm3 (0.9-3.2); Lymphocytes Percent Auto 25.5 % (18.3-44.2); Mean Corpuscular HGB Conc 31.3 g/dl (32-36); Mean Corpuscular Hemoglobin 30.8 pg (26-34); Mean Corpuscular Volume 98.3 fl (80-100); Mean Platelet Volume 10.2 fl (7.4-10.4); Monocytes Absolute Auto 0.4 K/mm3 (0.1-0.6); Monocytes Percent Auto 6.1 % (2.6-8.5); Neutrophils Absolute Auto 4.1 K/mm3 (1.3-6.7); Neutrophils Percent Auto 64.4 % (45.5-73.1); Platelet Count Result 243 k/mm3 (150-375); Red Blood Count 3.02 M/mm3 (4.2-5.4); Red Cell Distribution Width 13.7 % (11.5-14.5); White Blood Count 6.4 K/mm3 (4.5-10.0)
[2020-03-15 05:58] LABS: Glucose Point of Care 130 (65-105)
[2020-03-15 06:09] LABS: Alanine Aminotransferase 17 U/L (4-35); Albumin Level 3.1 g/dL (3.5-5.1); Alkaline Phosphatase 62 U/L (38-126); Anion Gap 5 mmol/L (8-16); Aspartate Amino Transferase 23 U/L (14-36); Bilirubin,Total 0.6 mg/dL (0.2-1.3); Blood Urea Nitrogen 13 mg/dL (7-17); Calcium 8.3 mg/dL (8.4-10.2); Carbon Dioxide 29 mmol/L (22-30); Chloride 102 mmol/L (98-107); Estimated CRCL calculation 83 ml/min; Estimated Glomerular Filt Rate 58; Glucose 135 mg/dL (65-105); Potassium 4.2 mmol/L (3.4-5.0); Sodium 136 mmol/L (137-145)
[2020-03-15 07:47] LABS: Glucose Point of Care 147 (65-105)
--- NOTE | 2020-03-15 08:32 | PM.PNCARD ---
Progress Note: A&P Assessment and Plan (1) Endocarditis: Code(s): I38 - Endocarditis, valve unspecified Status: Acute Assessment and Plan: 54 y/o with h/o HTN, DM, morbid obesity, KITTY, COPD and tobacco abuse presented with A fib with RVR in the setting of sepsis now found to have mitral valve vegetation 2D echo showed small vegetation, confirmed on CARMINE that also showed moderate to severe MR without obvious leaflet rupture or perforation. on IV ampicillin Q6 hours. Consider switching to Ceftriaxone for easier administration once a day and also to avoid volume overload with Q6 ampicillin . She will need close follow up and repeat CARMINE once finishes abx. If MR remains significant then may need mitral valve repair. (2) Mitral regurgitation: Code(s): I34.0 - Nonrheumatic mitral (valve) insufficiency Status: Acute Assessment and Plan: Continue Abx. Need follow up CARMINE in few weeks and possible repair if MR severity remains significant. Continue low dose lasix 20 mg daily (3) Paroxysmal A-fib: Code(s): I48.0 - Paroxysmal atrial fibrillation Status: Acute Assessment and Plan: In sinus rhythm now. Continue Metoprolol Continue Xarelto (4) Non-ST elevation myocardial infarction (NSTEMI): Code(s): I21.4 - Non-ST elevation (NSTEMI) myocardial infarction Status: Acute Assessment and Plan: Trop peaked at 1.1 (02/26/20). likely due to increase demand from underlying infection and sepsis on admission. Had recent negative Nuc stress test in 2019. She would eventually need a C if she end up needing surgical intervention on mitral valve. Subjective Date/time seen: 03/15/20 08:32 Feels good this morning. Left leg edema better. Denies chest pain or dyspnea. Review of Systems Review of Systems: All systems reviewed & are unremarkable except as noted in HPI and below ROS unobtainable: Yes unobtainable due to endotracheal tube and unobtainable due to medical condition Constitutional: Constitutional: Reports as per HPI Eyes: Eyes: Reports as per HPI ENT: Reports system reviewed and no additional complaints, except as documented and Reports as per HPI Cardiovascular: Cardiovascular: Reports as per HPI Respiratory: Respiratory: Reports as per HPI Gastrointestinal: Gastrointestinal: Reports as per HPI Genitourinary: Genitourinary: Reports as per HPI Musculoskeletal: Musculoskeletal: Reports as per HPI Exam Const: General: no acute distress Nutritional Appearance: well nourished Orientation/consciousness: patient oriented x3 HENMT: Head: normal to inspection and atraumatic Ears: hearing grossly normal bilaterally Face and sinus: normal facial exam Eyes: General: appearance normal, both eyes and all related structures Pupils: Equal, round and reactive pupils present EOM: EOMs intact bilaterally Neck: Neck: supple Chest: Chest palpation & inspection: normal inspection of the chest Resp: Effort & Inspection: normal respiratory effort and no respiratory distress Auscultation: clear to auscultation bilaterally Cardio: Jugular venous distension: no JVD Rate: regular rate Heart sounds: S1 normal heart sound present, S2 normal heart sound present and no murmurs Peripheral pulses: Peripheral pulses 2+ throughout GI: Auscultation: normal bowel sounds Skin: General skin exam: normal color Neuro: General: patient oriented x3 Cranial nerves: Yes Equal, round and reactive pupils present Extrem: General: no clubbing, cyanosis or edema and edema ( Trace to 1+ bilateral lower extremity edema worse on the left leg ) Objective Data Vital Signs Vital Signs: Vital Signs - 24 hr 03/14/20 08:33 03/14/20 10:00 03/14/20 10:35 Temperature 37.3 C Pulse Rate 56 L 61 Respiratory Rate 18 Blood Pressure 147/76 H Pulse Oximetry 95 83 L 03/14/20 10:38 03/14/20 10:46 03/14/20 12:00 Temperature Pulse Rate 60 61 55 L Respiratory Rate 20
[2020-03-15] MEDS: ALBUTEROL SULFATE NEB 2.5 MG/0.5 ML INH INHALATION ×3 (08:47→21:18)
[2020-03-15] MEDS: OXYMETAZOLINE HCL 0.05% NAS 15 ML BTL (*BKC) 1 SPRAY NASAL (08:58)
[2020-03-15] MEDS: ATORVASTATIN 40 MG TABLET PO (08:59)
[2020-03-15] MEDS: lisinopriL 20 MG TABLET 40 MG PO (08:59)
[2020-03-15] MEDS: metFORMIN HCL 250 MG TABLET PO ×2 (08:59→16:39)
[2020-03-15] MEDS: GABAPENTIN 300 MG CAPSULE PO ×3 (08:59→16:39)
[2020-03-15] MEDS: ISOSORBIDE MONONITRATE 30 MG TAB.ER.24H PO (09:00)
[2020-03-15] MEDS: FUROSEMIDE 20 MG TABLET PO (09:00)
[2020-03-15] MEDS: buPROPion HCL XL (24 HR) 150 MG TABCR PO (09:00)
[2020-03-15] MEDS: FLUoxetine HCL 20 MG CAPSULE 60 MG PO (09:00)
[2020-03-15] MEDS: TOLNAFTATE 1% POWDER 45 GM BTL 1 APPLIC TOPICAL ×2 (09:01→22:07)
[2020-03-15] MEDS: ASPIRIN 81 MG CHEWABLE TABLET PO (09:01)
[2020-03-15] MEDS: EUCERIN CREAM 120 GM JAR 1 APPLIC TOPICAL (09:01)
[2020-03-15] MEDS: METOPROLOL TARTRATE 12.5 MG TABLET PO ×2 (09:01→22:07)
[2020-03-15] MEDS: FAMOTIDINE 20 MG TABLET PO ×2 (09:04→22:08)
--- NOTE | 2020-03-15 11:21 | WPDINFPN2 ---
Progress Note: A&P Assessment and Plan (1) Cellulitis of left leg: Code(s): L03.116 - Cellulitis of left lower limb Status: Acute Assessment and Plan: 1. Group A Strep cellulitis LLE resulting in bacteremia, microbiologic cure WBC also back to normal 2. Hip pain, low suspicion for septic arthritis. Iliopsoas abscess - same organism - could also explain. POD #5 drain. I suspect false negative culture, due to preexisting antibiotic 3. NSTMI, CARMINE shows MV vegetation and regurg., which may represent infective endocarditis REC Ampicillin #12 (antibiotic # 19 / 28 days), stop and place on Ctx through 03/24/20. Making switch due to a)less fluid challenge and b)to facilitate IV therapy at her [facility] q24hr instead of q6hr. Cautioned the patient of higher risk of diarrhea, but I think the efficacy will be the same. Discussed Subjective Date/time seen: 03/15/20 11:21 Interval history: no new complaints, though has some malaise today Exam Narrative: Exam Narrative: afebrile Const: General: no acute distress Resp: Effort & Inspection: normal respiratory effort Auscultation: clear to auscultation bilaterally Cardio: Rate: regular rate Rhythm: regular rhythm Heart sounds: no gallops and no murmurs GI: Inspection: non-distended GI Palp: Yes Soft to palpation and No Tenderness to palpation present (GI) Objective Data Vital Signs Vital Signs: Vital Signs - 24 hr 03/14/20 12:00 03/14/20 14:00 03/14/20 15:55 Temperature 37.4 C Pulse Rate 55 L 55 L 55 L Respiratory Rate 20 20 Blood Pressure 152/85 H Pulse Oximetry 93 03/14/20 16:00 03/14/20 16:08 03/14/20 18:00 Temperature 37.6 C Pulse Rate 53 L 57 L 65 Respiratory Rate 20 20 Blood Pressure 160/79 H Pulse Oximetry 95 03/14/20 20:00 03/14/20 20:43 03/14/20 21:01 Temperature 37.2 C Pulse Rate 56 L 62 63 Respiratory Rate 14 Blood Pressure 152/94 H Pulse Oximetry 93 03/14/20 22:33 03/14/20 22:37 03/14/20 22:40 Temperature Pulse Rate 60 60 62 Respiratory Rate 20 20 Blood Pressure Pulse Oximetry 91 03/15/20 00:00 03/15/20 04:00 03/15/20 05:16 Temperature 36.4 C L Pulse Rate 59 L 60 61 Respiratory Rate 16 Blood Pressure 168/95 H Pulse Oximetry 92 03/15/20 08:00 03/15/20 08:47 03/15/20 08:56 Temperature Pulse Rate 73 68 65 Respiratory Rate 20 20 Blood Pressure Pulse Oximetry 90 03/15/20 09:01 Temperature Pulse Rate 71 Respiratory Rate Blood Pressure Pulse Oximetry Intake/Output Intake/Output: Intake & Output 03/12/20 03/13/20 03/14/20 03/15/20 23:59 23:59 23:59 23:59 Intake Total 2270 1940 1670 620 Output Total 2250 900 600 Balance 20 1040 1070 620 Meds/Results Medications: Active Medications Generic Name Dose Route Start Last Admin Trade Name Freq PRN Reason Stop Dose Admin Acetaminophen 650 mg 03/06/20 17:55 03/15/20 01:44 Tylenol Tablet PO 650 mg Q6H PRN Administration Mild Pain (1-3) or Fever Hydrocodone Bitart/Acetaminophen 1 tab 03/07/20 15:48 03/15/20 09:04 [place] 5-325 Mg PO 1 tab Q6H PRN Administration Pain 4-10 Albuterol 2.5 mg 03/10/20 20:00 03/15/20 08:47 Albuterol Sulf Neb 2.5mg/0.5ml INHALATION 2.5 mg [id number] AKOSUA Administration Aspirin 81 mg 03/07/20 09:00 03/15/20 09:01 Aspirin Chewable PO 81 mg QAM AKOSUA Administration Atorvastatin Calcium 40 mg 03/04/20 10:05 03/15/20 08:59 Lipitor PO 40 mg DAILY AKOSUA Administration Bupropion HCl 150 mg 03/04/20 10:05 03/15/20 09:00 Wellbutrin Xl (24 Hr) PO 150 mg DAILY AKOSUA Administration Dextrose 12.5 gm 02/26/20 00:22 Dextrose 50% Syringe IV PUSH PRN PRN Hypoglycemia Protocol Famotidine 20 mg 03/06/20 21:00 03/15/20 09:04 Pepcid PO 20 mg Q12HR AKOSUA Administration Fluoxetine HCl 60 mg 03/04/20 10:05 03/15/20 09:00 Prozac PO 60 mg DAILY AKOSUA Administration Furosemide 20 mg
[2020-03-15 11:30] LABS: Glucose Point of Care 174 (65-105)
--- NOTE | 2020-03-15 12:00 | PCNFU ---
Nutrition Follow-Up Complete: Inadequate oral intake at present related to oral intubation as evidenced by NPO status. Goal: Patient to meet estimated nutritional needs. Patient has met current goal. We will continue current goal. Pt current nutrition is DBCC. Nutrition recommendation: Agree Last recorded weight is 132.8 kg. Bowel Motility:+BM reported 03/15 Labs Reviewed:Na 136, Alb 3.1, Glu 147 Meds Noted:Lasix, Wellbutrin, Lipitor Additional Notes: Patient seen today for nutrition follow up. Tolerating a diabetic diet. Oral intake's have been greater than 75% of meals. Agree with diet orders. Monitoring: Follow up every 7 days.
--- NOTE | 2020-03-15 15:47 | PM.IMPN ---
Progress Note: A&P Assessment and Plan (1) Non-ST elevation myocardial infarction (NSTEMI): Code(s): I21.4 - Non-ST elevation (NSTEMI) myocardial infarction Status: Acute Assessment and Plan: On admission, Trop climbed to 1.13 before trending downward. Her EKG showing atrial flutter with RVR and left bundle branch block. She has had a negative lexiscan stress test December 2018. She had IVCD on EKG a year ago. Seen by cardiology. We continued Lipitor and resume ASA. [facility] being considered possibly as outpatient. Echo ? mitral valve vegetaion and confirmed on CARMINE 03/12. . Echo from 02/27 read showing EF 51% with possible mobile vegetation on the posterior MV leaflet and mild MR. CARMINE 03/12 confirmed vegetation.. Ampicillin 2gm IV Q6h through 03/24 for 4 weeks per ID and changed to ceftriaxone 2 gm for NH approval and less fluid (2) Iliopsoas abscess on right: Code(s): K68.12 - Psoas muscle abscess Status: Acute Assessment and Plan: MRI showing 8.5 cm enhancing fluid collection in the right iliopsoas muscle suspicious for hematoma vs abscess. Gram stain negative but does show moderate WBC. Cx NGTD. Patient is on anticoagulation. Drain placed 03/09/20. [place] to be an abscess. Removed drain 03/13 with no drainage last 24 hours prior (3) Acute respiratory failure: Qualifiers: Respiratory failure complication: unspecified whether with hypoxia or hypercapnia Qualified Code(s): J96.00 - Acute respiratory failure, unspecified whether with hypoxia or hypercapnia Code(s): J96.00 - Acute respiratory failure, unspecified whether with hypoxia or hypercapnia Status: Resolved Assessment and Plan: Patient had CXR on admission showing diffuse interstitial and airspace opacities. She was intubated on 02/24 and admitted to the ICU. Related to the PNA and pulmonary edema. She was diuresed and ultimately able to be extubated 03/03/20. Passed swallow study. Weaned to room air but now back on 1L. Apnea link normal on 4L. CXR repeated 03/10/20 showing bilateral LL airspace disease probably pulmonary edema. Lasix IV once with good results. Continue PT/OT. Wean O2 off as tolerated. (4) Severe sepsis: Code(s): A41.9 - Sepsis, unspecified organism; R65.20 - Severe sepsis without septic shock Status: Acute Assessment and Plan: Severe sepsis with septicemia and respiratory failure present on admission. Source of infection include left lower extremity cellulitis and/or pneumonia. BCx 02/24 growing Group A Strept that is olivo-sensitive. Repeat BCx negative. No further fevers. WBC normal now. ID following. CT brain negative for acute CVA. MRI as mentioned above (5) Pneumonia: Qualifiers: Pneumonia type: due to unspecified organism Laterality: bilateral Lung location: unspecified part of lung Qualified Code(s): J18.9 - Pneumonia, unspecified organism Code(s): J18.9 - Pneumonia, unspecified organism Status: Acute Assessment and Plan: Patient here for aspiration PNA. Treated with Rocephin and Vanco initially and now rocephin only. . Able to be extubated and off O2. She passed swallow study. Continue abx. (6) Cellulitis of left leg: Code(s): L03.116 - Cellulitis of left lower limb Status: Acute Assessment and Plan: Patient with cellulitis of the left leg. Left lower extremity venous Dopplers negative for DVT on 02/26/2020. and 03/14 Neg. Normal PRADIP is on 03/01/2020 and 03/14. . Left lower extremity CT scan showing small left knee joint effusion and anterior soft tissue swelling but no evidence of abscess. Clinically no evidence of left knee septic arthritis. Monitoring left heel bulla that is healing well. Continue to follow. Continue antibiotics.
[2020-03-15] MEDS: RIVAROXABAN 20 MG TABLET PO (16:46)
[2020-03-15 17:41] LABS: Glucose Point of Care 100 (65-105)
[2020-03-15 18:35] LABS: SARS-CoV-2 RNA PCR Negative
[2020-03-15 22:01] LABS: Glucose Point of Care 161 (65-105)
[2020-03-15] MEDS: traZODone HCL 25 MG TABLET PO (22:07)
[2020-03-16] VITALS (10 sets, daily range): BP systolic 157–162; BP diastolic 82–84; PULSE 50–68; RESP 16–18; TEMP 36.6; O2SAT 92–94
[2020-03-16] MEDS: hydrALAZINE HCL 25 MG TABLET PO ×2 (07:48→14:52)
[2020-03-16] MEDS: CENTRAL LINE FLUSH 10 ML IV PUSH (07:48)
[2020-03-16 07:53] LABS: Glucose Point of Care 89 (65-105)
[2020-03-16] MEDS: TOLNAFTATE 1% POWDER 45 GM BTL 1 APPLIC TOPICAL (08:22)
[2020-03-16] MEDS: FLUoxetine HCL 20 MG CAPSULE 60 MG PO (08:24)
[2020-03-16] MEDS: FAMOTIDINE 20 MG TABLET PO (08:24)
[2020-03-16] MEDS: metFORMIN HCL 250 MG TABLET PO (08:24)
[2020-03-16] MEDS: EUCERIN CREAM 120 GM JAR 1 APPLIC TOPICAL (08:24)
[2020-03-16] MEDS: ATORVASTATIN 40 MG TABLET PO (08:25)
[2020-03-16] MEDS: FUROSEMIDE 20 MG TABLET PO (08:25)
[2020-03-16] MEDS: lisinopriL 20 MG TABLET 40 MG PO (08:25)
[2020-03-16] MEDS: METOPROLOL TARTRATE 12.5 MG TABLET PO (08:25)
[2020-03-16] MEDS: buPROPion HCL XL (24 HR) 150 MG TABCR PO (08:25)
[2020-03-16] MEDS: GABAPENTIN 300 MG CAPSULE PO ×2 (08:25→12:01)
[2020-03-16] MEDS: ISOSORBIDE MONONITRATE 30 MG TAB.ER.24H PO (08:25)
[2020-03-16] MEDS: ASPIRIN 81 MG CHEWABLE TABLET PO (08:25)
[2020-03-16] MEDS: ALBUTEROL SULFATE NEB 2.5 MG/0.5 ML INH INHALATION (09:00)
[2020-03-16 11:45] LABS: Glucose Point of Care 125 (65-105)
[2020-03-16] MEDS: ACETAMINOPHEN 325 MG TABLET 650 MG PO (12:03)
[2020-03-16] MEDS: polyethylene glycoL 3350 17 GM POWD.PACK PO (13:54)
--- NOTE | 2020-03-16 14:26 | PM.PNCARD ---
Progress Note: A&P Assessment and Plan (1) Endocarditis: Code(s): I38 - Endocarditis, valve unspecified Status: Acute Assessment and Plan: 54 y/o with h/o HTN, DM, morbid obesity, KITTY, COPD and tobacco abuse presented with A fib with RVR in the setting of sepsis now found to have mitral valve vegetation 2D echo showed small vegetation, confirmed on CARMINE that also showed moderate to severe MR without obvious leaflet rupture or perforation. on IV ampicillin Q6 hours. Consider switching to Ceftriaxone for easier administration once a day and also to avoid volume overload with Q6 ampicillin . She will need close follow up and repeat CARMINE once finishes abx. If MR remains significant then may need mitral valve repair. Patient appears stable for transfer to nursing facility with In person or video phone follow-up in the Cardiology Clinic in [address] Ferrell. (2) Mitral regurgitation: Code(s): I34.0 - Nonrheumatic mitral (valve) insufficiency Status: Acute Assessment and Plan: Continue Abx. Need follow up CARMINE in few weeks and possible repair if MR severity remains significant. Continue low dose lasix 20 mg daily (3) Paroxysmal A-fib: Code(s): I48.0 - Paroxysmal atrial fibrillation Status: Acute Assessment and Plan: In sinus rhythm now. Continue Metoprolol Continue Xarelto (4) Non-ST elevation myocardial infarction (NSTEMI): Code(s): I21.4 - Non-ST elevation (NSTEMI) myocardial infarction Status: Acute Assessment and Plan: Trop peaked at 1.1 (02/26/20). likely due to increase demand from underlying infection and sepsis on admission. Had recent negative Nuc stress test in 2019. She would eventually need a [facility] if she end up needing surgical intervention on mitral valve. Subjective Date/time seen: 03/16/20 14:26 Patient denies chest pain, dyspnea, or dizziness. Patient was seen and examined, chart reviewed, case discussed with nurse. Exam Const: General: no acute distress Nutritional Appearance: well nourished Orientation/consciousness: patient oriented x3 HENMT: Head: normal to inspection and atraumatic Ears: hearing grossly normal bilaterally Face and sinus: normal facial exam Eyes: General: appearance normal, both eyes and all related structures Pupils: Equal, round and reactive pupils present EOM: EOMs intact bilaterally Neck: Neck: supple Chest: Chest palpation & inspection: normal inspection of the chest Resp: Effort & Inspection: normal respiratory effort and no respiratory distress Auscultation: clear to auscultation bilaterally Cardio: Jugular venous distension: no JVD Rate: regular rate Heart sounds: S1 normal heart sound present, S2 normal heart sound present and Murmur heart sound present Peripheral pulses: Peripheral pulses 2+ throughout Other: 2/6 intensity systolic murmur GI: Auscultation: normal bowel sounds Skin: General skin exam: normal color Neuro: General: patient oriented x3 Cranial nerves: Yes Equal, round and reactive pupils present Extrem: General: no clubbing, cyanosis or edema and edema ( Trace to 1+ bilateral lower extremity edema worse on the left leg ) Objective Data Vital Signs Vital Signs: Vital Signs - 24 hr 03/15/20 16:00 03/15/20 20:00 03/15/20 21:18 Temperature 36.9 C 36.6 C Pulse Rate 57 L 63 67 Respiratory Rate 20 14 18 Blood Pressure 156/84 H 158/85 H Pulse Oximetry 94 91 92 03/15/20 21:27 03/15/20 22:07 03/16/20 00:00 Temperature Pulse Rate 65 62 57 L Respiratory Rate 18 Blood Pressure Pulse Oximetry 03/16/20 04:03 03/16/20 04:58 03/16/20 08:00 Temperature 36.6 C Pulse Rate 50 L 56 L 61 Respiratory Rate 16 Blood Pressure 162/84 H Pulse Oximetry 94 03/16/20 08:25 03/16/20 09:00 03/16/20 09:10 Temperature Pulse Rate 62 68 67 Respiratory Rate 18 18 Blood Pressure Pulse Oximetry 03/16/20 11:12 03/16/20 12:00 Te
--- NOTE | 2020-03-22 08:21 | DS_ITS ---
This report was moved to the correct visit, [id number] on 03/28/20. Original report was signed by Dr. Romo on 03/22/20 at 0841. DS: Admitting Diagnosis Admitting Diagnosis Admitting Diagnosis: low O2 sat DS: Discharge Diagnosis Discharge Diagnosis (1) Non-ST elevation myocardial infarction (NSTEMI): Code(s): I21.4 - Non-ST elevation (NSTEMI) myocardial infarction Status: Acute Assessment and Plan: troponin peaked at 1.13. Had an negative nuclear stress test in December 2018. No wall motion abnormality seen on echo. Would she will follow-up with cardiology for possible left heart catheterization in the future (2) Acute respiratory failure: Qualifiers: Respiratory failure complication: unspecified whether with hypoxia or hypercapnia Qualified Code(s): J96.00 - Acute respiratory failure, unspecified whether with hypoxia or hypercapnia Code(s): J96.00 - Acute respiratory failure, unspecified whether with hypoxia or hypercapnia Status: Resolved Assessment and Plan: she was admitted in respiratory distress and was intubated and mechanically ventilated from 02/24 to 03/03. [place] secondary to pneumonia and CHF both which we treated with good results (3) Severe sepsis: Code(s): A41.9 - Sepsis, unspecified organism; R65.20 - Severe sepsis without septic shock Status: Acute Assessment and Plan: secondary to so drip a bacteremia from bacterial endocarditis, pneumonia, and iliopsoas abscess. Seen by ID and will receive full 4 week course of IV antibiotics after PICC line placed (4) Pneumonia: Qualifiers: Pneumonia type: due to unspecified organism Laterality: bilateral Lung location: unspecified part of lung Qualified Code(s): J18.9 - Pneumonia, unspecified organism Code(s): J18.9 - Pneumonia, unspecified organism Status: Acute Assessment and Plan: thought to be possible aspiration treated initially with vancomycin and ampicillin until cultures returned and changed to ampicillin alone (5) Iliopsoas abscess on right: Code(s): K68.12 - Psoas muscle abscess Status: Acute Assessment and Plan: MR revealed an 8.5 cm possible abscess in the iliopsoas muscle. We etiology placed to drain which had no growth but did have multiple wbc's and left from 03/09 to 03/13 (6) Endocarditis: Code(s): I38 - Endocarditis, valve unspecified Status: Acute Assessment and Plan: trans thoracic echo revealed ejection fraction 51% with what appeared to be a vegetation on mitral valve leaflet. This was confirmed by CARMINE and after seen by ID she will receive 4 weeks IV ceftriaxone 2 g daily she will follow-up with cardiology for repeat echocardiogram and possible catheterization after (7) Cellulitis of left leg: Code(s): L03.116 - Cellulitis of left lower limb Status: Acute Assessment and Plan: initially treated vancomycin and ampicillin and changed to ceftriaxone and discharge venous Doppler and arterial Doppler negative DS: Summary Hospital Course Hospital Course: 54-year-old white female admitted with respiratory distress found pneumonia and congestive heart failure. Had to be intubated and mechanically ventilated until 03/03.. blood cultures grew strep group a and echo both transthoracic and T revealed mitral valve vegetation. PICC line was placed and she will be treated with 4 weeks of IV ceftriaxone 2 g daily. She will follow-up with cardiology for repeat echo and possible catheterization later Time Spent with Patient Time attestation: Total time spent providing and/or coordinating discharge services: 35 minutes Exam Narrative: Exam Narrative: condition on discharge blood pressure 156/82 pulse is 62 saturating
== END 2020-03-16 15:08 | DRG 870 ==
LOC: ANHED 21:13 → ANHICU 22:25 → ANHIMU 03-05 → ANH3MED 03-16 11:47 → ANH2MED 03-18 13:46 → ANH3MED 03-18 13:46 → ANHICU 03-18 13:46 → ANHIMU 03-18 13:46
PROVIDERS: General Practice; Internal Medicine; Internal Medicine Cardiovascular Disease; Internal Medicine Critical Care Medicine; Physician Assistant; Admitting Provider Internal Medicine; Emergency Provider Emergency Medicine; Visit Provider Internal Medicine
PROC: B24BZZ4 Ultrasonography of Heart with Aorta, Transesophageal (ICD-10-PCS; CPT 93312; principal; 2020-03-12 07:55)
DX: A40.0 Sepsis due to streptococcus, group A (principal); J96.00 Acute respiratory failure, unspecified whether with hypoxia or hypercapnia; I21.4 Non-ST elevation (NSTEMI) myocardial infarction; K68.12 Psoas muscle abscess; J69.0 Pneumonitis due to inhalation of food and vomit; I33.0 Acute and subacute infective endocarditis; L03.116 Cellulitis of left lower limb; Z68.42 Body mass index [BMI] 45.0-49.9, adult; I50.30 Unspecified diastolic (congestive) heart failure; E66.2 Morbid (severe) obesity with alveolar hypoventilation; R65.20 Severe sepsis without septic shock; Z20.828 Contact with and (suspected) exposure to other viral communicable diseases; J44.9 Chronic obstructive pulmonary disease, unspecified; I11.0 Hypertensive heart disease with heart failure; E11.42 Type 2 diabetes mellitus with diabetic polyneuropathy; I48.0 Paroxysmal atrial fibrillation; E86.0 Dehydration; F17.210 Nicotine dependence, cigarettes, uncomplicated; E78.5 Hyperlipidemia, unspecified; F41.8 Other specified anxiety disorders; R79.89 Other specified abnormal findings of blood chemistry; Z79.84 Long term (current) use of oral hypoglycemic drugs; Z79.899 Other long term (current) drug therapy
CPT/HCPCS: 31500; 36415; 36569; 36600; 51701; 70450; 71045; 71275; 72158; 73590; 73701; 74174; 75989; 80048; 80053; 80069; 80074; 80076; 80202; 81001; 82010; 82375; 82550; 82570; 82607; 82728; 82746; 82805; 83036; 83050; 83540; 83550; 83605; 83615; 83735; 83880; 83930; 83935; 84100; 84300; 84439; 84443; 84480; 84484; 85025; 85027; 85055; 85380; 85610; 85730; 86140; 87040; 87070; 87075; 87077; 87186; 87205; 87449; 87635; 87899; 92610; 93005; 93306; 93312; 93320; 93325; 93922; 93926; 93971; 94003; 94640; 94762; 96361; 96365; 96366; 96367; 96368; 96372; 96375; 96376; 97110; 97161; 97164; 97165; 97166; 97530; 97535; 99285; A9270; A9577; C1729; C1751; C1769; C8929; C9803; J0131; J0290; J0330; J0360; J0696; J0743; J1100; J1650; J1815; J1940; J2250; J2270; J2405; J2543; J2704; J2765; J3010; J3370; J7030; J7040; J7050; Q9967; U0003

== ENCOUNTER 2020-03-16 20:40 | Emergency (ER) | payer OTHER, SELFPAY ==
[2020-03-16] VITALS (7 sets, daily range): BP systolic 160–187; BP diastolic 81–99; PULSE 56–68; RESP 18–25; TEMP 36.6; O2SAT 94–98
--- NOTE | ~2020-03-16 | XR_ITS ---
XR chest 1V portable DATE: 03/16/2020 21:40 INDICATION: Hypoxia TECHNIQUE: Portable upright AP chest on 03/16/2020 at 2140 hours COMPARISON: 03/10/2020 portable AP chest at 1118 hours FINDINGS: There is cardiomegaly. There is pulmonary vascular congestion and redistribution. There are patchy infiltrates in the right mid and both lower lung zones which may be due to pulmonary edema, pneumonia and/or aspiration. No pneumothorax. IMPRESSION: Cardiomegaly, congestive changes Bilateral infiltrates may be due to pulmonary edema, pneumonia and/or aspiration less likely Reviewed, dictated and finalized at location A. IMPRESSION: Cardiomegaly, congestive changes Bilateral infiltrates may be due to pulmonary edema, pneumonia and/or aspiratio n less likely
[2020-03-16 21:22] LABS: Base Excess ABG 5.8 mEq/l (+/-2.0); Device NASAL CANNULA; Fractional Inspired Oxygen 28 %; HCO3 ABG 30.1 mEq/l (22.0-26.0); Modified Allen's Test Pass; Oxyhemoglobin 90.2 % THb (90.0-100.0); PCO2 ABG 42.7 mmHg (35.0-45.0); PO2 ABG 62.3 mmHg (80.0-100.0); PO2 FiO2 Ratio Arterial Blood 2.22 %; Site Drawn RIGHT RADIAL; Total Hemoglobin 10.2 g/dL (12.0-18.0); pH ABG 7.466 (7.350-7.450)
[2020-03-16 22:06] LABS: Basophils Absolute Auto 0.1 K/mm3 (0.0-0.1); Basophils Percent Auto 0.8 % (0.2-1.2); Eosinophils Absolute Auto 0.3 K/mm3 (0-0.3); Eosinophils Percent Auto 4.4 % (0-4.4); Hematocrit 28.5 % (37.0-47.0); Hemoglobin 8.9 g/dL (12.0-15.0); Immature Granulocyte Absolute 0.05 K/mm3 (0.00-0.031); Immature Granulocyte Percent A 0.8 % (0-0.5); Lymphocytes Absolute Auto 1.53 K/mm3 (0.9-3.2); Lymphocytes Percent Auto 23.4 % (18.3-44.2); Mean Corpuscular HGB Conc 31.2 g/dl (32-36); Mean Corpuscular Hemoglobin 30.2 pg (26-34); Mean Corpuscular Volume 96.6 fl (80-100); Mean Platelet Volume 10.1 fl (7.4-10.4); Monocytes Absolute Auto 0.5 K/mm3 (0.1-0.6); Neutrophils Absolute Auto 4.2 K/mm3 (1.3-6.7); Neutrophils Percent Auto 63.6 % (45.5-73.1); Platelet Count Result 254 k/mm3 (150-375); Red Blood Count 2.95 M/mm3 (4.2-5.4); Red Cell Distribution Width 13.9 % (11.5-14.5); White Blood Count 6.5 K/mm3 (4.5-10.0)
--- NOTE | 2020-03-16 22:09 | ECG_ITS ---
Measurements Intervals [place] Rate: 61 P: 10 [place]: 206 QRS: 108 QRSD: 137 T: -45 QT: 469 QTc: 473 Interpretive Statements SINUS RHYTHM WITH FIRST DEGREE AV BLOCK RIGHT AXIS DEVIATION INTRAVENTRICULAR CONDUCTION DELAY BORDERLINE R WAVE PROGRESSION, ANTERIOR LEADS INFERIOR INFARCT, AGE INDETERMINATE ABNORMAL ECG Electronically Signed On 03-17-2020 7:56:11 CDT by Trevor Erwin D.O.
[2020-03-16 22:16] LABS: Alanine Aminotransferase 16 U/L (4-35); Albumin Level 3.2 g/dL (3.5-5.1); Alkaline Phosphatase 63 U/L (38-126); Anion Gap 6 mmol/L (8-16); Aspartate Amino Transferase 23 U/L (14-36); Bilirubin,Total 0.5 mg/dL (0.2-1.3); Blood Urea Nitrogen 13 mg/dL (7-17); Calcium 8.5 mg/dL (8.4-10.2); Carbon Dioxide 29 mmol/L (22-30); Chloride 101 mmol/L (98-107); Estimated Glomerular Filt Rate > 60; Glucose 146 mg/dL (65-105); Sodium 136 mmol/L (137-145)
--- NOTE | 2020-03-16 22:24 | ED.GENADULT ---
HPI - General Adult General Chief complaint: Unspecified Stated complaint: low O2 sat Time Seen by Provider: 03/16/20 20:49 Source: patient and EMS History of Present Illness HPI narrative: 54 years old the white female, morbidly obese was discharged from our hospital today with a diagnosis of NSTEMI, acute respiratory failure, congestive heart failure, COPD, cellulitis of left leg, electrolyte abnormality, dehydration, and pneumonia. Patient was discharged to rehab, on 2 L by nasal cannula, patient found to have oxygen saturation in the 80s. Although patient is asymptomatic patient referred back to our emergency room for further evaluation. Related Data Home Medications Medication Instructions Recorded Confirmed fluoxetine 60 mg tablet 60 mg PO DAILY 06/26/19 02/26/20 albuterol sulfate 2 puff INHALATION Q4H PRN 02/26/20 02/26/20 atorvastatin 40 mg PO DAILY 02/26/20 02/26/20 bupropion HCl 150 mg PO DAILY 02/26/20 02/26/20 Allergies Allergy/AdvReac Type Severity Reaction Status Date / Time adhesive tape Allergy Unknown Hives / Verified 11/05/18 16:52 Red Face Review of Systems Review of Systems: Narrative: CONSTITUTIONAL: Denies fever, chills, or sweats. EYES: Denies visual changes, redness, or discharge. ENT: Denies rhinorrhea, congestion, sore throat, or otalgia. CARDIOVASCULAR: Denies chest pain, palpitations, or edema. RESPIRATORY: Denies cough or dyspnea. GASTROINTESTINAL: Denies abdominal pain, nausea, vomiting, or diarrhea. GENITOURINARY: Denies dysuria or hematuria. SKIN: Denies rash or itching. MUSCULOSKELETAL: Denies back pain, joint pain, or myalgia. NEUROLOGIC: Denies headache, numbness, or weakness. PSYCHIATRIC: Denies anxiety or depression. [facility] Past Medical History Medical History Asthma Chronic back pain Secondary to degenerative disc disease. Chronic obstructive pulmonary disease Depression with anxiety Diabetic peripheral neuropathy Diastolic dysfunction On echo in 12/2017. Ejection fraction was 65%. Essential hypertension Hyperlipidemia Morbid obesity Obstructive sleep apnea It is my understanding that she does not wear a CPAP at nighttime. Osteomyelitis Seasonal rhinitis Type 2 diabetes mellitus Hemoglobin A1c was 7.8% on 12/26/2019. Vitamin D deficiency Surgical History Surgical History History of section History of endometrial ablation History of hernia repair History of hysterectomy History of tubal ligation Family History Family History Father Diabetes mellitus Hypertension Other Cancer Cerebrovascular accident Social History Social History Social History: The patient is and lives in [place]. 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 She smoked 2 packs of cigarettes a week for 30 years and quit in 2017. No mention of alcohol or illicit substance use. She had previously designated her son, Erick Littlejohn, as her surrogate decision maker. Years smoked: 6 Smoking status: Light tobacco smoker Tobacco type: cigarettes Second hand tobacco smoke exposure: Yes Smoking end date: 11/03/16 Alcohol intake: current Drinks per week: 0 Substance use: never Other substance usage details: CBD Spiritual care concerns: No Exam Narrative: Exam Narrative: General appearance: Well-developed, well-nourished, morbidly obese Skin: Normal color Head: Normocephalic, nontraumatic Eyes: Clear conjunctiva ENT: Oropharynx normal, ears normal, nose normal Neck: Supple, nontender Chest and respiratory: Airway patent, no respiratory distress, no accessory muscle use few scattered rhonchi and wheezing, basilar rales bilaterally Heart: Regular rate/rhythm Abdomen: Soft, nontender, no organomegaly, quiet bowel sounds Vascul
[2020-03-16] MEDS: ALBUTEROL SULFATE NEB 2.5 MG/0.5 ML INH 5 MG INHALATION (22:25)
[2020-03-16] MEDS: IPRATROPIUM BR 0.02% INH SOLN 0.5 MG/2.5 ML VIAL INHALATION (22:25)
[2020-03-16 23:07] LABS: INR 1.2; Lactic Acid Reflex 0.7 mmol/L (0.7-2.1); Prothrombin Time 14.8 Seconds (11.1-14.7)
[2020-03-16 23:08] LABS: Partial Thromboplastin Time 32.5 SECONDS (22.3-36.8)
[2020-03-16 23:16] LABS: NT Pro B Type Natriuretic Pept 2390 PG/ML (5-100)
[2020-03-16] MEDS: FUROSEMIDE INJ 40 MG/4 ML VIAL IV PUSH (23:22)
[2020-03-16 23:24] LABS: Troponin I < 0.012 ng/mL (0.000-0.034)
--- NOTE | 2020-03-17 00:06 | PC.NURSE ---
called [facility] to transport patient. ETA [id number]
--- NOTE | 2020-03-17 02:04 | PC.NURSE ---
[facility] called to update eta to [phone]- [id number]
--- NOTE | 2020-03-17 02:06 | PC.NURSE ---
called [facility] to request transport. declined.
--- NOTE | 2020-03-17 02:13 | PC.NURSE ---
called [facility] to transport patient. [facility] declined.
--- NOTE | 2020-03-17 03:11 | PC.NURSE ---
[facility] ETA update [id number]. Called [facility] to request transport. [facility] declined due to limited resources.
[2020-03-17 03:32] VITALS: BP 153/98; PULSE 58; RESP 20; O2SAT 100
[2020-03-17 05:14] VITALS: BP 172/95; PULSE 65; RESP 18; O2SAT 99
--- NOTE | 2020-03-17 05:16 | PC.NURSE ---
called [facility] for ETA update. ETA [id number]
--- NOTE | 2020-03-17 06:50 | PC.NURSE ---
called [facility] for ETA update. ETA 25 minutes.
[2020-03-17 08:26] VITALS: BP 166/60; PULSE 65; RESP 20; O2SAT 94
--- NOTE | 2020-03-22 08:18 | PM.DS ---
DS: Admitting Diagnosis Admitting Diagnosis Admitting Diagnosis: low O2 sat DS: Discharge Diagnosis Discharge Diagnosis (1) Non-ST elevation myocardial infarction (NSTEMI): Code(s): I21.4 - Non-ST elevation (NSTEMI) myocardial infarction Status: Acute Assessment and Plan: troponin peaked at 1.13. Had an negative nuclear stress test in December 2018. No wall motion abnormality seen on echo. Would she will follow-up with cardiology for possible left heart catheterization in the future (2) Acute respiratory failure: Qualifiers: Respiratory failure complication: unspecified whether with hypoxia or hypercapnia Qualified Code(s): J96.00 - Acute respiratory failure, unspecified whether with hypoxia or hypercapnia Code(s): J96.00 - Acute respiratory failure, unspecified whether with hypoxia or hypercapnia Status: Resolved Assessment and Plan: she was admitted in respiratory distress and was intubated and mechanically ventilated from 02/24 to 03/03. [place] secondary to pneumonia and CHF both which we treated with good results (3) Severe sepsis: Code(s): A41.9 - Sepsis, unspecified organism; R65.20 - Severe sepsis without septic shock Status: Acute Assessment and Plan: secondary to so drip a bacteremia from bacterial endocarditis, pneumonia, and iliopsoas abscess. Seen by ID and will receive full 4 week course of IV antibiotics after PICC line placed (4) Pneumonia: Qualifiers: Pneumonia type: due to unspecified organism Laterality: bilateral Lung location: unspecified part of lung Qualified Code(s): J18.9 - Pneumonia, unspecified organism Code(s): J18.9 - Pneumonia, unspecified organism Status: Acute Assessment and Plan: thought to be possible aspiration treated initially with vancomycin and ampicillin until cultures returned and changed to ampicillin alone (5) Iliopsoas abscess on right: Code(s): K68.12 - Psoas muscle abscess Status: Acute Assessment and Plan: MR revealed an 8.5 cm possible abscess in the iliopsoas muscle. We etiology placed to drain which had no growth but did have multiple wbc's and left from 03/09 to 03/13 (6) Endocarditis: Code(s): I38 - Endocarditis, valve unspecified Status: Acute Assessment and Plan: trans thoracic echo revealed ejection fraction 51% with what appeared to be a vegetation on mitral valve leaflet. This was confirmed by CARMINE and after seen by ID she will receive 4 weeks IV ceftriaxone 2 g daily she will follow-up with cardiology for repeat echocardiogram and possible catheterization after (7) Cellulitis of left leg: Code(s): L03.116 - Cellulitis of left lower limb Status: Acute Assessment and Plan: initially treated vancomycin and ampicillin and changed to ceftriaxone and discharge venous Doppler and arterial Doppler negative DS: Summary Hospital Course Hospital Course: 54-year-old white female admitted with respiratory distress found pneumonia and congestive heart failure. Had to be intubated and mechanically ventilated until 03/03.. blood cultures grew strep group a and echo both transthoracic and T revealed mitral valve vegetation. PICC line was placed and she will be treated with 4 weeks of IV ceftriaxone 2 g daily. She will follow-up with cardiology for repeat echo and possible catheterization later Time Spent with Patient Time attestation: Total time spent providing and/or coordinating discharge services: 35 minutes Exam Narrative: Exam Narrative: condition on discharge blood pressure 156/82 pulse is 62 saturating 97% on 2 L nasal cannula lungs clear CV regular rate rhythm abdomen soft nontender extremities without edema prominence of left leg is before neuro alert cooperative no focal deficits DS: Data Data Completed and Pending Labs on day of discharge: Labs from last 24 hours 03/16/20 03/16/20 22:38 22:38
== END 2020-03-17 08:00 ==
PROVIDERS: Emergency Provider Emergency Medicine
DX: I11.0 Hypertensive heart disease with heart failure (principal); I50.9 Heart failure, unspecified; I21.4 Non-ST elevation (NSTEMI) myocardial infarction; E66.01 Morbid (severe) obesity due to excess calories; J44.9 Chronic obstructive pulmonary disease, unspecified; F41.8 Other specified anxiety disorders; E11.42 Type 2 diabetes mellitus with diabetic polyneuropathy; E78.5 Hyperlipidemia, unspecified; G47.33 Obstructive sleep apnea (adult) (pediatric); E55.9 Vitamin D deficiency, unspecified; Z87.891 Personal history of nicotine dependence
CPT/HCPCS: 36415; 36600; 71045; 80053; 82805; 83605; 83880; 84484; 85025; 85610; 85730; 87040; 87077; 87186; 93005; 94640; 96374; 99284; A9270; J1940

== ENCOUNTER 2020-11-04 12:45 | Outpatient (CLI) | payer BC, SELFPAY ==
--- NOTE | 2020-11-04 12:57 | ECHO_ITS ---
Patient Info Name: Apple Littlejohn Age: 55 years : 1965 Gender: Female Ht: 68 in Wt: 296 lbs BSA: 2.61 m2 HR: 50 bpm BP: 122 / 97 mmHg Technical Quality: Good Exam Date: 11/04/2020 1:18 PM Exam Location: [facility] Patient Status: Outpatient Admit Date: 11/04/2020 Staff Ordering Physician: Trevor Erwin DO Recycling Operations Manager: Gerald Kelly RDCS, RT Attending Provider: Trevor Erwin DO Referring Physician: Rip LORENZO; Exam Type: CA echo dop color flow w con Study Info Indications I34.8 - Other nonrheumatic mitral valve disorders Complete two-dimensional, color flow and Doppler transthoracic echocardiogram is performed with contrast to opacify the left ventricle and to improve the deliniation of the left ventricle endocardial borders. Summary 1. Left ventricular chamber dimension is moderately enlarged. 2. Definity contrast administered improved wall motion interpretation. 3. Left ventricular systolic function is normal, estimated at 55-60%. 4. There is moderately increased left ventricular wall thickness. 5. The left ventricular diastolic function is grade III diastolic dysfunction. 6. E/e' 33 is significantly elevated. 7. Left atrial chamber dimension is mildly enlarged. 8. Right atrial chamber dimension is mildly enlarged. 9. The mitral valve has moderately calcified annulus. Bunn 32 mm annuloplasty ring by history. 10. There is mild mitral valve stenosis. MVA by Pt1/2 2.0 cm2 and MVA by VTI 1.5 cm2. 11. Mild pulmonary hypertension, estimated pulmonary arterial systolic pressure is 40 mmHg. 12. Dilated inferior vena cava with >50% collapse upon inspiration consistent with elevated right atrial pressure, 10 mmHg. Left Ventricle E/e' 33 is significantly elevated. Definity contrast administered improved wall motion interpretation. Left ventricular chamber dimension is moderately enlarged. Left ventricular systolic function is normal, estimated at 55-60%. There is moderately increased left ventricular wall thickness. The left ventricular diastolic function is grade III diastolic dysfunction. Right Ventricle Right ventricular chamber dimension is not well visualized. Left Atria Left atrial chamber dimension is mildly enlarged. Right Atria Right atrial chamber dimension is mildly enlarged. Aortic Valve The aortic valve is trileaflet. There is no aortic valve stenosis. There is no aortic valve regurgitation. Pulmonic Valve There is no pulmonic regurgitation. Mitral Valve The mitral valve has moderately calcified annulus. Bunn 32 mm annuloplasty ring by history. There is mild mitral valve stenosis. MVA by Pt1/2 2.0 cm2 and MVA by VTI 1.5 cm2. There is no mitral valve regurgitation. Tricuspid Valve There is no tricuspid valve regurgitation. Mild pulmonary hypertension, estimated pulmonary arterial systolic pressure is 40 mmHg. Pericardium/Pleural There is no pericardial effusion. Inferior Vena Cava Dilated inferior vena cava with >50% collapse upon inspiration consistent with elevated right atrial pressure, 10 mmHg. Aorta The aortic root size at the sinus of Valsalva is not well visualized. Left Ventricular Outflow Tract Name Value Normal LVOT 2D LVOT Diameter
== END 2020-11-04 12:46 | disposition home or self-care (01) ==
LOC: ANHCARD 12:47
PROVIDERS: PCP Family Medicine; Visit Provider Internal Medicine Cardiovascular Disease
DX: I34.8 Other nonrheumatic mitral valve disorders (principal); I51.89 Other ill-defined heart diseases; I27.20 Pulmonary hypertension, unspecified; I87.8 Other specified disorders of veins
CPT/HCPCS: 36415; 85610; C8929

== ENCOUNTER 2020-11-04 12:52 | Outpatient (RCR) | payer BC, SELFPAY | END 2021-02-02 23:59 | disposition home or self-care (01) | LOC: ANHLAB 12:52 | PROVIDERS: PCP Family Medicine; Visit Provider Nurse Practitioner Family | DX: Z51.81 Encounter for therapeutic drug level monitoring (principal); I48.0 Paroxysmal atrial fibrillation; Z98.890 Other specified postprocedural states; Z79.01 Long term (current) use of anticoagulants | CPT/HCPCS: 36415; 85610 ==

== ENCOUNTER → 2020-11-26 00:41 | Outpatient (CLI) | payer BC, SELFPAY ==
[2020-11-26 20:46] LABS: SARS-CoV-2 RNA PCR Negative
== END ==
PROVIDERS: PCP Family Medicine; Visit Provider Internal Medicine Critical Care Medicine
DX: Z01.812 Encounter for preprocedural laboratory examination (principal); Z20.822 Contact with and (suspected) exposure to COVID-19
CPT/HCPCS: C9803; U0003; U0005

== ENCOUNTER 2020-11-27 11:09 | Outpatient (CLI) | payer BC, SELFPAY ==
[2020-11-27 11:41] LABS: Anion Gap 7 mmol/L (8-16); Blood Urea Nitrogen 46 mg/dL (7-17); Calcium 9.1 mg/dL (8.4-10.2); Carbon Dioxide 27 mmol/L (22-30); Chloride 105 mmol/L (98-107); Estimated Glomerular Filt Rate 36; Glucose 107 mg/dL (65-105); Magnesium 2.3 mg/dL (1.6-2.3); Potassium 5.3 mmol/L (3.4-5.0); Sodium 139 mmol/L (137-145)
== END 2020-11-27 11:10 | disposition home or self-care (01) ==
PROVIDERS: PCP Family Medicine; Visit Provider Internal Medicine Cardiovascular Disease
DX: I51.89 Other ill-defined heart diseases (principal)
CPT/HCPCS: 36415; 80048; 83735

== ENCOUNTER 2020-11-28 07:58 | Outpatient (CLI) | payer BC, SELFPAY ==
--- NOTE | 2020-12-04 15:20 | WPDSLEEPSTUD ---
Sleep Study Ordering Provider: Igor Moreno MD Interpreting Physician: Coleen Mei MD Sleep Study Type: CPAP Titration Height: 1.73 m Weight: 134.263 kg Body Mass Index: 45.0 Neck Circumference (inches): 17 [place]: 15 Reason for Sleep Study Home sleep study October 28, 2020; moderate obstructive sleep apnea, patient presents for CPAP titration. 03/06/2018 CPAP titration: optimal pressure 7 cm; isolated limb movement index 347.9 02/03/2018 Basic sleep study; mild obstructive sleep apnea 04/19/2009 Basic study; severe snoring with desaturation to 84% Sleep History Apple Littlejohn is a 55 year old female with a history of snoring documented in 2008, and obstructive sleep apnea in 2018. She was titrated to CPAP 7 cm on 03/06/2018. There is a history of congestive heart failure, and transesophageal echo on February 05, 2020 showed EF 55%. She has a difficult time falling asleep often taking hours to do so. At other times she can fall asleep within 20 minutes after taking medications. She has anxiety and stress that cause her to think excessively at night. Her health is gradually improving but it is a slow process and she thinks about this at night. She wakes up during the night and has excessive daytime sleepiness. She constantly awakens from sleep feeling short of breath. She frequently awakens at night with coughing. She rarely snores and rarely is it loud enough that others complain about it. She frequently has trouble sleeping with a cold. She frequently wakes up gasping for breath at night. She constantly sweats excessively at night, and frequently notices her heart pounding excessively at night. She frequently falls asleep in the day, occasionally involuntarily, rarely while driving. She rarely falls asleep while exerting physical effort. She occasionally experiences loss of muscle tone with strong emotion. She rarely has daytime difficulty due to excessive sleepiness. She occasionally feels paralyzed on waking or falling asleep. She frequently has vivid dreamlike scenes upon awakening or falling asleep. She occasionally feels afraid to go to sleep. She occasionally has nightmares. She occasionally remembers her dreams. She frequently has racing thoughts. She constantly feels sad, depressed and anxious. She constantly has muscular tension. She frequently notices parts of her body jerking and she frequently kicks at night. She frequently has crawling and aching feelings in her legs. She frequently has leg pain during the night. She rarely has morning jaw pain, rarely grinds her teeth during sleep. She constantly is bothered by pain during the day, is awakened by pain at night and wakes up feeling stiff in the morning. She constantly wakes up with sore achy muscles and pain in the neck and spine. She has frequent morning headaches, palpitations, nightmares, dizziness, fatigue, memory problems and insomnia. She has difficulty concentrating. She has allergic rhinitis. Normal bedtime is 10:00 p.m., falling asleep quickly at times, and at other times, it may take hours to fall asleep. She uses Trazodone 150 mg to get to sleep at night. She typically wakes 3-4 times each night to use the bathroom or get a drink of water. She is able to return to sleep in a few minutes. She wakes in the morning at 8:00 a.m. On the weekends, she goes to bed at 10:00 p.m., wakes at 9:00 a.m. She takes naps in the afternoon or evening. A short nap of 10-15 minutes is not refreshing. She usually feels better in the afternoons compared to other times of day. Habits: Quit smoking 9 months ago. Caffeine 20 oz bottle of soda daily. No alcohol or recreational drugs. [facility] Past Medical History Medical History (Updated 12/04/20 @ 16:30 by Coleen Mei MD) Acute dehydration Asthma CHF (congestive heart failure) Echo 05/31/20 LVef: 40-45% Chronic back pain Secondary to degenerative disc disease. Depression with anxiety Diabetic peripheral neuropathy Endocar
[2020-12-04 17:30] VITALS: BMI 45.0
== END 2020-11-28 07:59 | disposition home or self-care (01) ==
LOC: ANHCSM 07:59
PROVIDERS: PCP Family Medicine
DX: G47.33 Obstructive sleep apnea (adult) (pediatric) (principal); J44.9 Chronic obstructive pulmonary disease, unspecified; E66.01 Morbid (severe) obesity due to excess calories; Z68.42 Body mass index [BMI] 45.0-49.9, adult; I10 Essential (primary) hypertension; I50.9 Heart failure, unspecified; E11.9 Type 2 diabetes mellitus without complications; Z87.891 Personal history of nicotine dependence; Z79.82 Long term (current) use of aspirin; Z79.84 Long term (current) use of oral hypoglycemic drugs; Z79.899 Other long term (current) drug therapy
CPT/HCPCS: 95811

== ENCOUNTER 2021-01-17 16:08 | Outpatient (CLI) | payer BC, SELFPAY ==
[2021-01-17 16:57] LABS: Alanine Aminotransferase 14 U/L (4-35); Albumin Level 4.2 g/dL (3.5-5.1); Alkaline Phosphatase 83 U/L (38-126); Anion Gap 7 mmol/L (8-16); Aspartate Amino Transferase 20 U/L (14-36); Bilirubin,Total 0.4 mg/dL (0.2-1.3); Blood Urea Nitrogen 29 mg/dL (7-17); Calcium 9.5 mg/dL (8.4-10.2); Carbon Dioxide 27 mmol/L (22-30); Chloride 110 mmol/L (98-107); Cholesterol 169 mg/dL (0-200); Estimated Glomerular Filt Rate 43; Glucose 77 mg/dL (65-105); HDL Direct 42 mg/dL; Potassium 5.3 mmol/L (3.4-5.0); Sodium 144 mmol/L (137-145); Triglycerides 204 mg/dL (<150)
[2021-01-17 17:07] LABS: LDL Cholesterol Direct 87 mg/dL
== END 2021-01-17 16:09 | disposition home or self-care (01) ==
PROVIDERS: PCP Family Medicine; Visit Provider Internal Medicine Cardiovascular Disease
DX: E78.5 Hyperlipidemia, unspecified (principal)
CPT/HCPCS: 36415; 80053; 80061; 83735

== ENCOUNTER 2021-02-04 15:00 | Outpatient (RCR) | payer BC, SELFPAY ==
--- NOTE | 2021-01-03 14:11 | PTOPEVAL ---
Thank you for referring Apple Littlejohn to [facility].? The patient is scheduled to be seen for therapy? 1 x/week for 12 weeks. Please review, sign, date and return this plan of care LETICIA. I agree with and certify that the following plan of care is medically necessary. 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 Cardiovascular History Hx Atrial Fibrillation Yes Hx Cardiac Arrhythmia Yes Hx Cardiac Catheterization Yes Hx Cardiac Surgery Yes Hx Heart Murmur Yes Hx Hypercholesterolemia Yes Hx Hypertension Yes Hx Irregular Heartbeat Yes Hx Mitral Valve Prolapse Yes: MVR 06/05/20 Hx Pericarditis Yes: endocarditis Hx Peripheral Vascular Disease Yes Hx Valve Replacement Yes Respiratory History Hx Bronchitis Yes Hx Chronic Obstructive Pulmonary Disease Yes (COPD) Hx Pneumonia Yes Hx Sleep Apnea Yes: recently prescribed CPAP Gastrointestinal History Hx Gastrointestinal Disorders No Significant History Genitourinary History Hx Other Genitourinary Disorders Yes: ?CKD Musculoskeletal History Hx Arthritis Yes: knees Hx Back Pain Yes: low back slipped disc Hx Degenerative Disk Disease Yes Hx Fibromyalgia Yes Hx Osteomyelitis Yes Hematological History Hx Hematological Disorders No Significant History Endocrine History Hx Diabetes Yes HEENT History Hx Cataracts Yes Hx Sinus Problems Yes: rhinitis Integumentary History Hx Cellulitis Yes: january 2020 Reproductive History Hx Section Yes Hx Hysterectomy Yes Hx Tubal Ligation Yes Hx Other Reproductive Disorders Yes: endometrial ablation Psychosocial History Hx Anxiety Yes Hx Depression Yes Hx Psychiatric Treatment Yes Pain History Effective Methods of Pain Control states she has chronic pain all over with neuropathy & fibromyalgia Anesthesia History Hx Anesthesia Reactions No Significant History Other History Hx Implanted Device Yes: MVR annuloplasty ring Hx Recent Acute Infection Yes: cellulitis Evaluation Information Problem Diagnosis difficulty walking, weakness Additional Evaluation Detail cardiac rehab 3x/wk for 1 hr, for the past month for recumbent bike and UE bike.
--- NOTE | 2021-01-22 10:46 | PCPTNOTE ---
Patient called & cancelled scheduled appointment this date due to being sick.
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
--- NOTE | 2021-02-14 10:29 | PCPTNOTE ---
Patient did not show up for scheduled appointment this date. Call patient and she stated she forgot.
--- NOTE | 2021-02-19 11:56 | PCPTNOTE ---
Patient called & cancelled scheduled appointment this date due to not able to attend therapy. She will call Wednesday to reschedule.
--- NOTE | 2021-03-03 09:23 | PCPTNOTE ---
Spoke with patient regarding her missed therapy. She states she had pneumonia and her MD requested she not attend therapy. She has a f/u with her MD on 03/13/21 to determine if she is medically stable to attend therapy again. She will call us after her 03/13/21 visit.
--- NOTE | 2021-03-31 11:10 | PCPTNOTE ---
Admitting Provider: Attending Provider: Katherine Nation NP Patient:Apple Littlejohn Date of :1965 Discharge Note Patient has not returned for any further treatments since 02/04/2021, therefore she will be discharged at this time. Patient?s initial visit was on 01/03/2021 08:15 and she had a total of 4 visits with 4 additional visits cancelled or a no show. The goals have been not met at this time due to limited visits attended. Thank you for referring this patient to [facility]. Please review, sign, date and return this discharge summary LETICIA. I have been updated about the patient's current status and I agree with discharge from the above service at this time. Referring Physician Date
== END 2021-03-31 17:22 | disposition home or self-care (01) ==
LOC: ANHPT 15:00
PROVIDERS: PCP Family Medicine; Visit Provider Nurse Practitioner Family
DX: R26.2 Difficulty in walking, not elsewhere classified (principal); R53.1 Weakness
CPT/HCPCS: 97110; 97163; 97530

== ENCOUNTER 2021-02-05 16:30 | Outpatient (RCR) | payer BC, SELFPAY ==
[2020-12-03 15:49] VITALS: BP 138/90; PULSE 62; RESP 18; TEMP 36.6; O2SAT 94
[2020-12-03 16:17] VITALS: PULSE 61
[2020-12-04 17:35] LABS: Glucose Point of Care 141 (65-105)
[2020-12-11 17:47] LABS: Glucose Point of Care 161 (65-105)
[2020-12-11 17:48] LABS: Glucose Point of Care 138 (65-105)
[2020-12-12 17:45] LABS: Glucose Point of Care 146 (65-105)
[2020-12-19 17:44] LABS: Glucose Point of Care 94 mg/dl (65-105)
[2020-12-19 17:44] LABS: Glucose Point of Care 110 mg/dl (65-105)
[2020-12-26 17:43] LABS: Glucose Point of Care 101 mg/dl (65-105)
[2021-01-16 17:41] LABS: Glucose Point of Care 123 mg/dl (65-105)
--- NOTE | 2021-02-10 13:51 | PCCPR ---
Addendum entered by Valeria Thompson RN 03/19/21 15:52: Spoke with Apple states a lung doctors office called and took her information. She is hopeful to get an apt soon. She states she does want to resume cardiac rehab when she is released to resume. States she is on more O2 up to 3Liters now and is also having back problems. Asked she let us know as soon as she has a date to see the Music Journalist. Addendum entered by Valeria Thompson RN 03/13/21 15:28: LM for Apple asking she give us and update of her plan for return and if she was getting established with a different Music Journalist. Addendum entered by Valeria Thompson RN 02/27/21 11:56: Apple had a visit with her PCP and felt her lungs did not feel that great. She deferred her wait until her apt with the Music Journalist prior to hr return to CP rehab, March 13. She also just received her first Covid shot and is feeling poorly. Addendum entered by Valeria Thompson RN 02/19/21 09:05: Spoke with Apple states she see's her PCP on 02/24 and hopes to return. States her cough has improved but still feels tired. Asked if she would like an earlier class time however states unable to due to childcare fo her grandchildren while parents are working. Original Note: Absent due to illness Apple called states her C x R came back pnuemonia. She is now on a Z pack and something else she could not remember. Encouraged to verify and have a release to resume rehab. States she is call the office for follow up apt and discuss plans for return.
--- NOTE | 2021-04-08 11:51 | PCCPR ---
HOLD-Pt states she still hasn't seen the beaming inspector and now her PCP wants her to see pain mgmt as well. She states shes been falling at home as well and doctors are doing xrays on various parts of her body. will plan to put her on hold and follow up in a couple of weeks, pt agrees that is a good idea.
--- NOTE | 2021-05-15 14:44 | PCCPR ---
Addendum entered by Milagro Fajardo RN 05/15/21 15:03: Apple returned call, she did not forsee returning anytime soon. Discharged from program. Discussed possible pulmonary rehab referral in the future. Original Note: Follow up call made today. Apple did not answer, left message asking her to return our call and inform us of her plans to return. Message left indicating that if she does not return our call by the end of next week that we will close her chart and discharge her from the program.
== END 2021-02-05 23:59 | disposition home or self-care (01) ==
LOC: ANHCPREHAB 16:30
PROVIDERS: PCP Family Medicine; Visit Provider Internal Medicine Cardiovascular Disease
DX: Z95.2 Presence of prosthetic heart valve (principal)
CPT/HCPCS: 82948; 93798

== ENCOUNTER 2021-03-16 09:42 | Outpatient (CLI) | payer BC, SELFPAY ==
--- NOTE | ~2021-03-16 | MR_ITS ---
EXAMINATION: MR lumbar spine wo con DATE: 03/16/2021 10:43 INDICATION: Lumbar radiculopathy. TECHNIQUE: Magnetic resonance imaging (MRI) of the lumbar spine was performed without intravenous con trast. Sequences included sagittal T2-weighted FSE, sagittal T2-weighted FS FSE, sagittal T1-weighted FSE, and axial T2-weighted FSE. COMPARISON: Lumbar spine MRI 03/08/2020 FINDINGS: There is 3 degrees levocurvature of lumbar spine. There is 3 mm retrolisthesis of T12 on L1 . There is mild chronic anterior wedging of T12 vertebral body. There is severely decreased disc heig ht at T12-L1, mildly decreased disc height from L1-L2 through L3-L4, and moderately decreased disc he ight at L4-L5 and L5-S1 with endplate remodeling. Epidural lipomatosis is noted. The distal spinal co rd signal intensity is normal. The conus medullaris is at L1-L2. The following disc levels are specif ically discussed: L1-L2: The disc is bulging and has an annular fissure. There is severe bilateral facet joint osteoart hritis. There is mild bilateral neural foraminal stenosis. There is mild central canal stenosis. L2-L3: The disc is bulging. There is severe bilateral facet joint osteoarthritis. There is mild bilat eral neural foraminal stenosis. There is mild central canal stenosis. L3-L4: The disc is bulging and has an annular fissure. There is severe bilateral facet joint osteoart hritis. There is mild bilateral neural foraminal stenosis. There is mild central canal stenosis. L4-L5: The disc is bulging and has an annular fissure. There is severe right and moderate left facet joint osteoarthritis. There is moderate bilateral neural foraminal stenosis. There is mild central ca nal stenosis. L5-S1: The disc is bulging and has an annular fissure. There is severe bilateral facet joint osteoart hritis. There is mild right and moderate left neural foraminal stenosis. There is mild central canal stenosis. IMPRESSION: 1. Moderate lumbar spondylosis, stable from 03/08/2020. Reviewed, dictated and finalized at location B.
== END 2021-03-16 09:43 | disposition home or self-care (01) ==
LOC: ANHIMG 09:43
PROVIDERS: PCP Family Medicine; Visit Provider Nurse Practitioner Family
DX: M47.26 Other spondylosis with radiculopathy, lumbar region (principal)
CPT/HCPCS: 72148

== ENCOUNTER 2021-04-21 12:18 | Outpatient (CLI) | payer BC, SELFPAY ==
--- NOTE | ~2021-04-21 | XR_ITS ---
XR knee RT 2V 04/21/2021 12:58 Indication: Right knee pain Procedure: 2 views right knee Comparison: No prior studies for comparison. Findings: Mild osteoarthritis of the right knee. No significant joint effusion. No foreign bodies. Impression: 1: Mild osteoarthritis of the right knee. Reviewed, dictated and finalized at location A. Impression: 1: Mild osteoarthritis of the right knee.
--- NOTE | ~2021-04-21 | XR_ITS ---
XR knee LT 2V 04/21/2021 12:58 Indication: Left knee pain Procedure: 2 views left knee Comparison: 02/11/2008 Findings: Moderate-severe tricompartment osteoarthritis of the left knee. No significant joint effusi on. No fracture or traumatic malalignment. No foreign bodies. Impression: 1: Moderate-severe tricompartment osteoarthritis of the left knee. Reviewed, dictated and finalized at location A. Impression: 1: Moderate-severe tricompartment osteoarthritis of the left knee.
== END 2021-04-21 12:19 | disposition home or self-care (01) ==
LOC: ANHIMG 12:21
PROVIDERS: PCP Family Medicine; Visit Provider Nurse Practitioner Family
DX: M17.0 Bilateral primary osteoarthritis of knee (principal)
CPT/HCPCS: 73560

== ENCOUNTER 2021-07-22 08:57 | Emergency (ER) | payer BC, SELFPAY ==
--- NOTE | ~2021-07-22 | XR_ITS ---
XR foot LT min 3V 07/22/2021 11:22 Indication: Left foot pain. Multiple recent falls. Procedure: 4 views left foot Comparison: No prior studies for comparison. Findings: There are degenerative changes of the mid and hindfoot. There are degenerative calcaneal en thesophytes. Mild soft tissue swelling surrounding the ankle.. Lisfranc joint is intact. No acute fra cture or traumatic malalignment. Impression: 1: No acute fracture. 2: Polyarticular osteoarthritis. Reviewed, dictated and finalized at location A. LATORY AFFAIRS STRATEGY SPECIALIST Impression: 1: No acute fracture. 2: Polyarticular osteoarthritis.
--- NOTE | ~2021-07-22 | XR_ITS ---
XR foot RT min 3V DATE: 07/22/2021 11:22 INDICATION: Right foot swelling TECHNIQUE: 4 views COMPARISON: None FINDINGS: There is prominent plantar and minimal posterior calcaneal enthesopathy. Osteoarthritic changes are noted at the tarsal and tarsometatarsal and first metatarsophalangeal join ts. No fracture, dislocation, periosteal reaction or bone destruction is detected. IMPRESSION: Osteoarthritis Calcaneal enthesopathy Reviewed, dictated and finalized at location B. ST PATROLMAN
--- NOTE | ~2021-07-22 | XR_ITS ---
XR tibia fibula RT 2V, XR tibia fibula LT 2V 07/22/2021 11:23 (accession [id number]), 07/22/2021 11:22 (accession [id number]) Indication: Leg pain. Recent falls. Procedure: 2 views of each tibia/fibula Comparison: No prior studies for comparison. Findings: There is osteoarthritis of the knees bilaterally. There are degenerative changes of the lef t ankle. No fracture, subluxation or dislocation. Impression: 1: No acute fracture. Reviewed, dictated and finalized at location A. POLE TREATER Impression: 1: No acute fracture. Impression: 1: No acute fracture.
--- NOTE | ~2021-07-22 | XR_ITS ---
XR knee RT min 4V 07/22/2021 11:22 Indication: Recent falls. Knee pain. Procedure: 4 views right knee Comparison: No prior studies for comparison. Findings: There is mild-moderate osteoarthritis of the right knee. Small joint effusion. No acute fra cture or traumatic malalignment. Osteopenia. Impression: 1: No acute fracture. 2: Small joint effusion. Reviewed, dictated and finalized at location A. L ALIGNMENT TECHNICIAN Impression: 1: No acute fracture. 2: Small joint effusion.
--- NOTE | ~2021-07-22 | XR_ITS ---
XR ankle RT min 3V 07/22/2021 11:23 INDICATION: Right ankle pain and swelling PROCEDURE: 4 views right ankle COMPARISON: No prior studies for comparison. FINDINGS: Fracture, dislocation or subluxation is not identified. Ankle mortise intact. Talar dome is normal. There are degenerative changes of the midfoot. There is degenerative calcaneal enthesophyte. The soft tissues appear within normal limits. No foreign bodies are identified. IMPRESSION: 1: NO ACUTE BONE OR JOINT ABNORMALITY IDENTIFIED. Reviewed, dictated and finalized at location A. NICAL TESTING ENGINEER
--- NOTE | ~2021-07-22 | XR_ITS ---
XR knee LT min 4V 07/22/2021 11:22 Indication: Left knee swelling Procedure: 4 views left knee Comparison: 04/21/2021 Findings: There is severe osteoarthritis of the left knee. Small joint effusion. No acute fracture or traumatic malalignment. No foreign bodies. Impression: 1: No acute fracture. 2: Severe osteoarthritis. 3: Small joint effusion. Reviewed, dictated and finalized at location A. CART PEDDLER Impression: 1: No acute fracture. 2: Severe osteoarthritis. 3: Small joint effusion.
--- NOTE | ~2021-07-22 | XR_ITS ---
XR ankle LT min 3V 07/22/2021 11:23 Indication: Left ankle pain. Recent falls. Procedure: 4 views left ankle Comparison: No prior studies for comparison. Findings: There are degenerative changes of the left ankle. Ankle mortise intact. No significant abno rmality of the talar dome. There is mild lateral soft tissue swelling. There is a loose body adjacent to the medial malleolus, likely related to remote trauma. No acute fracture or traumatic malalignmen t. Impression: 1: No acute fracture. Reviewed, dictated and finalized at location A. D PIPELINES SUPERVISOR Impression: 1: No acute fracture.
--- NOTE | ~2021-07-22 | US_ITS ---
EXAMINATION:US venous doppler LE BI INDICATION:Leg swelling TECHNIQUE: Multiple grayscale, color flow and Doppler images of the right and left lower extremity de ep venous systems were obtained and reviewed. COMPARISON:No prior studies for comparison. FINDINGS: The common femoral, superficial femoral and popliteal veins demonstrate normal respiratory variation, augmentation and compressibility. Color flow is also seen within the posterior tibial, pe roneal, greater saphenous and profunda veins. IMPRESSION: 1: No lower extremity deep venous thrombosis. Reviewed, dictated and finalized at location A. ENT LIFE DEAN
[2021-07-22 09:01] VITALS: BP 176/87; PULSE 76; RESP 18; TEMP 36.4; O2SAT 97
[2021-07-22 10:10] VITALS: BP 163/104; PULSE 63; RESP 22; O2SAT 95
--- NOTE | 2021-07-22 13:19 | ED.GENADULT ---
HPI - General Adult General Chief complaint: Extremity Injury, Lower <Chente Gerard PA-C - Last Filed: 07/22/21 13:29> Stated complaint: Bilat lower extremity pain. <Chente Gerard PA-C - Last Filed: 07/22/21 13:29> Time Seen by Provider: 07/22/21 10:04 <Chente Gerard PA-C - Last Filed: 07/22/21 13:29> Source: patient <Chente Gerard PA-C - Last Filed: 07/22/21 13:29> Mode of arrival: ambulatory <Chente Gerard PA-C - Last Filed: 07/22/21 13:29> Limitations: no limitations <Chente Gerard PA-C - Last Filed: 07/22/21 13:29> History of Present Illness HPI narrative: Patient is a 56-year-old female with chief complaints of abrasions, pain and swelling to her lower extremities. Patient reports that she saw her primary care Dr. Kc yesterday and they were planning to order Dopplers to evaluate the lower extremities as she fell 2 weeks ago and the swelling presented afterwards. Patient reports the pain is to the posterior aspect of her calves. Patient reports abrasion to the anterior aspect of her legs and bruising. She denies being on blood thinner. She reports that she was having Dopplers performed and was told there was an issue with the insurance but she needs to have the testing performed so her primary care instructed her to present to the emergency department. Patient states her COPD is stable at her baseline 2L of oxygen and she has not experienced increase in shortness of breath or any chest pain or pressure. <Chente Gerard PA-C - Last Filed: 07/22/21 13:29> Related Data Home medications: Home Medications Medication Instructions Recorded Confirmed albuterol sulfate 2 puff INHALATION Q4H PRN 02/26/20 07/21/21 acetaminophen 650 mg 650 mg PO Q8H 11/11/20 07/21/21 tablet,extended release melatonin 10 mg PO 12/03/20 07/21/21 omega-3 fatty acids-vitamin E 1 cap PO DAILY 01/29/21 07/21/21 [Fish Oil] <ANGELY Barragan Last Filed: 07/22/21 13:29> Allergies/adverse reactions: Allergies Allergy/AdvReac Type Severity Reaction Status Date / Time adhesive tape Allergy Unknown Hives / Verified 07/22/21 10:16 Red Face <Chente Gerard PA-C - Last Filed: 07/22/21 13:29> Review of Systems Review of Systems: CONSTITUTIONAL: Denies fever, chills, or sweats. EYES: Denies visual changes, redness, or discharge. ENT: Denies rhinorrhea, congestion, sore throat, or otalgia. CARDIOVASCULAR: Denies chest pain, palpitations, or edema. RESPIRATORY: Denies cough or dyspnea. GASTROINTESTINAL: Denies abdominal pain, nausea, vomiting, or diarrhea. GENITOURINARY: Denies dysuria or hematuria. SKIN: Denies rash or itching. MUSCULOSKELETAL: Reports bilateral leg pain and swelling denies back pain, joint pain, or myalgia. NEUROLOGIC: Denies headache, numbness, dizziness, or weakness. PSYCHIATRIC: Denies anxiety or depression. <Chente Gerard PA-C - Last Filed: 07/22/21 13:29> [facility] Past Medical History Medical History: Medical History Acute dehydration Acute respiratory failure Asthma Atrial fibrillation with rapid ventricular response CHF (congestive heart failure) Echo 05/31/20 LVef: 40-45% Chronic back pain Secondary to degenerative disc disease. Depression with anxiety Diabetic peripheral neuropathy Endocarditis (~06/2020) Essential hypertension Hyperlipidemia Morbid obesity Obstructive sleep apnea It is my understanding that she does not wear a CPAP at nighttime. Obstructive sleep apnea Osteomyelitis Pneumonia Seasonal rhinitis Severe sepsis Sleep apnea Type 2 diabetes mellitus Hemoglobin A1c was 7.8% on 12/26/2019. Vitamin D deficiency <Chente Gerard PA-C - Last Filed: 07/22/21 13:29> Surgical History Surgical History: Surgical History History of section History of endometrial ablation History of hernia repa
[2021-07-22 13:33] VITALS: BP 155/78; PULSE 52; RESP 18; O2SAT 100
== END 2021-07-22 13:37 | disposition home or self-care (01) ==
PROVIDERS: Emergency Provider General Practice; PCP Family Medicine
DX: M79.89 Other specified soft tissue disorders (principal); M25.462 Effusion, left knee; M25.461 Effusion, right knee; J44.9 Chronic obstructive pulmonary disease, unspecified; M17.12 Unilateral primary osteoarthritis, left knee; M19.072 Primary osteoarthritis, left ankle and foot; M19.071 Primary osteoarthritis, right ankle and foot; M77.9 Enthesopathy, unspecified; W19.XXXA Unspecified fall, initial encounter
CPT/HCPCS: 73564; 73590; 73610; 73630; 93970; 99284

== ENCOUNTER 2021-08-20 12:25 | Outpatient (CLI) | payer BC, SELFPAY ==
[2021-08-20 12:54] LABS: Creatine Kinase 78 U/L (30-135)
[2021-08-20 21:57] LABS: Rheumatoid Factor < 8.6 IU/ML (<12)
[2021-08-22 22:17] LABS: Anti Cyclic Citrullinated Pept <16 Units (<20)
[2021-08-23 07:54] LABS: Aldolase 4.7 U/L (<=8.1)
[2021-08-23 12:04] LABS: ANA Cascade Screen Negative (Negative)
[2021-08-23 23:10] LABS: ANCA Screen Negative (Negative)
== END 2021-08-20 12:26 | disposition home or self-care (01) ==
PROVIDERS: PCP Family Medicine; Visit Provider Internal Medicine Pulmonary Disease
DX: J84.9 Interstitial pulmonary disease, unspecified (principal); J98.4 Other disorders of lung
CPT/HCPCS: 36415; 82085; 82550; 86036; 86038; 86200; 86331; 86430; 86606; 86609

== ENCOUNTER 2021-09-12 08:29 | Outpatient (CLI) | payer BC, SELFPAY ==
--- NOTE | ~2021-09-12 | CT_ITS ---
EXAMINATION: CT diagnostic chest wo con EXAM DATE: 09/12/2021 08:58 INDICATION: J98.4 - Other disorders of lung . Midsternal chest pain and shortness of breath. TECHNIQUE: Spiral CT of the chest without contrast. Axial, coronal and sagittal images of the chest were reviewed. Coronal maximum intensity pixel images of chest reviewed. The dose-length product ( DLP) for this examination was 1168.04 mGy-cm. The exposure was tailored according to patient size (a uto mA exposure control), and iterative reconstruction (ASIR) was used as additional dose reduction t echnique. Comparison is made to prior examination from 02/25/2020. FINDINGS: Scattered mosaic attenuation, which could be mild pulmonary edema, air trapping or possibl y developing acute infectious process. There are no pleural or pericardial effusions. Tracheobronc hial tree is patent. There is no mediastinal, hilar or axillary lymphadenopathy. There is no pneu mothorax. The main, central pulmonary arteries are dilated which can indicate elevated pulmonary art erial pressure, pulmonary arterial hypertension. Heart normal in size. Sternotomy wires and mitral valve replacement. Mild coronary artery arteriosclerosis. Upper abdomen is unremarkable. There is moderate thoracic spondylosis without osteoblastic or osteolytic lesions identified. IMPRESSION: 1. Bilateral mosaic attenuation, could be air trapping, mild pulmonary edema or possibly developing viral pneumonia. 2. Dilated pulmonary arteries, pulmonary arterial hypertension. Reviewed, dictated and finalized at location B. UP ENGINEER IMPRESSION: 1. Bilateral mosaic attenuation, could be air trapping, mild pulmonary edema o r possibly developing viral pneumonia. 2. Dilated pulmonary arteries, pulmonary arterial hypertension.
== END 2021-09-12 08:30 | disposition home or self-care (01) ==
PROVIDERS: PCP Family Medicine; Visit Provider Internal Medicine Pulmonary Disease
DX: J98.4 Other disorders of lung (principal); R91.8 Other nonspecific abnormal finding of lung field; I27.21 Secondary pulmonary arterial hypertension
CPT/HCPCS: 71250

== ENCOUNTER 2022-01-02 15:58 | Outpatient (CLI) | payer BC, SELFPAY ==
--- NOTE | ~2022-01-02 | MR_ITS ---
EXAMINATION: MR brain/brain stem wo con DATE: 01/02/2022 16:55 INDICATION: Headache, unspecified. TECHNIQUE: Magnetic resonance imaging (MRI) of the brain and brainstem was performed without intraven ous contrast. COMPARISON: Head CT 03/07/2020 FINDINGS: There are scattered areas of nonspecific increased T2-weighted signal intensity in the cere bral white matter. There is a small old infarct in left cerebellum. There is no intracranial hemorrha ge, acute infarction, or abnormal intracranial mass lesion. The ventricles are normal in size. The pa ranasal sinuses are clear. There are likely changes of ocular lens replacement surgeries. The mastoid air cells are normal. IMPRESSION: 1. Small old infarct in left cerebellum. 2. Mild nonspecific cerebral white matter disease, which likely represents chronic small vessel ische jack disease. Reviewed, dictated and finalized at location A. IMPRESSION: 1. Small old infarct in left cerebellum. 2. Mild nonspecific cerebral white matter disease, which likely represents tube coverer darwin small vessel ischemic disease.
== END 2022-01-02 15:59 | disposition home or self-care (01) ==
PROVIDERS: PCP Family Medicine; Visit Provider Family Medicine
DX: R51.9 Headache, unspecified (principal); Z86.73 Personal history of transient ischemic attack (TIA), and cerebral infarction without residual deficits; R90.82 White matter disease, unspecified
CPT/HCPCS: 70551

== ENCOUNTER 2022-05-20 16:01 | Inpatient (IN) | payer BC, SELFPAY ==
[2022-05-20] VITALS (21 sets, daily range): BP systolic 165–239; BP diastolic 72–131; PULSE 58–85; RESP 13–24; TEMP 36.7; O2SAT 91–100
--- NOTE | ~2022-05-20 | US_ITS ---
EXAMINATION: US retroperitoneal comp, US retroperitoneal duplex ltd DATE: 05/22/2022 16:22 INDICATION: Elevated creatinine. TECHNIQUE: 1. Multiple grayscale and color Doppler images of the kidneys were obtained. 2. Multiple grayscale and pulsed Doppler images of the aorta and renal arteries were obtained. COMPARISON: CTA chest, abdomen and pelvis dated 02/25/2020 FINDINGS: Kidneys: The right kidney measures 10.9 x 4.1 x 4.9 cm. The left kidney measures 10.9 x 4.5 x 6.2 cm. The kidn eys demonstrate normal echogenicity. There is no hydronephrosis in either kidney. No stones identifi ed. The bladder is normal. Renal arteries/vascular: The aorta peak systolic velocity is 85 cm/s. The right renal artery peak systolic velocity is 106 cm/ s in the proximal segment, 92 cm/s in the mid segment, and 109 cm/s in the distal segment. The left r enal artery was unable to be visualized.. IMPRESSION: 1. Normal kidneys with no hydronephrosis. 2. No Doppler evidence of right renal artery stenosis. The left renal artery was unable to be visuali zed due to primarily to patient body habitus. Reviewed, dictated and finalized at location A. IMPRESSION: 1. Normal kidneys with no hydronephrosis. 2. No Doppler evidence of right renal artery stenosis. The left renal artery wa s unable to be visualized due to primarily to patient body habitus.
--- NOTE | ~2022-05-20 | XR_ITS ---
EXAMINATION: XR chest 2V Exam Date/Time: 05/20/2022 16:42 CDT HISTORY: sob;hx of CHF,A fib,HTN, SD, on 2L O2 Comparison: None available. RESULT: Lines, tubes, and devices: Fractured longitudinal sternotomy wire, remains in stable position. Valve replacement. Lungs and pleura: Diffuse reticular pattern. Ill-defined patchy bilateral groundglass opacities, cep halization, indistinct vessels. Lateral view limited by respiratory motion. Possible trace bilateral effusions. Cardiomediastinal silhouette: Stable. Other: No acute osseous or upper abdominal finding. IMPRESSION: Pulmonary opacities most likely represent pulmonary edema. Infection is not excluded. Reviewed, dictated and finalized at location K. IMPRESSION: Pulmonary opacities most likely represent pulmonary edema. Infection is not exc luded.
--- NOTE | ~2022-05-20 | CT_ITS ---
EXAMINATION: CT diagnostic chest wo con DATE: 05/22/2022 13:08 INDICATION: Increasing oxygen requirement TECHNIQUE: Computed tomography (CT) of the chest was performed without intravenous contrast. The dose -length product (DLP) was 1125.36 mGy-cm. Automated exposure control and iterative reconstruction vicente hnique were employed. COMPARISON: 09/12/2021 FINDINGS: There is smooth interlobular septal thickening of the upper lobes. Cardiomegaly is noted. T here is atelectasis in the lower lobes and right middle lobe. There are patchy airspace opacities of the lungs. No pleural effusion or pneumothorax. There is mild, chronic mediastinal lymphadenopathy, l ikely reactive. Changes of cardiac surgery are noted. There is severe thoracic spondylosis. IMPRESSION: 1. Cardiomegaly with mild pulmonary edema. Reviewed, dictated and finalized at location B.
--- NOTE | 2022-05-20 16:25 | ECG_ITS ---
Measurements Intervals Turner Rate: 58 P: 79 NC: 218 QRS: -49 QRSD: 126 T: 127 QT: 464 QTc: 456 Interpretive Statements SINUS BRADYCARDIA WITH FIRST DEGREE AV BLOCK POSSIBLE RIGHT ATRIAL ENLARGEMENT [0.25mV P-WAVE] LEFT ANTERIOR FASCICULAR BLOCK [QRS AXIS <= -45, QR IN I, RS IN II] LEFT VENTRICULAR HYPERTROPHY AND ST-T CHANGE [VOLTAGE CRITERIA PLUS ST/T ABNORMALITY] ABNORMAL ECG COMPARED TO ECG 03/16/2020 22:16:55 SINUS BRADYCARDIA NOW PRESENT LEFT ANTERIOR FASCICULAR BLOCK NOW PRESENT LEFT VENTRICULAR HYPERTROPHY NOW PRESENT ST (T WAVE) DEVIATION NOW PRESENT Electronically Signed On 05-21-2022 9:31:49 CDT by Jayy Aguilar M.D.
[2022-05-20 21:08] LABS: Basophils Percent Auto 0.4 % (0.2-1.2); Eosinophils Absolute Auto 0.2 K/mm3 (0-0.3); Eosinophils Percent Auto 2.3 % (0-4.4); Hematocrit 39.4 % (37.0-47.0); Hemoglobin 12.5 g/dL (12.0-15.0); Immature Granulocyte Absolute 0.03 K/mm3 (0.00-0.031); Immature Granulocyte Percent A 0.4 % (0-0.5); Lymphocytes Absolute Auto 2.17 K/mm3 (0.9-3.2); Lymphocytes Percent Auto 31.7 % (18.3-44.2); Mean Corpuscular HGB Conc 31.7 g/dl (32-36); Mean Corpuscular Hemoglobin 31.1 pg (26-34); Mean Platelet Volume 10.2 fl (7.4-10.4); Monocytes Absolute Auto 0.5 K/mm3 (0.1-0.6); Monocytes Percent Auto 7.6 % (2.6-8.5); Neutrophils Absolute Auto 3.9 K/mm3 (1.3-6.7); Neutrophils Percent Auto 57.6 % (45.5-73.1); Platelet Count Result 221 k/mm3 (150-375); Red Blood Count 4.02 M/mm3 (4.2-5.4); Red Cell Distribution Width 14.2 % (11.5-14.5); White Blood Count 6.8 K/mm3 (4.5-10.0)
--- NOTE | 2022-05-20 21:11 | ED.SOB ---
HPI - SOB/Dyspnea General Chief Complaint: Shortness of Breath/Dyspnea Stated Complaint: SOB Time Seen by Provider: 05/20/22 20:32 History of Present Illness HPI Narrative: This is a 57-year-old female with past medical history of CHF and CABG, presenting to the emergency department with progressive shortness of breath, occasional chest pain for the past week. She states she has noted bilateral lower extremity swelling, cough without production of sputum or blood with associated rib pain. She notes occasional anterior chest pain, described as 4 out of 10, squeezing, radiating to the bilateral arms. She denies associated fevers or chills. She does state that she was exposed to her children who have been sick. Related Data Home Medications Medication Instructions Recorded Confirmed acetaminophen 650 mg 500 mg PO Q6H 11/11/20 05/21/22 tablet,extended release (Tylenol 8 Hour) omega-3 fatty acids-vitamin E 1 cap PO DAILY 01/29/21 05/21/22 1,000 mg capsule atorvastatin 80 mg tablet 80 mg PO QHS 12/09/21 05/21/22 furosemide 40 mg tablet 40 mg PO BID 12/09/21 05/21/22 budesonide-formoterol HFA 160 2 puff inhalation BID 05/21/22 05/21/22 mcg-4.5 mcg/actuation aerosol inhaler (Symbicort) bupropion HCl 75 mg tablet 150 mg PO HS 05/21/22 05/21/22 fexofenadine 180 mg tablet 180 mg PO DAILY 05/21/22 05/21/22 lisinopril 40 mg tablet 40 mg PO DAILY 05/21/22 05/21/22 meloxicam 7.5 mg tablet 7.5 mg PO BID 05/21/22 05/21/22 omeprazole 40 mg capsule,delayed 40 mg PO DAILY 05/21/22 05/21/22 release sumatriptan succinate 100 mg tablet 100 mg PO PRN PRN Headache 05/21/22 05/21/22 trazodone 300 mg tablet 300 mg PO HS 05/21/22 05/21/22 Allergies Allergy/AdvReac Type Severity Reaction Status Date / Time adhesive tape Allergy Unknown Hives / Verified 01/20/22 13:02 Red Face Review of Systems Review of Systems: CONSTITUTIONAL: Denies fever, chills, or sweats. EYES: Denies visual changes, redness, or discharge. ENT: Denies rhinorrhea, congestion, sore throat, or otalgia. CARDIOVASCULAR: Chest pain, lower extremity edema denies palpitations, RESPIRATORY: Nonproductive cough or dyspnea. GASTROINTESTINAL: Denies abdominal pain, nausea, vomiting, or diarrhea. GENITOURINARY: Denies dysuria or hematuria. SKIN: Denies rash or itching. MUSCULOSKELETAL: Denies back pain, joint pain, or myalgia. NEUROLOGIC: Denies headache, numbness, dizziness, or weakness. PSYCHIATRIC: Denies anxiety or depression. [facility] Past Medical History Medical History Abdominal pain Acute dehydration Acute respiratory failure Anxiety Asthma Atrial fibrillation with rapid ventricular response Cellulitis Chest tightness CHF (congestive heart failure) Echo 05/31/20 LVef: 40-45% Chronic back pain Secondary to degenerative disc disease. Chronic headaches Claustrophobia Congestion of nasal sinus Coughing Depression with anxiety Diabetic peripheral neuropathy Dizziness Ear pain Endocarditis (~06/2020) Essential hypertension Excessive thirst Fibromyalgia Heart attack High blood cholesterol History of blood clots Hoarseness Hyperlipidemia Insomnia Light headedness Morbid obesity Nausea & vomiting Neuropathy Obstructive sleep apnea It is my understanding that she does not wear a CPAP at nighttime. Obstructive sleep apnea Osteoarthritis of left knee Osteomyelitis Pneumonia Rheumatoid arthritis Seasonal rhinitis Severe sepsis Sleep apnea SOB (shortness of breath) Type 2 diabetes mellitus Hemoglobin A1c was 7.8% on 12/26/2019. Urinary frequency Vertigo Vitamin D deficiency Weight gain Surgical History Surgical History History of section (~1990) History of endometrial ablation (Unknown) History of hernia repair (~1994) History of hysterectomy (~1997) History of tubal ligation (~1997) S/P CABG x 1 (~06/05/20) Family Histor
[2022-05-20 21:18] LABS: Alanine Aminotransferase 27 U/L (6-35); Albumin Level 4.1 g/dL (3.5-5.1); Alkaline Phosphatase 97 U/L (38-126); Anion Gap 7 mmol/L (8-16); Aspartate Amino Transferase 24 U/L (14-36); Bilirubin,Total 0.5 mg/dL (0.2-1.3); Blood Urea Nitrogen 21 mg/dL (7-17); Calcium 8.4 mg/dL (8.4-10.2); Carbon Dioxide 26 mmol/L (22-30); Chloride 107 mmol/L (98-107); Estimated CRCL calculation 76 ml/min; Estimated Glomerular Filt Rate 47; Glucose 106 mg/dL (65-110); Potassium 3.4 mmol/L (3.4-5.0); Sodium 140 mmol/L (137-145)
[2022-05-20 21:22] LABS: INR 1.1; Partial Thromboplastin Time 28.3 SECONDS (22.3-36.8); Prothrombin Time 13.7 Seconds (11.1-14.7)
[2022-05-20 21:33] LABS: NT Pro B Type Natriuretic Pept 492 pg/mL (5-100)
[2022-05-20] MEDS: hydrALAZINE HCL 20 MG/ML VIAL IV PUSH ×2 (21:40→22:34)
[2022-05-20 21:47] LABS: Troponin I 0.014 ng/mL (0.000-0.034)
[2022-05-20] MEDS: NITROGLYCERIN SL 0.4 MG TABLET SUBLINGUAL (22:04)
--- NOTE | 2022-05-20 23:09 | PM.IMHP ---
H&P: HPI History of Present Illness Date/Time: 05/20/22 23:09 Chief Complaint: shortness of breath Narrative: This is a 57-year-old female with past medical history significant for morbid obesity, congestive heart failure, chronic hypoxic respiratory failure on 2 L by nasal cannula, gait disturbance uses a walker, type 2 diabetes mellitus, hypertension, mitral valve repair, coronary artery bypass graft x1 vessel, diabetic peripheral neuropathy, fibromyalgia, chronic kidney disease. Patient presents to the emergency room due to shortness of breath for the last 3 weeks or so which has progressively gotten worse, productive cough of yellowish to brownish sputum, denies any fevers, rigors, chills, has been using her inhaler quite frequently which is Symbicort and albuterol, but no improvement in spite of these, also complaining of worsening bilateral lower extremity edema, denies any chest pain. preliminary workup was significant for an ABG pH 7.46 pCO2 42 PO2 62 a chest x-ray was reported as: IMPRESSION: Pulmonary opacities most likely represent pulmonary edema. Infection is not excluded. Review of Systems Review of Systems: worsening shortness of breath, worsening bilateral lower extremity edema, productive cough of yellowish to brownish sputum. Constitutional: Constitutional: Denies chills, Denies fever(s), Denies malaise and Denies night sweats Eyes: Eyes: Denies change in vision ENT: Denies dysphagia and Denies odynophagia Cardiovascular: Cardiovascular: Denies chest pain, Denies irregular heart rhythm, Denies palpitations and Reports dyspnea Respiratory: Respiratory: Reports change in phlegm color, Reports chest congestion, Reports cough, Reports excessive phlegm production and Reports dyspnea Gastrointestinal: Gastrointestinal: Denies abdominal pain, Denies dyspepsia, Denies diarrhea, Denies nausea and Denies vomiting Genitourinary: Genitourinary: Denies dysuria Musculoskeletal: Musculoskeletal: Reports abnormal gait ( uses walker) Integumentary/Breasts: Skin/Breast: Denies rash Neurologic: Denies vertigo, Denies dizziness, Denies focal weakness and Denies Sensory deficit (Neuro) Psychiatric: Psychiatric: Reports no additional psychiatric complaints and Reports as per HPI Endocrine: Endocrine: Denies cold intolerance, Denies flushing, Denies heat intolerance, Denies polyphagia, Denies polydipsia and Denies palpitations Hematologic/Lymphatic: Hematologic/Lymphatic: Reports no additional hematologic/lymphatic complaints and Reports as per HPI Allergic/Immunologic: Allergic/Immunologic: Reports no additional allergic/immunologic complaints and Reports as per HPI [facility] Past Medical History Medical History Abdominal pain Acute dehydration Acute respiratory failure Anxiety Asthma Atrial fibrillation with rapid ventricular response Cellulitis Chest tightness CHF (congestive heart failure) Echo 05/31/20 LVef: 40-45% Chronic back pain Secondary to degenerative disc disease. Chronic headaches Claustrophobia Congestion of nasal sinus Coughing Depression with anxiety Diabetic peripheral neuropathy Dizziness Ear pain Endocarditis (~06/2020) Essential hypertension Excessive thirst Fibromyalgia Heart attack High blood cholesterol History of blood clots Hoarseness Hyperlipidemia Insomnia Light headedness Morbid obesity Nausea & vomiting Neuropathy Obstructive sleep apnea It is my understanding that she does not wear a CPAP at nighttime. Obstructive sleep apnea Osteoarthritis of left knee Osteomyelitis Pneumonia Rheumatoid arthritis Seasonal rhinitis Severe sepsis Sleep apnea SOB (shortness of breath) Type 2 diabetes mellitus Hemoglobin A1c was 7.8% on 12/26/2019. Urinary frequency Vertigo Vitamin D deficiency Weight gain Surgical History Surgical History History of section (~1990
[2022-05-20 23:47] LABS: SARS-CoV-2 RNA PCR Negative
[2022-05-20] MEDS: FUROSEMIDE INJ 40 MG/4 ML VIAL IV PUSH (23:53)
[2022-05-21] VITALS (22 sets, daily range): BP systolic 146–172; BP diastolic 81–98; PULSE 62–87; RESP 16–28; TEMP 35.8–36.9; O2SAT 90–99; BMI 50.9
[2022-05-21 02:14] LABS: Troponin I 0.024 ng/mL (0.000-0.034)
--- NOTE | 2022-05-21 02:49 | ADMGEN ---
This patient, Apple Littlejohn, was admitted to IMU Room 200-01 at 0200 on 05/21/2022. Patient/family oriented to hospital policies and general routines including ID bracelet, bed and alarms, visiting hours, pain management, procedures, bathroom and other care routines, personal items, smoking policy, room service/diet, and visiting hours. Information on how to activate the Rapid Response Team has been discussed. Patient/Family are encouraged to report perceived risks to care and to ask questions if they do not understand what they are told or what they should do.
[2022-05-21] MEDS: traZODone HCL 50 MG TABLET 300 MG PO ×2 (04:00→21:00)
[2022-05-21] MEDS: ALBUTEROL SULFATE NEB 2.5 MG/3 ML INH INHALATION ×4 (04:05→21:27)
[2022-05-21] MEDS: IPRATROPIUM BR 0.02% INH SOLN 0.5 MG/2.5 ML VIAL INHALATION ×4 (04:05→21:28)
[2022-05-21 04:49] LABS: Troponin I 0.017 ng/mL (0.000-0.034)
[2022-05-21] MEDS: SUMAtriptan SUCCINATE 25 MG TABLET 100 MG PO ×2 (04:52→19:49)
[2022-05-21] MEDS: ACETAMINOPHEN 500 MG TABLET PO ×2 (04:58→13:10)
[2022-05-21 07:44] LABS: Glucose Point of Care 150 mg/dl (65-105)
[2022-05-21] MEDS: FLUTICASONE/SALMETEROL 115-21 MCG INHALER 1 PUFF 2 PUFF INHALATION ×2 (08:04→21:33)
--- NOTE | 2022-05-21 08:46 | PM.IMPN ---
Progress Note: A&P Assessment and Plan (1) Pneumonia: Code(s): J18.9 - Pneumonia, unspecified organism Status: Acute Assessment and Plan: CXR with pulmonary opacities. BNP elevated to 492 but has been much higher up to 28,400 in the past with volume overload. With URI symptoms suspect pneumonia. Blood cultures pending. -Continue ceftriaxone and azithromycin (2) Respiratory failure with hypoxia: Code(s): J96.91 - Respiratory failure, unspecified with hypoxia Status: Acute Assessment and Plan: No documented worsening hypoxia or increased oxygen requirement. Chronic respiratory failure is at baseline with patient on 2LNC. (3) COPD (chronic obstructive pulmonary disease): Qualifiers: COPD type: unspecified COPD Qualified Code(s): J44.9 - Chronic obstructive pulmonary disease, unspecified Code(s): J44.9 - Chronic obstructive pulmonary disease, unspecified Status: Acute Assessment and Plan: Does not appear to be having an acute exacerbation. Stable. -Continue advair BID (4) Restrictive airway disease: Code(s): J98.4 - Other disorders of lung Status: Acute Assessment and Plan: Stable. Will monitor. (5) Obstructive sleep apnea: Code(s): G47.33 - Obstructive sleep apnea (adult) (pediatric) Status: Acute Assessment and Plan: Has supplemental oxygen and will wear CPAP at night. (6) CKD (chronic kidney disease) stage 3, GFR 30-59 ml/min: Qualifiers: Chronic kidney disease stage 3 subtype: stage 3a (GFR 45-59) Qualified Code(s): N18.31 - Chronic kidney disease, stage 3a Code(s): N18.30 - Chronic kidney disease, stage 3 unspecified Status: Acute Assessment and Plan: BUN and creatinine at patient's baseline continue to monitor (7) Paroxysmal A-fib: Code(s): I48.0 - Paroxysmal atrial fibrillation Status: Acute Assessment and Plan: currently on sinus rhythm continue to monito r (8) Type 2 diabetes mellitus with diabetic neuropathy: Qualifiers: Diabetes mellitus penitentiary insulin use: without penitentiary use Qualified Code(s): E11.40 - Type 2 diabetes mellitus with diabetic neuropathy, unspecified Code(s): E11.40 - Type 2 diabetes mellitus with diabetic neuropathy, unspecified Status: Acute Assessment and Plan: Accu-Cheks AC and HS insulin sliding scale will hold glipizide (9) Morbid (severe) obesity due to excess calories: Code(s): E66.01 - Morbid (severe) obesity due to excess calories Status: Acute Assessment and Plan: according to office visit patient is preparing for bariatric surgery lap band Subjective Date/time seen: 05/21/22 08:46 Patient says she had noticed some leg swelling prior to presenting to the hospital. Also reports having productive cough, sore throat and rhinorrhea for the past few days. Says she wears 2LNC continuously at home but about a year ago she only wore oxygen with exertion. Patient says she feels very tired because she has not slept in 24 hours. Review of Systems ENT: Reports nasal discharge Respiratory: Respiratory: Reports cough, Reports dyspnea, Reports dyspnea on exertion and Denies wheezing Exam Narrative: GENERAL: NAD, cooperative HEENT: Normocephalic, atraumatic, anicteric NECK: Supple CV: Normal S1, S2, RRR, No MRG RESP: Diminished breath sounds. No crackles, wheezes or rhonchi. EXTREMITIES: Warm and well perfused, no clubbing, cyanosis SKIN: warm, dry and intact. NEURO: CN 2-12 grossly intact. Objective Data Vital Signs Vital Signs: Vital Signs - 24 hr 05/20/22 16:22 05/20/22 20:55 05/20/22 20:59 Temperature 36.7 C Pulse Rate 73 60 59 L Respiratory Rate 22 H 24 H 13 Blood Pressure 165/72 H 206/131 H Pulse Oximetry 91 100 99 Oxygen Delivery Nasal Cannula Oxygen Flow Rate
[2022-05-21 08:55] LABS: Basophils Percent Auto 0.5 % (0.2-1.2); Eosinophils Absolute Auto 0.2 K/mm3 (0-0.3); Eosinophils Percent Auto 1.8 % (0-4.4); Hematocrit 43.1 % (37.0-47.0); Hemoglobin 13.6 g/dL (12.0-15.0); Immature Granulocyte Absolute 0.06 K/mm3 (0.00-0.031); Immature Granulocyte Percent A 0.7 % (0-0.5); Lymphocytes Absolute Auto 1.68 K/mm3 (0.9-3.2); Lymphocytes Percent Auto 20.6 % (18.3-44.2); Mean Corpuscular HGB Conc 31.6 g/dl (32-36); Mean Corpuscular Hemoglobin 31.2 pg (26-34); Mean Corpuscular Volume 98.9 fl (80-100); Mean Platelet Volume 10.8 fl (7.4-10.4); Monocytes Absolute Auto 0.5 K/mm3 (0.1-0.6); Monocytes Percent Auto 6.4 % (2.6-8.5); Neutrophils Absolute Auto 5.7 K/mm3 (1.3-6.7); Platelet Count Result 238 k/mm3 (150-375); Red Blood Count 4.36 M/mm3 (4.2-5.4); Red Cell Distribution Width 14.6 % (11.5-14.5); White Blood Count 8.2 K/mm3 (4.5-10.0)
[2022-05-21 09:01] LABS: Anion Gap 14 mmol/L (8-16); Blood Urea Nitrogen 18 mg/dL (7-17); Calcium 8.9 mg/dL (8.4-10.2); Carbon Dioxide 29 mmol/L (22-30); Chloride 101 mmol/L (98-107); Estimated CRCL calculation 76 ml/min; Estimated Glomerular Filt Rate 47; Glucose 175 mg/dL (65-110); Potassium 3.1 mmol/L (3.4-5.0); Sodium 144 mmol/L (137-145)
[2022-05-21] MEDS: POTASSIUM CHLORIDE 20 MEQ TABLET 40 MEQ PO (10:26)
[2022-05-21] MEDS: FLUoxetine HCL 20 MG CAPSULE 60 MG PO (10:31)
[2022-05-21] MEDS: ENOXAPARIN 40 MG/0.4 ML SYRINGE SUB-Q (10:31)
[2022-05-21] MEDS: buPROPion HCL 75 MG TABLET PO ×2 (10:32→20:59)
[2022-05-21] MEDS: PANTOPRAZOLE 40 MG TABLET PO (10:32)
[2022-05-21] MEDS: lisinopriL 20 MG TABLET 40 MG PO (10:32)
[2022-05-21] MEDS: OMEGA 3 POLYUNSAT FATTY ACIDS 1 GM CAP PO (10:32)
[2022-05-21] MEDS: ASPIRIN 81 MG CHEWABLE TABLET PO (10:32)
[2022-05-21] MEDS: GABAPENTIN 300 MG CAPSULE PO ×2 (10:33→13:10)
[2022-05-21] MEDS: LORATADINE 10 MG TABLET PO (10:33)
[2022-05-21 12:31] LABS: Glucose Point of Care 303 mg/dl (65-105)
[2022-05-21] MEDS: INSULIN ASPART (*BKC) 100 UNITS/ML SUB-Q (13:10)
[2022-05-21 16:22] LABS: Glucose Point of Care 96 mg/dl (65-105)
--- NOTE | 2022-05-21 18:24 | PC.NURSE ---
This patient, Apple Littlejohn, was transferred to [facility] on 05/21/22 at 1823. Personal belongings sent with patient. Report given to Nicci RANDALL. Appropriate documentation sent with patient.
[2022-05-21] MEDS: ATORVASTATIN 40 MG TABLET 80 MG PO (21:00)
[2022-05-22] VITALS (15 sets, daily range): BP systolic 151–159; BP diastolic 77–95; PULSE 60–70; RESP 16–20; TEMP 35.9–36.4; O2SAT 92–98
--- NOTE | 2022-05-22 | ECHO_ITS ---
Patient Info Name: Apple Littlejohn Age: 57 years : 1965 Gender: Female Ht: 69 in Wt: 345 lbs BSA: 2.85 m2 HR: 78 bpm BP: 159 / 95 mmHg Technical Quality: Poor Exam Date: 05/22/2022 3:11 PM Exam Location: [facility] Pulmonary Exam Room: 303 Patient Status: Inpatient Admit Date: 05/22/2022 Staff Ordering Physician: Hanh Haas MD Senior Materials Analyst: Ana Ortiz RDCS Attending Provider: Geoff Ho MD Referring Physician: Samina MERLOS; Exam Type: CA echo dop color flow w con Study Info Indications - SHORTNESS OF BREATH Complete two-dimensional, color flow and Doppler transthoracic echocardiogram is performed with contrast to opacify the left ventricle and to improve the deliniation of the left ventricle endocardial borders. Contrast/Agitated Saline Contrast/Ag. Saline: Definity Amount: 3.00 ml Administered By: Ana Ortiz RUST Existing IV Access: Yes IV Access Condition: patent with no signs of infiltration Reason for Poor Study: patient body habitus Summary 1. Technically suboptimal study due to poor sonographic images. 2. Definity contrast administered improved wall motion interpretation. 3. Left ventricular chamber dimension is moderately enlarged. 4. Left ventricular systolic function is normal, estimated at 55-60%. 5. There is mildly increased left ventricular wall thickness. 6. The left ventricular diastolic function is normal. 7. Tissue doppler E/e' is not performed. 8. Left atrial chamber dimension is mildly enlarged. 9. The mitral valve has moderately calcified annulus. 10. No pulmonary hypertension, estimated pulmonary arterial systolic pressure is 31 mmHg. Left Ventricle Technically suboptimal study due to poor sonographic images. Tissue doppler E/e' is not performed. Definity contrast administered improved wall motion interpretation. Left ventricular chamber dimension is moderately enlarged. Left ventricular systolic function is normal, estimated at 55-60%. There is mildly increased left ventricular wall thickness. The left ventricular diastolic function is normal. Right Ventricle Right ventricular chamber dimension is not well visualized. Left Atria Left atrial chamber dimension is mildly enlarged. Right Atria Right atrial chamber dimension is not well visualized. Aortic Valve The aortic valve is not well visualized. Cannot determine number of aortic valve leaflets. There is no aortic valve stenosis. There is no aortic valve regurgitation. Pulmonic Valve The pulmonic valve is not well visualized. Mitral Valve The mitral valve has moderately calcified annulus. There is no mitral valve stenosis. There is no mitral valve regurgitation. Tricuspid Valve The tricuspid valve leaflets are not well visualized. No pulmonary hypertension, estimated pulmonary arterial systolic pressure is 31 mmHg. Pericardium/Pleural There is no pericardial effusion. Inferior Vena Cava Inferior vena cava is not well visualized. Aorta The aortic root size at the sinus of Valsalva is not well visualized. Left Ventricular Outflow Tract Name Value Normal LVOT 2D LVOT Diameter 2.15 cm
[2022-05-22] MEDS: IPRATROPIUM BR 0.02% INH SOLN 0.5 MG/2.5 ML VIAL INHALATION ×5 (03:10→21:12)
[2022-05-22] MEDS: ALBUTEROL SULFATE NEB 2.5 MG/3 ML INH INHALATION ×5 (03:10→21:12)
--- NOTE | 2022-05-22 06:24 | PCRCNOTE ---
Window of time for administration has passed. See next scheduled administration.
[2022-05-22 06:30] LABS: Basophils Percent Auto 0.5 % (0.2-1.2); Eosinophils Absolute Auto 0.1 K/mm3 (0-0.3); Hematocrit 39.4 % (37.0-47.0); Hemoglobin 12.3 g/dL (12.0-15.0); Immature Granulocyte Absolute 0.03 K/mm3 (0.00-0.031); Immature Granulocyte Percent A 0.5 % (0-0.5); Lymphocytes Absolute Auto 1.77 K/mm3 (0.9-3.2); Lymphocytes Percent Auto 32.2 % (18.3-44.2); Mean Corpuscular HGB Conc 31.2 g/dl (32-36); Mean Corpuscular Hemoglobin 31.1 pg (26-34); Mean Corpuscular Volume 99.7 fl (80-100); Mean Platelet Volume 10.6 fl (7.4-10.4); Monocytes Absolute Auto 0.5 K/mm3 (0.1-0.6); Monocytes Percent Auto 8.5 % (2.6-8.5); Neutrophils Absolute Auto 3.1 K/mm3 (1.3-6.7); Neutrophils Percent Auto 56.3 % (45.5-73.1); Platelet Count Result 216 k/mm3 (150-375); Red Blood Count 3.95 M/mm3 (4.2-5.4); Red Cell Distribution Width 14.5 % (11.5-14.5); White Blood Count 5.5 K/mm3 (4.5-10.0)
[2022-05-22 06:37] LABS: Anion Gap 10 mmol/L (8-16); Blood Urea Nitrogen 19 mg/dL (7-17); Calcium 8.4 mg/dL (8.4-10.2); Carbon Dioxide 29 mmol/L (22-30); Chloride 102 mmol/L (98-107); Estimated CRCL calculation 62 ml/min; Estimated Glomerular Filt Rate 36; Glucose 136 mg/dL (65-110); Sodium 141 mmol/L (137-145)
[2022-05-22] MEDS: FLUTICASONE/SALMETEROL 115-21 MCG INHALER 1 PUFF 2 PUFF INHALATION ×2 (07:24→21:12)
--- NOTE | 2022-05-22 08:26 | PM.IMPN ---
Progress Note: A&P Assessment and Plan (1) Pneumonia: Code(s): J18.9 - Pneumonia, unspecified organism Status: Acute Assessment and Plan: CXR with pulmonary opacities. BNP elevated to 492 but has been much higher up to 28,400 in the past with volume overload. With URI symptoms suspect pneumonia. Blood cultures with no growth. Patient has significant anxiety, which may be contributing to her increased oxygen requirement as during round patient was off oxygen for a significant amount of time speaking in full sentences without shortness of breath. -Continue ceftriaxone and azithromycin -CT chest (2) Respiratory failure with hypoxia: Code(s): J96.91 - Respiratory failure, unspecified with hypoxia Status: Acute Assessment and Plan: Chronic respiratory failure is at baseline with patient on 2LNC. Increased oxygen requirement this morning, so CT chest and echo ordered. (3) COPD (chronic obstructive pulmonary disease): Qualifiers: COPD type: unspecified COPD Qualified Code(s): J44.9 - Chronic obstructive pulmonary disease, unspecified Code(s): J44.9 - Chronic obstructive pulmonary disease, unspecified Status: Acute Assessment and Plan: Does not appear to be having an acute exacerbation. Stable. -Continue advair BID (4) Restrictive airway disease: Code(s): J98.4 - Other disorders of lung Status: Acute Assessment and Plan: Stable. Will monitor. (5) Obstructive sleep apnea: Code(s): G47.33 - Obstructive sleep apnea (adult) (pediatric) Status: Acute Assessment and Plan: Has supplemental oxygen and will wear CPAP at night. (6) CKD (chronic kidney disease) stage 3, GFR 30-59 ml/min: Qualifiers: Chronic kidney disease stage 3 subtype: stage 3a (GFR 45-59) Qualified Code(s): N18.31 - Chronic kidney disease, stage 3a Code(s): N18.30 - Chronic kidney disease, stage 3 unspecified Status: Acute Assessment and Plan: BUN and creatinine at patient's new baseline. Unclear why creatinine increased starting March 2020. 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: without care home use Qualified Code(s): E11.40 - Type 2 diabetes mellitus with diabetic neuropathy, unspecified Code(s): E11.40 - Type 2 diabetes mellitus with diabetic neuropathy, unspecified Status: Acute Assessment and Plan: Accu-Cheks AC and HS insulin sliding scale will hold glipizide (9) Morbid (severe) obesity due to excess calories: Code(s): E66.01 - Morbid (severe) obesity due to excess calories Status: Acute Assessment and Plan: according to office visit patient is preparing for bariatric surgery lap band Subjective Date/time seen: 05/22/22 08:26 Patient says she does not feel any shortness of breath at rest but only feels worsened shortness of breath with activities like walking to the bathroom or moving around the room. She denies chest pain. Nursing reports patient is up to 5LPM. Review of Systems Cardiovascular: Cardiovascular: Denies chest pain, Denies lightheadedness and Denies palpitations Respiratory: Respiratory: Reports dyspnea on exertion Exam Narrative: GENERAL: NAD, cooperative HEENT: Normocephalic, atraumatic, anicteric NECK: Supple CV: Normal S1, S2, RRR, No MRG RESP: Diminished breath sounds. No crackles, wheezes or rhonchi. EXTREMITIES: Warm and well perfused, no clubbing, cyanosis SKIN: warm, dry and intact. NEURO: CN 2-12 grossly i
[2022-05-22 08:37] LABS: Glucose Point of Care 125 mg/dl (65-105)
[2022-05-22] MEDS: ENOXAPARIN 40 MG/0.4 ML SYRINGE SUB-Q (10:52)
[2022-05-22] MEDS: GABAPENTIN 300 MG CAPSULE PO ×3 (10:52→17:05)
[2022-05-22] MEDS: OMEGA 3 POLYUNSAT FATTY ACIDS 1 GM CAP PO (10:52)
[2022-05-22] MEDS: FLUoxetine HCL 20 MG CAPSULE 60 MG PO (10:52)
[2022-05-22] MEDS: lisinopriL 20 MG TABLET 40 MG PO (10:53)
[2022-05-22] MEDS: buPROPion HCL 75 MG TABLET PO ×2 (10:53→21:44)
[2022-05-22] MEDS: PANTOPRAZOLE 40 MG TABLET PO ×2 (10:53→17:11)
[2022-05-22] MEDS: ASPIRIN 81 MG CHEWABLE TABLET PO (10:54)
[2022-05-22] MEDS: LORATADINE 10 MG TABLET PO (10:54)
[2022-05-22] MEDS: SUMAtriptan SUCCINATE 25 MG TABLET 100 MG PO (10:54)
[2022-05-22 12:05] LABS: Glucose Point of Care 194 mg/dl (65-105)
[2022-05-22] MEDS: ACETAMINOPHEN 500 MG TABLET PO ×2 (12:49→17:11)
[2022-05-22] MEDS: PERFLUTREN LIPID MICROSPHERES 1.5 ML VIAL DILUTED TO 10 ML TOTAL VOLUME IV PUSH (16:00)
[2022-05-22 16:52] LABS: Glucose Point of Care 99 mg/dl (65-105)
[2022-05-22] MEDS: FUROSEMIDE 40 MG TABLET PO (17:05)
[2022-05-22] MEDS: LORazepam (*CRX) 0.5 MG TABLET 0.25 MG PO (18:24)
[2022-05-22] MEDS: traZODone HCL 50 MG TABLET 300 MG PO (21:44)
[2022-05-22] MEDS: CYCLOBENZAPRINE HCL 5 MG TABLET PO (21:44)
[2022-05-22] MEDS: ATORVASTATIN 40 MG TABLET 80 MG PO (21:44)
[2022-05-22 22:27] LABS: Glucose Point of Care 144 mg/dl (65-105)
[2022-05-23] VITALS (7 sets, daily range): BP systolic 151; BP diastolic 76; PULSE 61–78; RESP 16–18; TEMP 36.5; O2SAT 96
[2022-05-23] MEDS: ACETAMINOPHEN 500 MG TABLET PO ×3 (00:18→13:07)
[2022-05-23] MEDS: IPRATROPIUM BR 0.02% INH SOLN 0.5 MG/2.5 ML VIAL INHALATION ×4 (03:36→14:55)
[2022-05-23] MEDS: ALBUTEROL SULFATE NEB 2.5 MG/3 ML INH INHALATION ×4 (03:36→14:55)
[2022-05-23 06:24] LABS: Basophils Percent Auto 0.4 % (0.2-1.2); Eosinophils Absolute Auto 0.1 K/mm3 (0-0.3); Eosinophils Percent Auto 2.4 % (0-4.4); Hematocrit 36.9 % (37.0-47.0); Hemoglobin 11.5 g/dL (12.0-15.0); Immature Granulocyte Absolute 0.03 K/mm3 (0.00-0.031); Immature Granulocyte Percent A 0.6 % (0-0.5); Lymphocytes Absolute Auto 1.39 K/mm3 (0.9-3.2); Lymphocytes Percent Auto 27.4 % (18.3-44.2); Mean Corpuscular HGB Conc 31.2 g/dl (32-36); Mean Corpuscular Hemoglobin 30.9 pg (26-34); Mean Corpuscular Volume 99.2 fl (80-100); Mean Platelet Volume 10.3 fl (7.4-10.4); Monocytes Absolute Auto 0.5 K/mm3 (0.1-0.6); Monocytes Percent Auto 9.1 % (2.6-8.5); Neutrophils Absolute Auto 3.1 K/mm3 (1.3-6.7); Neutrophils Percent Auto 60.1 % (45.5-73.1); Platelet Count Result 199 k/mm3 (150-375); Red Blood Count 3.72 M/mm3 (4.2-5.4); Red Cell Distribution Width 14.3 % (11.5-14.5); White Blood Count 5.1 K/mm3 (4.5-10.0)
[2022-05-23 06:33] LABS: Anion Gap 10 mmol/L (8-16); Blood Urea Nitrogen 19 mg/dL (7-17); Calcium 8.5 mg/dL (8.4-10.2); Carbon Dioxide 28 mmol/L (22-30); Chloride 102 mmol/L (98-107); Estimated CRCL calculation 80 ml/min; Estimated Glomerular Filt Rate 47; Glucose 144 mg/dL (65-110); Sodium 140 mmol/L (137-145)
[2022-05-23] MEDS: FLUTICASONE/SALMETEROL 115-21 MCG INHALER 1 PUFF 2 PUFF INHALATION (07:53)
[2022-05-23 08:16] LABS: Glucose Point of Care 123 mg/dl (65-105)
[2022-05-23] MEDS: FLUoxetine HCL 20 MG CAPSULE 60 MG PO (08:32)
[2022-05-23] MEDS: GABAPENTIN 300 MG CAPSULE PO ×3 (08:32→17:17)
[2022-05-23] MEDS: PANTOPRAZOLE 40 MG TABLET PO (08:32)
[2022-05-23] MEDS: OMEGA 3 POLYUNSAT FATTY ACIDS 1 GM CAP PO (08:32)
[2022-05-23] MEDS: FUROSEMIDE 40 MG TABLET PO (08:32)
[2022-05-23] MEDS: buPROPion HCL 75 MG TABLET PO (08:33)
[2022-05-23] MEDS: lisinopriL 20 MG TABLET 40 MG PO (08:33)
[2022-05-23] MEDS: LORATADINE 10 MG TABLET PO (08:34)
[2022-05-23] MEDS: ASPIRIN 81 MG CHEWABLE TABLET PO (08:34)
[2022-05-23] MEDS: ENOXAPARIN 40 MG/0.4 ML SYRINGE SUB-Q (08:34)
[2022-05-23] MEDS: CYCLOBENZAPRINE HCL 5 MG TABLET PO (09:57)
--- NOTE | 2022-05-23 12:27 | PM.DS ---
DS: Admitting Diagnosis Discharge Date 05/23/2022 Admitting Diagnosis Acute on Chronic Respiratory Failure with hypoxia DS: Discharge Diagnosis Discharge Diagnosis (1) Pneumonia: Code(s): J18.9 - Pneumonia, unspecified organism Status: Acute Assessment and Plan: CXR with pulmonary opacities. BNP elevated to 492 but has been much higher up to 28,400 in the past with volume overload. With URI symptoms suspect pneumonia. Blood cultures with no growth at the time of discharge. CT chest showed cardiomegaly, atelectasis in lower lobes. Patchy airspace opacities. No effusion. Will continue treatment for community acquired pneumonia -Will be given 3rd dose of azithromycin prior to discharge -Will be given 3rd dose of ceftriaxone prior to discharge -Discharge to home with cefpodoxime to begin 05/24/22 and finish 05/27/22 (2) Respiratory failure with hypoxia: Code(s): J96.91 - Respiratory failure, unspecified with hypoxia Status: Acute Assessment and Plan: Chronic respiratory failure is at baseline with patient on 2LNC. Echo with EF 55-60% mildly increased left ventricular wall thickness, no pulmonary hypertension. The results of the echo were discussed with the patient. CT chest showed cardiomegaly, atelectasis in lower lobes. Patchy airspace opacities. Patient anxiety contributes signifiantly to increased oxygen requirement at times. Was given a one time dose of lorazepam yesterday for increased oxygen requirement due to anxiety. This was discussed with the patient. Patient on 2LNC this morning during rounds speaking in full sentences without difficulty breathing or shorntess of breath. Will discharge to home with treatment for pneumonia as noted above. (3) COPD (chronic obstructive pulmonary disease): Qualifiers: COPD type: unspecified COPD Qualified Code(s): J44.9 - Chronic obstructive pulmonary disease, unspecified Code(s): J44.9 - Chronic obstructive pulmonary disease, unspecified Status: Acute Assessment and Plan: Does not appear to be having an acute exacerbation. Stable. -Continue advair BID (4) Restrictive airway disease: Code(s): J98.4 - Other disorders of lung Status: Acute Assessment and Plan: Stable. Will monitor. (5) Obstructive sleep apnea: Code(s): G47.33 - Obstructive sleep apnea (adult) (pediatric) Status: Acute Assessment and Plan: Has supplemental oxygen and will wear CPAP at night. (6) CKD (chronic kidney disease) stage 3, GFR 30-59 ml/min: Qualifiers: Chronic kidney disease stage 3 subtype: stage 3a (GFR 45-59) Qualified Code(s): N18.31 - Chronic kidney disease, stage 3a Code(s): N18.30 - Chronic kidney disease, stage 3 unspecified Status: Acute Assessment and Plan: BUN and creatinine at patient's new baseline. Unclear why creatinine increased starting March 2020. Renal artery duplex and renal ultrasound showed no stenosis and no hydronephrosis. The left kidney was unable to be visualized due to patient body habitus. Patient creatine is within the range of her new baseline this morning. Discussed the ultrasound results and duplex results with the patient. Advised patient to follow up outpatient with primary care physician for any additional workup for the cause of her elevated creatinine. Patient verbalized understanding of the plan. Meloxicam was discontinued due to kidney function. 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
[2022-05-23 12:43] LABS: Glucose Point of Care 200 mg/dl (65-105)
[2022-05-23] MEDS: ACETYLCYSTEINE 20% INHAL SOLN 800 MG/4 ML VIAL 200 MG INHALATION (14:56)
== END 2022-05-23 18:13 | disposition home or self-care (01) | DRG 139 ==
LOC: ANHED 21:24 → ANHIMU 05-21 01:37 → ANH3MEDSUR 05-21 17:55
PROVIDERS: Emergency Medicine; Admitting Provider Internal Medicine; Emergency Provider Preventive Medicine Aerospace Medicine; PCP Family Medicine; Visit Provider Family Medicine
DX: J18.9 Pneumonia, unspecified organism (principal); J96.11 Chronic respiratory failure with hypoxia; E11.22 Type 2 diabetes mellitus with diabetic chronic kidney disease; E11.42 Type 2 diabetes mellitus with diabetic polyneuropathy; N18.31 Chronic kidney disease, stage 3a; I48.0 Paroxysmal atrial fibrillation; J44.0 Chronic obstructive pulmonary disease with (acute) lower respiratory infection; J98.4 Other disorders of lung; G47.33 Obstructive sleep apnea (adult) (pediatric); E66.01 Morbid (severe) obesity due to excess calories; I25.10 Atherosclerotic heart disease of native coronary artery without angina pectoris; M06.9 Rheumatoid arthritis, unspecified; M79.7 Fibromyalgia; E55.9 Vitamin D deficiency, unspecified; F41.8 Other specified anxiety disorders; Z68.43 Body mass index [BMI] 50.0-59.9, adult; Z95.1 Presence of aortocoronary bypass graft; I25.2 Old myocardial infarction; Z90.710 Acquired absence of both cervix and uterus; Z87.891 Personal history of nicotine dependence
CPT/HCPCS: 36415; 71046; 71250; 76770; 80048; 80053; 82948; 83880; 84484; 85025; 85610; 85730; 87040; 93005; 93976; 94640; 94660; 96365; 96374; 96375; 96376; 99285; A9270; C8929; C9803; G0378; G0379; J0360; J0456; J0696; J1650; J1815; J1940; Q9957; U0003; U0005

== ENCOUNTER 2022-11-12 18:15 | Inpatient (IN) | payer MEDICARE, MEDICAID, SELFPAY ==
[2022-11-12] VITALS (7 sets, daily range): BP systolic 110–187; BP diastolic 93–143; PULSE 114–128; RESP 21–36; TEMP 36.7; O2SAT 88–95
--- NOTE | ~2022-11-12 | CT_ITS ---
EXAMINATION: CTA chest PE protocol DATE: 11/12/2022 22:15 INDICATION: Shortness of breath and hypoxia TECHNIQUE: Computed tomography angiography (CTA) of the chest was performed with 100 mL Omnipaque-350 intravenous contrast timed to evaluate the pulmonary arteries. Coronal maximum intensity projection 3D-reconstructions were created by the technologist. The dose-length product (DLP) was 1036.18 mGy-cm . Automated exposure control and iterative reconstruction technique were employed. COMPARISON: 05/22/2022 FINDINGS: The pulmonary arteries are well-opacified. No pulmonary embolism is identified. There are s mall pleural effusions. There is enlargement of the main and central pulmonary arteries, consistent w ith pulmonary hypertension. Respiratory motion artifact slightly limits the examination. There are ar eas of smooth interlobular septal thickening. There are groundglass opacities of the lungs with a mid and lower lung zone predominance. There is no pneumothorax. Cardiomegaly is noted. There are changes of mitral annulus repair. There are no pathologically enlarged thoracic lymph nodes. There is modera te thoracic spondylosis. IMPRESSION: 1. No pulmonary embolus identified. 2. Areas of smooth interlobular septal thickening and groundglass opacities with a mid and lower lung zone predominance, consistent with pulmonary edema. Superimposed pneumonia is not excluded. 3. Cardiomegaly. 4. Findings consistent with pulmonary hypertension. Reviewed, dictated and finalized at location F. IMPRESSION: 1. No pulmonary embolus identified. 2. Areas of smooth interlobular septal thickening and groundglass opacities wit h a mid and lower lung zone predominance, consistent with pulmonary edema. Supe rimposed pneumonia is not excluded. 3. Cardiomegaly. 4. Findings consistent with pulmonary hypertension.
--- NOTE | ~2022-11-12 | XR_ITS ---
EXAMINATION: XR barium swallow modified DATE: 11/21/2022 12:24 INDICATION: Choking episode TECHNIQUE: Modified barium esophagram was performed by myself who administered fluoroscopy, in conju nction with speech pathologist who administered barium in varying consistencies as per speech patholo gist documentation. This was recorded on tape. A single fluoroscopic spot image was recorded. Fluoros copy exposure time was 3.2 minutes. The DAP for this procedure was 2.881 Gycm2. FINDINGS: Oral stage: Adequate function. Pharyngeal phase: Adequate function. Laryngeal penetration: Trace with thin liquids. Aspiration: None. Laryngeal sensitivity: Present. IMPRESSION: Abnormal modified barium swallow. Please refer to speech pathologist findings and specifi c feeding recommendations. Reviewed, dictated and finalized at location A. IMPRESSION: Abnormal modified barium swallow. Please refer to speech pathologis t findings and specific feeding recommendations.
--- NOTE | ~2022-11-12 | XR_ITS ---
EXAMINATION: XR chest 1V portable INDICATION: Chest congestion TECHNIQUE: Portable AP chest at 1158 hours COMPARISON: 11/12/2022 FINDINGS: Cardiomegaly is noted. There is a mild diffuse interstitial pattern with interval improveme nt. No pleural effusion or pneumothorax. Changes of cardiac valve repair are noted. IMPRESSION: 1. Cardiomegaly with improving pulmonary edema. Reviewed, dictated and finalized at location A.
--- NOTE | ~2022-11-12 | XR_ITS ---
EXAMINATION: XR chest 1V portable INDICATION: Shortness of breath TECHNIQUE: Portable AP chest at 1900 hours COMPARISON: 05/20/2022 FINDINGS: Cardiomegaly is noted. There are interstitial and airspace opacities throughout the lungs. Small pleural effusions are suggested. There is no pneumothorax. Changes of cardiac valve repair are noted. IMPRESSION: 1. Diffuse lung disease, consistent with pulmonary edema versus pneumonia. 2. Cardiomegaly. Reviewed, dictated and finalized at location F.
--- NOTE | ~2022-11-12 | XR_ITS ---
EXAMINATION: XR chest 1V portable Exam Date/Time: 11/21/2022 14:52 CDT HISTORY: Shortness of breath Comparison: 11/15/2022, CTPA 11/12/2022. RESULT: Lines, tubes, and devices: Longitudinally oriented sternotomy wire is fractured in multiple location s, but stable in position. More typical appearing additional sternotomy wires are intact. Lungs and pleura: Improving left lower lung airspace disease. Diffuse reticular opacities, may repre sent persistent edema. Scattered, somewhat linear subsegmental bilateral lower lung opacities are sta ble and may represent atelectasis/scar. Cardiomediastinal silhouette: Stable. Other: No acute osseous or upper abdominal finding. IMPRESSION: Improving aeration of the left lower lung, otherwise unchanged. Reviewed, dictated and finalized at location K.
--- NOTE | 2022-11-12 18:18 | ECG_ITS ---
Measurements Intervals [place] Rate: 110 P: MO: 0 QRS: -59 QRSD: 130 T: 123 QT: 362 QTc: 491 Interpretive Statements ATRIAL FIBRILLATION WITH RAPID VENTRICULAR RESPONSE LEFT ANTERIOR FASCICULAR BLOCK MINIMAL VOLTAGE CRITERIA FOR LVH, CONSIDER NORMAL VARIANT ST DEVIATION AND MODERATE T-WAVE ABNORMALITY, CONSIDER LATERAL ISCHEMIA ABNORMAL ECG COMPARED TO ECG 05/20/2022 21:06:51 ATRIAL FIBRILLATION NOW PRESENT Electronically Signed On 11-13-2022 16:34:02 CDT by Lavell Prado M.D.
--- NOTE | 2022-11-12 18:30 | ED.SOB ---
HPI - SOB/Dyspnea General Chief Complaint: Shortness of Breath/Dyspnea Stated Complaint: sob Time Seen by Provider: 11/12/22 18:28 Source: patient Mode of arrival: ambulatory Limitations: no limitations History of Present Illness HPI Narrative: Patient is a 57-year-old female with a history of hypertension, hyperlipidemia, NSTEMI, heart failure, COPD, restrictive lung disease, presenting to the emergency department for evaluation of shortness of breath. Patient states she typically is on 2 L of oxygen at home but had turned that up to 4 L over the past 48 hours due to difficulty breathing. Patient reports mild cough and wheezing. She reports bilateral lower leg swelling without redness or pain. Patient denies any chest pain but reports significant shortness of breath with minimal exertional activity or even just talking. Time of assessment, patient is oxygen saturation is 86% on room air, titrated up to 4 and then 6 L via nasal cannula. Patient does utilize CPAP at home. After discussion, plan to initiate that in the emergency department. Patient reports she has been compliant with her medications. Denies fever, chills, nausea or vomiting. No frontal chest pain. No pleuritic pain. No recent sick contacts. Related Data Home Medications Medication Instructions Recorded Confirmed acetaminophen 650 mg 500 mg PO Q6H 11/11/20 05/21/22 tablet,extended release (Tylenol 8 Hour) omega-3 fatty acids-vitamin E 1 cap PO DAILY 01/29/21 05/21/22 1,000 mg capsule atorvastatin 80 mg tablet 80 mg PO QHS 12/09/21 05/21/22 furosemide 40 mg tablet 40 mg PO BID 12/09/21 05/21/22 budesonide-formoterol HFA 160 2 puff inhalation BID 05/21/22 05/21/22 mcg-4.5 mcg/actuation aerosol inhaler (Symbicort) fexofenadine 180 mg tablet 180 mg PO DAILY 05/21/22 05/21/22 lisinopril 40 mg tablet 40 mg PO DAILY 05/21/22 05/21/22 omeprazole 40 mg capsule,delayed 40 mg PO DAILY 05/21/22 05/21/22 release sumatriptan succinate 100 mg tablet 100 mg PO PRN PRN Headache 05/21/22 05/21/22 trazodone 300 mg tablet 300 mg PO HS 05/21/22 05/21/22 Allergies Allergy/AdvReac Type Severity Reaction Status Date / Time adhesive tape Allergy Unknown Hives / Verified 11/12/22 18:33 Red Face Review of Systems Review of Systems: CONSTITUTIONAL: Denies fever, chills, or sweats. EYES: Denies visual changes, redness, or discharge. ENT: Denies rhinorrhea, congestion, sore throat, or otalgia. CARDIOVASCULAR: Denies chest pain, palpitations, reports bilateral lower leg swelling RESPIRATORY: Reports cough and shortness of breath GASTROINTESTINAL: Denies abdominal pain, nausea, vomiting, or diarrhea. GENITOURINARY: Denies dysuria or hematuria. SKIN: Denies rash or itching. MUSCULOSKELETAL: Denies back pain, joint pain, or myalgia. NEUROLOGIC: Denies headache, numbness, or weakness. [facility] Past Medical History Medical History Abdominal pain Acute dehydration Acute respiratory failure Anxiety Asthma Atrial fibrillation with rapid ventricular response Cellulitis Chest tightness CHF (congestive heart failure) Echo 05/31/20 LVef: 40-45% Chronic back pain Secondary to degenerative disc disease. Chronic headaches Claustrophobia Congestion of nasal sinus Coughing Depression with anxiety Diabetic peripheral neuropathy Dizziness Ear pain Endocarditis (~06/2020) Essential hypertension Excessive thirst Fibromyalgia Heart attack High blood cholesterol History of blood clots Hoarseness Hyperlipidemia Insomnia Light headedness Morbid obesity Nausea & vomiting Neuropathy Obstructive sleep apnea It is my understanding that she does not wear a CPAP at nighttime. Obstructive sleep apnea Osteoarthritis of left knee Osteomyelitis Pneumonia Rheumatoid arthritis Seasonal rhinitis Severe sepsis Sleep apnea SOB (shortness of breath) Type 2 diabetes mellitus Hemoglobin A1c was 7.8% on 12/26/2019. Cherri
[2022-11-12] MEDS: SODIUM CHLORIDE 0.9% IV 500 ML 999 ML IV CONT (18:50)
[2022-11-12] MEDS: methylPREDNISolone SOD SUCC 125 MG VIAL IV PUSH (18:50)
[2022-11-12] MEDS: LEVALBUTEROL NEB 1.25 MG/3 ML INHALATION (18:56)
[2022-11-12] MEDS: IPRATROPIUM BR 0.02% INH SOLN 0.5 MG/2.5 ML VIAL 1 MG INHALATION (18:56)
[2022-11-12 19:00] LABS: Alveolar/Arterial O2 Gradient 210.6 mmHg; Base Excess ABG -3.3 mEq/l (+/-2.0); Carboxyhemoglobin 1.3 % THb (0-2.0); Device NASAL CANNULA; Fractional Inspired Oxygen 44 %; HCO3 ABG 21.1 mEq/l (22.0-26.0); Methemoglobin ABG 0.3 %THb (0-1.5); Modified Allen's Test Pass; Oxygen Saturation ABG 91.8 % (95.0-100.0); Oxyhemoglobin 89.8 % THb (90.0-100.0); PCO2 ABG 35.9 mmHg (35.0-45.0); PO2 ABG 62.2 mmHg (80.0-100.0); PO2 FiO2 Ratio Arterial Blood 1.41 %; Reduced Hemoglobin 8.6 %THb (0-5.0); Site Drawn RIGHT RADIAL; Total Hemoglobin 14.3 g/dL (12.0-18.0); pH ABG 7.387 (7.350-7.450)
[2022-11-12 19:05] LABS: Basophils Percent Auto 0.5 % (0.2-1.2); Eosinophils Absolute Auto 0.1 K/mm3 (0-0.3); Eosinophils Percent Auto 0.8 % (0-4.4); Hematocrit 42.5 % (37.0-47.0); Hemoglobin 13.7 g/dL (12.0-15.0); Immature Granulocyte Absolute 0.05 K/mm3 (0.00-0.031); Immature Granulocyte Percent A 0.6 % (0-0.5); Lymphocytes Absolute Auto 1.25 K/mm3 (0.9-3.2); Lymphocytes Percent Auto 14.7 % (18.3-44.2); Mean Corpuscular HGB Conc 32.2 g/dl (32-36); Mean Corpuscular Hemoglobin 30.6 pg (26-34); Mean Corpuscular Volume 94.9 fl (80-100); Mean Platelet Volume 10.9 fl (7.4-10.4); Monocytes Absolute Auto 0.5 K/mm3 (0.1-0.6); Monocytes Percent Auto 6.3 % (2.6-8.5); Neutrophils Absolute Auto 6.6 K/mm3 (1.3-6.7); Neutrophils Percent Auto 77.1 % (45.5-73.1); Platelet Count Result 188 k/mm3 (150-375); Red Blood Count 4.48 M/mm3 (4.2-5.4); Red Cell Distribution Width 14.2 % (11.5-14.5); White Blood Count 8.5 K/mm3 (4.5-10.0)
[2022-11-12 19:12] LABS: Lactic Acid Reflex 1.8 mmol/L (0.7-2.0)
[2022-11-12 19:16] LABS: Prothrombin Time 12.9 Seconds (11.1-14.7)
[2022-11-12 19:17] LABS: Alanine Aminotransferase 27 U/L (6-35); Alkaline Phosphatase 90 U/L (38-126); Anion Gap 9 mmol/L (8-16); Aspartate Amino Transferase 21 U/L (14-36); Bilirubin,Total 0.8 mg/dL (0.2-1.3); Blood Urea Nitrogen 20 mg/dL (7-17); Calcium 8.5 mg/dL (8.4-10.2); Carbon Dioxide 23 mmol/L (22-30); Chloride 107 mmol/L (98-107); Estimated CRCL calculation 89 ml/min; Estimated Glomerular Filt Rate 58; Glucose 283 mg/dL (65-110); Partial Thromboplastin Time 29.7 SECONDS (22.3-36.8); Potassium 3.7 mmol/L (3.4-5.0); Sodium 139 mmol/L (137-145)
[2022-11-12 19:25] LABS: NT Pro B Type Natriuretic Pept 6260 pg/mL (19.9-100)
[2022-11-12 19:27] LABS: Troponin I 0.026 ng/mL (0.000-0.034)
[2022-11-12 19:40] LABS: Influenza A QL RT-PCR Negative (Negative); Influenza B QL RT-PCR Negative (Negative); RSV RNA, RT-PCR Negative (Negative); SARS-CoV-2 RNA PCR Negative
[2022-11-12] MEDS: FUROSEMIDE INJ 40 MG/4 ML VIAL IV PUSH (20:43)
[2022-11-12] MEDS: METOPROLOL TARTRATE INJ 5 MG/5 ML VIAL IV PUSH (21:47)
[2022-11-12] MEDS: ENOXAPARIN 80 MG/0.8 ML SYRINGE 150 MG SUB-Q (21:55)
--- NOTE | 2022-11-12 23:54 | PM.IMHP ---
H&P: HPI History of Present Illness Date/Time: 11/12/22 23:54 Chief Complaint: Shortness of breath and chest pain Narrative: 57-year-old female with past medical history chronic hypoxic respiratory failure, mitral valve annuloplasty, morbid obesity, obstructive sleep apnea, type 2 diabetes mellitus, congestive heart failure with preserved ejection fraction and COPD/asthma who presented to the ER with shortness of breath. In the ER the patient was noted to be in atrial fibrillation with rapid ventricular response. The patient initially did not appear to have a history of atrial fibrillation but I found a mention of a brief episode of AFib in January of 2020 on any H&P at which time patient converted back into normal sinus rhythm spontaneously after she was intubated. The patient reports that she had open-heart surgery and has documentation of a mitral valve annuloplasty and one-vessel coronary artery bypass graft in 2018. She had had a non STEMI in 2019 but never followed up for cardiac catheterization. She reports that for the last month she has been having increased dyspnea more so on exertion. Her symptoms more acutely worsened over the last 2 weeks. She has chronic 4-5 pillow orthopnea and or sleeps in a recliner. She reports that her legs have been more swollen over the last 7-10 days and she had trouble getting her shoes on yesterday to leave her son's house. She has also noticed increased abdominal distension. She reports that she feels like her heart has been fluttering ordered off for about a month. More consistently so over the last couple of weeks. When she gets up to exert herself the fluttering is faster. She reports that this morning she was sitting at rest when she began having left shoulder pain that radiated down into her arm but also radiated across her chest and into her bilateral shoulder blades. She denied having any nausea or diaphoresis. She reports that she has chronic respiratory failure in that her oxygen level was increased up to 3 L nasal cannula not too long ago from 2 L. Since she was having increased dyspnea on exertion she did increase her oxygen up to 4 L nasal cannula but was still only satting 86-88% in the ER. She reports that her old [facility] used to be Dr. Fitzpatrick. She had a bad interaction with Dr. Fitzpatrick when she was was have a stress test last month and has now transitioned her care to a new [facility] in [place]. She is post have her 1st appointment with them next week. She has been seen by Dr. Erwin here in the past. She reports that she is compliant with her CPAP had her last sleep study in November of 2020 which recommended a CPAP of 10. She always has a little bit of a cough that is usually productive of yellow sputum. She reports that occasionally over the last week or so she has had some yellow to brownish sputum as well. She denies any fevers or chills. She has been belching and she reports that it smells like bad eggs. She was post have an EGD tomorrow in preparation for weight loss surgery in [place]. She has never had a colonoscopy. She reports frequent diarrhea whenever she drinks milk products but otherwise has been having mostly constipation with hard stools. She denies any hematochezia or melena. She denies any hematuria. She has chronic urinary frequency and urgency. She denies dysuria. She reports frequent headaches that she describes as migraines. She states that she had imaging not will go that suggested she may have any aneurysm. She states the imaging was performed here. 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 The patient states that the pain is severe in intensity in no relieving factors. She also reports that her chest pain is a moderate to severe and constant without eliciting or relieving factors. She denies any fevers. Review of Systems Review of Systems: 12 systems were reviewed with pertinent pos
[2022-11-13] VITALS (31 sets, daily range): BP systolic 128–162; BP diastolic 84–129; PULSE 58–117; RESP 18–24; TEMP 35.7–36.6; O2SAT 91–98; BMI 50.2
--- NOTE | 2022-11-13 | ECHO_ITS ---
Patient Info Name: Apple Littlejohn Age: 57 years : 1965 Gender: Female Ht: 69 in Wt: 340 lbs BSA: 2.83 m2 HR: 90 bpm BP: 154 / 113 mmHg Heart Rhythm: Atrial Fibrillation Technical Quality: Poor Exam Date: 11/13/2022 10:19 AM Exam Location: [facility] Patient Status: Inpatient Admit Date: 11/13/2022 Staff Ordering Physician: Gillian Domingo DO Teacher Education Instructor: Jessika Cruz RDCS Attending Provider: Gillian Domingo DO Referring Physician: Jose L QIU; Exam Type: CA echo dop color flow w con Study Info Indications - atrial fibrillation, heart failure Complete two-dimensional, color flow and Doppler transthoracic echocardiogram is performed with contrast to opacify the left ventricle and to improve the deliniation of the left ventricle endocardial borders. Contrast/Agitated Saline Contrast/Ag. Saline: Definity Amount: 3.00 ml Administered By: Jessika Cruz RDCS Existing IV Access: Yes IV Access Condition: patent with no signs of infiltration Summary 1. Technically suboptimal study due to poor sonographic images. 2. Definity contrast administered improved wall motion interpretation. 3. Left ventricular chamber dimension is mildly enlarged. 4. Left ventricular systolic function is mildly globally reduced, estimated at 45-50%. 5. There is mild concentric increased left ventricular wall thickness. 6. The left ventricular diastolic function is abnormal. 7. E/e' 27 is elevated. 8. Left atrial chamber dimension is moderately enlarged. 9. The mitral valve has moderately calcified annulus. 10. No pulmonary hypertension, estimated pulmonary arterial systolic pressure is 29 mmHg. Left Ventricle E/e' 27 is elevated. Technically suboptimal study due to poor sonographic images. Definity contrast administered improved wall motion interpretation. Left ventricular chamber dimension is mildly enlarged. Left ventricular systolic function is mildly globally reduced, estimated at 45-50%. There is mild concentric increased left ventricular wall thickness. The left ventricular diastolic function is abnormal. Right Ventricle Right ventricular chamber dimension is normal. Right ventricular systolic function is normal. Left Atria Left atrial chamber dimension is moderately enlarged. Right Atria Right atrial chamber dimension is normal. Aortic Valve The aortic valve is not well visualized. Cannot determine number of aortic valve leaflets. There is no aortic valve stenosis. There is no aortic valve regurgitation. Pulmonic Valve There is no pulmonic regurgitation. Mitral Valve The mitral valve has moderately calcified annulus. There is no mitral valve stenosis. There is no mitral valve regurgitation. Tricuspid Valve There is no tricuspid valve regurgitation. No pulmonary hypertension, estimated pulmonary arterial systolic pressure is 29 mmHg. Pericardium/Pleural There is no pericardial effusion. Inferior Vena Cava Normal inferior vena cava with >50% collapse upon inspiration consistent with normal right atrial pressure, 5 mmHg. Aorta The aortic root size at the sinus of Valsalva is normal. Left Ventricular Outflow Tract Name Value Normal LVOT 2D
--- NOTE | 2022-11-13 01:14 | ADMGEN ---
This patient, Apple Littlejohn, was admitted to IMU Room 213-01 at 0055. Patient/family oriented to hospital policies and general routines including ID bracelet, bed and alarms, visiting hours, pain management, procedures, bathroom and other care routines, personal items, smoking policy, room service/diet, and visiting hours. Information on how to activate the Rapid Response Team has been discussed. Patient/Family are encouraged to report perceived risks to care and to ask questions if they do not understand what they are told or what they should do.
[2022-11-13 02:03] LABS: Troponin I 0.021 ng/mL (0.000-0.034)
[2022-11-13] MEDS: IPRATROPIUM BR 0.02% INH SOLN 0.5 MG/2.5 ML VIAL INHALATION ×4 (02:10→21:55)
[2022-11-13] MEDS: LEVALBUTEROL NEB 1.25 MG/3 ML 0.63 MG INHALATION ×4 (02:10→21:55)
[2022-11-13] MEDS: SUMAtriptan SUCCINATE 25 MG TABLET 100 MG PO ×2 (03:10→10:06)
[2022-11-13] MEDS: carvediloL 6.25 MG TABLET PO ×2 (03:10→09:02)
[2022-11-13] MEDS: buPROPion HCL XL (24 HR) 150 MG TABCR PO ×2 (03:10→21:45)
[2022-11-13] MEDS: MELATONIN 5 MG TABLET 10 MG PO ×2 (03:11→21:44)
[2022-11-13] MEDS: GABAPENTIN 300 MG CAPSULE PO ×4 (03:11→17:18)
[2022-11-13] MEDS: traZODone HCL 50 MG TABLET 300 MG PO ×2 (03:11→21:45)
[2022-11-13 04:14] LABS: Troponin I 0.018 ng/mL (0.000-0.034)
[2022-11-13] MEDS: dilTIAZem HCl INJ 25 MG/5 ML VIAL 10 MG IV PUSH (05:11)
[2022-11-13] MEDS: dilTIAZem 100 MG/100 ML 100 MG/100 ML BAG IV CONT (05:12)
[2022-11-13] MEDS: FLUTICASONE/SALMETEROL 115-21 MCG INHALER 1 PUFF 2 PUFF INHALATION ×2 (07:40→21:55)
--- NOTE | 2022-11-13 08:26 | PM.CNCAR ---
Assessment and Plan Assessment and plan (1) S/P MVR (mitral valve repair): Code(s): Z98.890 - Other specified postprocedural states Status: Acute (2) Hyperlipidemia: Qualifiers: Hyperlipidemia type: unspecified Qualified Code(s): E78.5 - Hyperlipidemia, unspecified Code(s): E78.5 - Hyperlipidemia, unspecified Status: Acute Assessment and Plan: On Atorvastatin. (3) Paroxysmal A-fib: Code(s): I48.0 - Paroxysmal atrial fibrillation Status: Acute Assessment and Plan: [id number]. Rate controlled currently on Diltiazem drip. Start Sotalol 80 mg PO every 12 hours. Start Eliquis 5 mg PO BID. Check EKG 1-2 hours post each Sotalol dose to check QT interval. Anticipate 2 more night stay. (4) Hypertension: Qualifiers: Hypertension type: essential hypertension Qualified Code(s): I10 - Essential (primary) hypertension Code(s): I10 - Essential (primary) hypertension Status: Chronic Assessment and Plan: Stable. (5) CAD (coronary artery disease), autologous vein bypass graft: Code(s): I25.810 - Atherosclerosis of coronary artery bypass graft(s) without angina pectoris Status: Acute Assessment and Plan: Stable. (6) Diastolic dysfunction: Code(s): I51.89 - Other ill-defined heart diseases Status: Acute Assessment and Plan: Acute on chronic. On Lasix 40 mg IV BID. Obtain echo. (7) Ascending aortic aneurysm: Code(s): I71.2 - Thoracic aortic aneurysm, without rupture Status: Acute Assessment and Plan: Stable. History of Present Illness History of Present Illness Consult date/time: 11/13/22 08:26 Reason For Visit: a fib with rvr,copd exacerbation,chf exacerbation Narrative: 56 yr old woman who is my regular cardiology patient presents to ER with sob and palpitations. 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 Reports she felt palpitations for last 1 month off and on. She has worsened MIN at walking just to restroom. She has edema of legs and orthopnea. Reports fatigue. She is sleeping well with her CPAP. She is on oxygen 2 l/m for COPD. Denies chest pain, sob, PND, dizziness. CARDIOVASCULAR PROCEDURES 06/05/20 [facility]: MV repair with mattress pericardial pledget repair of posterior leaflet P1 perforation. MV annuloplasty ring with 32 mm [employer] ring, serial number [id number]. CABG x1 wit SVG to right PDA. Resection of bilateral atrial appendages. ECHO/MUGA: 11/04/20 Echo: EF 55-60%, mod LVH, diastolic dysfunction (E/e' 33), mild biatrial enlargement, annuoplasty ring with mod MAC, mild MS (USMAN 1.5 cm2 by VTI), RVSP 40 mmHg. 06/05/20 Periop CARMINE at [place]: EF 40-45%, severe LVH, mod LAE, ascending aorta is mildly dilated, trace AI, mod-severe MR and post surgery, prosthetic ring in mitral annulus with trace MR. 03/12/[address] Esparza: EF 55%, small vegetation on P1 of MV leaflet, mod-severe MR, mild LAE. 03/16/20 Echo: EF 51%, mild lVH, mobile echogenic vegetation on poterior MV leaflet, mild MR. Echo (EF 65%, mild LVE, mod LVH, diastolic dysfunction (E/E' 24), mild LAE.) - 01/07/2018 ELECTROPHYSIOLOGY: 10/17/20 21 days event monitor: Sinus rhythm, HR range 43-120 bpm; average 60 bpm; 4% PAC's and 1% PVC's. 10/17/20 EKG: Sinus rhythm, borderline AV conduction delay, LBBB. 03/16/20 EKG: Sinus rhythm, first degree AV block, RAD, IVCD, BRWP, inferior infarct, age indeterminate. EKG (Sinus rhythm, LAFB, LVH and ST-T change, PRWP, ST-T wave abnormality- consider lateral ischemia.) - 11/05/2018 STRESS TESTS: 11/04/21 [facility] Lexiscan myoview: Negative for ischemia. MPI (Lexiscan myoview: Negative for ischemia.) - 01/02/2019 VASCULAR: 07/22/21 Venous duplex: No DVT of both legs. Venous Duplex (Negative for DVT of right leg.) - 12/13/2018 PARDIP (PRADIP right
[2022-11-13] MEDS: FUROSEMIDE INJ 40 MG/4 ML VIAL IV PUSH ×2 (09:01→17:19)
[2022-11-13] MEDS: INSULIN ASPART (*BKC) 100 UNITS/ML SUB-Q (09:01)
[2022-11-13] MEDS: EMPAGLIFLOZIN 25 MG TABLET PO (09:01)
[2022-11-13] MEDS: metFORMIN HCL XR 500 MG TAB.SR.24H 1000 MG PO ×2 (09:02→17:18)
[2022-11-13] MEDS: glipiZIDE XL 5 MG TABCR PO ×2 (09:02→17:18)
[2022-11-13] MEDS: MECLIZINE HCL 25 MG TABLET PO (09:02)
[2022-11-13] MEDS: LORATADINE 10 MG TABLET PO (09:02)
[2022-11-13] MEDS: MELOXICAM 7.5 MG TABLET PO ×2 (09:02→21:45)
[2022-11-13] MEDS: EZETIMIBE 10 MG TABLET PO (09:03)
[2022-11-13] MEDS: lisinopriL 20 MG TABLET 40 MG PO (09:03)
[2022-11-13] MEDS: FLUoxetine HCL 20 MG CAPSULE 60 MG PO (09:03)
[2022-11-13] MEDS: PANTOPRAZOLE 40 MG TABLET PO (09:03)
[2022-11-13] MEDS: ASPIRIN 81 MG CHEWABLE TABLET PO (09:03)
[2022-11-13 09:28] LABS: Glucose Point of Care 334 mg/dl (65-105)
[2022-11-13] MEDS: APIXABAN 5 MG TABLET PO ×2 (10:07→21:43)
[2022-11-13] MEDS: SOTALOL HCL 80 MG TABLET PO ×2 (10:07→21:45)
[2022-11-13] MEDS: PERFLUTREN LIPID MICROSPHERES 1.5 ML VIAL DILUTED TO 10 ML TOTAL VOLUME IV PUSH (10:59)
--- NOTE | 2022-11-13 11:00 | IVDEFINITY ---
Prior to administration of IV Definity the patient was educated on the risks and benefits of the imaging enhancing agent including potential adverse side effects. The patient verbalized understanding. Allergies were verified. No exclusion criteria were identified and at least one of the following inclusion criteria were met: 1) physician request, 2) patient technically difficult to image (per the [place] [employer] guidelines of two or more segments not discernable within the apical view), or 3) questionable left ventricular function. ?
--- NOTE | 2022-11-13 12:00 | ECG_ITS ---
Measurements Intervals [place] Rate: 71 P: [place]: 0 QRS: -41 QRSD: 134 T: 238 QT: 423 QTc: 461 Interpretive Statements ATRIAL FIBRILLATION LEFT AXIS DEVIATION INTRAVENTRICULAR CONDUCTION DELAY ABNORMAL ECG COMPARED TO ECG 11/12/2022 18:22:23 LEFT-AXIS DEVIATION NOW PRESENT HEART RATE HAS DECREASED Electronically Signed On 11-13-2022 16:53:05 CDT by Lavell Prado M.D.
[2022-11-13 16:59] LABS: Glucose Point of Care 192 mg/dl (65-105)
--- NOTE | 2022-11-13 17:00 | PM.IMPN ---
Progress Note: A&P Assessment and Plan (1) Atrial fibrillation with rapid ventricular response: Code(s): I48.91 - Unspecified atrial fibrillation Status: Acute (2) CHF exacerbation: Qualifiers: Heart failure type: right-sided Qualified Code(s): I50.813 - Acute on chronic right heart failure Code(s): I50.9 - Heart failure, unspecified Status: Acute (3) Respiratory failure with hypoxia: Qualifiers: Chronicity: acute on chronic Qualified Code(s): J96.21 - Acute and chronic respiratory failure with hypoxia Code(s): J96.91 - Respiratory failure, unspecified with hypoxia Status: Acute (4) Recurrent headache: Code(s): R51.9 - Headache, unspecified Status: Acute (5) Type 2 diabetes mellitus with hyperglycemia, without long-term current use of insulin: Code(s): E11.65 - Type 2 diabetes mellitus with hyperglycemia Status: Acute (6) Obstructive sleep apnea on CPAP: Code(s): G47.33 - Obstructive sleep apnea (adult) (pediatric); Z99.89 - Dependence on other enabling machines and devices Status: Acute Plan The patient has acute CHF exacerbation likely due to combination of right-sided heart failure/pulmonary hypertension given evidence of pulmonary hypertension noted on CTA of the chest a had atrial fibrillation with rapid ventricular response resulting in some high-output heart failure. The will place patient on Cardizem drip 5 mg an hour and will give patient a Cardizem push of 10 mg. I will also increase the patient's home Coreg to 6.25 mg p.o. b.i.d. with 1st dose nail. Will consult Dr. Erwin from Cardiology as he has seen the patient in the distant past. The patient will likely need long-term anticoagulation given her chads Vasc score of at least 6. Patient did receive 1 dose of therapeutic Lovenox in the ER. I will defer which anticoagulant to start to Cardiology Service. The patient is aware that she would benefit from long-term anticoagulation to decrease stroke risk. Will monitor strict I&O's and daily weights. Will start the patient on Lasix 40 mg IV b.i.d. and monitor renal function closely given her history of chronic kidney disease stage 3. Will check echocardiogram to further evaluate patient's cardiac structure and function given her recent decompensation. The patient does have increased oxygen requirement from baseline. Will wean oxygen as tolerated. Nighttime CPAP has been ordered. Patient has type 2 diabetes with hyperglycemia. Will continue the patient's oral hypoglycemic agents. Her once weekly injection medication is on hold as it is not available in the hospital. Will place patient on high-dose sliding scale insulin with Accu-Cheks a.c. HS and hypoglycemia protocol. Patient has been admitted as observation status. 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 In the ER the patient was noted to be in atrial fibrillation with rapid ventricular response.? The patient initially did not appear to have a history of atrial fibrillation but I found a mention of a brief episode of AFib in January of 2020 on any H&P at which time patient converted back into normal sinus rhythm spontaneously after she was intubated.? The patient reports that she had open-h
[2022-11-13 17:30] LABS: Glucose Point of Care 190 mg/dl (65-105)
[2022-11-13 20:13] LABS: Glucose Point of Care 203 mg/dl (65-105)
[2022-11-13] MEDS: ATORVASTATIN 40 MG TABLET 80 MG PO (21:45)
--- NOTE | 2022-11-13 22:59 | ECG_ITS ---
Measurements Intervals [place] Rate: 69 P: [place]: 0 QRS: -44 QRSD: 139 T: 151 QT: 451 QTc: 484 Interpretive Statements ATRIAL FIBRILLATION MARKED LEFT AXIS DEVIATION [QRS AXIS < -30] INTRAVENTRICULAR CONDUCTION DELAY [130+ ms QRS DURATION] MINIMAL VOLTAGE CRITERIA FOR LVH, CONSIDER NORMAL VARIANT [MEETS CRITERIA IN ONE OF: R(aVL), S(V1), R(V5), R(V5/V6)+S(V1)] INTERPRETATION BASED ON A DEFAULT AGE OF 40 YEARS COMPARED TO ECG 11/13/2022 12:27:43 NO SIGNIFICANT CHANGES Electronically Signed On 11-14-2022 22:12:16 CDT by Ciara Noland M.D.
[2022-11-14] VITALS (23 sets, daily range): BP systolic 126–141; BP diastolic 74–94; PULSE 56–100; RESP 16–20; TEMP 36–36.6; O2SAT 96–100
[2022-11-14] MEDS: IPRATROPIUM BR 0.02% INH SOLN 0.5 MG/2.5 ML VIAL INHALATION ×4 (01:34→20:54)
[2022-11-14] MEDS: LEVALBUTEROL NEB 1.25 MG/3 ML 0.63 MG INHALATION ×4 (01:34→20:56)
--- NOTE | 2022-11-14 07:20 | PM.PNCARD ---
Progress Note: A&P Assessment and Plan (1) S/P MVR (mitral valve repair): Code(s): Z98.890 - Other specified postprocedural states Status: Acute Assessment and Plan: Stable. (2) Hyperlipidemia: Qualifiers: Hyperlipidemia type: unspecified Qualified Code(s): E78.5 - Hyperlipidemia, unspecified Code(s): E78.5 - Hyperlipidemia, unspecified Status: Acute Assessment and Plan: On Atorvastatin. (3) Paroxysmal A-fib: Code(s): I48.0 - Paroxysmal atrial fibrillation Status: Acute Assessment and Plan: [id number]. Rate is controlled. Started Sotalol 80 mg PO every 12 hours on 11/03/22. Started Eliquis 5 mg PO BID. Check EKG 1-2 hours post each Sotalol dose to check QT interval. Anticipate 1 more night stay for Sotalol loading. But if still in atrial fib, would keep one more night for CARMINE/DC cardioversion with anesthesia.. (4) Hypertension: Qualifiers: Hypertension type: essential hypertension Qualified Code(s): I10 - Essential (primary) hypertension Code(s): I10 - Essential (primary) hypertension Status: Chronic Assessment and Plan: Stable. (5) CAD (coronary artery disease), autologous vein bypass graft: Code(s): I25.810 - Atherosclerosis of coronary artery bypass graft(s) without angina pectoris Status: Acute Assessment and Plan: Stable. (6) Diastolic dysfunction: Code(s): I51.89 - Other ill-defined heart diseases Status: Acute Assessment and Plan: Acute on chronic. On Lasix 40 mg IV BID. 11/13/22 Echo: EF 45-50%, mild LVE, mild LVH, diastolic dysfunction with E/e' 27, mod LAE, mod MAC. Obtain BMP and Mag. (7) Ascending aortic aneurysm: Code(s): I71.2 - Thoracic aortic aneurysm, without rupture Status: Acute Assessment and Plan: Stable. Subjective Date/time seen: 11/14/22 07:20 Interval history: Reports breathing is better. No chest pains. Exam Const: General: cooperative, healthy appearing and comfortable Orientation/consciousness: oriented to person, oriented to place and oriented to time Resp: Auscultation: crackles, no rales, no rhonchi, no wheezes and diminished lung sounds Cardio: Jugular venous distension: no JVD Rate: regular rate Rhythm: abnormal rhythm Heart sounds: no murmurs Peripheral pulses: dorsalis pedis present Neuro: General: oriented to person, oriented to place and oriented to time Extrem: Right lower extremity: edema Left lower extremity: edema Other: Mild edema bilterally Objective Data Vital Signs Vital Signs: Vital Signs - 24 hr 11/13/22 07:40 11/13/22 07:40 11/13/22 07:50 Temperature Pulse Rate 101 H 101 H 104 H Respiratory Rate 20 20 20 Blood Pressure Pulse Oximetry 93 Oxygen Delivery Nasal Cannula Oxygen Flow Rate 6 11/13/22 08:00 11/13/22 09:02 11/13/22 10:07 Temperature 96.7 F L Pulse Rate 70 86 77 Respiratory Rate 22 H Blood Pressure 158/119 H Pulse Oximetry 95 Oxygen Delivery Oxygen Flow Rate 11/13/22 08:00 11/13/22 08:00 11/13/22 10:00 Temperature Pulse Rate 93 80 Respiratory Rate Blood Pressure Pulse Oximetry 94 Oxygen Delivery Nasal Cannula Oxygen Flow Rate 6 11/13/22 12:00 11/13/22 13:15 11/13/22 13:25 Temperature 96.2 F L Pulse Rate 58 L 84 88 Respiratory Rate 24 H 18 18 Blood Pressure 156/118 H Pulse Oximetry 95 Oxygen Delivery Oxygen Flow Rate 11/13/22 16:00 11/13/22 12:00 11/13/22 14:00 Temperature 96.4 F L Pulse Rate 71 84 78 Respiratory Rate 22 H Blood Pressure 131/86 Pulse Oximetry 94 Oxygen Delivery Oxygen Flow Rate 11/13/22 16:00 11/13/22 18:00 11/13/22 12:00 Temperature Pulse Rate 68 59 L Respiratory Rate Blood Pressure Pulse Oximetry 91 Oxygen Delivery Nasal Cannula Oxygen Flow Rate 6 11/13/22 16:00 11/13/22 21:38 11/13/22 21:45 Temperature 97.8 F Puls
[2022-11-14 08:01] LABS: Glucose Point of Care 142 mg/dl (65-105)
[2022-11-14 08:44] LABS: Anion Gap 7 mmol/L (8-16); Blood Urea Nitrogen 42 mg/dL (7-17); Calcium 8.8 mg/dL (8.4-10.2); Carbon Dioxide 30 mmol/L (22-30); Chloride 100 mmol/L (98-107); Estimated CRCL calculation 59 ml/min; Estimated Glomerular Filt Rate 33; Glucose 146 mg/dL (65-110); Potassium 3.7 mmol/L (3.4-5.0); Sodium 137 mmol/L (137-145)
[2022-11-14] MEDS: FUROSEMIDE INJ 40 MG/4 ML VIAL IV PUSH ×2 (10:23→16:52)
[2022-11-14] MEDS: SOTALOL HCL 80 MG TABLET PO ×2 (10:23→21:18)
[2022-11-14] MEDS: LORATADINE 10 MG TABLET PO (10:24)
[2022-11-14] MEDS: PANTOPRAZOLE 40 MG TABLET PO (10:24)
[2022-11-14] MEDS: APIXABAN 5 MG TABLET PO ×2 (10:24→21:18)
[2022-11-14] MEDS: GABAPENTIN 300 MG CAPSULE PO ×2 (10:24→16:52)
[2022-11-14] MEDS: SPIRONOLACTONE 12.5 MG TABLET PO (10:24)
[2022-11-14] MEDS: glipiZIDE XL 5 MG TABCR PO ×2 (10:25→16:52)
[2022-11-14] MEDS: EMPAGLIFLOZIN 25 MG TABLET PO (10:25)
[2022-11-14] MEDS: EZETIMIBE 10 MG TABLET PO (10:25)
[2022-11-14] MEDS: metFORMIN HCL XR 500 MG TAB.SR.24H 1000 MG PO ×2 (10:25→16:52)
[2022-11-14] MEDS: lisinopriL 20 MG TABLET 40 MG PO (10:25)
[2022-11-14] MEDS: ASPIRIN 81 MG CHEWABLE TABLET PO (10:25)
[2022-11-14] MEDS: FLUoxetine HCL 20 MG CAPSULE 60 MG PO (10:25)
[2022-11-14] MEDS: MELOXICAM 7.5 MG TABLET PO ×2 (10:26→21:18)
[2022-11-14] MEDS: MECLIZINE HCL 25 MG TABLET PO (10:27)
[2022-11-14] MEDS: FLUTICASONE/SALMETEROL 115-21 MCG INHALER 1 PUFF 2 PUFF INHALATION ×2 (11:33→20:54)
[2022-11-14 11:36] LABS: Glucose Point of Care 163 mg/dl (65-105)
--- NOTE | 2022-11-14 12:30 | ECG_ITS ---
Measurements Intervals [place] Rate: 66 P: [place]: 0 QRS: -53 QRSD: 139 T: 129 QT: 464 QTc: 489 Interpretive Statements ATRIAL FIBRILLATION INTRAVENTRICULAR CONDUCTION DELAY [130+ ms QRS DURATION] MINIMAL VOLTAGE CRITERIA FOR LVH, CONSIDER NORMAL VARIANT [MEETS CRITERIA IN ONE OF: R(aVL), S(V1), R(V5), R(V5/V6)+S(V1)] COMPARED TO ECG 11/13/2022 23:16:39 NO SIGNIFICANT CHANGE Electronically Signed On 11-14-2022 22:17:53 CDT by Ciara Noland M.D.
[2022-11-14 17:36] LABS: Glucose Point of Care 128 mg/dl (65-105)
[2022-11-14 21:08] LABS: Glucose Point of Care 133 mg/dl (65-105)
[2022-11-14] MEDS: traZODone HCL 50 MG TABLET 300 MG PO (21:18)
[2022-11-14] MEDS: MELATONIN 5 MG TABLET 10 MG PO (21:18)
[2022-11-14] MEDS: ATORVASTATIN 40 MG TABLET 80 MG PO (21:18)
[2022-11-14] MEDS: buPROPion HCL XL (24 HR) 150 MG TABCR PO (21:18)
--- NOTE | 2022-11-14 21:23 | ECG_ITS ---
Measurements Intervals [place] Rate: 76 P: [place]: 0 QRS: -55 QRSD: 138 T: 116 QT: 457 QTc: 515 Interpretive Statements ATRIAL FIBRILLATION INTRAVENTRICULAR CONDUCTION DELAY [130+ ms QRS DURATION] MINIMAL VOLTAGE CRITERIA FOR LVH, CONSIDER NORMAL VARIANT [MEETS CRITERIA IN ONE OF: R(aVL), S(V1), R(V5), R(V5/V6)+S(V1)] LEFT AXIS DEVIATION NONSPECIFIC ST AND T CHANGES COMPARED TO ECG 11/14/2022 12:35:14 NO SIGNIFICANT CHANGES Electronically Signed On 11-15-2022 9:21:37 CDT by Ciara Noland M.D.
[2022-11-15] VITALS (24 sets, daily range): BP systolic 104–148; BP diastolic 60–97; PULSE 58–88; RESP 14–20; TEMP 36.1–36.7; O2SAT 93–98
[2022-11-15] MEDS: LEVALBUTEROL NEB 1.25 MG/3 ML 0.63 MG INHALATION ×4 (02:26→21:20)
[2022-11-15] MEDS: IPRATROPIUM BR 0.02% INH SOLN 0.5 MG/2.5 ML VIAL INHALATION ×4 (02:26→21:00)
[2022-11-15] MEDS: FLUTICASONE/SALMETEROL 115-21 MCG INHALER 1 PUFF 2 PUFF INHALATION ×2 (07:38→21:10)
[2022-11-15 07:49] LABS: Glucose Point of Care 112 mg/dl (65-105)
--- NOTE | 2022-11-15 08:12 | PM.PNCARD ---
Progress Note: A&P Assessment and Plan (1) S/P MVR (mitral valve repair): Code(s): Z98.890 - Other specified postprocedural states Status: Acute Assessment and Plan: Stable. (2) Hyperlipidemia: Qualifiers: Hyperlipidemia type: unspecified Qualified Code(s): E78.5 - Hyperlipidemia, unspecified Code(s): E78.5 - Hyperlipidemia, unspecified Status: Acute Assessment and Plan: On Atorvastatin. (3) Paroxysmal A-fib: Code(s): I48.0 - Paroxysmal atrial fibrillation Status: Acute Assessment and Plan: [id number]. Rate is controlled. Started Sotalol 80 mg PO every 12 hours on 11/03/22. Started Eliquis 5 mg PO BID. Check EKG 1-2 hours post each Sotalol dose to check QT interval. Still in atrial fib, would keep one more night for CARMINE/DC cardioversion with anesthesia in AM. (4) Hypertension: Qualifiers: Hypertension type: essential hypertension Qualified Code(s): I10 - Essential (primary) hypertension Code(s): I10 - Essential (primary) hypertension Status: Chronic Assessment and Plan: Stable. (5) CAD (coronary artery disease), autologous vein bypass graft: Code(s): I25.810 - Atherosclerosis of coronary artery bypass graft(s) without angina pectoris Status: Acute Assessment and Plan: Stable. (6) Diastolic dysfunction: Code(s): I51.89 - Other ill-defined heart diseases Status: Acute Assessment and Plan: Acute on chronic. On Lasix 40 mg IV BID. 11/13/22 Echo: EF 45-50%, mild LVE, mild LVH, diastolic dysfunction with E/e' 27, mod LAE, mod MAC. Change Lasix IV to 40 mg PO BID. Add Spironolactone 12.5 mg daily. Monitor electrolytes and kidney function. (7) Ascending aortic aneurysm: Code(s): I71.2 - Thoracic aortic aneurysm, without rupture Status: Acute Assessment and Plan: Stable. Subjective Date/time seen: 11/15/22 08:12 Interval history: Reports breathing is better. Has coughing. No chest pains. Exam Const: General: cooperative, healthy appearing and comfortable Orientation/consciousness: oriented to person, oriented to place and oriented to time Resp: Auscultation: crackles, no rales, no rhonchi, wheezes and diminished lung sounds Cardio: Jugular venous distension: no JVD Rate: regular rate Rhythm: abnormal rhythm Heart sounds: no murmurs Peripheral pulses: dorsalis pedis present Neuro: General: oriented to person, oriented to place and oriented to time Extrem: Right lower extremity: edema Left lower extremity: edema Other: Mild edema bilterally Objective Data Vital Signs Vital Signs: Vital Signs - 24 hr 11/14/22 09:29 11/14/22 09:29 11/14/22 09:39 Temperature Pulse Rate 80 80 77 Respiratory Rate 18 18 Blood Pressure Pulse Oximetry 100 Oxygen Delivery Nasal Cannula Oxygen Flow Rate 6 Fraction of Inspired Oxygen 11/14/22 09:55 11/14/22 10:23 11/14/22 10:00 Temperature Pulse Rate 77 67 79 Respiratory Rate Blood Pressure Pulse Oximetry 96 Oxygen Delivery Nasal Cannula Oxygen Flow Rate 4 Fraction of Inspired Oxygen 11/14/22 12:00 11/14/22 12:00 11/14/22 13:21 Temperature 97.3 F L Pulse Rate 84 63 72 Respiratory Rate 20 16 Blood Pressure 139/92 H Pulse Oximetry 99 Oxygen Delivery Oxygen Flow Rate Fraction of Inspired Oxygen 11/14/22 13:29 11/14/22 12:00 11/14/22 14:00 Temperature Pulse Rate 81 60 66 Respiratory Rate 16 20 Blood Pressure Pulse Oximetry 99 Oxygen Delivery Nasal Cannula Oxygen Flow Rate 4 Fraction of Inspired Oxygen 11/14/22 16:00 11/14/22 16:00 11/14/22 18:00 Temperature 97.0 F L Pulse Rate 70 93 60 Respiratory Rate 20 Blood Pressure 126/74 Pulse Oximetry 99 Oxygen Delivery Oxygen Flow Rate Fraction of Inspired Oxygen 11/14/22 16:00 11/14/22 20:00 11/14/22 20:00 Temperature 96.8 F L Pulse Rate 60 73
[2022-11-15] MEDS: POTASSIUM CHLORIDE 20 MEQ TABLET 40 MEQ PO (10:15)
[2022-11-15] MEDS: FUROSEMIDE 40 MG TABLET PO ×2 (10:16→17:39)
[2022-11-15] MEDS: metFORMIN HCL XR 500 MG TAB.SR.24H 1000 MG PO ×2 (10:16→17:40)
[2022-11-15] MEDS: lisinopriL 20 MG TABLET 40 MG PO (10:16)
[2022-11-15] MEDS: EZETIMIBE 10 MG TABLET PO (10:17)
[2022-11-15] MEDS: GABAPENTIN 300 MG CAPSULE PO ×3 (10:17→17:39)
[2022-11-15] MEDS: SOTALOL HCL 80 MG TABLET PO ×2 (10:17→20:15)
[2022-11-15] MEDS: SPIRONOLACTONE 12.5 MG TABLET PO (10:17)
[2022-11-15] MEDS: PANTOPRAZOLE 40 MG TABLET PO (10:17)
[2022-11-15] MEDS: FLUoxetine HCL 20 MG CAPSULE 60 MG PO (10:17)
[2022-11-15] MEDS: APIXABAN 5 MG TABLET PO ×2 (10:17→20:14)
[2022-11-15] MEDS: glipiZIDE XL 5 MG TABCR PO ×2 (10:17→17:40)
[2022-11-15] MEDS: ASPIRIN 81 MG CHEWABLE TABLET PO (10:18)
[2022-11-15] MEDS: MELOXICAM 7.5 MG TABLET PO ×2 (10:18→20:14)
[2022-11-15] MEDS: LORATADINE 10 MG TABLET PO (10:18)
[2022-11-15] MEDS: EMPAGLIFLOZIN 25 MG TABLET PO (10:18)
[2022-11-15] MEDS: MECLIZINE HCL 25 MG TABLET PO (10:18)
[2022-11-15] MEDS: SUMAtriptan SUCCINATE 25 MG TABLET 100 MG PO (10:24)
[2022-11-15] MEDS: CYCLOBENZAPRINE HCL 5 MG TABLET PO (10:50)
--- NOTE | 2022-11-15 11:30 | ECG_ITS ---
Measurements Intervals [place] Rate: 84 P: [place]: 0 QRS: -54 QRSD: 135 T: 120 QT: 458 QTc: 543 Interpretive Statements ATRIAL FIBRILLATION INTRAVENTRICULAR CONDUCTION DELAY [130+ ms QRS DURATION] MINIMAL VOLTAGE CRITERIA FOR LVH, CONSIDER NORMAL VARIANT [MEETS CRITERIA IN ONE OF: R(aVL), S(V1), R(V5), R(V5/V6)+S(V1)] COMPARED TO ECG 11/14/2022 23:36:51 NO SIGNIFICANT CHANGES Electronically Signed On 11-15-2022 19:21:13 CDT by Ciara Noland M.D.
[2022-11-15 11:50] LABS: Glucose Point of Care 157 mg/dl (65-105)
[2022-11-15] MEDS: guaiFENesin 12 HR 600 MG TABCR PO ×2 (12:09→20:16)
[2022-11-15] MEDS: ACETAMINOPHEN 325 MG TABLET 650 MG PO (12:11)
--- NOTE | 2022-11-15 12:54 | PM.IMPN ---
Progress Note: A&P Assessment and Plan (1) Atrial fibrillation with rapid ventricular response: Code(s): I48.91 - Unspecified atrial fibrillation Status: Acute (2) CHF exacerbation: Qualifiers: Heart failure type: right-sided Qualified Code(s): I50.813 - Acute on chronic right heart failure Code(s): I50.9 - Heart failure, unspecified Status: Acute (3) Respiratory failure with hypoxia: Qualifiers: Chronicity: acute on chronic Qualified Code(s): J96.21 - Acute and chronic respiratory failure with hypoxia Code(s): J96.91 - Respiratory failure, unspecified with hypoxia Status: Acute (4) Recurrent headache: Code(s): R51.9 - Headache, unspecified Status: Acute (5) Type 2 diabetes mellitus with hyperglycemia, without long-term current use of insulin: Code(s): E11.65 - Type 2 diabetes mellitus with hyperglycemia Status: Acute (6) Obstructive sleep apnea on CPAP: Code(s): G47.33 - Obstructive sleep apnea (adult) (pediatric); Z99.89 - Dependence on other enabling machines and devices Status: Acute Plan The patient has acute CHF exacerbation likely due to combination of right-sided heart failure/pulmonary hypertension given evidence of pulmonary hypertension noted on CTA of the chest a had atrial fibrillation with rapid ventricular response resulting in some high-output heart failure. The will place patient on Cardizem drip 5 mg an hour and will give patient a Cardizem push of 10 mg. I will also increase the patient's home Coreg to 6.25 mg p.o. b.i.d. with 1st dose nail. Will consult Dr. Erwin from Cardiology as he has seen the patient in the distant past. The patient will likely need long-term anticoagulation given her chads Vasc score of at least 6. Patient did receive 1 dose of therapeutic Lovenox in the ER. I will defer which anticoagulant to start to Cardiology Service. The patient is aware that she would benefit from long-term anticoagulation to decrease stroke risk. Will monitor strict I&O's and daily weights. Will start the patient on Lasix 40 mg IV b.i.d. and monitor renal function closely given her history of chronic kidney disease stage 3. Will check echocardiogram to further evaluate patient's cardiac structure and function given her recent decompensation. The patient does have increased oxygen requirement from baseline. Will wean oxygen as tolerated. Nighttime CPAP has been ordered. Patient has type 2 diabetes with hyperglycemia. Will continue the patient's oral hypoglycemic agents. Her once weekly injection medication is on hold as it is not available in the hospital. Will place patient on high-dose sliding scale insulin with Accu-Cheks a.c. HS and hypoglycemia protocol. Patient has been admitted as observation status. 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 Subjective Date/time seen: 11/15/22 12:54 The patient has acute CHF exacerbation likely due to combination of right-sided heart failure/pulmonary hypertension given evidence of pulmonary hypertension noted on CTA of the chest a had atrial fibrillation with rapid ventricular response resulting in some high-output heart failure. The will place patient on Cardizem drip 5 mg an hour and will give patient a Cardizem push of 10 mg. I will also increase the patient's home Coreg to 6.25 mg p.o. b.i.d. with 1st dose nail. Will consult Dr. Erwin from Cardiology as he has seen the patient in the distant past. The patient ray
[2022-11-15 15:46] LABS: Glucose Point of Care 138 mg/dl (65-105)
[2022-11-15 19:59] LABS: Glucose Point of Care 191 mg/dl (65-105)
[2022-11-15] MEDS: buPROPion HCL XL (24 HR) 150 MG TABCR PO (20:14)
[2022-11-15] MEDS: ATORVASTATIN 40 MG TABLET 80 MG PO (20:14)
[2022-11-15] MEDS: traZODone HCL 50 MG TABLET 300 MG PO (22:09)
[2022-11-15] MEDS: MELATONIN 5 MG TABLET 10 MG PO (22:09)
--- NOTE | 2022-11-15 22:43 | ECG_ITS ---
Measurements Intervals [place] Rate: 76 P: [place]: 0 QRS: -55 QRSD: 140 T: 130 QT: 445 QTc: 502 Interpretive Statements ATRIAL FIBRILLATION LEFT ANTERIOR SUPERIOR HEMIBLOCK MINIMAL VOLTAGE CRITERIA FOR LVH, CONSIDER NORMAL VARIANT [MEETS CRITERIA IN ONE OF: R(aVL), S(V1), R(V5), R(V5/V6)+S(V1)] ABNORMAL ECG COMPARED TO ECG 11/15/2022 11:55:26 NO SIGNIFICANT CHANGES Electronically Signed On 11-16-2022 10:38:43 CDT by Bertram Mayen M.D.
[2022-11-16] VITALS (29 sets, daily range): BP systolic 106–141; BP diastolic 54–93; PULSE 47–90; RESP 15–24; TEMP 36–36.7; O2SAT 94–100
--- NOTE | 2022-11-16 | ECHO_ITS ---
Patient Info Name: Apple Littlejohn Age: 57 years : 1965 Gender: Female Ht: 69 in Wt: 353 lbs BSA: 2.88 m2 HR: 73 bpm Technical Quality: Good Exam Date: 11/16/2022 9:49 AM Exam Location: [facility] Patient Status: Inpatient Admit Date: 11/13/2022 Staff Ordering Physician: Trevor Erwin DO [facility] Social Worker: Vonda Gutierrez RDCS Attending Provider: Gillian Domingo DO Referring Physician: Rip LORENZO; Exam Type: CA echo transesophageal Study Info Indications - CARDIOVERSION I48.1 - Persistent atrial fibrillation Complete two-dimensional, color flow and Doppler transesophageal study is performed. Procedure Details Risks/benefits/alternative to CARMINE discuss with patient and she gave informed consent. She was monitored electrocardiographically, vitals. She was in atrial fibrillation at 65 bpm, BP 130/70 mmHg, pulse ox 95%. Cetacaine spray x2 to posterior oropharynx. Sedation proved by anesthesiology service. CARMINE probe advanced into esophagus without incident. Multiple images obtained in esophagus. CARMINE probe withdrawn and no blood noted on tip. Patient tolerated procedure well with no complications. Summary 1. Transesophageal echocardiogram. 2. Left ventricular chamber dimension is mildly enlarged. 3. Left ventricular systolic function is mildly reduced with an ejection fraction of 45-50% by visual estimation. 4. The left ventricular diastolic function is indeterminate as it was not assessed.. 5. Left atrial chamber dimension is moderately enlarged. 6. There is mild aortic valve sclerosis. 7. The mitral valve has moderately calcified annulus. 8. Evidence of mitral valve repair. 9. There is mild to moderate tricuspid valve regurgitation. Left Ventricle Left ventricular systolic function is mildly reduced with an ejection fraction of 45-50% by visual estimation. The left ventricular diastolic function is indeterminate as it was not assessed.. Transesophageal echocardiogram. Left ventricular chamber dimension is mildly enlarged. Right Ventricle Right ventricular chamber dimension is normal. Right ventricular systolic function is normal. Left Atria Left atrial chamber dimension is moderately enlarged. Right Atria Right atrial chamber dimension is normal. Atrial Appendage There is no thrombus visualized in the left atrial appendage. Aortic Valve The aortic valve is trileaflet. There is mild aortic valve sclerosis. There is no aortic valve stenosis. There is no aortic valve regurgitation. Pulmonic Valve There is no pulmonic regurgitation. Mitral Valve The mitral valve has moderately calcified annulus. Evidence of mitral valve repair. There is no mitral valve stenosis. There is no mitral valve regurgitation. Tricuspid Valve There is mild to moderate tricuspid valve regurgitation. RVSP is not measured. Pericardium/Pleural There is no pericardial effusion. Inferior Vena Cava Inferior vena cava is not well visualized. Aorta The aortic root size at the sinus of Valsalva is normal. Report Signatures
[2022-11-16] MEDS: IPRATROPIUM BR 0.02% INH SOLN 0.5 MG/2.5 ML VIAL INHALATION ×4 (02:20→20:21)
[2022-11-16] MEDS: LEVALBUTEROL NEB 1.25 MG/3 ML 0.63 MG INHALATION ×4 (02:20→20:21)
[2022-11-16] MEDS: SOTALOL HCL 80 MG TABLET PO (07:46)
[2022-11-16] MEDS: APIXABAN 5 MG TABLET PO ×2 (07:47→20:02)
--- NOTE | 2022-11-16 08:11 | PM.PNCARD ---
Progress Note: A&P Assessment and Plan (1) S/P MVR (mitral valve repair): Code(s): Z98.890 - Other specified postprocedural states Status: Acute Assessment and Plan: Stable. (2) Hyperlipidemia: Qualifiers: Hyperlipidemia type: unspecified Qualified Code(s): E78.5 - Hyperlipidemia, unspecified Code(s): E78.5 - Hyperlipidemia, unspecified Status: Acute Assessment and Plan: On Atorvastatin. (3) Paroxysmal A-fib: Code(s): I48.0 - Paroxysmal atrial fibrillation Status: Acute Assessment and Plan: [id number]. Rate is controlled. Started Sotalol 80 mg PO every 12 hours on 11/03/22. Started Eliquis 5 mg PO BID. Check EKG 1-2 hours post each Sotalol dose to check QT interval. Still in atrial fib, scheduled for CARMINE/DC cardioversion with anesthesia this AM. (4) Hypertension: Qualifiers: Hypertension type: essential hypertension Qualified Code(s): I10 - Essential (primary) hypertension Code(s): I10 - Essential (primary) hypertension Status: Chronic Assessment and Plan: Stable. (5) CAD (coronary artery disease), autologous vein bypass graft: Code(s): I25.810 - Atherosclerosis of coronary artery bypass graft(s) without angina pectoris Status: Acute Assessment and Plan: Stable. (6) Diastolic dysfunction: Code(s): I51.89 - Other ill-defined heart diseases Status: Acute Assessment and Plan: Acute on chronic. On Lasix 40 mg IV BID. 11/13/22 Echo: EF 45-50%, mild LVE, mild LVH, diastolic dysfunction with E/e' 27, mod LAE, mod MAC. Changed Lasix IV to 40 mg PO BID. Add Spironolactone 12.5 mg daily. Monitor electrolytes and kidney function. (7) Ascending aortic aneurysm: Code(s): I71.2 - Thoracic aortic aneurysm, without rupture Status: Acute Assessment and Plan: Stable. Subjective Date/time seen: 11/16/22 08:11 Interval history: Reports breathing is better. Has coughing. No chest pains. Exam Const: General: cooperative, healthy appearing and comfortable Orientation/consciousness: oriented to person, oriented to place and oriented to time Resp: Auscultation: crackles, no rales, no rhonchi, wheezes and diminished lung sounds Cardio: Jugular venous distension: no JVD Rate: regular rate Rhythm: abnormal rhythm Heart sounds: no murmurs Peripheral pulses: dorsalis pedis present Neuro: General: oriented to person, oriented to place and oriented to time Extrem: Right lower extremity: edema Left lower extremity: edema Other: Mild edema bilterally Objective Data Vital Signs Vital Signs: Vital Signs - 24 hr 11/15/22 10:00 11/15/22 12:00 11/15/22 12:00 Temperature 97.7 F Pulse Rate 77 63 Respiratory Rate 16 Blood Pressure 143/97 H Pulse Oximetry 97 96 Oxygen Delivery Nasal Cannula Oxygen Flow Rate 5 11/15/22 12:00 11/15/22 13:52 11/15/22 13:52 Temperature Pulse Rate 76 75 Respiratory Rate 18 Blood Pressure Pulse Oximetry 96 Oxygen Delivery Nasal Cannula Oxygen Flow Rate 11/15/22 14:04 11/15/22 14:00 11/15/22 16:00 Temperature Pulse Rate 75 73 74 Respiratory Rate 16 Blood Pressure Pulse Oximetry Oxygen Delivery Oxygen Flow Rate 11/15/22 16:00 11/15/22 16:00 11/15/22 18:00 Temperature 98.1 F Pulse Rate 76 78 Respiratory Rate 16 Blood Pressure 104/60 Pulse Oximetry 97 95 Oxygen Delivery Nasal Cannula Oxygen Flow Rate 5 11/15/22 20:15 11/15/22 20:00 11/15/22 20:00 Temperature 97.7 F Pulse Rate 74 85 Respiratory Rate 20 Blood Pressure 142/88 H Pulse Oximetry 98 96 Oxygen Delivery Nasal Cannula Oxygen Flow Rate 5 11/15/22 21:00 11/15/22 21:12 11/15/22 21:24 Temperature Pulse Rate 77 78 77 Respiratory Rate 18 18 Blood Pressure Pulse Oximetry 97 Oxygen Delivery Nasal Cannula Oxygen Flow Rate 5 11/15/22 23:41 11/16/22 00:00 11/16/22
[2022-11-16] MEDS: FLUTICASONE/SALMETEROL 115-21 MCG INHALER 1 PUFF 2 PUFF INHALATION ×2 (08:15→20:22)
[2022-11-16 08:16] LABS: Anion Gap 5 mmol/L (8-16); Blood Urea Nitrogen 44 mg/dL (7-17); Calcium 8.2 mg/dL (8.4-10.2); Carbon Dioxide 34 mmol/L (22-30); Chloride 99 mmol/L (98-107); Estimated CRCL calculation 55 ml/min; Estimated Glomerular Filt Rate 31; Glucose 156 mg/dL (65-110); Magnesium 2.1 mg/dL (1.6-2.3); Potassium 4.1 mmol/L (3.4-5.0); Sodium 138 mmol/L (137-145)
--- NOTE | 2022-11-16 08:45 | ECG_ITS ---
Measurements Intervals [place] Rate: 61 P: SD: 0 QRS: -58 QRSD: 137 T: 139 QT: 521 QTc: 527 Interpretive Statements ATRIAL FIBRILLATION LEFT ANTERIOR SUPERIOR HEMIBLOCK ABNORMAL ECG COMPARED TO ECG 11/15/2022 23:01:25 NO DIFFERENCE Electronically Signed On 11-16-2022 10:44:27 CDT by Bertram Mayen M.D.
--- NOTE | 2022-11-16 09:45 | WPDANESEPPF ---
Anes - Initial Pre Proc Eval Procedure: Operation Date: 11/16/22 10:00 Proposed Procedures p Electrical Cardioversion - Trevor Erwin DO s Trans Esophageal Echo - Trevor Erwin DO Date/Time: 11/16/22 09:45 Surgeon: Gillian Domingo DO Pre Op Diagnosis: a fib with rvr,copd exacerbation,chf exacerbation Patient Data Age: 57 Gender: F Height: 1.75 m Weight: 160.2 kg Last Vital Signs Temp 97.6 F 11/16/22 04:00 Pulse 74 11/16/22 08:39 Resp 18 11/16/22 08:39 BP 106/54 L 11/16/22 04:00 Pulse Ox 94 11/16/22 08:20 O2 Del Method Nasal Cannula 11/16/22 08:20 O2 Flow Rate 4 11/16/22 08:20 FiO2 40 11/15/22 07:41 Allergies Allergy/AdvReac Type Severity Reaction Status Date / Time adhesive tape Allergy Unknown Hives / Verified 11/12/22 18:33 Red Face Home Medications Medication Instructions Recorded Confirmed Type atorvastatin 80 mg tablet 80 mg PO QHS 12/09/21 11/13/22 History furosemide 40 mg tablet 40 mg PO BID 12/09/21 11/13/22 History aspirin 81 mg chewable tablet 81 mg PO QAM #90 tabs 01/13/22 11/13/22 Rx (Children's Aspirin) gabapentin 300 mg capsule 300 mg PO TID #270 caps 01/13/22 11/13/22 Rx melatonin 10 mg tablet,extended 10 mg PO QHS PRN sleep #90 tabs 01/13/22 11/13/22 Rx release fluoxetine 20 mg tablet 60 mg PO DAILY #270 tabs 04/20/22 11/13/22 Rx budesonide-formoterol HFA 160 2 puff inhalation Q4H 05/21/22 11/13/22 History mcg-4.5 mcg/actuation aerosol inhaler (Symbicort) fexofenadine 180 mg tablet 180 mg PO DAILY 05/21/22 11/13/22 History lisinopril 40 mg tablet 40 mg PO DAILY 05/21/22 11/13/22 History omeprazole 40 mg capsule,delayed 40 mg PO DAILY 05/21/22 11/13/22 History release sumatriptan succinate 100 mg tablet 100 mg PO PRN PRN Headache 05/21/22 11/13/22 History trazodone 300 mg tablet 300 mg PO HS 05/21/22 11/13/22 History cyclobenzaprine 5 mg tablet 5 mg PO TID PRN muscle spasm #30 05/29/22 11/13/22 Rx tabs glipizide 5 mg tablet, extended 5 mg PO BID #180 tabs 07/10/22 11/13/22 Rx release 24 hr acetaminophen 500 mg tablet 500 mg PO Q6H PRN Pain 11/13/22 11/13/22 History bupropion HCl 75 mg tablet 150 mg PO HS 11/13/22 11/13/22 History carvedilol 3.125 mg tablet 3.125 mg PO BID 11/13/22 11/13/22 History empagliflozin 25 mg tablet 25 mg PO DAILY 11/13/22 11/13/22 History (Jardiance) ezetimibe 10 mg tablet 10 mg PO DAILY 11/13/22 11/13/22 History meclizine 25 mg tablet 25 mg PO DAILY 11/13/22 11/13/22 History meloxicam 7.5 mg tablet 7.5 mg PO Q12H 11/13/22 11/13/22 History metformin 500 mg tablet,extended 1,000 mg PO BID 11/13/22 11/13/22 History release 24 hr semaglutide 3 mg tablet (Rybelsus) 3 mg PO DAILY 11/13/22 11/13/22 History tirzepatide 2.5 mg/0.5 mL 2.5 mg subcut WEEKLY 11/13/22 11/13/22 History subcutaneous pen injector (Mounjaro) Laboratory Tests 11/15/22 11/15/22 11/15/22 11:45 15:37 19:48 Sodium Potassium Chloride Carbon Dioxide Anion Gap BUN Creatinine Estim Creat Clear Calc Estimated GFR Glucose POC Capillary Glucose 157 mg/dl H mg/dl 138 mg/dl H mg/dl 191 mg/dl H mg/dl (65-105) (65-105) (65-105) Calcium Magnesium 11/16/22 07:53 Sodium 138 mmol/L mmol/L (137-145) Potassium 4.1 mmol/L mmol/L (3.4-5.0) Chloride 99 mmol/L mmol/L (98-107) Carbon Dioxide 34 mmol/L H mmol/L (22-30) Anion Gap 5 mmol/L L mmol/L (8-16) BUN 44 mg/dL H mg/dL (7-17) Creatinine 1.70 mg/dL H mg/dL (0.7-1.0) Estim Creat Clear Calc 55 ml/min ml/min Estimated GFR 31 L (59 - ) Glucose 156 mg/dL H mg/dL (65-110) POC Capillary Glucose Calcium 8.2 mg/dL L mg/dL (8.4-10.2) Magnesium 2.1 mg/dL mg/dL (1.6-2.3) Patient hx anesthesia problems: none Family hx anesthesia problems: none Results
[2022-11-16 09:57] LABS: Glucose Point of Care 171 mg/dl (65-105)
--- NOTE | 2022-11-16 10:30 | ECG_ITS ---
Measurements Intervals [place] Rate: 49 P: 46 [place]: 239 QRS: -58 QRSD: 143 T: 116 QT: 515 QTc: 467 Interpretive Statements SINUS BRADYCARDIA WITH FIRST DEGREE AV BLOCK WITH OCCASIONAL SUPRAVENTRICULAR PREMATURE COMPLEXES LEFT ANTERIOR SUPERIOR HEMIBLOCK ABNORMAL ECG COMPARED TO ECG 11/16/2022 09:36:30 SINUS BRADYCARDIA REPLACES ATRIAL FIBRILLATION Electronically Signed On 11-16-2022 10:45:14 CDT by Bertram Mayen M.D.
--- NOTE | 2022-11-16 11:01 | PM.IMPN ---
Progress Note: A&P Assessment and Plan (1) Atrial fibrillation with rapid ventricular response: Code(s): I48.91 - Unspecified atrial fibrillation Status: Acute (2) CHF exacerbation: Qualifiers: Heart failure type: right-sided Qualified Code(s): I50.813 - Acute on chronic right heart failure Code(s): I50.9 - Heart failure, unspecified Status: Acute (3) Respiratory failure with hypoxia: Qualifiers: Chronicity: acute on chronic Qualified Code(s): J96.21 - Acute and chronic respiratory failure with hypoxia Code(s): J96.91 - Respiratory failure, unspecified with hypoxia Status: Acute (4) Recurrent headache: Code(s): R51.9 - Headache, unspecified Status: Acute (5) Type 2 diabetes mellitus with hyperglycemia, without long-term current use of insulin: Code(s): E11.65 - Type 2 diabetes mellitus with hyperglycemia Status: Acute (6) Obstructive sleep apnea on CPAP: Code(s): G47.33 - Obstructive sleep apnea (adult) (pediatric); Z99.89 - Dependence on other enabling machines and devices Status: Acute Plan The patient has acute CHF exacerbation likely due to combination of right-sided heart failure/pulmonary hypertension given evidence of pulmonary hypertension noted on CTA of the chest a had atrial fibrillation with rapid ventricular response resulting in some high-output heart failure. The will place patient on Cardizem drip 5 mg an hour and will give patient a Cardizem push of 10 mg. I will also increase the patient's home Coreg to 6.25 mg p.o. b.i.d. with 1st dose nail. Will consult Dr. Erwin from Cardiology as he has seen the patient in the distant past. The patient will likely need long-term anticoagulation given her chads Vasc score of at least 6. Patient did receive 1 dose of therapeutic Lovenox in the ER. I will defer which anticoagulant to start to Cardiology Service. The patient is aware that she would benefit from long-term anticoagulation to decrease stroke risk. Will monitor strict I&O's and daily weights. Will start the patient on Lasix 40 mg IV b.i.d. and monitor renal function closely given her history of chronic kidney disease stage 3. Will check echocardiogram to further evaluate patient's cardiac structure and function given her recent decompensation. The patient does have increased oxygen requirement from baseline. Will wean oxygen as tolerated. Nighttime CPAP has been ordered. Patient has type 2 diabetes with hyperglycemia. Will continue the patient's oral hypoglycemic agents. Her once weekly injection medication is on hold as it is not available in the hospital. Will place patient on high-dose sliding scale insulin with Accu-Cheks a.c. HS and hypoglycemia protocol. Patient has been admitted as observation status. 11/16/2022 interval history: Morbidly obese patient status post mitral valve repair presented with shortness of breath on 11/13 patient was found to have atrial fibrillation with RVR patient was started on diltiazem drip from ER, and on 11/13 was seen by her primary unit control worker patient rate was trending down the drip was stopped and patient was started on sotalol, today patient rates remained stable however patient is in AFib, patient seen by a unit control worker today recommended cardioversion, will follow-up and further recommendation to follow Subjective Date/time seen: 11/16/22 11:01 The patient has acute CHF exacerbation likely due to combination of right-sided heart failure/pulmonary hypertension given evidence of pulmonary hypertension noted on CTA of the chest a had atrial fibrillation with rapid ventricular response resulting in some high-output heart failure. The will place patient on Cardizem drip 5 mg an hour and will give patient a Cardizem push of 10 mg. I will also increase the patient's home Coreg to 6.25 mg p.o. b.i.d. with 1st dose nail. Will consult Dr. Erwin from Cardiology as he has seen the patient i
--- NOTE | 2022-11-16 11:45 | WPDCARDVER ---
Cardioversion Cardioversion Date of procedure: 11/16/22 Procedure: DC Cardioversion Pre-op diagnosis: atrial fibrillation Post-op diagnosis: Same Indications: Symptomatic atrial fibrillation Description of procedure: Risks/benefits/alternative to DC cardioversion discuss with patient and she gave informed consent. CARMINE was performed prior to DC cardioversion which showed no left atrial or left atrial appendage. Patient was sedated as per anesthesiology service. Defibrillator pads on anterior and posterior chest. Defibrillation set at 200 J biphasic synchronized energy and with 1 attempt it was successful at restoring sinus rhythm at 48 bpm. No immediate complications. Patient tolerated procedure well. Sedation: As per anesthesiology service Conclusion: 1. Successful direct current cardioversion restoring sinus rhythm from atrial fibrillation. [facility] Billing for Cardioversion: Cardioversion
[2022-11-16] MEDS: guaiFENesin 12 HR 600 MG TABCR PO ×2 (11:52→20:01)
[2022-11-16] MEDS: EZETIMIBE 10 MG TABLET PO (11:52)
[2022-11-16] MEDS: SPIRONOLACTONE 12.5 MG TABLET PO (11:52)
[2022-11-16] MEDS: GABAPENTIN 300 MG CAPSULE PO ×3 (11:52→21:56)
[2022-11-16] MEDS: SUMAtriptan SUCCINATE 25 MG TABLET 100 MG PO (11:52)
[2022-11-16] MEDS: metFORMIN HCL XR 500 MG TAB.SR.24H 1000 MG PO ×2 (11:53→17:30)
[2022-11-16] MEDS: lisinopriL 20 MG TABLET 40 MG PO (11:53)
[2022-11-16] MEDS: FLUoxetine HCL 20 MG CAPSULE 60 MG PO (11:53)
[2022-11-16] MEDS: FUROSEMIDE 40 MG TABLET PO ×2 (11:53→17:29)
[2022-11-16] MEDS: glipiZIDE XL 5 MG TABCR PO ×2 (11:53→17:29)
[2022-11-16] MEDS: MECLIZINE HCL 25 MG TABLET PO (11:53)
[2022-11-16] MEDS: PANTOPRAZOLE 40 MG TABLET PO (11:53)
[2022-11-16] MEDS: LORATADINE 10 MG TABLET PO (11:54)
[2022-11-16] MEDS: MELOXICAM 7.5 MG TABLET PO ×2 (11:54→20:02)
[2022-11-16] MEDS: EMPAGLIFLOZIN 25 MG TABLET PO (11:54)
[2022-11-16] MEDS: ASPIRIN 81 MG CHEWABLE TABLET PO (11:54)
[2022-11-16 18:49] LABS: Glucose Point of Care 184 mg/dl (65-105)
[2022-11-16 18:49] LABS: Glucose Point of Care 127 mg/dl (65-105)
[2022-11-16] MEDS: ATORVASTATIN 40 MG TABLET 80 MG PO (20:00)
[2022-11-16] MEDS: buPROPion HCL XL (24 HR) 150 MG TABCR PO (20:03)
[2022-11-16] MEDS: SOTALOL HCL 40 MG TABLET PO (20:04)
[2022-11-16 20:42] LABS: Glucose Point of Care 138 mg/dl (65-105)
[2022-11-16] MEDS: traZODone HCL 50 MG TABLET 300 MG PO (21:55)
[2022-11-16] MEDS: MELATONIN 5 MG TABLET 10 MG PO (21:56)
--- NOTE | 2022-11-16 22:48 | ECG_ITS ---
Measurements Intervals [place] Rate: 48 P: 36 [place]: 240 QRS: -54 QRSD: 141 T: 146 QT: 521 QTc: 470 Interpretive Statements SINUS BRADYCARDIA WITH FIRST DEGREE AV BLOCK LEFT ANTERIOR SUPERIOR HEMIBLOCK COMPARED TO ECG 11/16/2022 10:10:44 NO DIFFERENCE Electronically Signed On 11-17-2022 7:11:02 CDT by Bertram Mayen M.D.
[2022-11-17] VITALS (26 sets, daily range): BP systolic 105–152; BP diastolic 47–91; PULSE 42–61; RESP 18–24; TEMP 36.1–36.8; O2SAT 95–98
[2022-11-17] MEDS: IPRATROPIUM BR 0.02% INH SOLN 0.5 MG/2.5 ML VIAL INHALATION ×4 (02:47→21:32)
[2022-11-17] MEDS: LEVALBUTEROL NEB 1.25 MG/3 ML 0.63 MG INHALATION ×4 (02:47→21:32)
[2022-11-17 08:00] LABS: Glucose Point of Care 188 mg/dl (65-105)
[2022-11-17] MEDS: FLUTICASONE/SALMETEROL 115-21 MCG INHALER 1 PUFF 2 PUFF INHALATION ×2 (08:14→21:56)
--- NOTE | 2022-11-17 08:15 | PM.PNCARD ---
Progress Note: A&P Assessment and Plan (1) S/P MVR (mitral valve repair): Code(s): Z98.890 - Other specified postprocedural states Status: Acute Assessment and Plan: Stable. (2) Hyperlipidemia: Qualifiers: Hyperlipidemia type: unspecified Qualified Code(s): E78.5 - Hyperlipidemia, unspecified Code(s): E78.5 - Hyperlipidemia, unspecified Status: Acute Assessment and Plan: On Atorvastatin. (3) Paroxysmal A-fib: Code(s): I48.0 - Paroxysmal atrial fibrillation Status: Acute Assessment and Plan: [id number]. Rate is controlled. Started Sotalol 80 mg PO every 12 hours on 11/03/22. Started Eliquis 5 mg PO BID. Check EKG 1-2 hours post each Sotalol dose to check QT interval. S/P CARMINE/DC cardioversion on 11/16/22 that was successful at restoring sinus rhythm. Due to bradycardia, Sotalol dose decreased to 40 mg every 12 hours. Have patient ambulate today and see how she does. (4) Hypertension: Qualifiers: Hypertension type: essential hypertension Qualified Code(s): I10 - Essential (primary) hypertension Code(s): I10 - Essential (primary) hypertension Status: Chronic Assessment and Plan: Low normal today. Decrease Lisinopril 10 mg daily. Monitor BP. (5) CAD (coronary artery disease), autologous vein bypass graft: Code(s): I25.810 - Atherosclerosis of coronary artery bypass graft(s) without angina pectoris Status: Acute Assessment and Plan: Stable. (6) Diastolic dysfunction: Code(s): I51.89 - Other ill-defined heart diseases Status: Acute Assessment and Plan: Acute on chronic. On Lasix 40 mg IV BID. 11/13/22 Echo: EF 45-50%, mild LVE, mild LVH, diastolic dysfunction with E/e' 27, mod LAE, mod MAC. Decrease Lasix 20 mg PO daily. On Spironolactone 12.5 mg daily. Monitor electrolytes and kidney function. (7) Ascending aortic aneurysm: Code(s): I71.2 - Thoracic aortic aneurysm, without rupture Status: Acute Assessment and Plan: Stable. Subjective Date/time seen: 11/17/22 08:15 Interval history: States she feels better this morning. Denies sob. Stated she had mild chest tightness. Exam Const: General: cooperative, healthy appearing and comfortable Orientation/consciousness: oriented to person, oriented to place and oriented to time Resp: Auscultation: crackles, no rales, no rhonchi, wheezes and diminished lung sounds Cardio: Jugular venous distension: no JVD Rate: bradycardic Rhythm: regular rhythm Heart sounds: no murmurs Peripheral pulses: dorsalis pedis present Neuro: General: oriented to person, oriented to place and oriented to time Extrem: Right lower extremity: edema Left lower extremity: edema Other: Mild edema bilterally Objective Data Vital Signs Vital Signs: Vital Signs - 24 hr 11/16/22 08:19 11/16/22 08:20 11/16/22 08:39 Temperature Pulse Rate 81 74 Respiratory Rate 18 18 Blood Pressure Pulse Oximetry 94 Oxygen Delivery Nasal Cannula Oxygen Flow Rate 4 11/16/22 10:20 11/16/22 10:25 11/16/22 10:30 Temperature Pulse Rate 48 L 53 L 47 L Respiratory Rate 15 17 21 H Blood Pressure 126/88 136/87 127/83 Pulse Oximetry 99 98 100 Oxygen Delivery Nasal Cannula Nasal Cannula Nasal Cannula Oxygen Flow Rate 6 6 6 11/16/22 10:35 11/16/22 10:40 11/16/22 10:45 Temperature Pulse Rate 51 L 48 L 48 L Respiratory Rate 20 17 18 Blood Pressure 136/90 133/88 130/87 Pulse Oximetry 99 100 100 Oxygen Delivery Nasal Cannula Nasal Cannula Nasal Cannula Oxygen Flow Rate 6 5 5 11/16/22 12:00 11/16/22 13:52 11/16/22 14:10 Temperature 96.8 F L Pulse Rate 47 L 55 L 58 L Respiratory Rate 24 H 18 18 Blood Pressure 139/80 Pulse Oximetry 100 Oxygen Delivery Oxygen Flow Rate 11/16/22 16:00 11/16/22 12:00 11/16/22 16:00 Temperature 97.1 F L Pulse Rate 49 L Respiratory Rate 20 Blood Pressure 123/77
[2022-11-17] MEDS: GABAPENTIN 300 MG CAPSULE PO ×3 (09:54→21:12)
[2022-11-17] MEDS: SPIRONOLACTONE 12.5 MG TABLET PO (09:54)
[2022-11-17] MEDS: EMPAGLIFLOZIN 25 MG TABLET PO (09:55)
[2022-11-17] MEDS: SUMAtriptan SUCCINATE 25 MG TABLET 100 MG PO (09:55)
[2022-11-17] MEDS: FLUoxetine HCL 20 MG CAPSULE 60 MG PO (09:55)
[2022-11-17] MEDS: EZETIMIBE 10 MG TABLET PO (09:55)
[2022-11-17] MEDS: metFORMIN HCL XR 500 MG TAB.SR.24H 1000 MG PO ×2 (09:55→17:56)
[2022-11-17] MEDS: glipiZIDE XL 5 MG TABCR PO ×2 (09:55→17:55)
[2022-11-17] MEDS: guaiFENesin 12 HR 600 MG TABCR PO ×2 (09:56→21:15)
[2022-11-17] MEDS: ASPIRIN 81 MG CHEWABLE TABLET PO (09:56)
[2022-11-17] MEDS: PANTOPRAZOLE 40 MG TABLET PO (09:56)
[2022-11-17] MEDS: MELOXICAM 7.5 MG TABLET PO ×2 (09:56→21:15)
[2022-11-17] MEDS: LORATADINE 10 MG TABLET PO (09:56)
[2022-11-17] MEDS: APIXABAN 5 MG TABLET PO ×2 (09:56→21:12)
[2022-11-17] MEDS: MECLIZINE HCL 25 MG TABLET PO (09:56)
[2022-11-17] MEDS: FUROSEMIDE 20 MG TABLET PO ×2 (09:59→17:55)
[2022-11-17] MEDS: lisinopriL 10 MG TABLET PO (09:59)
[2022-11-17] MEDS: SOTALOL HCL 40 MG TABLET PO ×2 (10:30→21:15)
--- NOTE | 2022-11-17 11:30 | ECG_ITS ---
Measurements Intervals [place] Rate: 48 P: 44 [place]: 249 QRS: -54 QRSD: 141 T: 125 QT: 489 QTc: 437 Interpretive Statements SINUS BRADYCARDIA WITH FIRST DEGREE AV BLOCK INTRAVENTRICULAR CONDUCTION DELAY [130+ ms QRS DURATION] COMPARED TO ECG 11/16/2022 22:59:25 NO SIGNIFICANT CHANGES Electronically Signed On 11-17-2022 17:59:53 CDT by Sarah Hernandez M.D.
[2022-11-17 11:48] LABS: Glucose Point of Care 159 mg/dl (65-105)
--- NOTE | 2022-11-17 15:10 | PM.IMPN ---
Progress Note: A&P Assessment and Plan (1) Atrial fibrillation with rapid ventricular response: Code(s): I48.91 - Unspecified atrial fibrillation Status: Acute (2) CHF exacerbation: Qualifiers: Heart failure type: right-sided Qualified Code(s): I50.813 - Acute on chronic right heart failure Code(s): I50.9 - Heart failure, unspecified Status: Acute (3) Respiratory failure with hypoxia: Qualifiers: Chronicity: acute on chronic Qualified Code(s): J96.21 - Acute and chronic respiratory failure with hypoxia Code(s): J96.91 - Respiratory failure, unspecified with hypoxia Status: Acute (4) Recurrent headache: Code(s): R51.9 - Headache, unspecified Status: Acute (5) Type 2 diabetes mellitus with hyperglycemia, without long-term current use of insulin: Code(s): E11.65 - Type 2 diabetes mellitus with hyperglycemia Status: Acute (6) Obstructive sleep apnea on CPAP: Code(s): G47.33 - Obstructive sleep apnea (adult) (pediatric); Z99.89 - Dependence on other enabling machines and devices Status: Acute Plan The patient has acute CHF exacerbation likely due to combination of right-sided heart failure/pulmonary hypertension given evidence of pulmonary hypertension noted on CTA of the chest a had atrial fibrillation with rapid ventricular response resulting in some high-output heart failure. The will place patient on Cardizem drip 5 mg an hour and will give patient a Cardizem push of 10 mg. I will also increase the patient's home Coreg to 6.25 mg p.o. b.i.d. with 1st dose nail. Will consult Dr. Erwin from Cardiology as he has seen the patient in the distant past. The patient will likely need long-term anticoagulation given her chads Vasc score of at least 6. Patient did receive 1 dose of therapeutic Lovenox in the ER. I will defer which anticoagulant to start to Cardiology Service. The patient is aware that she would benefit from long-term anticoagulation to decrease stroke risk. Will monitor strict I&O's and daily weights. Will start the patient on Lasix 40 mg IV b.i.d. and monitor renal function closely given her history of chronic kidney disease stage 3. Will check echocardiogram to further evaluate patient's cardiac structure and function given her recent decompensation. The patient does have increased oxygen requirement from baseline. Will wean oxygen as tolerated. Nighttime CPAP has been ordered. Patient has type 2 diabetes with hyperglycemia. Will continue the patient's oral hypoglycemic agents. Her once weekly injection medication is on hold as it is not available in the hospital. Will place patient on high-dose sliding scale insulin with Accu-Cheks a.c. HS and hypoglycemia protocol. Patient has been admitted as observation status. 11/17/2022 interval history: Morbidly obese patient status post mitral valve repair presented with shortness of breath on 11/13 patient was found to have atrial fibrillation with RVR patient was started on diltiazem drip from ER, and on 11/13 was seen by her primary dressmaker or tailor patient rate was trending down the drip was stopped and patient was started on sotalol, on 11/16 patient rates remained stable however patient was in AFib, patient seen by a dressmaker or tailor recommended cardioversion patient had cardioverion, it was success full, today patient remains in NSR and dressmaker or tailor wants to monitor and evaluate ambulatory function, patient did walk but did not feel well, will monitor and further recommendation to follow Subjective Date/time seen: 11/17/22 15:10 The patient has acute CHF exacerbation likely due to combination of right-sided heart failure/pulmonary hypertension given evidence of pulmonary hypertension noted on CTA of the chest a had atrial fibrillation with rapid ventricular response resulting in some high-output heart failure. The will place patient on Cardizem drip 5 mg an hour and will give patient a Cardi
[2022-11-17 15:58] LABS: Glucose Point of Care 102 mg/dl (65-105)
[2022-11-17 20:07] LABS: Glucose Point of Care 91 mg/dl (65-105)
[2022-11-17] MEDS: ATORVASTATIN 40 MG TABLET 80 MG PO (21:11)
[2022-11-17] MEDS: buPROPion HCL XL (24 HR) 150 MG TABCR PO (21:12)
[2022-11-17] MEDS: traZODone HCL 50 MG TABLET 300 MG PO (21:15)
[2022-11-17] MEDS: MELATONIN 5 MG TABLET 10 MG PO (21:16)
[2022-11-18] VITALS (25 sets, daily range): BP systolic 108–138; BP diastolic 72–81; PULSE 42–84; RESP 18–220; TEMP 36.3–36.6; O2SAT 92–100
[2022-11-18] MEDS: IPRATROPIUM BR 0.02% INH SOLN 0.5 MG/2.5 ML VIAL INHALATION ×4 (02:37→20:12)
[2022-11-18] MEDS: LEVALBUTEROL NEB 1.25 MG/3 ML 0.63 MG INHALATION ×4 (02:40→20:12)
[2022-11-18] MEDS: FLUTICASONE/SALMETEROL 115-21 MCG INHALER 1 PUFF 2 PUFF INHALATION ×2 (07:20→20:12)
--- NOTE | 2022-11-18 07:50 | PM.PNCARD ---
Progress Note: A&P Assessment and Plan (1) S/P MVR (mitral valve repair): Code(s): Z98.890 - Other specified postprocedural states Status: Acute Assessment and Plan: Stable. (2) Hyperlipidemia: Qualifiers: Hyperlipidemia type: unspecified Qualified Code(s): E78.5 - Hyperlipidemia, unspecified Code(s): E78.5 - Hyperlipidemia, unspecified Status: Acute Assessment and Plan: On Atorvastatin. (3) Paroxysmal A-fib: Code(s): I48.0 - Paroxysmal atrial fibrillation Status: Acute Assessment and Plan: [id number]. Rate is controlled. Started Sotalol 80 mg PO every 12 hours on 11/03/22. Started Eliquis 5 mg PO BID. Check EKG 1-2 hours post each Sotalol dose to check QT interval. S/P CARMINE/DC cardioversion on 11/16/22 that was successful at restoring sinus rhythm. Due to persistent bradycardia, Sotalol dose decrease dose to 40 mg felipe. Have patient ambulate today and see how she does. (4) Hypertension: Qualifiers: Hypertension type: essential hypertension Qualified Code(s): I10 - Essential (primary) hypertension Code(s): I10 - Essential (primary) hypertension Status: Chronic Assessment and Plan: Stable. (5) CAD (coronary artery disease), autologous vein bypass graft: Code(s): I25.810 - Atherosclerosis of coronary artery bypass graft(s) without angina pectoris Status: Acute Assessment and Plan: Stable. (6) Diastolic dysfunction: Code(s): I51.89 - Other ill-defined heart diseases Status: Acute Assessment and Plan: Acute on chronic. On Lasix 40 mg IV BID. 11/13/22 Echo: EF 45-50%, mild LVE, mild LVH, diastolic dysfunction with E/e' 27, mod LAE, mod MAC. Decrease Lasix 20 mg PO daily. On Spironolactone 12.5 mg daily. Monitor electrolytes and kidney function. (7) Ascending aortic aneurysm: Code(s): I71.2 - Thoracic aortic aneurysm, without rupture Status: Acute Assessment and Plan: Stable. Subjective Date/time seen: 11/18/22 07:50 Interval history: She feels weak and has MIN. Denies sob or cp. Exam Const: General: cooperative, healthy appearing and comfortable Orientation/consciousness: oriented to person, oriented to place and oriented to time Resp: Auscultation: clear to auscultation bilaterally, no crackles, no rales, no rhonchi and no wheezes Cardio: Jugular venous distension: no JVD Rate: bradycardic Rhythm: regular rhythm Heart sounds: no murmurs Peripheral pulses: dorsalis pedis present Neuro: General: oriented to person, oriented to place and oriented to time Extrem: Right lower extremity: no edema Left lower extremity: no edema Objective Data Vital Signs Vital Signs: Vital Signs - 24 hr 11/17/22 08:10 11/17/22 08:15 11/17/22 08:21 Temperature Pulse Rate 61 57 L Respiratory Rate 18 18 Blood Pressure Pulse Oximetry 95 Oxygen Delivery Nasal Cannula Oxygen Flow Rate 5 Fraction of Inspired Oxygen 11/17/22 08:00 11/17/22 08:00 11/17/22 10:00 Temperature 97.6 F Pulse Rate 51 L 52 L 47 L Respiratory Rate 24 H Blood Pressure 132/74 Pulse Oximetry 95 Oxygen Delivery Oxygen Flow Rate Fraction of Inspired Oxygen 11/17/22 11:53 11/17/22 12:00 11/17/22 08:00 Temperature 97.0 F L Pulse Rate 50 L 59 L Respiratory Rate 24 H Blood Pressure 136/91 H Pulse Oximetry 95 95 Oxygen Delivery Nasal Cannula Oxygen Flow Rate 5 Fraction of Inspired Oxygen 40 11/17/22 12:00 11/17/22 13:30 11/17/22 13:47 Temperature Pulse Rate 59 L 55 L 55 L Respiratory Rate 24 H 18 18 Blood Pressure Pulse Oximetry 95 Oxygen Delivery Nasal Cannula Oxygen Flow Rate 5 Fraction of Inspired Oxygen 40 11/17/22 14:00 11/17/22 16:00 11/17/22 16:00 Temperature Pulse Rate 47 L 46 L 59 L Respiratory Rate 24 H Blood Pressure Pulse Oximetry 95 Oxygen Delivery Nasal Cannula Oxygen Flow
[2022-11-18] MEDS: SOTALOL HCL 40 MG TABLET PO (08:09)
[2022-11-18] MEDS: FLUoxetine HCL 20 MG CAPSULE 60 MG PO (08:09)
[2022-11-18] MEDS: MECLIZINE HCL 25 MG TABLET PO (08:09)
[2022-11-18] MEDS: SUMAtriptan SUCCINATE 25 MG TABLET 100 MG PO (08:09)
[2022-11-18] MEDS: EZETIMIBE 10 MG TABLET PO (08:09)
[2022-11-18] MEDS: metFORMIN HCL XR 500 MG TAB.SR.24H 1000 MG PO ×2 (08:10→17:20)
[2022-11-18] MEDS: LORATADINE 10 MG TABLET PO (08:10)
[2022-11-18] MEDS: SPIRONOLACTONE 12.5 MG TABLET PO (08:10)
[2022-11-18] MEDS: APIXABAN 5 MG TABLET PO ×2 (08:10→20:49)
[2022-11-18] MEDS: ASPIRIN 81 MG CHEWABLE TABLET PO (08:10)
[2022-11-18] MEDS: EMPAGLIFLOZIN 25 MG TABLET PO (08:10)
[2022-11-18] MEDS: guaiFENesin 12 HR 600 MG TABCR PO ×2 (08:10→20:49)
[2022-11-18] MEDS: lisinopriL 10 MG TABLET PO (08:10)
[2022-11-18] MEDS: MELOXICAM 7.5 MG TABLET PO ×2 (08:10→20:48)
[2022-11-18] MEDS: PANTOPRAZOLE 40 MG TABLET PO (08:11)
[2022-11-18] MEDS: FUROSEMIDE 20 MG TABLET PO (08:11)
[2022-11-18] MEDS: glipiZIDE XL 5 MG TABCR PO ×2 (08:11→17:20)
[2022-11-18] MEDS: GABAPENTIN 300 MG CAPSULE PO ×3 (09:04→20:48)
[2022-11-18] MEDS: ACETAMINOPHEN 325 MG TABLET 650 MG PO ×2 (09:07→14:02)
[2022-11-18 11:08] LABS: Hematocrit 48.3 % (37.0-47.0); Hemoglobin 15.2 g/dL (12.0-15.0); Mean Corpuscular HGB Conc 31.5 g/dl (32-36); Mean Corpuscular Hemoglobin 30.5 pg (26-34); Mean Platelet Volume 10.8 fl (7.4-10.4); Platelet Count Result 188 k/mm3 (150-375); Red Blood Count 4.98 M/mm3 (4.2-5.4); Red Cell Distribution Width 13.7 % (11.5-14.5); White Blood Count 9.6 K/mm3 (4.5-10.0)
[2022-11-18 11:17] LABS: Anion Gap 5 mmol/L (8-16); Blood Urea Nitrogen 37 mg/dL (7-17); Calcium 8.7 mg/dL (8.4-10.2); Carbon Dioxide 36 mmol/L (22-30); Chloride 98 mmol/L (98-107); Estimated CRCL calculation 63 ml/min; Estimated Glomerular Filt Rate 36; Glucose 181 mg/dL (65-110); Magnesium 2.2 mg/dL (1.6-2.3); Potassium 4.7 mmol/L (3.4-5.0); Sodium 139 mmol/L (137-145)
[2022-11-18 11:35] LABS: Glucose Point of Care 134 mg/dl (65-105)
[2022-11-18 11:39] LABS: Glucose Point of Care 200 mg/dl (65-105)
[2022-11-18] MEDS: LIDOCAINE 5% PATCH 2 PATCH TRANSDERM (14:03)
--- NOTE | 2022-11-18 15:20 | PM.IMPN ---
Progress Note: A&P Assessment and Plan (1) Atrial fibrillation with rapid ventricular response: Code(s): I48.91 - Unspecified atrial fibrillation Status: Acute (2) CHF exacerbation: Qualifiers: Heart failure type: right-sided Qualified Code(s): I50.813 - Acute on chronic right heart failure Code(s): I50.9 - Heart failure, unspecified Status: Acute (3) Respiratory failure with hypoxia: Qualifiers: Chronicity: acute on chronic Qualified Code(s): J96.21 - Acute and chronic respiratory failure with hypoxia Code(s): J96.91 - Respiratory failure, unspecified with hypoxia Status: Acute (4) Recurrent headache: Code(s): R51.9 - Headache, unspecified Status: Acute (5) Type 2 diabetes mellitus with hyperglycemia, without long-term current use of insulin: Code(s): E11.65 - Type 2 diabetes mellitus with hyperglycemia Status: Acute (6) Obstructive sleep apnea on CPAP: Code(s): G47.33 - Obstructive sleep apnea (adult) (pediatric); Z99.89 - Dependence on other enabling machines and devices Status: Acute Plan The patient has acute CHF exacerbation likely due to combination of right-sided heart failure/pulmonary hypertension given evidence of pulmonary hypertension noted on CTA of the chest a had atrial fibrillation with rapid ventricular response resulting in some high-output heart failure. The will place patient on Cardizem drip 5 mg an hour and will give patient a Cardizem push of 10 mg. I will also increase the patient's home Coreg to 6.25 mg p.o. b.i.d. with 1st dose nail. Will consult Dr. Erwin from Cardiology as he has seen the patient in the distant past. The patient will likely need long-term anticoagulation given her chads Vasc score of at least 6. Patient did receive 1 dose of therapeutic Lovenox in the ER. I will defer which anticoagulant to start to Cardiology Service. The patient is aware that she would benefit from long-term anticoagulation to decrease stroke risk. Will monitor strict I&O's and daily weights. Will start the patient on Lasix 40 mg IV b.i.d. and monitor renal function closely given her history of chronic kidney disease stage 3. Will check echocardiogram to further evaluate patient's cardiac structure and function given her recent decompensation. The patient does have increased oxygen requirement from baseline. Will wean oxygen as tolerated. Nighttime CPAP has been ordered. Patient has type 2 diabetes with hyperglycemia. Will continue the patient's oral hypoglycemic agents. Her once weekly injection medication is on hold as it is not available in the hospital. Will place patient on high-dose sliding scale insulin with Accu-Cheks a.c. HS and hypoglycemia protocol. Patient has been admitted as observation status. 11/18/2022 interval history: Morbidly obese patient status post mitral valve repair presented with shortness of breath on 11/13 patient was found to have atrial fibrillation with RVR patient was started on diltiazem drip from ER, and on 11/13 was seen by her primary buying agent patient rate was trending down the drip was stopped and patient was started on sotalol, on 11/16 patient rates remained stable however patient was in AFib, patient seen by a buying agent recommended cardioversion patient had cardioverion, it was success full, however on 11/16 patient went back into A. Fib was started on sotalol 80mg BID, today patient remains in NSR and buying agent wants to monitor and evaluate ambulatory function, patient did walk but did not feel well and became bradycardiac her buying agent reduced satalol to 40mg qdaily, will monitor and further recommendation to follow Subjective Date/time seen: 11/18/22 15:20 The patient has acute CHF exacerbation likely due to combination of right-sided heart failure/pulmonary hypertension given evidence of pulmonary hypertension noted on CTA of the chest a had atrial fibrillation with r
[2022-11-18 16:15] LABS: Glucose Point of Care 82 mg/dl (65-105)
[2022-11-18 20:09] LABS: Glucose Point of Care 169 mg/dl (65-105)
[2022-11-18] MEDS: traZODone HCL 50 MG TABLET 300 MG PO (20:44)
[2022-11-18] MEDS: ATORVASTATIN 40 MG TABLET 80 MG PO (20:46)
[2022-11-18] MEDS: MELATONIN 5 MG TABLET 10 MG PO (20:47)
[2022-11-18] MEDS: buPROPion HCL XL (24 HR) 150 MG TABCR PO (20:49)
[2022-11-19] VITALS (24 sets, daily range): BP systolic 119–153; BP diastolic 73–95; PULSE 40–95; RESP 14–22; TEMP 35.6–36.6; O2SAT 94–100
[2022-11-19] MEDS: LEVALBUTEROL NEB 1.25 MG/3 ML 0.63 MG INHALATION ×4 (01:16→20:56)
[2022-11-19] MEDS: IPRATROPIUM BR 0.02% INH SOLN 0.5 MG/2.5 ML VIAL INHALATION ×4 (01:16→20:58)
[2022-11-19] MEDS: GABAPENTIN 300 MG CAPSULE PO ×3 (05:53→21:03)
[2022-11-19 05:54] LABS: Hematocrit 42.6 % (37.0-47.0); Hemoglobin 13.3 g/dL (12.0-15.0); Mean Corpuscular HGB Conc 31.2 g/dl (32-36); Mean Corpuscular Volume 95.9 fl (80-100); Mean Platelet Volume 11.3 fl (7.4-10.4); Platelet Count Result 183 k/mm3 (150-375); Red Blood Count 4.44 M/mm3 (4.2-5.4); Red Cell Distribution Width 13.4 % (11.5-14.5); White Blood Count 8.3 K/mm3 (4.5-10.0)
[2022-11-19 06:03] LABS: Anion Gap 6 mmol/L (8-16); Blood Urea Nitrogen 40 mg/dL (7-17); Calcium 8.4 mg/dL (8.4-10.2); Carbon Dioxide 31 mmol/L (22-30); Chloride 99 mmol/L (98-107); Estimated CRCL calculation 59 ml/min; Estimated Glomerular Filt Rate 33; Glucose 178 mg/dL (65-110); Magnesium 2.2 mg/dL (1.6-2.3); Potassium 4.2 mmol/L (3.4-5.0); Sodium 136 mmol/L (137-145)
[2022-11-19] MEDS: FLUTICASONE/SALMETEROL 115-21 MCG INHALER 1 PUFF 2 PUFF INHALATION ×2 (07:21→21:09)
--- NOTE | 2022-11-19 08:00 | PM.PNCARD ---
Progress Note: A&P Assessment and Plan (1) S/P MVR (mitral valve repair): Code(s): Z98.890 - Other specified postprocedural states Status: Acute Assessment and Plan: Stable. (2) Hyperlipidemia: Qualifiers: Hyperlipidemia type: unspecified Qualified Code(s): E78.5 - Hyperlipidemia, unspecified Code(s): E78.5 - Hyperlipidemia, unspecified Status: Acute Assessment and Plan: On Atorvastatin. (3) Paroxysmal A-fib: Code(s): I48.0 - Paroxysmal atrial fibrillation Status: Acute Assessment and Plan: [id number]. Rate is controlled. Started Sotalol 80 mg PO every 12 hours on 11/03/22. Started Eliquis 5 mg PO BID. Check EKG 1-2 hours post each Sotalol dose to check QT interval. S/P CARMINE/DC cardioversion on 11/16/22 that was successful at restoring sinus rhythm. Due to persistent bradycardia, Sotalol dose decrease dose to 40 mg felipe. Have patient ambulate today and see how she does. (4) Hypertension: Qualifiers: Hypertension type: essential hypertension Qualified Code(s): I10 - Essential (primary) hypertension Code(s): I10 - Essential (primary) hypertension Status: Chronic Assessment and Plan: Stable. (5) CAD (coronary artery disease), autologous vein bypass graft: Code(s): I25.810 - Atherosclerosis of coronary artery bypass graft(s) without angina pectoris Status: Acute Assessment and Plan: Stable. (6) Diastolic dysfunction: Code(s): I51.89 - Other ill-defined heart diseases Status: Acute Assessment and Plan: Acute on chronic. On Lasix 40 mg IV BID. 11/13/22 Echo: EF 45-50%, mild LVE, mild LVH, diastolic dysfunction with E/e' 27, mod LAE, mod MAC. On Lasix 20 mg PO daily. On Spironolactone 12.5 mg daily. Monitor electrolytes and kidney function. (7) Ascending aortic aneurysm: Code(s): I71.2 - Thoracic aortic aneurysm, without rupture Status: Acute Assessment and Plan: Stable. Subjective Date/time seen: 11/19/22 08:00 Interval history: She feels weak and has MIN. Denies sob or cp. Exam Const: General: cooperative, healthy appearing and comfortable Orientation/consciousness: oriented to person, oriented to place and oriented to time Resp: Auscultation: clear to auscultation bilaterally, no crackles, no rales, no rhonchi, no wheezes and diminished lung sounds Cardio: Jugular venous distension: no JVD Rate: bradycardic Rhythm: regular rhythm Heart sounds: no murmurs Peripheral pulses: dorsalis pedis present Neuro: General: oriented to person, oriented to place and oriented to time Extrem: Right lower extremity: no edema Left lower extremity: no edema Other: Mild edema bilterally Objective Data Vital Signs Vital Signs: Vital Signs - 24 hr 11/18/22 08:09 11/18/22 10:00 11/18/22 11:56 Temperature 97.3 F L Pulse Rate 61 47 L 42 L Respiratory Rate 220 H Blood Pressure 138/80 Pulse Oximetry 99 Oxygen Delivery Oxygen Flow Rate Fraction of Inspired Oxygen 11/18/22 12:00 11/18/22 12:00 11/18/22 13:20 Temperature Pulse Rate 49 L 48 L Respiratory Rate 18 Blood Pressure Pulse Oximetry 97 Oxygen Delivery Nasal Cannula Oxygen Flow Rate 4 Fraction of Inspired Oxygen 11/18/22 13:30 11/18/22 14:00 11/18/22 16:00 Temperature Pulse Rate 50 L 84 43 L Respiratory Rate 18 Blood Pressure Pulse Oximetry Oxygen Delivery Oxygen Flow Rate Fraction of Inspired Oxygen 11/18/22 16:00 11/18/22 16:00 11/18/22 18:00 Temperature 97.8 F Pulse Rate 43 L 53 L Respiratory Rate 18 Blood Pressure 125/81 Pulse Oximetry 99 95 Oxygen Delivery Nasal Cannula Oxygen Flow Rate 4 Fraction of Inspired Oxygen 11/18/22 20:13 11/18/22 20:14 11/18/22 20:00 Temperature Pulse Rate 51 L 51 L 53 L Respiratory Rate 18 18 Blood Pressure Pulse Oximetry 95 Oxygen Delivery Nasal Cannu
[2022-11-19 08:03] LABS: Glucose Point of Care 106 mg/dl (65-105)
[2022-11-19] MEDS: SUMAtriptan SUCCINATE 25 MG TABLET 100 MG PO (08:21)
[2022-11-19] MEDS: metFORMIN HCL XR 500 MG TAB.SR.24H 1000 MG PO ×2 (08:21→16:35)
[2022-11-19] MEDS: EZETIMIBE 10 MG TABLET PO (08:22)
[2022-11-19] MEDS: FLUoxetine HCL 20 MG CAPSULE 60 MG PO (08:22)
[2022-11-19] MEDS: lisinopriL 10 MG TABLET PO (08:22)
[2022-11-19] MEDS: APIXABAN 5 MG TABLET PO ×2 (08:22→21:01)
[2022-11-19] MEDS: EMPAGLIFLOZIN 25 MG TABLET PO (08:22)
[2022-11-19] MEDS: SPIRONOLACTONE 12.5 MG TABLET PO (08:23)
[2022-11-19] MEDS: PANTOPRAZOLE 40 MG TABLET PO (08:23)
[2022-11-19] MEDS: MELOXICAM 7.5 MG TABLET PO ×2 (08:23→21:02)
[2022-11-19] MEDS: ASPIRIN 81 MG CHEWABLE TABLET PO (08:23)
[2022-11-19] MEDS: MECLIZINE HCL 25 MG TABLET PO (08:23)
[2022-11-19] MEDS: LORATADINE 10 MG TABLET PO (08:23)
[2022-11-19] MEDS: glipiZIDE XL 5 MG TABCR PO ×2 (08:23→16:35)
[2022-11-19] MEDS: guaiFENesin 12 HR 600 MG TABCR PO ×2 (08:23→21:03)
[2022-11-19] MEDS: FUROSEMIDE 20 MG TABLET PO (08:23)
[2022-11-19] MEDS: SOTALOL HCL 40 MG TABLET PO (10:16)
[2022-11-19 11:40] LABS: Glucose Point of Care 151 mg/dl (65-105)
[2022-11-19] MEDS: TOLNAFTATE 1% POWDER 45 GM BTL 1 APPLIC TOPICAL ×2 (15:47→21:02)
[2022-11-19] MEDS: SALINE 0.65% NAS SOLN 44 ML BTL 1 SPRAY NASAL (15:47)
--- NOTE | 2022-11-19 17:44 | PM.IMPN ---
Progress Note: A&P Assessment and Plan (1) Atrial fibrillation with rapid ventricular response: Code(s): I48.91 - Unspecified atrial fibrillation Status: Acute (2) CHF exacerbation: Qualifiers: Heart failure type: right-sided Qualified Code(s): I50.813 - Acute on chronic right heart failure Code(s): I50.9 - Heart failure, unspecified Status: Acute (3) Respiratory failure with hypoxia: Qualifiers: Chronicity: acute on chronic Qualified Code(s): J96.21 - Acute and chronic respiratory failure with hypoxia Code(s): J96.91 - Respiratory failure, unspecified with hypoxia Status: Acute (4) Recurrent headache: Code(s): R51.9 - Headache, unspecified Status: Acute (5) Type 2 diabetes mellitus with hyperglycemia, without long-term current use of insulin: Code(s): E11.65 - Type 2 diabetes mellitus with hyperglycemia Status: Acute (6) Obstructive sleep apnea on CPAP: Code(s): G47.33 - Obstructive sleep apnea (adult) (pediatric); Z99.89 - Dependence on other enabling machines and devices Status: Acute Plan The patient has acute CHF exacerbation likely due to combination of right-sided heart failure/pulmonary hypertension given evidence of pulmonary hypertension noted on CTA of the chest a had atrial fibrillation with rapid ventricular response resulting in some high-output heart failure. The will place patient on Cardizem drip 5 mg an hour and will give patient a Cardizem push of 10 mg. I will also increase the patient's home Coreg to 6.25 mg p.o. b.i.d. with 1st dose nail. Will consult Dr. Erwin from Cardiology as he has seen the patient in the distant past. The patient will likely need long-term anticoagulation given her chads Vasc score of at least 6. Patient did receive 1 dose of therapeutic Lovenox in the ER. I will defer which anticoagulant to start to Cardiology Service. The patient is aware that she would benefit from long-term anticoagulation to decrease stroke risk. Will monitor strict I&O's and daily weights. Will start the patient on Lasix 40 mg IV b.i.d. and monitor renal function closely given her history of chronic kidney disease stage 3. Will check echocardiogram to further evaluate patient's cardiac structure and function given her recent decompensation. The patient does have increased oxygen requirement from baseline. Will wean oxygen as tolerated. Nighttime CPAP has been ordered. Patient has type 2 diabetes with hyperglycemia. Will continue the patient's oral hypoglycemic agents. Her once weekly injection medication is on hold as it is not available in the hospital. Will place patient on high-dose sliding scale insulin with Accu-Cheks a.c. HS and hypoglycemia protocol. Patient has been admitted as observation status. 11/18/2022 interval history: Morbidly obese patient status post mitral valve repair presented with shortness of breath on 11/13 patient was found to have atrial fibrillation with RVR patient was started on diltiazem drip from ER, and on 11/13 was seen by her primary white sugar boiler patient rate was trending down the drip was stopped and patient was started on sotalol, on 11/16 patient rates remained stable however patient was in AFib, patient seen by a white sugar boiler recommended cardioversion patient had cardioverion, it was success full, however on 11/16 patient went back into A. Fib was started on sotalol 80mg BID, today patient remains in NSR and white sugar boiler wants to monitor and evaluate ambulatory function, patient did walk but did not feel well and became bradycardiac her white sugar boiler reduced satalol to 40mg qdaily, will monitor and further recommendation to follow 11/19/2022: Patient with morbid obesity status post mitral valve repair presented with shortness of breath on 11/13 found to have atrial fibrillation with rapid ventricular rate was started on diltiazem drip in ER. [employer] Plant Operator consulted. Drip was stopped and
--- NOTE | 2022-11-19 18:07 | PC.NURSE ---
This patient, Apple Littlejohn, was transferred to [[facility] ] on 11/19/22 at 1800. Personal belongings sent with patient. Report given to [Tyesha ]. Appropriate documentation sent with patient.
[2022-11-19 19:56] LABS: Glucose Point of Care 79 mg/dl (65-105)
[2022-11-19 20:38] LABS: Glucose Point of Care 113 mg/dl (65-105)
[2022-11-19] MEDS: ATORVASTATIN 40 MG TABLET 80 MG PO (21:01)
[2022-11-19] MEDS: buPROPion HCL XL (24 HR) 150 MG TABCR PO (21:02)
[2022-11-19] MEDS: traZODone HCL 50 MG TABLET 300 MG PO (21:02)
[2022-11-19] MEDS: MELATONIN 5 MG TABLET 10 MG PO (21:03)
[2022-11-20] VITALS (16 sets, daily range): BP systolic 108–141; BP diastolic 75–88; PULSE 46–70; RESP 16–20; TEMP 35.6–36.3; O2SAT 95–100
[2022-11-20] MEDS: IPRATROPIUM BR 0.02% INH SOLN 0.5 MG/2.5 ML VIAL INHALATION ×3 (03:10→13:33)
[2022-11-20] MEDS: LEVALBUTEROL NEB 1.25 MG/3 ML 0.63 MG INHALATION ×3 (03:10→13:33)
[2022-11-20] MEDS: GABAPENTIN 300 MG CAPSULE PO ×3 (05:03→21:55)
[2022-11-20 07:16] LABS: Hemoglobin 14.4 g/dL (12.0-15.0); Mean Corpuscular HGB Conc 31.3 g/dl (32-36); Mean Corpuscular Hemoglobin 30.1 pg (26-34); Mean Platelet Volume 10.9 fl (7.4-10.4); Platelet Count Result 173 k/mm3 (150-375); Red Blood Count 4.79 M/mm3 (4.2-5.4); Red Cell Distribution Width 13.4 % (11.5-14.5); White Blood Count 8.6 K/mm3 (4.5-10.0)
[2022-11-20 07:30] LABS: Anion Gap 5 mmol/L (8-16); Blood Urea Nitrogen 32 mg/dL (7-17); Calcium 8.7 mg/dL (8.4-10.2); Carbon Dioxide 36 mmol/L (22-30); Chloride 98 mmol/L (98-107); Estimated CRCL calculation 63 ml/min; Estimated Glomerular Filt Rate 36; Glucose 114 mg/dL (65-110); Magnesium 2.2 mg/dL (1.6-2.3); Potassium 4.9 mmol/L (3.4-5.0); Sodium 139 mmol/L (137-145)
[2022-11-20 07:55] LABS: Glucose Point of Care 88 mg/dl (65-105)
--- NOTE | 2022-11-20 08:12 | PM.PNCARD ---
Progress Note: A&P Assessment and Plan (1) S/P MVR (mitral valve repair): Code(s): Z98.890 - Other specified postprocedural states Status: Acute Assessment and Plan: Stable. (2) Hyperlipidemia: Qualifiers: Hyperlipidemia type: unspecified Qualified Code(s): E78.5 - Hyperlipidemia, unspecified Code(s): E78.5 - Hyperlipidemia, unspecified Status: Acute Assessment and Plan: On Atorvastatin. (3) Paroxysmal A-fib: Code(s): I48.0 - Paroxysmal atrial fibrillation Status: Acute Assessment and Plan: [id number]. Rate is controlled. Started Sotalol 80 mg PO every 12 hours on 11/03/22. Started Eliquis 5 mg PO BID. Check EKG 1-2 hours post each Sotalol dose to check QT interval. S/P CARMINE/DC cardioversion on 11/16/22 that was successful at restoring sinus rhythm. Due to persistent bradycardia, on low dose Sotalol 40 mg daily. Patient feels weak and has MIN, may benefit from rehab unit. May d/c home from cardiology standpoint. (4) Hypertension: Qualifiers: Hypertension type: essential hypertension Qualified Code(s): I10 - Essential (primary) hypertension Code(s): I10 - Essential (primary) hypertension Status: Chronic Assessment and Plan: Stable. (5) CAD (coronary artery disease), autologous vein bypass graft: Code(s): I25.810 - Atherosclerosis of coronary artery bypass graft(s) without angina pectoris Status: Acute Assessment and Plan: Stable. (6) Diastolic dysfunction: Code(s): I51.89 - Other ill-defined heart diseases Status: Acute Assessment and Plan: Acute on chronic. On Lasix 40 mg IV BID. 11/13/22 Echo: EF 45-50%, mild LVE, mild LVH, diastolic dysfunction with E/e' 27, mod LAE, mod MAC. On Lasix 20 mg PO daily. On Spironolactone 12.5 mg daily. Monitor electrolytes and kidney function. (7) Ascending aortic aneurysm: Code(s): I71.2 - Thoracic aortic aneurysm, without rupture Status: Acute Assessment and Plan: Stable. Subjective Date/time seen: 11/20/22 08:12 Interval history: She feels weak and has MIN. Denies sob or cp. Exam Const: General: cooperative, healthy appearing and comfortable Orientation/consciousness: oriented to person, oriented to place and oriented to time Resp: Auscultation: clear to auscultation bilaterally, no crackles, no rales, no rhonchi, no wheezes and diminished lung sounds Cardio: Jugular venous distension: no JVD Rate: bradycardic Rhythm: regular rhythm Heart sounds: no murmurs Peripheral pulses: dorsalis pedis present Neuro: General: oriented to person, oriented to place and oriented to time Extrem: Right lower extremity: no edema Left lower extremity: no edema Other: Mild edema bilterally Objective Data Vital Signs Vital Signs: Vital Signs - 24 hr 11/19/22 10:16 11/19/22 11:59 11/19/22 10:00 Temperature 96.9 F L Pulse Rate 54 L 51 L 49 L Respiratory Rate 20 Blood Pressure 153/85 H Pulse Oximetry 100 Oxygen Delivery Oxygen Flow Rate Fraction of Inspired Oxygen 11/19/22 12:00 11/19/22 13:26 11/19/22 13:26 Temperature Pulse Rate 56 L 53 L Respiratory Rate Blood Pressure Pulse Oximetry 100 99 Oxygen Delivery Autopap Autopap Oxygen Flow Rate 4 Fraction of Inspired Oxygen 36 11/19/22 13:33 11/19/22 16:00 11/19/22 16:00 Temperature 96.8 F L Pulse Rate 53 L 63 78 Respiratory Rate 16 22 H Blood Pressure 144/89 H Pulse Oximetry 94 Oxygen Delivery Oxygen Flow Rate Fraction of Inspired Oxygen 11/19/22 18:15 11/19/22 20:58 11/19/22 21:15 Temperature 97.5 F L Pulse Rate 55 L 54 L Respiratory Rate 14 16 Blood Pressure 127/75 Pulse Oximetry 97 98 Oxygen Delivery Nasal Cannula Oxygen Flow Rate 4 Fraction of Inspired Oxygen 11/19/22 21:03 11/19/22 21:00 11/19/22 20:00 Temperature 96.5 F L Pulse Rate 55 L 55 L 54 L Respiratory
[2022-11-20] MEDS: glipiZIDE XL 5 MG TABCR PO ×2 (08:38→18:02)
[2022-11-20] MEDS: metFORMIN HCL XR 500 MG TAB.SR.24H 1000 MG PO ×2 (08:38→18:02)
[2022-11-20] MEDS: EMPAGLIFLOZIN 25 MG TABLET PO (08:38)
[2022-11-20] MEDS: ASPIRIN 81 MG CHEWABLE TABLET PO (08:38)
[2022-11-20] MEDS: APIXABAN 5 MG TABLET PO ×2 (08:38→21:52)
[2022-11-20] MEDS: FUROSEMIDE 20 MG TABLET PO (08:38)
[2022-11-20] MEDS: lisinopriL 10 MG TABLET PO (08:38)
[2022-11-20] MEDS: MELOXICAM 7.5 MG TABLET PO ×2 (08:38→21:54)
[2022-11-20] MEDS: SOTALOL HCL 40 MG TABLET PO (08:38)
[2022-11-20] MEDS: FLUoxetine HCL 20 MG CAPSULE 60 MG PO (08:38)
[2022-11-20] MEDS: EZETIMIBE 10 MG TABLET PO (08:38)
[2022-11-20] MEDS: guaiFENesin 12 HR 600 MG TABCR PO ×2 (08:38→21:52)
[2022-11-20] MEDS: PANTOPRAZOLE 40 MG TABLET PO (08:38)
[2022-11-20] MEDS: LORATADINE 10 MG TABLET PO (08:38)
[2022-11-20] MEDS: MECLIZINE HCL 25 MG TABLET PO (08:38)
[2022-11-20] MEDS: SPIRONOLACTONE 12.5 MG TABLET PO (08:39)
[2022-11-20] MEDS: TOLNAFTATE 1% POWDER 45 GM BTL 1 APPLIC TOPICAL ×2 (08:39→22:00)
[2022-11-20] MEDS: FLUTICASONE/SALMETEROL 115-21 MCG INHALER 1 PUFF 2 PUFF INHALATION (08:43)
[2022-11-20] MEDS: SUMAtriptan SUCCINATE 25 MG TABLET 100 MG PO (08:46)
--- NOTE | 2022-11-20 08:49 | ECG_ITS ---
Measurements Intervals [place] Rate: 51 P: 46 IA: 261 QRS: -57 QRSD: 133 T: 128 QT: 477 QTc: 440 Interpretive Statements SINUS BRADYCARDIA WITH FIRST DEGREE AV BLOCK LEFT ANTERIOR SUPERIOR HEMIBLOCK ABNORMAL ECG COMPARED TO ECG 11/17/2022 12:06:16 LEFT VENTRICULAR HYPERTROPHY NOW PRESENT ST (T WAVE) DEVIATION NOW PRESENT Electronically Signed On 11-20-2022 15:30:38 CDT by Bertram Mayen M.D.
--- NOTE | 2022-11-20 09:47 | PCNWS ---
Weekly nutritional screen. Patient is tolerating current Heart healthy diet with 100% intake. No weight loss reported. No nutritional needs at this time.
--- NOTE | 2022-11-20 10:45 | PM.IMPN ---
Progress Note: A&P Assessment and Plan (1) Atrial fibrillation with rapid ventricular response: Code(s): I48.91 - Unspecified atrial fibrillation Status: Acute (2) CHF exacerbation: Qualifiers: Heart failure type: right-sided Qualified Code(s): I50.813 - Acute on chronic right heart failure Code(s): I50.9 - Heart failure, unspecified Status: Acute (3) Respiratory failure with hypoxia: Qualifiers: Chronicity: acute on chronic Qualified Code(s): J96.21 - Acute and chronic respiratory failure with hypoxia Code(s): J96.91 - Respiratory failure, unspecified with hypoxia Status: Acute (4) Recurrent headache: Code(s): R51.9 - Headache, unspecified Status: Acute (5) Type 2 diabetes mellitus with hyperglycemia, without long-term current use of insulin: Code(s): E11.65 - Type 2 diabetes mellitus with hyperglycemia Status: Acute (6) Obstructive sleep apnea on CPAP: Code(s): G47.33 - Obstructive sleep apnea (adult) (pediatric); Z99.89 - Dependence on other enabling machines and devices Status: Acute Plan The patient has acute CHF exacerbation likely due to combination of right-sided heart failure/pulmonary hypertension given evidence of pulmonary hypertension noted on CTA of the chest a had atrial fibrillation with rapid ventricular response resulting in some high-output heart failure. The will place patient on Cardizem drip 5 mg an hour and will give patient a Cardizem push of 10 mg. I will also increase the patient's home Coreg to 6.25 mg p.o. b.i.d. with 1st dose nail. Will consult Dr. Erwin from Cardiology as he has seen the patient in the distant past. The patient will likely need long-term anticoagulation given her chads Vasc score of at least 6. Patient did receive 1 dose of therapeutic Lovenox in the ER. I will defer which anticoagulant to start to Cardiology Service. The patient is aware that she would benefit from long-term anticoagulation to decrease stroke risk. Will monitor strict I&O's and daily weights. Will start the patient on Lasix 40 mg IV b.i.d. and monitor renal function closely given her history of chronic kidney disease stage 3. Will check echocardiogram to further evaluate patient's cardiac structure and function given her recent decompensation. The patient does have increased oxygen requirement from baseline. Will wean oxygen as tolerated. Nighttime CPAP has been ordered. Patient has type 2 diabetes with hyperglycemia. Will continue the patient's oral hypoglycemic agents. Her once weekly injection medication is on hold as it is not available in the hospital. Will place patient on high-dose sliding scale insulin with Accu-Cheks a.c. HS and hypoglycemia protocol. Patient has been admitted as observation status. 11/18/2022 interval history: Morbidly obese patient status post mitral valve repair presented with shortness of breath on 11/13 patient was found to have atrial fibrillation with RVR patient was started on diltiazem drip from ER, and on 11/13 was seen by her primary fire claims adjuster patient rate was trending down the drip was stopped and patient was started on sotalol, on 11/16 patient rates remained stable however patient was in AFib, patient seen by a fire claims adjuster recommended cardioversion patient had cardioverion, it was success full, however on 11/16 patient went back into A. Fib was started on sotalol 80mg BID, today patient remains in NSR and fire claims adjuster wants to monitor and evaluate ambulatory function, patient did walk but did not feel well and became bradycardiac her fire claims adjuster reduced satalol to 40mg qdaily, will monitor and further recommendation to follow 11/19/2022: Patient with morbid obesity status post mitral valve repair presented with shortness of breath on 11/13 found to have atrial fibrillation with rapid ventricular rate was started on diltiazem drip in ER. Permaculture Designer consulted. Drip was stopped and
[2022-11-20 11:47] LABS: Glucose Point of Care 166 mg/dl (65-105)
--- NOTE | 2022-11-20 14:55 | PCSTNOTE ---
Please refer to the Modified Barium Swallow Evaluation in the EMR.
[2022-11-20 16:17] LABS: Glucose Point of Care 100 mg/dl (65-105)
[2022-11-20 21:50] LABS: Glucose Point of Care 232 mg/dl (65-105)
[2022-11-20] MEDS: ATORVASTATIN 40 MG TABLET 80 MG PO (21:50)
[2022-11-20] MEDS: traZODone HCL 50 MG TABLET 300 MG PO (21:53)
[2022-11-20] MEDS: buPROPion HCL XL (24 HR) 150 MG TABCR PO (21:53)
[2022-11-20] MEDS: MELATONIN 5 MG TABLET 10 MG PO (21:59)
[2022-11-21] VITALS (18 sets, daily range): BP systolic 107–143; BP diastolic 53–81; PULSE 47–62; RESP 16–20; TEMP 36.1–36.3; O2SAT 94–100
[2022-11-21] MEDS: GABAPENTIN 300 MG CAPSULE PO ×2 (06:18→21:13)
[2022-11-21 07:26] LABS: Glucose Point of Care 160 mg/dl (65-105)
[2022-11-21 07:42] LABS: Anion Gap 6 mmol/L (8-16); Blood Urea Nitrogen 33 mg/dL (7-17); Calcium 8.9 mg/dL (8.4-10.2); Carbon Dioxide 33 mmol/L (22-30); Chloride 99 mmol/L (98-107); Estimated CRCL calculation 56 ml/min; Estimated Glomerular Filt Rate 31; Glucose 120 mg/dL (65-110); Magnesium 2.2 mg/dL (1.6-2.3); Potassium 4.6 mmol/L (3.4-5.0); Sodium 138 mmol/L (137-145)
[2022-11-21 07:54] LABS: Hematocrit 44.9 % (37.0-47.0); Hemoglobin 14.1 g/dL (12.0-15.0); Mean Corpuscular HGB Conc 31.4 g/dl (32-36); Mean Corpuscular Hemoglobin 30.7 pg (26-34); Mean Corpuscular Volume 97.8 fl (80-100); Mean Platelet Volume 11.2 fl (7.4-10.4); Platelet Count Result 182 k/mm3 (150-375); Red Blood Count 4.59 M/mm3 (4.2-5.4); Red Cell Distribution Width 13.7 % (11.5-14.5); White Blood Count 8.4 K/mm3 (4.5-10.0)
[2022-11-21] MEDS: lisinopriL 10 MG TABLET PO (08:45)
[2022-11-21] MEDS: LORATADINE 10 MG TABLET PO (08:45)
[2022-11-21] MEDS: glipiZIDE XL 5 MG TABCR PO ×2 (08:45→16:45)
[2022-11-21] MEDS: FUROSEMIDE 20 MG TABLET PO (08:45)
[2022-11-21] MEDS: guaiFENesin 12 HR 600 MG TABCR PO ×2 (08:45→21:13)
[2022-11-21] MEDS: ASPIRIN 81 MG CHEWABLE TABLET PO (08:46)
[2022-11-21] MEDS: EMPAGLIFLOZIN 25 MG TABLET PO (08:46)
[2022-11-21] MEDS: EZETIMIBE 10 MG TABLET PO (08:46)
[2022-11-21] MEDS: FLUoxetine HCL 20 MG CAPSULE 60 MG PO (08:46)
[2022-11-21] MEDS: APIXABAN 5 MG TABLET PO ×2 (08:46→21:13)
[2022-11-21] MEDS: PANTOPRAZOLE 40 MG TABLET PO (08:46)
[2022-11-21] MEDS: SOTALOL HCL 40 MG TABLET PO (08:46)
[2022-11-21] MEDS: MECLIZINE HCL 25 MG TABLET PO (08:47)
[2022-11-21] MEDS: MELOXICAM 7.5 MG TABLET PO ×2 (08:47→21:13)
[2022-11-21] MEDS: metFORMIN HCL XR 500 MG TAB.SR.24H 1000 MG PO ×2 (08:47→16:45)
[2022-11-21] MEDS: SUMAtriptan SUCCINATE 25 MG TABLET 100 MG PO (08:48)
[2022-11-21] MEDS: SPIRONOLACTONE 12.5 MG TABLET PO (08:48)
[2022-11-21] MEDS: TOLNAFTATE 1% POWDER 45 GM BTL 1 APPLIC TOPICAL ×2 (08:48→21:16)
[2022-11-21] MEDS: IPRATROPIUM BR 0.02% INH SOLN 0.5 MG/2.5 ML VIAL INHALATION ×3 (08:56→21:22)
[2022-11-21] MEDS: LEVALBUTEROL NEB 1.25 MG/3 ML 0.63 MG INHALATION ×3 (08:56→21:21)
[2022-11-21] MEDS: FLUTICASONE/SALMETEROL 115-21 MCG INHALER 1 PUFF 2 PUFF INHALATION ×2 (08:57→21:22)
[2022-11-21 11:27] LABS: Glucose Point of Care 256 mg/dl (65-105)
[2022-11-21] MEDS: INSULIN ASPART (*BKC) 100 UNITS/ML SUB-Q (11:35)
--- NOTE | 2022-11-21 14:15 | PCSTNOTE ---
Please refer to the Modified Barium Swallow Evaluation in the EMR.
--- NOTE | 2022-11-21 14:33 | PM.IMPN ---
Progress Note: A&P Assessment and Plan (1) Atrial fibrillation with rapid ventricular response: Code(s): I48.91 - Unspecified atrial fibrillation Status: Acute (2) CHF exacerbation: Qualifiers: Heart failure type: right-sided Qualified Code(s): I50.813 - Acute on chronic right heart failure Code(s): I50.9 - Heart failure, unspecified Status: Acute (3) Respiratory failure with hypoxia: Qualifiers: Chronicity: acute on chronic Qualified Code(s): J96.21 - Acute and chronic respiratory failure with hypoxia Code(s): J96.91 - Respiratory failure, unspecified with hypoxia Status: Acute (4) Recurrent headache: Code(s): R51.9 - Headache, unspecified Status: Acute (5) Type 2 diabetes mellitus with hyperglycemia, without long-term current use of insulin: Code(s): E11.65 - Type 2 diabetes mellitus with hyperglycemia Status: Acute (6) Obstructive sleep apnea on CPAP: Code(s): G47.33 - Obstructive sleep apnea (adult) (pediatric); Z99.89 - Dependence on other enabling machines and devices Status: Acute Plan The patient has acute CHF exacerbation likely due to combination of right-sided heart failure/pulmonary hypertension given evidence of pulmonary hypertension noted on CTA of the chest a had atrial fibrillation with rapid ventricular response resulting in some high-output heart failure. The will place patient on Cardizem drip 5 mg an hour and will give patient a Cardizem push of 10 mg. I will also increase the patient's home Coreg to 6.25 mg p.o. b.i.d. with 1st dose nail. Will consult Dr. Erwin from Cardiology as he has seen the patient in the distant past. The patient will likely need long-term anticoagulation given her chads Vasc score of at least 6. Patient did receive 1 dose of therapeutic Lovenox in the ER. I will defer which anticoagulant to start to Cardiology Service. The patient is aware that she would benefit from long-term anticoagulation to decrease stroke risk. Will monitor strict I&O's and daily weights. Will start the patient on Lasix 40 mg IV b.i.d. and monitor renal function closely given her history of chronic kidney disease stage 3. Will check echocardiogram to further evaluate patient's cardiac structure and function given her recent decompensation. The patient does have increased oxygen requirement from baseline. Will wean oxygen as tolerated. Nighttime CPAP has been ordered. Patient has type 2 diabetes with hyperglycemia. Will continue the patient's oral hypoglycemic agents. Her once weekly injection medication is on hold as it is not available in the hospital. Will place patient on high-dose sliding scale insulin with Accu-Cheks a.c. HS and hypoglycemia protocol. Patient has been admitted as observation status. 11/18/2022 interval history: Morbidly obese patient status post mitral valve repair presented with shortness of breath on 11/13 patient was found to have atrial fibrillation with RVR patient was started on diltiazem drip from ER, and on 11/13 was seen by her primary adjunct teacher patient rate was trending down the drip was stopped and patient was started on sotalol, on 11/16 patient rates remained stable however patient was in AFib, patient seen by a adjunct teacher recommended cardioversion patient had cardioverion, it was success full, however on 11/16 patient went back into A. Fib was started on sotalol 80mg BID, today patient remains in NSR and adjunct teacher wants to monitor and evaluate ambulatory function, patient did walk but did not feel well and became bradycardiac her adjunct teacher reduced satalol to 40mg qdaily, will monitor and further recommendation to follow 11/19/2022: Patient with morbid obesity status post mitral valve repair presented with shortness of breath on 11/13 found to have atrial fibrillation with rapid ventricular rate was started on diltiazem drip in ER. Warp Knitter Helper consulted. Drip was stopped and
[2022-11-21 17:02] LABS: Glucose Point of Care 72 mg/dl (65-105)
[2022-11-21] MEDS: traZODone HCL 50 MG TABLET 300 MG PO (21:12)
[2022-11-21] MEDS: ATORVASTATIN 40 MG TABLET 80 MG PO (21:13)
[2022-11-21] MEDS: buPROPion HCL XL (24 HR) 150 MG TABCR PO (21:13)
[2022-11-21] MEDS: MELATONIN 5 MG TABLET 10 MG PO (21:13)
[2022-11-21] MEDS: CEFDINIR 300 MG CAPSULE PO (21:13)
[2022-11-21 21:31] LABS: Glucose Point of Care 119 mg/dl (65-105)
[2022-11-22] VITALS (18 sets, daily range): BP systolic 136–147; BP diastolic 69–89; PULSE 44–60; RESP 16–20; TEMP 35.8–36.4; O2SAT 93–98
[2022-11-22] MEDS: LEVALBUTEROL NEB 1.25 MG/3 ML 0.63 MG INHALATION ×4 (01:38→20:02)
[2022-11-22] MEDS: IPRATROPIUM BR 0.02% INH SOLN 0.5 MG/2.5 ML VIAL INHALATION ×4 (01:38→20:02)
[2022-11-22] MEDS: GABAPENTIN 300 MG CAPSULE PO ×3 (05:41→21:01)
[2022-11-22 06:38] LABS: Hematocrit 41.8 % (37.0-47.0); Hemoglobin 13.4 g/dL (12.0-15.0); Mean Corpuscular HGB Conc 32.1 g/dl (32-36); Mean Corpuscular Hemoglobin 30.1 pg (26-34); Mean Corpuscular Volume 93.9 fl (80-100); Mean Platelet Volume 11.3 fl (7.4-10.4); Platelet Count Result 169 k/mm3 (150-375); Red Blood Count 4.45 M/mm3 (4.2-5.4); Red Cell Distribution Width 13.4 % (11.5-14.5); White Blood Count 7.9 K/mm3 (4.5-10.0)
[2022-11-22 06:54] LABS: Anion Gap 6 mmol/L (8-16); Blood Urea Nitrogen 35 mg/dL (7-17); Calcium 8.8 mg/dL (8.4-10.2); Carbon Dioxide 32 mmol/L (22-30); Chloride 99 mmol/L (98-107); Estimated CRCL calculation 67 ml/min; Estimated Glomerular Filt Rate 39; Glucose 96 mg/dL (65-110); Magnesium 2.1 mg/dL (1.6-2.3); Potassium 4.6 mmol/L (3.4-5.0); Sodium 137 mmol/L (137-145)
[2022-11-22 07:26] LABS: Glucose Point of Care 96 mg/dl (65-105)
[2022-11-22] MEDS: PANTOPRAZOLE 40 MG TABLET PO (08:02)
[2022-11-22] MEDS: lisinopriL 10 MG TABLET PO (08:02)
[2022-11-22] MEDS: FLUoxetine HCL 20 MG CAPSULE 60 MG PO (08:02)
[2022-11-22] MEDS: MELOXICAM 7.5 MG TABLET PO ×2 (08:02→21:49)
[2022-11-22] MEDS: LORATADINE 10 MG TABLET PO (08:03)
[2022-11-22] MEDS: MECLIZINE HCL 25 MG TABLET PO (08:03)
[2022-11-22] MEDS: CEFDINIR 300 MG CAPSULE PO ×2 (08:03→21:01)
[2022-11-22] MEDS: FUROSEMIDE 20 MG TABLET PO (08:03)
[2022-11-22] MEDS: APIXABAN 5 MG TABLET PO ×2 (08:03→21:01)
[2022-11-22] MEDS: EZETIMIBE 10 MG TABLET PO (08:03)
[2022-11-22] MEDS: ASPIRIN 81 MG CHEWABLE TABLET PO (08:03)
[2022-11-22] MEDS: guaiFENesin 12 HR 600 MG TABCR PO ×2 (08:03→21:01)
[2022-11-22] MEDS: glipiZIDE XL 5 MG TABCR PO ×2 (08:03→16:34)
[2022-11-22] MEDS: SPIRONOLACTONE 12.5 MG TABLET PO (08:03)
[2022-11-22] MEDS: metFORMIN HCL XR 500 MG TAB.SR.24H 1000 MG PO ×2 (08:03→16:34)
[2022-11-22] MEDS: EMPAGLIFLOZIN 25 MG TABLET PO (08:04)
[2022-11-22] MEDS: TOLNAFTATE 1% POWDER 45 GM BTL 1 APPLIC TOPICAL ×2 (08:04→21:04)
[2022-11-22] MEDS: SOTALOL HCL 40 MG TABLET PO (08:04)
[2022-11-22] MEDS: FLUTICASONE/SALMETEROL 115-21 MCG INHALER 1 PUFF 2 PUFF INHALATION ×2 (09:06→20:02)
[2022-11-22] MEDS: SUMAtriptan SUCCINATE 25 MG TABLET 100 MG PO (10:52)
[2022-11-22 11:33] LABS: Glucose Point of Care 216 mg/dl (65-105)
[2022-11-22] MEDS: INSULIN ASPART (*BKC) 100 UNITS/ML SUB-Q (12:04)
--- NOTE | 2022-11-22 13:18 | PM.IMPN ---
Progress Note: A&P Assessment and Plan (1) Atrial fibrillation with rapid ventricular response: Code(s): I48.91 - Unspecified atrial fibrillation Status: Acute (2) CHF exacerbation: Qualifiers: Heart failure type: right-sided Qualified Code(s): I50.813 - Acute on chronic right heart failure Code(s): I50.9 - Heart failure, unspecified Status: Acute (3) Respiratory failure with hypoxia: Qualifiers: Chronicity: acute on chronic Qualified Code(s): J96.21 - Acute and chronic respiratory failure with hypoxia Code(s): J96.91 - Respiratory failure, unspecified with hypoxia Status: Acute (4) Recurrent headache: Code(s): R51.9 - Headache, unspecified Status: Acute (5) Type 2 diabetes mellitus with hyperglycemia, without long-term current use of insulin: Code(s): E11.65 - Type 2 diabetes mellitus with hyperglycemia Status: Acute (6) Obstructive sleep apnea on CPAP: Code(s): G47.33 - Obstructive sleep apnea (adult) (pediatric); Z99.89 - Dependence on other enabling machines and devices Status: Acute Plan The patient has acute CHF exacerbation likely due to combination of right-sided heart failure/pulmonary hypertension given evidence of pulmonary hypertension noted on CTA of the chest a had atrial fibrillation with rapid ventricular response resulting in some high-output heart failure. The will place patient on Cardizem drip 5 mg an hour and will give patient a Cardizem push of 10 mg. I will also increase the patient's home Coreg to 6.25 mg p.o. b.i.d. with 1st dose nail. Will consult Dr. Erwin from Cardiology as he has seen the patient in the distant past. The patient will likely need long-term anticoagulation given her chads Vasc score of at least 6. Patient did receive 1 dose of therapeutic Lovenox in the ER. I will defer which anticoagulant to start to Cardiology Service. The patient is aware that she would benefit from long-term anticoagulation to decrease stroke risk. Will monitor strict I&O's and daily weights. Will start the patient on Lasix 40 mg IV b.i.d. and monitor renal function closely given her history of chronic kidney disease stage 3. Will check echocardiogram to further evaluate patient's cardiac structure and function given her recent decompensation. The patient does have increased oxygen requirement from baseline. Will wean oxygen as tolerated. Nighttime CPAP has been ordered. Patient has type 2 diabetes with hyperglycemia. Will continue the patient's oral hypoglycemic agents. Her once weekly injection medication is on hold as it is not available in the hospital. Will place patient on high-dose sliding scale insulin with Accu-Cheks a.c. HS and hypoglycemia protocol. Patient has been admitted as observation status. 11/18/2022 interval history: Morbidly obese patient status post mitral valve repair presented with shortness of breath on 11/13 patient was found to have atrial fibrillation with RVR patient was started on diltiazem drip from ER, and on 11/13 was seen by her primary database specialist patient rate was trending down the drip was stopped and patient was started on sotalol, on 11/16 patient rates remained stable however patient was in AFib, patient seen by a database specialist recommended cardioversion patient had cardioverion, it was success full, however on 11/16 patient went back into A. Fib was started on sotalol 80mg BID, today patient remains in NSR and database specialist wants to monitor and evaluate ambulatory function, patient did walk but did not feel well and became bradycardiac her database specialist reduced satalol to 40mg qdaily, will monitor and further recommendation to follow 11/19/2022: Patient with morbid obesity status post mitral valve repair presented with shortness of breath on 11/13 found to have atrial fibrillation with rapid ventricular rate was started on diltiazem drip in ER. Router Operator Pin consulted. Drip was stopped and
[2022-11-22 16:32] LABS: Glucose Point of Care 77 mg/dl (65-105)
[2022-11-22 20:16] LABS: Glucose Point of Care 160 mg/dl (65-105)
[2022-11-22] MEDS: MELATONIN 5 MG TABLET 10 MG PO (21:01)
[2022-11-22] MEDS: ATORVASTATIN 40 MG TABLET 80 MG PO (21:01)
[2022-11-22] MEDS: traZODone HCL 50 MG TABLET 300 MG PO (21:01)
[2022-11-22] MEDS: buPROPion HCL XL (24 HR) 150 MG TABCR PO (21:01)
[2022-11-23] VITALS (13 sets, daily range): BP systolic 98–168; BP diastolic 57–95; PULSE 47–56; RESP 14–20; TEMP 35.7–36.3; O2SAT 95–98
[2022-11-23] MEDS: LEVALBUTEROL NEB 1.25 MG/3 ML 0.63 MG INHALATION ×3 (01:08→14:49)
[2022-11-23] MEDS: IPRATROPIUM BR 0.02% INH SOLN 0.5 MG/2.5 ML VIAL INHALATION ×3 (01:08→14:48)
[2022-11-23] MEDS: GABAPENTIN 300 MG CAPSULE PO ×2 (05:26→13:47)
[2022-11-23 06:24] LABS: Hematocrit 42.6 % (37.0-47.0); Hemoglobin 13.3 g/dL (12.0-15.0); Mean Corpuscular HGB Conc 31.2 g/dl (32-36); Mean Corpuscular Hemoglobin 30.9 pg (26-34); Mean Corpuscular Volume 99.1 fl (80-100); Mean Platelet Volume 10.8 fl (7.4-10.4); Platelet Count Result 175 k/mm3 (150-375); Red Cell Distribution Width 13.4 % (11.5-14.5)
[2022-11-23 06:40] LABS: Anion Gap 4 mmol/L (8-16); Blood Urea Nitrogen 35 mg/dL (7-17); Calcium 8.9 mg/dL (8.4-10.2); Carbon Dioxide 36 mmol/L (22-30); Chloride 98 mmol/L (98-107); Estimated CRCL calculation 59 ml/min; Estimated Glomerular Filt Rate 33; Glucose 160 mg/dL (65-110); Potassium 4.7 mmol/L (3.4-5.0); Sodium 138 mmol/L (137-145)
[2022-11-23 07:22] LABS: Glucose Point of Care 155 mg/dl (65-105)
[2022-11-23] MEDS: FLUTICASONE/SALMETEROL 115-21 MCG INHALER 1 PUFF 2 PUFF INHALATION (07:43)
[2022-11-23] MEDS: glipiZIDE XL 5 MG TABCR PO ×2 (08:24→17:28)
[2022-11-23] MEDS: MECLIZINE HCL 25 MG TABLET PO (08:24)
[2022-11-23] MEDS: ASPIRIN 81 MG CHEWABLE TABLET PO (08:24)
[2022-11-23] MEDS: SPIRONOLACTONE 12.5 MG TABLET PO (08:24)
[2022-11-23] MEDS: EZETIMIBE 10 MG TABLET PO (08:24)
[2022-11-23] MEDS: EMPAGLIFLOZIN 25 MG TABLET PO (08:24)
[2022-11-23] MEDS: PANTOPRAZOLE 40 MG TABLET PO (08:24)
[2022-11-23] MEDS: metFORMIN HCL XR 500 MG TAB.SR.24H 1000 MG PO ×2 (08:25→17:28)
[2022-11-23] MEDS: MELOXICAM 7.5 MG TABLET PO (08:25)
[2022-11-23] MEDS: FLUoxetine HCL 20 MG CAPSULE 60 MG PO (08:25)
[2022-11-23] MEDS: guaiFENesin 12 HR 600 MG TABCR PO (08:25)
[2022-11-23] MEDS: lisinopriL 10 MG TABLET PO (08:25)
[2022-11-23] MEDS: SOTALOL HCL 40 MG TABLET PO (08:25)
[2022-11-23] MEDS: APIXABAN 5 MG TABLET PO (08:25)
[2022-11-23] MEDS: CEFDINIR 300 MG CAPSULE PO (08:25)
[2022-11-23] MEDS: FUROSEMIDE 20 MG TABLET PO (08:25)
[2022-11-23] MEDS: LORATADINE 10 MG TABLET PO (08:25)
[2022-11-23] MEDS: TOLNAFTATE 1% POWDER 45 GM BTL 1 APPLIC TOPICAL (08:26)
[2022-11-23 11:05] LABS: Glucose Point of Care 191 mg/dl (65-105)
--- NOTE | 2022-11-23 16:18 | PM.DS ---
DS: Admitting Diagnosis Discharge Date 11/23/2022 Admitting Diagnosis Shortness of breath DS: Discharge Diagnosis Discharge Diagnosis (1) Atrial fibrillation with rapid ventricular response: Code(s): I48.91 - Unspecified atrial fibrillation Status: Acute (2) CHF exacerbation: Qualifiers: Heart failure type: right-sided Qualified Code(s): I50.813 - Acute on chronic right heart failure Code(s): I50.9 - Heart failure, unspecified Status: Acute (3) Respiratory failure with hypoxia: Qualifiers: Chronicity: acute on chronic Qualified Code(s): J96.21 - Acute and chronic respiratory failure with hypoxia Code(s): J96.91 - Respiratory failure, unspecified with hypoxia Status: Acute (4) Recurrent headache: Code(s): R51.9 - Headache, unspecified Status: Acute (5) Type 2 diabetes mellitus with hyperglycemia, without long-term current use of insulin: Code(s): E11.65 - Type 2 diabetes mellitus with hyperglycemia Status: Acute (6) Obstructive sleep apnea on CPAP: Code(s): G47.33 - Obstructive sleep apnea (adult) (pediatric); Z99.89 - Dependence on other enabling machines and devices Status: Acute DS: Summary Hospital Course Hospital Course: Patient with morbid obesity status post mitral valve repair presented with shortness of breath on 11/13 found to have atrial fibrillation with rapid ventricular rate was started on diltiazem drip in the ER.? Cardiology was consulted.? Cardizem drip has been stopped and was started on sotalol on 11/16/2022.? AFib has been stable she is status post cardioversion successfully on 11/16/2022.? Went back into AFib post cardioversion and was started on sotalol 80 mg b.i.d. remain on so normal sinus rhythm however bradycardic and hence the dose was been reduced to 40 mg daily.? Continue apixaban 5 mg b.i.d..? Jardiance Lasix has been started as well chest x-ray with pulmonary edema.? Still has some congestion and shortness of breath on ambulation.? Echo 11/13/2022 with EF 45% mild LVE mild diastolic dysfunction E by E prime 27 and moderate LVE moderate MAC.? Choking episodes since CARMINE swallow evaluation performed with speech therapist.? MBS recommended.? Status post MBS 11/21/2022.? Has penetration with thin liquids needs chin tuck and continued speech therapy evaluation.? Sputum culture grew Proteus started on Omnicef. She will complete the course of this.? chest x-ray with improving aeration of the left lower lung otherwise unchanged.? Still generally weak needs rehabilitation.? Care coordination for SNF placement which was arranged at [facility] and will be discharge the. Subjective Date/time seen: 11/22/22? 13:18 Time Spent with Patient Time attestation: Total time spent providing and/or coordinating discharge services: 45 minutes Exam Narrative: Morbidly obese Patient is comfortable, NAD HEENT: eyes are clear and none icteric LUNGS: Normal respiratory effort diminished breath sound bilaterally ABD: Distended so soft nontender Lower extremities: no edema cyanosis or clubbing SKIN: nonjaundiced Neuro: grossly intact. DS: Data Data Completed and Pending Completed studies during hospitalization: Exam Type: ? ? CA echo dop color flow w con Study Info Indications ?? ? - atrial fibrillation,? heart failure Complete two-dimensional, color flow and Doppler transthoracic echocardiogram is performed with contrast to opacify the left ventricle and to improve the deliniation of the left ventricle endocardial borders. Account #: ? ? [id number] Contrast/Agitated Saline Contrast/Ag. Saline: ? ? Definity Amount: ? ? 3.00 ml Administered By: ? ? Nancy,? Jessika OLIVERIO Existing IV Access: ? ? Yes IV Access Condition: ? ? patent with no signs of infiltration Summary ? 1. Technically suboptimal study due to poor sonographic images. ? 2. Definity contrast administer
[2022-11-23 16:19] LABS: Glucose Point of Care 117 mg/dl (65-105)
== END 2022-11-23 18:00 | DRG 308 ==
LOC: ANHED 21:39 → ANHIMU 23:02 → ANH3MEDSUR 11-19 18:01
PROVIDERS: Family Medicine; Internal Medicine Cardiovascular Disease; Admitting Provider Internal Medicine; Emergency Provider Emergency Medicine; PCP Family Medicine; Visit Provider Internal Medicine
PROC: 5A2204Z Restoration of Cardiac Rhythm, Single (ICD-10-PCS; principal; 2022-11-16 10:00)
PROC: 5A2204Z Restoration of Cardiac Rhythm, Single (ICD-10-PCS; CPT 93312; 2022-11-16 10:00)
DX: I48.0 Paroxysmal atrial fibrillation (principal); I50.33 Acute on chronic diastolic (congestive) heart failure; J96.21 Acute and chronic respiratory failure with hypoxia; J96.91 Respiratory failure, unspecified with hypoxia; Z68.43 Body mass index [BMI] 50.0-59.9, adult; I25.810 Atherosclerosis of coronary artery bypass graft(s) without angina pectoris; I11.0 Hypertensive heart disease with heart failure; E66.01 Morbid (severe) obesity due to excess calories; G47.33 Obstructive sleep apnea (adult) (pediatric); E11.65 Type 2 diabetes mellitus with hyperglycemia; J44.9 Chronic obstructive pulmonary disease, unspecified; E78.5 Hyperlipidemia, unspecified; I27.20 Pulmonary hypertension, unspecified; I71.21 Aneurysm of the ascending aorta, without rupture; Z20.822 Contact with and (suspected) exposure to COVID-19; Z87.891 Personal history of nicotine dependence; Z79.82 Long term (current) use of aspirin; Z79.899 Other long term (current) drug therapy
CPT/HCPCS: 36415; 36600; 71045; 71275; 80048; 80053; 82375; 82805; 82948; 83050; 83605; 83735; 83880; 84484; 85025; 85027; 85610; 85730; 87040; 87070; 87077; 87186; 87205; 87637; 92526; 92610; 92611; 92960; 93005; 93312; 93320; 93325; 94003; 94640; 96361; 96372; 96374; 96375; 97110; 97161; 97166; 97530; 97535; 99285; A9270; C8929; G0378; J1650; J1815; J1940; J2930; J7040; Q9957; Q9967

== ENCOUNTER 2023-02-19 13:37 | Outpatient (CLI) | payer MEDICARE, MEDICAID, SELFPAY ==
[2023-02-19 14:00] VITALS: PULSE 78; O2SAT 98
[2023-02-19 14:03] VITALS: PULSE 89; O2SAT 87
[2023-02-19 14:04] VITALS: O2SAT 87
[2023-02-19 14:05] VITALS: O2SAT 93
[2023-02-19 14:15] VITALS: PULSE 80; O2SAT 97
--- NOTE | 2023-02-19 15:38 | HOMEO2EVAL ---
Evaluation was performed at [facility] Home Oxygen Evaluation RC: Home Oxygen (O2) Evaluation Start: 02/19/23 15:35 Freq: Status: Active Protocol: RPE Activity Type Activity Date Activity User E-sign Co-sign Detail Recorded Client Recorded Date Recorded By Document 02/19/23 14:00 HOLLI [email or web address] 02/19/23 15:38 HOLLI Document 02/19/23 14:03 HOLLI [email or web address] 02/19/23 15:38 HOLLI Document 02/19/23 14:04 HOLLI [email or web address] 02/19/23 15:38 HOLLI Document 02/19/23 14:05 HOLLI [email or web address] 02/19/23 15:38 HOLLI Document 02/19/23 14:15 HOLLI [id number] 02/19/23 15:38 HOLLI 02/19/23 02/19/23 02/19/23 14:00 14:03 14:04 Home O2 Evaluation [Oxygen] -Test Phase Resting Exercise Exercise -Oxygen Delivery Room Air Room Air Nasal Cannula -Oxygen Flow Rate (L/min) 1 [Pulse Oximetry] -Pulse Oximetry (90-100 %) 98 87 L 87 L [Pulse Rate] -Pulse Rate (60-100 beats/min) 78 89 [Comments] -Home Oxygen Evaluation Comments [Charges] -Treatment Charges O2 Evaluation - Outpatient 02/19/23 02/19/23 14:05 14:15 Home O2 Evaluation [Oxygen] -Test Phase Exercise Resting -Oxygen Delivery Nasal Cannula Room Air -Oxygen Flow Rate (L/min) 2 [Pulse Oximetry] -Pulse Oximetry (90-100 %) 93 97 [Pulse Rate] -Pulse Rate (60-100 beats/min) 80 [Comments] -Home Oxygen Evaluation Comments PT REQUIRES 2 L HOME O2 WITH ACTIVITY/ EXERTION WALKED 125 FEET WITH WALKER [Charges] -Treatment Charges
--- NOTE | 2023-02-19 15:38 | PCRCNOTE ---
TRANG FAXED TO [facility]
--- NOTE | 2023-02-19 17:28 | WPDPFTINT ---
PFT Procedure Performed PFT Procedure Performed Spirometry with Pre/Post Bronchodilator Plethysmography (Lung Vol) Diffusing Cap (DLCO) Flow Vol Loop PFT Interpretation This is a pulmonary function test with pre and post-bronchodilator spirometry, plethysmography and diffusing capacity. The test was performed and results interpreted in accordance with the 2019 and 2005 ATS/ERS Task Force guidelines respectively using the Global Lung Function Initiative-2012 reference equations. Patient demonstrated good effort and cooperation. Reproducibility criteria were met. The quality of the pre bronchodilator spirometry maneuver was Grade B and post bronchodilator spirometry maneuver was Grade C. Findings: Spirometry: The contour the inspiratory and expiratory flow tracing are normal. The pre bronchodilator FVC is 2.67 L, 68% predicted. The pre bronchodilator FEV1 is 2.02 L, 65% predicted. The pre bronchodilator FEV1: FVC ratio 75%. The post bronchodilator FVC is 2.57 L, representing a 4% decrease. The post bronchodilator FEV1 is 1.94 L, representing a 4% decrease. The post bronchodilator FEV1: FVC ratio 76%. Plethysmography: The total lung capacity is 4.13 L, 71% predicted. The functional residual capacity is 2.37 L, 72% predicted. The residual volume is 1.45 L, 68% predicted. Diffusion capacity: The diffusing capacity unadjusted for hemoglobin and carboxyhemoglobin is 13.6, 56% predicted. The diffusing capacity adjusted for alveolar volume is 3.70, 86% predicted. Impression: There is a moderate restrictive ventilatory abnormality. The spirometry is normal without evidence of an obstructive abnormality. There is no significant improvement after inhaling a single dose of albuterol. The diffusing capacity unadjusted for hemoglobin and carboxyhemoglobin is moderately decreased and normalizes when adjusted for alveolar volume. There are no prior studies for comparison
== END 2023-02-19 13:38 | disposition home or self-care (01) ==
PROVIDERS: PCP Family Medicine; Visit Provider Nurse Practitioner
DX: J44.9 Chronic obstructive pulmonary disease, unspecified (principal); R94.2 Abnormal results of pulmonary function studies
CPT/HCPCS: 94060; 94618; 94726; 94729

== ENCOUNTER 2023-03-04 16:08 | Observation (INO) | payer MEDICARE, MEDICAID, SELFPAY ==
--- NOTE | ~2023-03-04 | XR_ITS ---
EXAMINATION: XR chest 2V DATE: 03/04/2023 17:23 INDICATION: Chest pain TECHNIQUE: AP and lateral views of the chest are obtained. COMPARISON: 11/21/2022 FINDINGS: Cardiomegaly is noted. There is mild pulmonary edema. No pleural effusion or pneumothorax. There are bridging osteophytes at multiple levels in the spine, consistent with diffuse idiopathic sk eletal hyperostosis (DISH). Changes of cardiac valve repair are noted. IMPRESSION: 1. Cardiomegaly with mild pulmonary edema. Reviewed, dictated and finalized at location F.
--- NOTE | ~2023-03-04 | CT_ITS ---
EXAMINATION: CT brain wo con INDICATION: Weakness and hypotension COMPARISON: 03/07/2020 TECHNIQUE: Standard unenhanced head CT. The dose-length product (DLP) was 605.33 mGy-cm. The mA was a djusted according to patient size. Iterative reconstruction technique was employed. FINDINGS: There is no intracranial hemorrhage, acute infarction, or abnormal mass lesion. The ventric les are normal. There is no abnormal mass effect or midline shift. The gruber-white matter differentiat ion is normal. The basal cisterns are patent. The orbits are normal. There is mild mucosal thickening of the paranasal sinuses. IMPRESSION: 1. No acute intracranial abnormality. Reviewed, dictated and finalized at location F.
--- NOTE | 2023-03-04 16:10 | ECG_ITS ---
Measurements Intervals [place] Rate: 77 P: 55 WI: 199 QRS: -63 QRSD: 130 T: 112 QT: 458 QTc: 521 Interpretive Statements SINUS RHYTHM LEFT ANTERIOR FASCICULAR BLOCK [QRS AXIS <= -45, QR IN I, RS IN II] LEFT VENTRICULAR HYPERTROPHY AND ST-T CHANGE [VOLTAGE CRITERIA PLUS ST/T ABNORMALITY] COMPARED TO ECG 11/20/2022 09:37:23 HEART RATE IS INCREASED, NO OTHER CHANGE Electronically Signed On 03-05-2023 12:51:28 CDT by Bertram Mayen M.D.
[2023-03-04 16:29] VITALS: BP 85/52; PULSE 76; RESP 18; TEMP 36.8; O2SAT 92
[2023-03-04 17:07] VITALS: BP 93/60; PULSE 77; RESP 20; O2SAT 92
[2023-03-04 17:08] VITALS: RESP 20; O2SAT 93
[2023-03-04 17:27] LABS: Basophils Percent Auto 0.3 % (0.2-1.2); Eosinophils Absolute Auto 0.1 K/mm3 (0-0.3); Eosinophils Percent Auto 1.3 % (0-4.4); Hematocrit 46.4 % (37.0-47.0); Hemoglobin 15.2 g/dL (12.0-15.0); Immature Granulocyte Absolute 0.05 K/mm3 (0.00-0.031); Immature Granulocyte Percent A 0.5 % (0-0.5); Lymphocytes Absolute Auto 1.39 K/mm3 (0.9-3.2); Lymphocytes Percent Auto 14.1 % (18.3-44.2); Mean Corpuscular HGB Conc 32.8 g/dl (32-36); Mean Corpuscular Volume 91.5 fl (80-100); Mean Platelet Volume 10.7 fl (7.4-10.4); Monocytes Absolute Auto 0.7 K/mm3 (0.1-0.6); Monocytes Percent Auto 7.1 % (2.6-8.5); Neutrophils Absolute Auto 7.6 K/mm3 (1.3-6.7); Neutrophils Percent Auto 76.7 % (45.5-73.1); Platelet Count Result 234 k/mm3 (150-375); Red Blood Count 5.07 M/mm3 (4.2-5.4); Red Cell Distribution Width 13.8 % (11.5-14.5); White Blood Count 9.9 K/mm3 (4.5-10.0)
[2023-03-04 17:28] LABS: INR 1.2; Prothrombin Time 16.1 Seconds (11.1-14.7)
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
[2023-03-04 17:29] LABS: Partial Thromboplastin Time 39.2 SECONDS (22.3-36.8)
[2023-03-04] MEDS: SODIUM CHLORIDE 0.9% IV 500 ML 999 ML IV CONT (18:14)
[2023-03-04 18:16] VITALS: BP 99/55; PULSE 75; RESP 16; O2SAT 94
[2023-03-04 19:14] LABS: Alanine Aminotransferase 25 U/L (6-35); Alkaline Phosphatase 78 U/L (38-126); Anion Gap 9 mmol/L (8-16); Aspartate Amino Transferase 32 U/L (14-36); Bilirubin,Total 0.6 mg/dL (0.2-1.3); Blood Urea Nitrogen 33 mg/dL (7-17); Carbon Dioxide 20 mmol/L (22-30); Chloride 109 mmol/L (98-107); Estimated CRCL calculation 34 ml/min; Estimated Glomerular Filt Rate 20; Glucose 164 mg/dL (65-110); Lipase 182 U/L (23-300); Potassium 4.2 mmol/L (3.4-5.0); Sodium 138 mmol/L (137-145)
[2023-03-04 19:25] LABS: Troponin I 0.013 ng/mL (0.000-0.034)
[2023-03-04 22:16] LABS: Troponin I 0.013 ng/mL (0.000-0.034)
[2023-03-04 22:35] LABS: Add Urine Microscopic? YES; Appearance Urine Cloudy (Clear); Bacteria Urine Rare /hpf; Bilirubin Urine Negative (Negative); Blood Urine Negative (Negative); Budding Yeast Urine Present /hpf; Color Urine Dark Yellow (Yellow); Glucose Urine UA 2+ mg/dL (Negative); Hyaline Casts Urine Present /lpf; Ketones Urine 1+ mg/dL (Negative); Leukocyte Esterase Ur 1+ LEU/UL (Negative); Mucus Urine Present /lpf; Nitrate Urine Negative (Negative); Non Pathogenic Casts >20; Protein Urine 1+ mg/dL (Negative); Specific Grav Ur 1.023 (1.001-1.035); Squamous Epithelial Cell Urine Moderate /hpf (Few); WBC Urine 51-100 /hpf
--- NOTE | 2023-03-04 23:26 | PM.IMHP ---
H&P: HPI History of Present Illness Date/Time: 03/04/23 23:26 Chief Complaint: Pain all over Narrative: 57-year-old female with a past medical history of of multiple medical problems including but not limited to type 2 diabetes mellitus, morbid obesity, obstructive sleep apnea, chronic kidney disease, type 2 diabetes mellitus and atrial fibrillation who presented to the ER from home via private vehicle due to multiple complaints. The patient's 1st complaint was of intermittent chest pain. But she states that her chest pain is really not changed from her baseline in is been intermittent ever since she had a valve surgery on her heart. She states that she has been trying to move from 1 apartment to another and was at her new apartment and unpacking. She reports that she has been feeling like a zombie and has also been feeling lightheaded. She reports history of chronic neuropathy and was having increased tingling and aching in her legs. However after she arrived to the ER this tingling and heaviness in her legs had resolved. She also tells me that she has been having increased lightheadedness for the 3-4 days. She has been feeling generally weak. She does report chronic nausea that is unchanged from baseline without any real significant vomiting. However she has been multiple loose stools a day for a couple of months. She was recently started on Mounjaro which has helped her controller glucoses. She states that they loose stool started prior to starting that medication. She denies any recent antibiotic use. She has not had any significant cough or congestion. She does have chronic dyspnea on exertion. When she arrived to the ER her blood pressures were low at 85/52. She received 1 L fluid bolus and blood pressures rebounded up to 117/74. She overall reports that she feels better after receiving IV fluids. She has chronic urinary frequency but denies dysuria or acute urinary symptoms. She has not been having any black stools, hematochezia or hematuria. She does report a history of peripheral neuropathy but reports her symptoms have been worse over the last week or so. She states that she drinks a lot of water. But then indicates that she drinks 2-3 16 oz bottles of water a day. Review of Systems Review of Systems: 12 systems were reviewed with pertinent positives and negatives per HPI. Except as documented in the HPI, all other systems were reviewed and are negative. [facility] Past Medical History Medical History (Updated 03/05/23 @ 06:57 by Gillian Domingo, DO) Anxiety Asthma with COPD Atrial fibrillation with rapid ventricular response (2019) CHF (congestive heart failure) Echo 11/13/2022 (technically difficult study): EF 40-45% Chronic back pain Secondary to degenerative disc disease. Chronic headaches Chronic respiratory failure with hypoxia, on home O2 therapy Chronic sinusitis CKD (chronic kidney disease) stage 3, GFR 30-59 ml/min Claustrophobia CVA (cerebral vascular accident) Evidence of old infarct in left cerebellum when MRI from December 2021 Depression with anxiety Diabetic peripheral neuropathy Endocarditis (~06/2020) Essential hypertension Fibromyalgia Gait instability GERD (gastroesophageal reflux disease) Heart attack Hyperlipidemia Insomnia Morbid obesity Obstructive sleep apnea CPAP of 10 with last polysomnogram November 2020 Obstructive sleep apnea Osteoarthritis of left knee Osteomyelitis PAD (peripheral artery disease) Restrictive airway disease Rheumatoid arthritis Seasonal rhinitis Type 2 diabetes mellitus Hemoglobin A1c was 7.8% on 12/26/2019. Urinary frequency Vertigo Vitamin D deficiency Surgical History Surgical History History of section (~1990) History of endometrial ablation (Unknown) History of hernia repair (~1994) History of hysterectomy (~1997) History of tubal ligation (~1997) S/P CABG x 1 (~06/05/20) Status post mi
[2023-03-04 23:50] VITALS: BP 117/74; PULSE 56; RESP 17; O2SAT 96
[2023-03-04] MEDS: SODIUM CHLORIDE 0.9% IV 1,000 ML 500 ML IV CONT (23:55)
[2023-03-05] VITALS (15 sets, daily range): BP systolic 102–139; BP diastolic 70–78; PULSE 56–82; RESP 16–20; TEMP 36.1–37.1; O2SAT 93–100; BMI 47.0
[2023-03-05] MEDS: SODIUM CHLORIDE 0.9% IV 1,000 ML 70 ML IV CONT ×2 (00:24→13:43)
--- NOTE | 2023-03-05 00:33 | ADMGEN ---
This patient, Apple Littlejohn, was admitted to Medical Room 253-01. Patient/family oriented to hospital policies and general routines including ID bracelet, bed and alarms, visiting hours, pain management, procedures, bathroom and other care routines, personal items, smoking policy, room service/diet, and visiting hours. Information on how to activate the Rapid Response Team has been discussed. Patient/Family are encouraged to report perceived risks to care and to ask questions if they do not understand what they are told or what they should do.
[2023-03-05 01:04] LABS: Glucose Point of Care 80 mg/dl (65-105)
--- NOTE | 2023-03-05 06:56 | ECG_ITS ---
Measurements Intervals [place] Rate: 60 P: 56 SC: 212 QRS: -55 QRSD: 156 T: 128 QT: 480 QTc: 483 Interpretive Statements SINUS RHYTHM WITH FIRST DEGREE AV BLOCK LEFT ANTERIOR SUPERIOR HEMIBLOCK ABNORMAL ECG COMPARED TO ECG 03/04/2023 16:16:31 NO SIGNIFICANT CHANGE Electronically Signed On 03-05-2023 13:05:37 CDT by Bertram Mayen M.D.
[2023-03-05 07:08] LABS: Hematocrit 42.2 % (37.0-47.0); Hemoglobin 13.4 g/dL (12.0-15.0); Mean Corpuscular HGB Conc 31.8 g/dl (32-36); Mean Corpuscular Hemoglobin 29.5 pg (26-34); Mean Corpuscular Volume 92.7 fl (80-100); Mean Platelet Volume 10.8 fl (7.4-10.4); Platelet Count Result 192 k/mm3 (150-375); Red Blood Count 4.55 M/mm3 (4.2-5.4); Red Cell Distribution Width 13.9 % (11.5-14.5); White Blood Count 6.5 K/mm3 (4.5-10.0)
--- NOTE | 2023-03-05 07:25 | PM.IMPN ---
Progress Note: A&P Assessment and Plan (1) DEIDRA (acute kidney injury): Code(s): N17.9 - Acute kidney failure, unspecified Status: Acute Assessment and Plan: The patient has acute kidney injury likely due to hypovolemia. In the past appears the patient has CKD but has never been formally diagnosed. She does have history of diabetes and hypertension. Does not know what her previous labs has been. Then will place patient on maintenance fluids at 75 mL an hour. Patient's BUN and creatinine on admission was 33/ 2.5 today it is 32/2.3. Will hold the patient's Lasix meloxicam and metformin given her acute kidney injury. (2) QT prolongation: Code(s): R94.31 - Abnormal electrocardiogram [ECG] [EKG] Status: Acute Assessment and Plan: Patient does have a history of atrial fibrillation and is on sotalol. However she has QT prolongation on her EKG. Due to the QT prolongation I held the patient's trazodone. Repeating EKG with QTc of 483. Cardiology consulted to see if sotalol needs to be discontinued or not. Will continue to monitor patient on telemetry. (3) CHF (congestive heart failure): Qualifiers: Heart failure chronicity: chronic Heart failure type: unspecified Qualified Code(s): I50.9 - Heart failure, unspecified Code(s): I50.9 - Heart failure, unspecified Status: Acute Assessment and Plan: Caution with fluid hydration. Patient stable at this time. (4) Dehydration: Code(s): E86.0 - Dehydration Status: Acute Assessment and Plan: Likely due to diuretic use and she is in the process of moving and has been outside. Dehydration likely cause of DEIDRA. (5) Hypotension due to hypovolemia: Code(s): I95.89 - Other hypotension; E86.1 - Hypovolemia Status: Acute Assessment and Plan: Resolved after fluid resuscitation. (6) Type 2 diabetes mellitus with hyperglycemia, without long-term current use of insulin: Code(s): E11.65 - Type 2 diabetes mellitus with hyperglycemia Status: Acute Assessment and Plan: Insulin Lispro sliding scale, Accu-checks qAc and HS and Hold oral hypoglycemics Initiate hypoglycemic precautions Obtain a HgbA1c Subjective Date/time seen: 03/05/23 07:25 Interval history: Patient feeling better today. She has a lot of vague symptoms that seem to be chronic. She has no no kidney disease although looking back in her history her creatinine appears to be between 1.2-1.7. She does have QTC prolongation and Cardiology was consulted due to her being on sotalol. Review of Systems Review of Systems: All systems reviewed & are unremarkable except as noted in HPI and below Exam Narrative: GENERAL: Comfortable, no acute distress HENMT: moist mucous membranes EYES: EOM intact b/l NECK: no lymphadenopathy RESPIRATORY: clear to auscultation CARDIO: RRR GI: soft, nontender, bowel sounds present SKIN: no rashes EXTREMITIES: no edema, redness or tenderness Objective Data Vital Signs Vital Signs: Vital Signs - 24 hr 03/04/23 16:29 03/04/23 17:07 03/04/23 17:07 Temperature 98.2 F Pulse Rate 76 77 77 Respiratory Rate 18 20 Blood Pressure 85/52 L 93/60 L Pulse Oximetry 92 92 Oxygen Delivery Room Air 03/04/23 17:08 03/04/23 18:16 03/04/23 23:50 Temperature Pulse Rate 75 56 L Respiratory Rate 20 16 17 Blood Pressure 99/55 L 117/74 Pulse Oximetry 93 94 96 Oxygen Delivery 03/05/23 00:25 03/05/23 01:17 03/05/23 04:00 Temperature 97.6 F Pulse Rate 67 82 65 Respiratory Rate 16 Blood Pressure 121/70 Pulse Oximetry 100 Oxygen Delivery 03/05/23 06:36 Temperature 97.9 F Pulse Rate 60 Respiratory Rate 16 Blood Pressure 102/70 Pulse Oximetry 93 Oxygen Delivery Intake/Output Intake/Output: Intake & Output 03/02/23 03/03/23 03/04/23 03/05/23 23:59 23:59 23:59 23:59 Intake Total 500 200 Balance 500 200 Meds/Results
[2023-03-05 07:35] LABS: Anion Gap 9 mmol/L (8-16); Blood Urea Nitrogen 32 mg/dL (7-17); Calcium 8.8 mg/dL (8.4-10.2); Carbon Dioxide 21 mmol/L (22-30); Chloride 110 mmol/L (98-107); Estimated CRCL calculation 38 ml/min; Estimated Glomerular Filt Rate 22; Glucose 91 mg/dL (65-110); Magnesium 2.1 mg/dL (1.6-2.3); Potassium 3.7 mmol/L (3.4-5.0); Sodium 140 mmol/L (137-145)
[2023-03-05 08:17] LABS: Glucose Point of Care 91 mg/dl (65-105)
[2023-03-05] MEDS: FLUTICASONE/SALMETEROL 115-21 MCG INHALER 1 PUFF 2 PUFF INHALATION ×2 (08:57→19:52)
[2023-03-05] MEDS: IPRATROPIUM BR 0.02% INH SOLN 0.5 MG/2.5 ML VIAL INHALATION ×2 (08:57→19:50)
[2023-03-05] MEDS: LEVALBUTEROL NEB 1.25 MG/3 ML 0.63 MG INHALATION ×2 (08:57→19:50)
[2023-03-05] MEDS: APIXABAN 5 MG TABLET PO ×2 (10:01→20:25)
[2023-03-05] MEDS: EMPAGLIFLOZIN 25 MG TABLET PO (10:02)
[2023-03-05] MEDS: EZETIMIBE 10 MG TABLET PO (10:02)
[2023-03-05] MEDS: glipiZIDE XL 5 MG TABCR PO ×2 (10:03→17:15)
[2023-03-05] MEDS: GABAPENTIN 300 MG CAPSULE PO ×3 (10:03→17:15)
[2023-03-05] MEDS: TOPIRAMATE 25 MG TABLET 50 MG PO ×2 (10:04→20:25)
[2023-03-05] MEDS: SERTRALINE HCL 50 MG TABLET PO (10:04)
[2023-03-05] MEDS: LORATADINE 10 MG TABLET PO (10:04)
[2023-03-05 12:13] LABS: Glucose Point of Care 105 mg/dl (65-105)
--- NOTE | 2023-03-05 14:05 | PM.CNCAR ---
Assessment and Plan Assessment and plan (1) QT prolongation: Code(s): R94.31 - Abnormal electrocardiogram [ECG] [EKG] Status: Acute Plan 57-year-old lady with valvular heart disease and coronary disease status post mitral valve repair and single bypass grafting to the mid PDA several years ago in June of 2020. Not surprisingly following that she does have a history of atrial fibrillation as well. She is currently taking sotalol which was started earlier this year and appears to be effectively maintaining sinus rhythm. In addition to a long QT interval she has intraventricular conduction delay with it with left anterior superior hemiblock which is also affecting her QT interval. I do not see any greatly concerning changes on the current ECG compared to the tracings from several months ago. Her renal function appears to be getting better with hydration consult for now I would continue her antiarrhythmic therapy without changes since it is effectively maintaining sinus rhythm. After he returns back vacation of course Dr. Erwin will continue her ongoing cardiovascular care. Bertram Mayen MD [facility] History of Present Illness History of Present Illness Consult date/time: 03/05/23 14:05 Reason For Visit: DEIDRA Narrative: This is a 57-year-old woman I am seeing at the request of the hospitalist/covering for Dr. Erwin who is her established extruder operator horizontal and is on vacation this week. The reason for consultation request today is to comment on the appropriateness of continuing sotalol because of prolonged QT interval. The patient's chart of well as Dr. Bradshaw previous notes have been reviewed. Upon seeing her in room 253 this afternoon she is comfortable upon awakening she offers no cardiovascular complaints or concerns. She was hospitalized here earlier in the week with severe lower extremity weakness which I do not believe has been explained as of this point. She was actually speaking with the entertainment centre manager as she is planning on moving into a new apartment this week and was signing papers in pain her rent. She said she became so weak she fell across the woman's desk and sat down to recover she ended up being brought into the emergency room here for evaluation. The patient has a history of valvular heart disease and coronary disease according to what I read in the record she was referred for mitral valve repair and bypass surgery back in June of 2020. She underwent surgery at [facility] and was found to have a perforation in mitral valve A1 leaflet and underwent a pericardial pledget repair, mitral valve annuloplasty and a single-vessel bypass graft to the PDA. According to the notes she also had amputation of the atrial appendages at that time as well. He does have a history of atrial fibrillation following this which has been treated with sotalol to maintain sinus rhythm. She is chronically anticoagulated with apixaban as well. Upon arrival in the hospital she was also found to have acute kidney injury felt to be due to volume depletion/dehydration she is receiving some fluid and that seems to be improving. Her electrocardiogram shows sinus rhythm/sinus bradycardia with left anterior superior hemiblock. Her QT interval is prolonged but not appreciably or significantly different from October of this year. The sotalol is effectively maintaining sinus rhythm. She not having any symptoms chest pain shortness of breath orthopnea or PND. Her other principal comorbidities morbid obesity she has a BMI of 47. According to recent office notes she is considering bariatric surgery. Review of Systems Constitutional: Constitutional: Reports fatigue and Reports lethargy Eyes: Eyes: Reports no additional eye complaints ENT: Reports system reviewed and no additional complaints, except as documented Cardiovascular: Cardiovascular: Reports no additional cardiovascular complaints Respiratory: Respiratory: Reports no additi
[2023-03-05 17:44] LABS: Glucose Point of Care 90 mg/dl (65-105)
[2023-03-05] MEDS: TOLNAFTATE 1% POWDER 45 GM BTL 1 APPLIC TOPICAL (20:25)
[2023-03-05] MEDS: ATORVASTATIN 40 MG TABLET 80 MG PO (20:25)
[2023-03-05] MEDS: buPROPion HCL 75 MG TABLET PO (20:25)
[2023-03-05 20:43] LABS: Glucose Point of Care 160 mg/dl (65-105)
[2023-03-06] VITALS (12 sets, daily range): BP systolic 119–144; BP diastolic 73–78; PULSE 52–61; RESP 18; TEMP 36.5–36.8; O2SAT 92–99
[2023-03-06 06:34] LABS: Basophils Percent Auto 0.5 % (0.2-1.2); Eosinophils Absolute Auto 0.2 K/mm3 (0-0.3); Eosinophils Percent Auto 2.7 % (0-4.4); Hematocrit 42.5 % (37.0-47.0); Immature Granulocyte Absolute 0.02 K/mm3 (0.00-0.031); Immature Granulocyte Percent A 0.3 % (0-0.5); Lymphocytes Absolute Auto 1.71 K/mm3 (0.9-3.2); Lymphocytes Percent Auto 28.4 % (18.3-44.2); Mean Corpuscular HGB Conc 30.6 g/dl (32-36); Mean Corpuscular Hemoglobin 29.6 pg (26-34); Mean Corpuscular Volume 96.8 fl (80-100); Mean Platelet Volume 10.6 fl (7.4-10.4); Monocytes Absolute Auto 0.5 K/mm3 (0.1-0.6); Neutrophils Absolute Auto 3.6 K/mm3 (1.3-6.7); Neutrophils Percent Auto 59.1 % (45.5-73.1); Platelet Count Result 172 k/mm3 (150-375); Red Blood Count 4.39 M/mm3 (4.2-5.4); Red Cell Distribution Width 14.1 % (11.5-14.5)
[2023-03-06 06:46] LABS: Alanine Aminotransferase 21 U/L (6-35); Albumin Level 3.4 g/dL (3.5-5.1); Alkaline Phosphatase 72 U/L (38-126); Anion Gap 9 mmol/L (8-16); Aspartate Amino Transferase 30 U/L (14-36); Bilirubin,Total 0.6 mg/dL (0.2-1.3); Blood Urea Nitrogen 23 mg/dL (7-17); Calcium 8.4 mg/dL (8.4-10.2); Carbon Dioxide 15 mmol/L (22-30); Chloride 111 mmol/L (98-107); Estimated CRCL calculation 58 ml/min; Estimated Glomerular Filt Rate 36; Glucose 102 mg/dL (65-110); Potassium 3.5 mmol/L (3.4-5.0); Sodium 135 mmol/L (137-145)
[2023-03-06 07:04] LABS: Hemoglobin A1C 5.7 % (<5.7)
[2023-03-06] MEDS: IPRATROPIUM BR 0.02% INH SOLN 0.5 MG/2.5 ML VIAL INHALATION (07:39)
[2023-03-06] MEDS: LEVALBUTEROL NEB 1.25 MG/3 ML 0.63 MG INHALATION (07:39)
[2023-03-06] MEDS: FLUTICASONE/SALMETEROL 115-21 MCG INHALER 1 PUFF 2 PUFF INHALATION (07:40)
[2023-03-06 08:30] LABS: Glucose Point of Care 95 mg/dl (65-105)
[2023-03-06] MEDS: APIXABAN 5 MG TABLET PO (09:14)
[2023-03-06] MEDS: LORATADINE 10 MG TABLET PO (09:15)
[2023-03-06] MEDS: GABAPENTIN 300 MG CAPSULE PO ×2 (09:15→12:56)
[2023-03-06] MEDS: EMPAGLIFLOZIN 25 MG TABLET PO (09:15)
[2023-03-06] MEDS: glipiZIDE XL 5 MG TABCR PO (09:15)
[2023-03-06] MEDS: EZETIMIBE 10 MG TABLET PO (09:15)
[2023-03-06] MEDS: TOLNAFTATE 1% POWDER 45 GM BTL 1 APPLIC TOPICAL (09:16)
[2023-03-06] MEDS: SOTALOL HCL 40 MG TABLET PO (09:16)
[2023-03-06] MEDS: TOPIRAMATE 25 MG TABLET 50 MG PO (09:16)
[2023-03-06] MEDS: SERTRALINE HCL 50 MG TABLET PO (09:16)
--- NOTE | 2023-03-06 11:22 | PM.DS ---
DS: Admitting Diagnosis Discharge Date 03/06/23 Admitting Diagnosis DEIDRA DS: Discharge Diagnosis Discharge Diagnosis (1) DEIDRA (acute kidney injury): Code(s): N17.9 - Acute kidney failure, unspecified Status: Acute (2) QT prolongation: Code(s): R94.31 - Abnormal electrocardiogram [ECG] [EKG] Status: Acute (3) CHF (congestive heart failure): Qualifiers: Heart failure chronicity: chronic Heart failure type: unspecified Qualified Code(s): I50.9 - Heart failure, unspecified Code(s): I50.9 - Heart failure, unspecified Status: Acute (4) Dehydration: Code(s): E86.0 - Dehydration Status: Acute (5) Hypotension due to hypovolemia: Code(s): I95.89 - Other hypotension; E86.1 - Hypovolemia Status: Acute (6) Type 2 diabetes mellitus with hyperglycemia, without long-term current use of insulin: Code(s): E11.65 - Type 2 diabetes mellitus with hyperglycemia Status: Acute DS: Summary Hospital Course Hospital Course: this is a 57-year-old female with a past medical history of type 2 diabetes, morbid obesity, KITTY, CKD and AFib the presented to the ED on 03/04/2023 with multiple complaints including chronic chest pain, chronic nausea, known vertigo, loose stools for months, and progressive weakness. Patient had been moving apartments when she suddenly became lethargic and weak. On presentation to the ED she was found to have blood pressures at 85/52 and received 1 L of fluids and blood pressures rebounded to 117/74. She was also found to have an DEIDRA with a BUN and creatinine of 33/2.5. from previous visits it appears that her creatinine is normally between 1.2-1.7. Patient stated that at this time she had felt much better. She drinks 2-316 oz bottles of water a day although she is on diuretics for heart failure. She was also found to have a prolonged QTc interval. She is on trazodone and sotalol. She was recently hospitalized due to atrial fibrillation and put on sotalol a couple months back. She sees Dr. Erwin. Cardiology consulted due to QTC prolonging agents and they recommended continuation of patient's sotalol and follow-up with Cardiology in the office. Patient received IV fluids and her BUN creatinine much improved. On the day of discharge she had returned to baseline. Her labs and vital signs are stable and she is medically clear for discharge at this time. Time Spent with Patient Time attestation: Total time spent providing and/or coordinating discharge services: Exam Narrative: GENERAL: Comfortable, no acute distress HENMT: moist mucous membranes EYES: EOM intact b/l NECK: no lymphadenopathy RESPIRATORY: clear to auscultation CARDIO: RRR GI: soft, nontender, bowel sounds present SKIN: no rashes EXTREMITIES: no edema, redness or tenderness DS: Data Data Completed and Pending Labs on day of discharge: Labs from last 24 hours 03/06/23 03/06/23 03/05/23 08:27 06:02 20:23 WBC 6.0 RBC 4.39 Hgb 13.0 Hct 42.5 MCV 96.8 MCH 29.6 MCHC 30.6 L RDW 14.1 Plt Count 172 MPV 10.6 H Immature Gran % (Auto) 0.3 Neut % (Auto) 59.1 Lymph % (Auto) 28.4 Gates % (Auto) 9.0 H Eos % (Auto) 2.7 Baso % (Auto) 0.5 Lymph # (Auto) 1.71 Gates # (Auto) 0.5 Eos # (Auto) 0.2 Baso # (Auto) 0.0 Abs Immat Gran (auto) 0.02 Absolute Neuts (auto) 3.6 Absolute Nucleated RBC 0.0 Nucleated RBC % 0.0 Sodium 135 L Potassium 3.5 Chloride 111 H Carbon Dioxide 15 L Anion Gap 9 BUN 23 H Creatinine 1.50 H Estim Creat Clear Calc 58 Estimated GFR 36 L Glucose 102 POC Capillary Glucose 95 160 H Hemoglobin A1c 5.7 Calcium 8.4 Total Bilirubin 0.6 AST 30 ALT 21 Alkaline Phosphatase 72 Total Protein 6.0 L Albumin 3.4 L 03/05/23 03/05/23 17:37 12:10 WBC RBC Hgb Hct MCV MCH MCHC RDW Plt Count MPV I
[2023-03-06 11:59] LABS: Glucose Point of Care 142 mg/dl (65-105)
[2023-03-06] MEDS: ACETAMINOPHEN 500 MG TABLET PO (12:55)
--- NOTE | 2023-03-06 15:41 | PC.NURSE ---
Patient stated they wear oxygen at home. Patient does not have a tank to return home with. Provider requested an home O2 evaluation. Home 02 evaluation completed and patient no requiring oxygen at this time. Spoke to provider ZAKI Christian regarding result and patient is ok to discharge at this time.
== END 2023-03-06 15:48 | disposition home or self-care (01) ==
LOC: ANHED 23:20 → ANH2MED 03-05 01:05
PROVIDERS: General Practice; Internal Medicine Critical Care Medicine; Admitting Provider Internal Medicine; Emergency Provider Student in an Organized Health Care Education/Training Program; PCP Family Medicine; Visit Provider Family Medicine
DX: N17.9 Acute kidney failure, unspecified (principal); R94.31 Abnormal electrocardiogram [ECG] [EKG]; R07.9 Chest pain, unspecified; I13.0 Hypertensive heart and chronic kidney disease with heart failure and stage 1 through stage 4 chronic kidney disease, or unspecified chronic kidney disease; I50.9 Heart failure, unspecified; E11.22 Type 2 diabetes mellitus with diabetic chronic kidney disease; I95.89 Other hypotension; E86.0 Dehydration; E11.65 Type 2 diabetes mellitus with hyperglycemia; G89.29 Other chronic pain; M54.9 Dorsalgia, unspecified; I71.20 Thoracic aortic aneurysm, without rupture, unspecified; R53.1 Weakness; N18.30 Chronic kidney disease, stage 3 unspecified; R51.9 Headache, unspecified; R42 Dizziness and giddiness; R26.89 Other abnormalities of gait and mobility; J96.91 Respiratory failure, unspecified with hypoxia; F41.8 Other specified anxiety disorders; I44.4 Left anterior fascicular block; I50.1 Left ventricular failure, unspecified; J44.9 Chronic obstructive pulmonary disease, unspecified; E78.5 Hyperlipidemia, unspecified; I48.91 Unspecified atrial fibrillation; J32.9 Chronic sinusitis, unspecified; Z99.81 Dependence on supplemental oxygen; G47.33 Obstructive sleep apnea (adult) (pediatric); Z99.89 Dependence on other enabling machines and devices; G47.00 Insomnia, unspecified; R63.0 Anorexia; M79.7 Fibromyalgia; F40.240 Claustrophobia; F17.210 Nicotine dependence, cigarettes, uncomplicated; E66.01 Morbid (severe) obesity due to excess calories; Z68.42 Body mass index [BMI] 45.0-49.9, adult; Z79.1 Long term (current) use of non-steroidal anti-inflammatories (NSAID); Z79.84 Long term (current) use of oral hypoglycemic drugs; Z79.85 Long-term (current) use of injectable non-insulin antidiabetic drugs; Z79.899 Other long term (current) drug therapy; Z86.73 Personal history of transient ischemic attack (TIA), and cerebral infarction without residual deficits; Z83.3 Family history of diabetes mellitus; Z82.49 Family history of ischemic heart disease and other diseases of the circulatory system; Z84.89 Family history of other specified conditions
CPT/HCPCS: 36415; 70450; 71046; 80048; 80053; 81001; 82948; 83036; 83690; 83735; 84484; 85025; 85027; 85610; 85730; 87086; 87088; 93005; 94002; 94618; 94640; 96360; 96361; 99285; A9270; G0378; J7030; J7040

== ENCOUNTER 2023-12-08 11:55 | Outpatient (CLI) | payer MEDICARE, MEDICAID, SELFPAY ==
--- NOTE | 2023-12-08 12:43 | ECHO_ITS ---
Patient Info Name: Apple Littlejohn Age: 58 years : 1965 Gender: Female Ht: 68 in Wt: 284 lbs BSA: 2.55 m2 HR: 75 bpm BP: 170 / 110 mmHg Heart Rhythm: Sinus Rhythm Technical Quality: Poor Exam Date: 12/08/2023 12:54 PM Exam Location: Echo Lab Patient Status: Outpatient Admit Date: 12/08/2023 Staff Ordering Physician: Trevor Erwin DO Preform Machine Operator: Maryse Moreno RDCS Attending Provider: Trevor Erwin DO Referring Physician: Rip LORENZO; Exam Type: CA echo dop color flow w con Study Info Indications - heart disease Complete two-dimensional, color flow and Doppler transthoracic echocardiogram is performed with contrast to opacify the left ventricle and to improve the deliniation of the left ventricle endocardial borders. Reason for Poor Study: poor echocardiographic windows Summary 1. Technically suboptimal study due to poor sonographic images. 2. Definity contrast administered improved wall motion interpretation. 3. Left ventricular chamber dimension is normal. 4. Left ventricular systolic function is normal, estimated at 60-65%. 5. There is mild concentric increased left ventricular wall thickness. 6. The left ventricular diastolic function is grade I diastolic dysfunction. 7. E/e' 14 is mildly elevated. 8. The mitral valve has moderately calcified annulus. 9. No pulmonary hypertension, estimated pulmonary arterial systolic pressure is 13 mmHg. Left Ventricle E/e' 14 is mildly elevated. Definity contrast administered improved wall motion interpretation. Technically suboptimal study due to poor sonographic images. Left ventricular chamber dimension is normal. Left ventricular systolic function is normal, estimated at 60-65%. There is mild concentric increased left ventricular wall thickness. The left ventricular diastolic function is grade I diastolic dysfunction. Right Ventricle Right ventricular systolic function is normal and with normal TAPSE 2.5 cm. Right ventricular chamber dimension is normal. Left Atria Left atrial chamber dimension is normal. Right Atria Right atrial chamber dimension is normal. Aortic Valve The aortic valve is probable trileaflet. There is no aortic valve stenosis. There is no aortic valve regurgitation. Pulmonic Valve There is no pulmonic regurgitation. Mitral Valve The mitral valve has moderately calcified annulus. Mitral valve is not well seen. There is no mitral valve stenosis. There is no mitral valve regurgitation. Tricuspid Valve There is no tricuspid valve regurgitation. No pulmonary hypertension, estimated pulmonary arterial systolic pressure is 13 mmHg. Pericardium/Pleural There is no pericardial effusion. Inferior Vena Cava Normal inferior vena cava with >50% collapse upon inspiration consistent with normal right atrial pressure, 5 mmHg. Aorta The aortic root size at the sinus of Valsalva is normal. Left Ventricular Outflow Tract Name Value Normal LVOT 2D LVOT Diameter 1.95 cm LVOT Doppler LVOT Peak Gradient 2 mmHg LVOT Mean Gradient 1 mmHg LVOT VTI 12.84 cm LVOT VTI/AV VTI Ratio 0.68 LVOT Stroke Volume
[2023-12-08 13:16] LABS: Cholesterol 152 mg/dL (0-200); HDL Direct 43 mg/dL; Triglycerides 242 mg/dL (<150)
[2023-12-08 13:27] LABS: LDL Cholesterol Direct 89 mg/dL
--- NOTE | 2023-12-08 13:45 | IVDEFINITY ---
Prior to administration of IV Definity the patient was educated on the risks and benefits of the imaging enhancing agent including potential adverse side effects. The patient verbalized understanding. Allergies were verified. No exclusion criteria were identified and at least one of the following inclusion criteria were met: 1) physician request, 2) patient technically difficult to image (per the [place] [employer]chocardi[employer] guidelines of two or more segments not discernable within the apical view), or 3) questionable left ventricular function. ?
== END 2023-12-08 11:56 | disposition home or self-care (01) ==
LOC: ANHCARD 11:57
PROVIDERS: PCP Family Medicine; Visit Provider Internal Medicine Cardiovascular Disease
DX: I51.89 Other ill-defined heart diseases (principal); I34.81 Nonrheumatic mitral (valve) annulus calcification; E78.5 Hyperlipidemia, unspecified
CPT/HCPCS: 36415; 80061; C8929

== ENCOUNTER 2025-07-16 09:29 | Outpatient (CLI) | payer MEDICARE, SELFPAY ==
--- NOTE | ~2025-07-16 | NM_ITS ---
EXAMINATION: NM angelika stress w perfusion DATE: 07/16/2025 12:57 INDICATION: Chest pain TECHNIQUE: Rest images were obtained following intravenous administration of 8.5 mCi Tc99m tetrofosmin (Myoview). The patient was infused intravenously with Lexiscan (Regadenoson). Then, 24.6 mCi Tc99m tetrofosmin (Myoview) was administered intravenously, and stress images were obtained. Data was recon structed into short axis and horizontal and vertical long axis SPECT images. Gated SPECT images were also obtained. COMPARISON: None. FINDINGS: There is no definite reversible or fixed perfusion abnormality to suggest ischemia or infarction. There is normal left ventricular chamber size, wall motion and ejection fraction. Left ventricular ejection fraction measures 66%. IMPRESSION: 1. Normal myocardial perfusion at rest and during stress. 2. Left ventricular ejection fraction measuring 66%. Reviewed, dictated and finalized at location A. [employer]
--- NOTE | 2025-07-16 09:38 | EST_ITS ---
Patient Info Name: Apple Littlejohn Age: 60 years : 1965 Gender: Female Ht: 69 in Wt: 320 lbs BSA: 2.74 m2 HR: 52 bpm BP: 132 / 95 mmHg Exam Date: 07/16/2025 9:38 AM Patient Status: O Admit Date: 07/16/2025 Exam Type: CA stress angelika w NM A regadenoson stress test was performed. Staff Referring Physician: Trevor Erwin DO Attending Provider: Trevor Erwin DO Exercise Technologist: Lisa Romero Exercise Physician: Trevor Erwin DO Summary 1. 1. Negative lexiscan stress test for ischemic ST changes by ECG criteria. 2. 2. Stable hemodynamics throughout the test. 3. 3. Nuclear scan to follow and will be reported separately. Please correlate with it. 4. 4. Patient informed of the above results. Protocol: Lexiscan Stress ECG Details Stage: REST Duration (min): 0 min : 31 sec HR (bpm): 53 SBP (mmHg): --- DBP (mmHg): --- Stage: REST Duration (min): 4 min : 51 sec HR (bpm): 54 SBP (mmHg): 132 DBP (mmHg): 95 Stage: STAGE 1 Duration (min): 0 min : 59 sec HR (bpm): 66 SBP (mmHg): 142 DBP (mmHg): 92 Stage: RECOVERY Duration (min): 1 min : 0 sec HR (bpm): 78 SBP (mmHg): 142 DBP (mmHg): 92 Stage: RECOVERY Duration (min): 2 min : 0 sec HR (bpm): 73 SBP (mmHg): 142 DBP (mmHg): 92 Stage: RECOVERY Duration (min): 3 min : 0 sec HR (bpm): 71 SBP (mmHg): 133 DBP (mmHg): 88 Stage: RECOVERY Duration (min): 4 min : 0 sec HR (bpm): 68 SBP (mmHg): 133 DBP (mmHg): 88 Stage: RECOVERY Duration (min): 4 min : 2 sec HR (bpm): 67 SBP (mmHg): 133 DBP (mmHg): 88 Rest HR: 54 bpm Peak HR: 78 bpm Rest Sys BP: 132 mmHg Peak Sys BP: 142 mmHg Max Pred HR: 162 bpm % Max Pred HR: 48 % Target HR: 138 bpm Max RPP: 11,076 bpm*mmHg Termination Reason: Completed protocol Cardiac Symptoms: Shortness of breath, Chest discomfort Total Time: 1 min : 0 sec Rest Ryder BP: 95 mmHg Peak Ryder BP: 92 mmHg Total Dose: 0.4 mg Resting ECG Sinus bradycardia. Stress ECG No ST changes. Arrhythmias None. Report Signatures
== END 2025-07-16 09:30 | disposition home or self-care (01) ==
PROVIDERS: PCP Family Medicine; Visit Provider Internal Medicine Cardiovascular Disease
DX: R07.9 Chest pain, unspecified (principal); R00.2 Palpitations
CPT/HCPCS: 78452; 93017; A9502; J2785